=== PATIENT | male | born 1935 | race Asian ===

== ENCOUNTER 2017-07-09 16:48 | Inpatient (IN) | payer MEDICARE, OTHER ==
[~2017-07-09] VITALS: Ht 167.6 cm; Wt 59.8 kg
[2017-07-09] MEDS ORDERED: ASPIRIN 81 MG TAB PO ONE (18:30)
[2017-07-09 18:43] LABS: ABNORMAL IP MESSAGE 1; BASOPHILS % 0.1 % (0.0-2.0); EOSINOPHILS # 0.1 10^3/ul (0.0-0.5); EOSINOPHILS % 1.3 % (0.0-7.0); HEMATOCRIT 29.9 % (42.0-52.0); HEMOGLOBIN 9.6 g/dl (14.0-18.0); LYMPHOCYTES # 0.5 10^3/ul (0.8-2.9); LYMPHOCYTES % 7.2 % (15.0-51.0); MEAN CORPUSCULAR HEMOGLOBIN 29.1 pg (29.0-33.0); MEAN CORPUSCULAR HGB CONC 32.1 g/dl (32.0-37.0); MEAN CORPUSCULAR VOLUME 90.6 fl (82.0-101.0); MEAN PLATELET VOLUME 10.5 fl (7.4-10.4); MONOCYTE # 0.4 10^3/ul (0.3-0.9); MONOCYTES % 5.7 % (0.0-11.0); NEUTROPHILS % 85.2 % (39.0-77.0); PLATELET COUNT 243 10^3/UL (140-415); POSITIVE DIFF @See below; WHITE BLOOD COUNT 7.5 10^3/ul (4.8-10.8)
--- NOTE | 2017-07-09 18:54 | ERA ---
ER Documentation Chief Complaint Date/Time DATE: 07/09/17 TIME: 18:51 Chief Complaint cp x3 wks HPI 81-year-old man with a history of lung cancer treated with chemotherapy presents with chest pain or shortness of breath 3 weeks, moderate cough as well. Family members state he is also been feeling weak lately. He denies fevers he has had recent bilateral lower extremity swelling. He states the pain is sharp worse with cough, nonexertional nonradiating. Denies vomiting or diarrhea, no weight loss, no blood per rectum. ROS All systems reviewed and are negative except as per history of present illness. Medications Home Meds Reported Medications Ranolazine* (Ranexa*) 500 Mg Tab.sr.12h, 500 MG PO Q12 for ANGINA, TAB 07/09/17 Escitalopram Oxalate* (Escitalopram Oxalate*) 5 Mg/5 Ml Solution, 5 MG PO QPM, ML 07/09/17 Montelukast Sodium* (Montelukast Sodium*) 10 Mg Tablet, 10 MG PO QAM, #30 TAB 07/09/17 Clopidogrel Bisulfate* (Clopidogrel Bisulfate*) 75 Mg Tablet, 75 MG PO QAM, #30 TAB 07/09/17 Atorvastatin Calcium (Atorvastatin Calcium) 10 Mg Tablet, 10 MG PO QHS, #30 TAB 07/09/17 Carvedilol* (Carvedilol*) 3.125 Mg Tablet, 3.125 MG PO QAM, #60 TAB 07/09/17 Tamsulosin Hcl* (Tamsulosin Hcl*) 0.4 Mg Cap.er.24h, 0.4 MG PO HS, CAP 07/09/17 Midodrine* (Midodrine*) 5 Mg Tablet, 5 MG PO BID, TAB 07/09/17 Metformin* (Glucophage*) 500 Mg Tab, 500 MG PO PC BREAKFAST, #60 TAB 07/09/17 Ranitidine Hcl* (Ranitidine Hcl*) 150 Mg Tablet, 150 MG PO HS, #30 TAB 07/09/17 Digoxin* (Digitek*) 125 Mcg Tablet, 0.125 MG PO QAM, TAB 07/09/17 Ergocalciferol (Vitamin D2) (VITAMIN D2) 2,000 Unit Tablet, 2000 UNIT PO, TAB 07/09/17 Cliff-3 Fatty Acids/Fish Oil (Cliff 3 1,000 mg Softgel) 1 Each Capsule, 1 EACH PO, CAP 07/09/17 Allergies Allergies: Coded Allergies: No Known Allergy (Unverified , 07/09/17) PMhx/Soc Lung cancer, hypertension, diabetes mellitus, CAD History of Surgery: Yes (cabg 2004) Anesthesia Reaction: No Hx 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 Disorder: No Hx Respiratory Disorders: Yes (lung cancer 2006 on chemo til 2009) Hx Cardiac Disorders: Yes (CT,hld,chronic cp on ranexa,hypotension on midodrine ) Hx Psychiatric Problems: No Hx Miscellaneous Medical Probl: Yes (dm,bph) Hx Alcohol Use: No Hx Substance Use: No Hx Tobacco Use: No Smoking Status: Never smoker FmHx Family History: No diabetes Physical Exam Vitals Vital Signs Date Time Temp Pulse Resp B/P Pulse Ox O2 Delivery O2 Flow Rate FiO2 07/09/17 20:08 98.8 70 21 151/65 96 Room Air 07/09/17 17:08 98.1 76 20 138/64 99 Physical Exam GENERAL: Elderly, dehydrated man, no apparent distress, nontoxic, afebrile HEENT: Dry mucous membranes, pink conjunctiva, no cervical spine tenderness or step-off deformities, no goiter, no jaundice or icterus, extraocular movements intact without pain. No submandibular induration, and no pharyngeal erythema NEURO: Alert and oriented 3, cranial nerves II through XII intact bilaterally, pupils equal round reactive to light, no focal deficits or facial asymmetry, sensation intact distally Strength 5/5 in upper and lower extremities bilaterally CARDIAC: Regular rate and rhythm, no murmurs rubs or gallops LUNGS: Poor breath sounds bilaterally, crackles at the bases, worse on the right compared to the left ABDOMEN: Soft nontender, no guarding, no rigidity, no rebound, no psoas sign no obturator sign. Normoactive bowel sounds SKIN: Warm and dry to touch, no abrasions, contusions, or hematomas, no lacerations, no ecchymosis, no target lesions, and without ulcers EXTREMITIES: No clubbing cyanosis or edema, calves are bilaterally symmetrical, no Homans sign, no popliteal cord sign. Distal pulses equal and bilateral PSYCH: Normal affect without agitation or irritability Result Diagram: 07/09/17 1824 07/09/17 1824 Results 24 hrs Laboratory Tests Test 07/09/17 18:24 White Blood Count 7.510^3/ul Red Blood Count 3.3010^6/ul Hemoglobin 9.6g/dl Hematocrit 29.9% Mean Corpuscular Volume 90.6fl Mean Corpuscular Hemoglobin 29.1pg Mean Corpuscular Hemoglobin Concent 32.1g/dl Red Cell Distribution Width 17.0% Platelet Count 51538^3/UL Mean Platelet Volume 10.5fl Neutrophils % 85.2% Lymphocytes % 7.2% Monocytes % 5.7% Eosinophils % 1.3% Basophils % 0.1% Nucleated Red Blood Cells % 0.0/100WBC Neutrophils # (Manual) 610^3/ul Lymphocytes # 0.510^3/ul Monocytes # 0.410^3/ul Eosinophils # 0.110^3/ul Basophils # 0.010^3/ul Nucleated Red Blood Cells # 0.010^3/ul Sodium Level 138mmol/L Potassium Level 2.6mmol/L Chloride Level 93mmol/L Carbon Dioxide Level 37mmol/L Anion Gap 11 Blood Urea Nitrogen 20mg/dl Creatinine 0.60mg/dl Glucose Level 134mg/dl Calcium Level 8.5mg/dl Total Bilirubin 0.2mg/dl Direct Bilirubin 0.00mg/dl Indirect Bilirubin 0.2mg/dl Aspartate Amino Transf (AST/SGOT) 13IU/L Alanine Aminotransferase (ALT/SGPT) 23IU/L Alkaline Phosphatase 60IU/L Troponin I 0.020ng/ml B-Type Natriuretic Peptide 2510PG/ML Total Protein 6.2g/dl Albumin 3.1g/dl Globulin 3.10g/dl Albumin/Globulin Ratio 1.00 Lipase 310U/L Current Medications Medications (Trade) Dose Ordered Sig/Sari Route PRN Reason Start Time Stop Time Status Last Admin Dose Admin Aspirin (Aspirin) 324 mg ONCE ONCE PO 07/09/17 18:30 07/09/17 18:31 DC 07/09/17 18:44 Potassium Citrate 40 meq 40 meq ONCE STAT PO 07/09/17 19:11 07/09/17 19:12 Cancel Potassium Chloride 250 ml @ 62.5 mls/hr ONCE ONCE IVPB 07/09/17 19:30 07/09/17 23:29 07/09/17 20:05 Magnesium Sulfate (Magnesium Sulfate 2 Gm/50 ml) 50 ml @ 25 mls/hr ONCE ONCE IVPB 07/09/17 19:30 07/09/17 21:29 DC 07/09/17 19:40 Potassium Chloride (Klor-Con 20) 40 meq ONCE PO 07/09/17 19:30 07/09/17 22:00 DC 07/09/17 19:40 Procedures/MDM IV line was established patient was placed on surveillance monitor rhythm strip revealed a sinus rhythm at about 80 bpm. Patient was afebrile. EKG performed, read by me revealed a normal sinus rhythm at 78 bpm, normal axis , right bundle branch block with a QRS duration of 140 ms, QT prolongation at [address] elevations or depressions noted. One view chest x-ray performed, read by me as cardiomegaly and almost complete whiteout of the right lung consistent with large pleural versus malignant effusion. No pneumothorax, no end of the diaphragm. Patient received aspirin 324 mg p.o. for cardioprotective measures. CBC was unremarkable although there is mild anemia with hemoglobin of 9.6, electrolytes revealed dehydration with a BUN creatinine 20/0.6 and severe hypokalemia 2.6. Liver function tests normal, troponin negative. BNP elevated at 2500 consistent with large right pleural effusion. I administered oral and IV potassium supplementation as well as magnesium 1 g IV. Critical Care: Time: For minutes, this was time separate from other billable procedures. Treatments/Evaluations: Close monitoring and treatment of unstable vital signs, cardiorespiratory, and neurologic status, while maintaining tight balance of fluid, respiratory, and cardiac interventions. Patient admitted to telemetry setting for continued medical management and possible thoracentesis. Departure Diagnosis: Primary Impression: Chest pain Qualified Code: R07.9 - Chest pain, unspecified type Additional Impressions: Lung cancer Qualified Code: C34.31 - Malignant neoplasm of lower lobe of right lung Pleural effusion Acute hypokalemia Condition: Serious ZAID HERRERA MD Jul 09, 2017 18:52
--- NOTE | 2017-07-09 18:57 | RADRPT ---
PROCEDURE: Portable chest x-ray. CLINICAL INDICATION: 81 years of age, male. Abdominal pain. TECHNIQUE: Portable AP view of the chest. COMPARISON: None available. FINDINGS: Sternal wires and mediastinal clips from previous cardiac surgery. Atherosclerosis aorta. Enlarged cardiopericardial silhouette. There is a large right pleural effusion with pleural thickening extending over the lateral hemithora x and right lung apex with a small amount of residually aerated lung in the right mid lung zone. Th ere is near-complete opacification of the right hemithorax. There is mild patchy air space disease in the left mid and lower lung zones. Negative for left pleu ral effusion or pneumothorax. Mediastinum remain central. Bones are osteopenic. IMPRESSION: Near complete opacification of the right hemithorax due to a pleural effusion and pleural thickening . Recommend correlation with chest history. This appearance could be due to neoplasms with maligna nt pleural involvement or pleuropulmonary infections. Recommend further evaluation with chest CT or correlation with previous imaging. Patchy consolidation in the left mid and lower lung zones is concerning for aspiration or pneumonia. RPTAT: HCTS Physician Saira Date Time Electronically viewed and signed by Physician Saira on 07/09/2017 18:57 /
[2017-07-09 19:03] LABS: ALBUMIN 3.1 g/dl (3.3-4.9); BILIRUBIN,INDIRECT 0.2 mg/dl (0-1.1); BILIRUBIN,TOTAL 0.2 mg/dl (0.2-1.3); CALCIUM 8.5 mg/dl (8.4-10.2); CREATININE 0.6 mg/dl (0.61-1.24); TOTAL PROTEIN 6.2 g/dl (6.1-8.1)
[2017-07-09 19:10] LABS: POTASSIUM 2.6 mmol/L (3.5-5.1)
[2017-07-09] MEDS ORDERED: POTASSIUM CITRATE (SR) 5 MEQ TAB PO STA (19:11)
[2017-07-09 19:14] LABS: TROPONIN-I 0.02 ng/ml (0.00-0.12)
[2017-07-09] MEDS ORDERED: MAGNESIUM SULFATE 2 GM/50 ML 50 ML IVPB ONE (19:30)
[2017-07-09] MEDS ORDERED: POTASSIUM CHLORIDE 250 ML IVPB ONE (19:30)
[2017-07-09] MEDS ORDERED: POTASSIUM CHLORIDE (SR) 20 MEQ TAB PO SCH (19:30)
[2017-07-09] MEDS ORDERED: ATOR10TA65 PO (22:07)
[2017-07-09] MEDS ORDERED: TAMS0.4C2 PO (22:07)
[2017-07-09] MEDS ORDERED: RANI150T5 PO (22:07)
[2017-07-09] MEDS ORDERED: RANO500T2 PO (22:07)
[2017-07-09] MEDS ORDERED: MIDO5TAB19 PO (22:07)
[2017-07-09] MEDS ORDERED: CARV3.1260 PO (22:07)
[2017-07-09] MEDS ORDERED: CLOP75TA4 PO (22:07)
[2017-07-09] MEDS ORDERED: METF500T4 PO (22:07)
[2017-07-09] MEDS ORDERED: MONT10TA24 PO (22:07)
[2017-07-09] MEDS ORDERED: ESCI5SOL2 PO (22:07)
[2017-07-09] MEDS ORDERED: DIGO125T PO (22:07)
[2017-07-09] MEDS ORDERED: OMEG1CAP90 PO (22:07)
[2017-07-09] MEDS ORDERED: ERGO2000 PO (22:07)
[2017-07-09] MEDS ORDERED: DOCUSATE SODIUM 100 MG CAP PO PRN (23:30)
[2017-07-09] MEDS ORDERED: NACL 0.9% 3 ML SYG IV SCH (23:30)
[2017-07-09] MEDS ORDERED: MAGNESIUM HYDROXIDE 30ML CUP PO PRN (23:30)
[2017-07-09] MEDS ORDERED: ONDANSETRON 4 MG INJ IV PRN (23:30)
[2017-07-10] VITALS (14 sets, daily range): BP systolic 112–180; BP diastolic 60–89; PULSE 72–113; RESP 18–20; TEMP 99.6; Ht 167.6 cm; Wt 59.8 kg
[2017-07-10] MEDS: NS + KCL 20 MEQ 1,000 ML IV SCH ×2 (03:11→19:23)
[2017-07-10 07:35] LABS: ABNORMAL IP MESSAGE 1; BASOPHILS % 0.3 % (0.0-2.0); EOSINOPHILS % 0.5 % (0.0-7.0); HEMOGLOBIN 8.5 g/dl (14.0-18.0); LYMPHOCYTES # 0.5 10^3/ul (0.8-2.9); LYMPHOCYTES % 6.8 % (15.0-51.0); MEAN CORPUSCULAR HEMOGLOBIN 28.2 pg (29.0-33.0); MEAN CORPUSCULAR HGB CONC 31.5 g/dl (32.0-37.0); MEAN CORPUSCULAR VOLUME 89.7 fl (82.0-101.0); MEAN PLATELET VOLUME 10.5 fl (7.4-10.4); MONOCYTE # 0.5 10^3/ul (0.3-0.9); MONOCYTES % 6.8 % (0.0-11.0); NEUTROPHILS % 84.9 % (39.0-77.0); PLATELET COUNT 227 10^3/UL (140-415); POSITIVE DIFF @See below; RED BLOOD COUNT 3.01 10^6/ul (4.70-6.10); RED CELL DISTRIBUTION WIDTH 17.2 % (11.5-14.5); WHITE BLOOD COUNT 7.5 10^3/ul (4.8-10.8)
[2017-07-10 08:31] LABS: IRON 22 ug/dl (35-150)
[2017-07-10 08:41] LABS: TOTAL IRON BINDING CAPACITY 161 ug/dl (241-421)
[2017-07-10 08:43] LABS: ALBUMIN 2.6 g/dl (3.3-4.9); ALBUMIN/GLOBULIN RATIO 0.96; BILIRUBIN,INDIRECT 0.3 mg/dl (0-1.1); BILIRUBIN,TOTAL 0.3 mg/dl (0.2-1.3); CALCIUM 7.6 mg/dl (8.4-10.2); CREATININE 0.5 mg/dl (0.61-1.24); MAGNESIUM 1.8 mg/dl (1.7-2.5); TOTAL PROTEIN 5.3 g/dl (6.1-8.1)
[2017-07-10 08:53] LABS: POTASSIUM 2.8 mmol/L (3.5-5.1)
[2017-07-10] MEDS: FAMOTIDINE 20 MG TAB PO SCH ×2 (08:54→20:44)
[2017-07-10 09:02] LABS: THYROID STIMULATING HORMONE 0.577 MIU/L (0.465-4.680)
[2017-07-10] MEDS: ENOXAPARIN 40 MG/0.4 ML SYG SC SCH (09:05)
[2017-07-10] MEDS ORDERED: POTASSIUM CHLORIDE (SR) 10 MEQ TAB PO ONE (09:30)
[2017-07-10 09:37] LABS: FOLATE 8.9 ng/ml (2.8-20.0)
[2017-07-10] MEDS ORDERED: POTASSIUM CHLORIDE 30 MEQ in SOD CHLORIDE 0.9% 150 ML IVPB SCH (11:30)
[2017-07-10] MEDS ORDERED: BISACODYL 10 MG SUPP PR PRN (12:00)
[2017-07-10] MEDS ORDERED: PANTOPRAZOLE (EC) 40 MG TAB PO ONE (14:00)
[2017-07-10] MEDS: MONTELUKAST 10 MG TAB PO SCH (14:00)
[2017-07-10] MEDS ORDERED: Discontinue current oral sulfonylureas (glyburide, glipizide, and/or glimepiride) prior to XX ONE (14:00)
[2017-07-10] MEDS ORDERED: HYPOGLYCEMIA PROTOCOL when Glucose is <70 mg/dL or symptomatic <90 mg/dL. XX ONE (14:00)
[2017-07-10] MEDS: CLOPIDOGREL 75 MG TAB PO SCH (14:00)
[2017-07-10] MEDS: DIGOXIN 0.125 MG TAB PO SCH (14:00)
[2017-07-10] MEDS ORDERED: FISH OIL 1,000 MG CAP PO ONE (14:00)
--- NOTE | 2017-07-10 14:00 | HP ---
Date/Time of Note Date/Time of Note DATE: 07/10/17 TIME: 13:14 Assessment/Plan VTE Prophylaxis VTE Prophylaxis Intervention: LMWH Lines/Catheters IV Catheter Type (from Nrsg): Peripheral IV Assessment/Plan Assessment/Plan -Chest pain- no chest pain at present, shows PVCs -Admit to telemetry -Cardiology consult Dr. Santana Tran notified -Resume home meds --Pleural effusion -Pulmonary consult obtained - Hypokalemia severe- K replated. am BMP Malignant neoplasm of lower lobe of right lung -Pain control. We will get pain management if pain is not controlled -Anemia -GI consult Dr. Delgado notified -Diabetes mellitus -Glycemic control -1800 cash low-sodium low-cholesterol diet -We will do hemoglobin A1c am -Dietary consult -manager home consult -Benign prostate hypertrophy -Continue Flomax Lovenox for DVT prophylaxis Protonix for GI prophylaxis Further recommendations depend on patient's clinical course . plan of care discussed with Dr. Morrissey, staff HPI/ROS Admit Date/Time Admit Date/Time Jul 09, 2017 at 19:15 Hx of Present Illness HPI This is a 81-year-old man with a history of lung cancer 2007 on chemo til 2009 hypertension, diabetes mellitus, CAD, SP CABG 2004, [place], Hyperlipidemia, chronic chest pain, Hypotension on midodrine, Diabetes Mellitus, BPH is admitted with chest pain and shortness of breath 3 weeks, moderate cough as well, generalized weakness, He denied fevers he has had recent bilateral lower extremity swelling. He states the pain is sharp worse with cough, nonexertional nonradiating. Denies chest pain, shortness of breath, vomiting or diarrhea, no weight loss, no blood per rectum. Patient is resting in bed, seems comfortable. Dr Morrissey is the admitting and attending provider, ROS All systems reviewed and are negative except as per history of present illness. ROS ROS All systems reviewed and are negative except as per history of present illness. Allergies No Known Allergy (Unverified , 07/09/17) Respiratory: no complaints Cardiovascular: no complaints Gastrointestinal: no complaints Genitourinary: no complaints Musculoskeletal: no complaints Skin: no complaints Neurologic: no complaints PMH/Family/Social Past Medical History PMhx/Soc Lung cancer, hypertension, diabetes mellitus, CAD History of Surgery: Yes (cabg 2004) Anesthesia Reaction: No Hx 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 Disorder: No Hx Respiratory Disorders: Yes (lung cancer 2007 on chemo til 2009) Hx Cardiac Disorders: Yes ([place],hld,chronic cp on ranexa,hypotension on midodrine ) Hx Psychiatric Problems: No Hx Miscellaneous Medical Probl: Yes (dm,bph) Hx Alcohol Use: No Hx Substance Use: No Hx Tobacco Use: No Smoking Status: Never smoker FmHx Family History: No diabetes Social History Smoking Status: Never smoker Exam/Review of Systems Vital Signs Vitals Vital Signs Date Time Temp Pulse Resp B/P Pulse Ox O2 Delivery O2 Flow Rate FiO2 07/10/17 12:06 73 07/10/17 11:08 97.7 18 140/67 94 07/10/17 02:49 Room Air Intake and Output 07/09/17 07/09/17 07/10/17 15:00 23:00 07:00 Intake Total 50 ml 580 ml Output Total 400 ml Balance 50 ml 180 ml Exam Constitutional: alert, oriented, well developed Respiratory: diminished breath sounds Cardiovascular: other (sinus Bundle branch, PVCs), regular rate and rhythm Gastrointestinal: non-tender, soft Musculoskeletal: nl extremities to inspection Extremities: normal pulses 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: nl mental status, nl speech Labs Result Diagram: 07/10/1751 07/10/17 0651 Medications Medications Current Medications Potassium Chloride/Sodium Chloride (NS-KCl 20 Meq) 1,000 ml @ 70 mls/hr [id number] IV Last administered on 07/10/17t 03:11; Admin Dose 70 MLS/HR; Start at 00:00 Ondansetron HCl (Zofran Inj) 4 mg Q6H PRN IV NAUSEA AND/OR VOMITING; Start at 23:30 Acetaminophen (Tylenol Tab) 650 mg Q6H PRN PO PAIN LEVEL 1-3 OR FEVER; Start at 23:30 Acetaminophen/ Hydrocodone Bitart ([place] (5/325)) 1 tab Q6H PRN PO MODERATE PAIN LEVEL 4-6; Start 07/09/17 at 23:30 Morphine Sulfate (morphine) 2 mg Q4H PRN IV SEVERE PAIN LEVEL 7-10; Start 07/09 at 23:30 Docusate Sodium (Colace) 100 mg Q12H PRN PO CONSTIPATION; Start 07/09/17 at 23: 30 Magnesium Hydroxide (Milk Of Mag) 30 ml DAILY PRN PO CONSTIPATION; Start at 23:30 Bisacodyl (Dulcolax) 5 mg DAILY PRN PO CONSTIPATION; Start 07/09/17 at 23:30 Zolpidem Tartrate (Ambien) 5 mg QHS PRN PO SLEEP; Start 07/09/17 at 23:30 Famotidine (Pepcid) 20 mg Q12 PO Last administered on 07/10/17 08:54; Admin Dose 20 MG; Start 07/10/17 at 09:00 Enoxaparin Sodium 40 mg 40 mg DAILY SC Last administered on 07/10/17 09:05; Admin Dose 40 MG; Start 07/10/17 at 09:00 Potassium Chloride/Sodium Chloride (KCl/NS) 165 ml @ 55 mls/hr ONCE IVPB Last administered on 07/10/17 12:56; Admin Dose 55 MLS/HR; Start 07/10/17 at 11:30; Stop 07/10/17 at 14:29 Bisacodyl (Dulcolax Supp) 10 mg Q48H PRN ID CONSTIPATION Last administered on 13:06; Admin Dose 10 MG; Start 07/10/17 at 12:00 VA ALTMAN Jul 10, 2017 13:30 Famotidine (Pepcid) 20 mg Q12 PO Last administered on 07/10/17 08:54; Admin Dose 20 MG; Start 07/10/17 at 09:00 Enoxaparin Sodium 40 mg 40 mg DAILY SC Last administered on 07/10/17 09:05; Admin Dose 40 MG; Start 07/10/17 at 09:00 Potassium Chloride/Sodium Chloride (KCl/NS) 165 ml @ 55 mls/hr ONCE IVPB Last administered on 07/10/17 12:56; Admin Dose 55 MLS/HR; Start 07/10/17 at 11:30; Stop 07/10/17 at 14:29 Bisacodyl (Dulcolax Supp) 10 mg Q48H PRN ID CONSTIPATION Last administered on 13:06; Admin Dose 10 MG; Start 07/10/17 at 12:00 VA ALTMAN Jul 10, 2017 13:30
[2017-07-10] MEDS ORDERED: GLUCOSE GEL 15 GRAM TUBE PO PRN ×2 (15:00)
[2017-07-10] MEDS ORDERED: GLUCAGON 1 MG INJ IM PRN (15:00)
[2017-07-10] MEDS ORDERED: DEXTROSE 50% 50 ML SYRINGE IV PRN ×2 (15:00)
[2017-07-10] MEDS ORDERED: GLUCOSE GEL 15 GRAM TUBE BUCCAL PRN (15:00)
[2017-07-10 15:45] LABS: CALCIUM 7.6 mg/dl (8.4-10.2); CREATININE 0.47 mg/dl (0.61-1.24); POTASSIUM 3.4 mmol/L (3.5-5.1)
[2017-07-10] MEDS: INSULIN ASPART [NOVOLOG] 3 ML PEN SC SCH ×3 (17:25→20:46)
[2017-07-10] MEDS ORDERED: INSULIN ASPART [NOVOLOG] 3 ML PEN SC SCH (17:55)
[2017-07-10] MEDS: CHOLECALCIFEROL 2,000 UNIT CAP PO SCH (19:23)
[2017-07-10] MEDS: TAMSULOSIN (SR) 0.4 MG CAP PO SCH (20:44)
[2017-07-10] MEDS: MIDODRINE 5 MG TAB PO SCH (20:44)
[2017-07-10] MEDS: RANOLAZINE (SR) 500 MG TAB PO SCH (20:44)
[2017-07-10] MEDS: ATORVASTATIN 10 MG TAB PO SCH (20:44)
[2017-07-10] MEDS: RANITIDINE 150 MG TAB PO SCH (20:50)
[2017-07-11] VITALS (11 sets, daily range): BP systolic 138–154; BP diastolic 61–78; PULSE 73–94; RESP 18–19
--- NOTE | 2017-07-11 01:02 | RADRPT ---
PROCEDURE: US bilateral lower extremity venous Doppler CLINICAL INDICATION: Bilateral swelling TECHNIQUE: Multiple sonographic images of the bilateral lower extremity deep venous system was obt ained utilizing grayscale, color-flow, compressive sonography and Doppler imaging with augmentation. COMPARISON: There are no similar studies submitted for comparison. FINDINGS: There is normal compressibility and flow within the left common femoral, superficial femoral, poplit eal, and calf veins. There is normal compressibility and flow within the right common femoral, superficial femoral, popli teal, and calf veins. IMPRESSION: No evidence of DVT within the lower extremities. RPTAT: HIKT .Olegario De La Rosa MD, MD Date Time Electronically viewed and signed by .Olegario De La Rosa MD, MD on 07/11/2017 01:02 .T/
[2017-07-11] MEDS: ACCU-CHEK XX SCH (01:43)
[2017-07-11 01:53] LABS: CHOL/HDL RATIO 4.9 RATIO
[2017-07-11] MEDS ORDERED: ACCU-CHEK XX SCH (02:00)
[2017-07-11] MEDS: INSULIN ASPART [NOVOLOG] 3 ML PEN SC SCH ×6 (02:00→16:38)
[2017-07-11] MEDS: NS + KCL 20 MEQ 1,000 ML IV SCH (04:37)
[2017-07-11] MEDS: PANTOPRAZOLE (EC) 40 MG TAB PO SCH (05:24)
[2017-07-11 07:07] LABS: BASOPHILS % 0.4 % (0.0-2.0); EOSINOPHILS # 0.1 10^3/ul (0.0-0.5); EOSINOPHILS % 1.8 % (0.0-7.0); HEMOGLOBIN 9.2 g/dl (14.0-18.0); LYMPHOCYTES # 0.6 10^3/ul (0.8-2.9); LYMPHOCYTES % 11.8 % (15.0-51.0); MEAN CORPUSCULAR HEMOGLOBIN 28.5 pg (29.0-33.0); MEAN CORPUSCULAR HGB CONC 31.7 g/dl (32.0-37.0); MEAN CORPUSCULAR VOLUME 89.8 fl (82.0-101.0); MEAN PLATELET VOLUME 10.5 fl (7.4-10.4); MONOCYTE # 0.6 10^3/ul (0.3-0.9); MONOCYTES % 10.7 % (0.0-11.0); NEUTROPHILS % 74.4 % (39.0-77.0); PLATELET COUNT 227 10^3/UL (140-415); RED BLOOD COUNT 3.23 10^6/ul (4.70-6.10); RED CELL DISTRIBUTION WIDTH 16.9 % (11.5-14.5); WHITE BLOOD COUNT 5.4 10^3/ul (4.8-10.8)
[2017-07-11 07:25] LABS: ALBUMIN 2.4 g/dl (3.3-4.9); BILIRUBIN,INDIRECT 0.3 mg/dl (0-1.1); BILIRUBIN,TOTAL 0.3 mg/dl (0.2-1.3); TOTAL PROTEIN 5.3 g/dl (6.1-8.1)
[2017-07-11 07:54] LABS: THYROID STIMULATING HORMONE 2.14 MIU/L (0.465-4.680)
[2017-07-11] MEDS: CLOPIDOGREL 75 MG TAB PO SCH (08:16)
[2017-07-11] MEDS: LINAGLIPTIN 5 MG TABLET PO SCH (08:16)
[2017-07-11] MEDS: RANOLAZINE (SR) 500 MG TAB PO SCH ×2 (08:16→21:48)
[2017-07-11] MEDS: MONTELUKAST 10 MG TAB PO SCH (08:16)
--- NOTE | 2017-07-11 08:16 | PN ---
Date/Time of Note Date/Time of Note DATE: 07/11/17 TIME: 08:11 Assessment/Plan VTE Prophylaxis VTE Prophylaxis Intervention: SCD's Lines/Catheters IV Catheter Type (from Nrsg): Peripheral IV Assessment/Plan Assessment/Plan -Chest paiin -PVCs --Pleural effusion - Hypokalemia Malignant neoplasm of lower lobe of right lung DM -Hx of orthostasis -Elevated BNP -low likelihood of ACS, with atypical chest pain, no ekg changes, normal trops -continue cv meds -add acei due to hx of cabg -conservative therapy best for this patient for hsi CAD -elevated BNP probably due to lung disease -pulmonary o be involvd due to pleural effusion - possible chest ultrasound --continue midodrine Subjective 24 Hr Interval Summary Free Text/Dictation This is a 81-year-old man with a history of lung cancer 2006 on chemo til 2009 hypertension, diabetes mellitus, CAD, SP CABG 2004, [place], Hyperlipidemia, chronic chest pain, Hypotension on midodrine, Diabetes Mellitus, BPH is admitted with chest pain and shortness of breath 3 weeks, moderate cough as well, generalized weakness, He denied fevers he has had recent bilateral lower extremity swelling. He states the pain is sharp worse with cough, nonexertional nonradiating. Denies chest pain, shortness of breath, vomiting or diarrhea, no weight loss, no blood per rectum. His at bedside and his cehst pain has been vairly atypoical, no exertional symtpoms and presneted with an elevated BNP as well as a pleural effusion Exam/Review of Systems Vital Signs Vitals Vital Signs Date Time Temp Pulse Resp B/P Pulse Ox O2 Delivery O2 Flow Rate FiO2 07/11/17 07:34 98.4 79 19 154/61 98 07/10/17 20:00 Nasal Cannula 2.0 Intake and Output 07/10/17 07/10/17 07/11/17 15:00 23:00 07:00 Intake Total 1200 ml 1270 ml Output Total 650 ml 450 ml Balance 550 ml 820 ml Results Result Diagram: 07/11/17 0614 07/10/17 1421 Results 24 hrs Laboratory Tests Test 07/10/17 08:52 07/10/17 14:21 07/10/17 18:11 07/10/17 20:41 Bedside Glucose 102 141 183 Sodium Level 136 Potassium Level 3.4 L Chloride Level 96 L Carbon Dioxide Level 30 Anion Gap 13 Blood Urea Nitrogen 14 Creatinine 0.47 L Glucose Level 181 Calcium Level 7.6 L Test 07/11/17 00:54 07/11/17 01:42 07/11/17 06:14 B-Type Natriuretic Peptide 5060 H Triglycerides Level 85 Cholesterol Level 119 LDL Cholesterol, Calculated 78 HDL Cholesterol 24 L Cholesterol/HDL Ratio 4.9 Bedside Glucose 146 White Blood Count 5.4 # Red Blood Count 3.23 L Hemoglobin 9.2 L Hematocrit 29.0 L Mean Corpuscular Volume 89.8 Mean Corpuscular Hemoglobin 28.5 L Mean Corpuscular Hemoglobin Concent 31.7 L Red Cell Distribution Width 16.9 H Platelet Count 227 Mean Platelet Volume 10.5 H Neutrophils % 74.4 Lymphocytes % 11.8 L Monocytes % 10.7 Eosinophils % 1.8 Basophils % 0.4 Nucleated Red Blood Cells % 0.0 Neutrophils # (Manual) 4.0 Lymphocytes # 0.6 L Monocytes # 0.6 Eosinophils # 0.1 Basophils # 0.0 Nucleated Red Blood Cells # 0.0 Hemoglobin A1c 6.9 H Total Bilirubin 0.3 Direct Bilirubin 0.00 Indirect Bilirubin 0.3 Aspartate Amino Transf (AST/SGOT) 13 L Alanine Aminotransferase (ALT/SGPT) 21 Alkaline Phosphatase 54 Total Protein 5.3 L Albumin 2.4 L Thyroid Stimulating Hormone (TSH) Pending Free Thyroxine 1.56 Medications Medications Current Medications Potassium Chloride/Sodium Chloride (NS-KCl 20 Meq) 1,000 ml @ 70 mls/hr [id number] IV Last administered on 07/11/17t 04:37; Admin Dose 70 MLS/HR; Start at 00:00 Ondansetron HCl (Zofran Inj) 4 mg Q6H PRN IV NAUSEA AND/OR VOMITING; Start at 23:30 Acetaminophen (Tylenol Tab) 650 mg Q6H PRN PO PAIN LEVEL 1-3 OR FEVER; Start at 23:30 Acetaminophen/ Hydrocodone Bitart ([place] (5/325)) 1 tab Q6H PRN PO MODERATE PAIN LEVEL 4-6; Start 07/09/17 at 23:30 Morphine Sulfate (morphine) 2 mg Q4H PRN IV SEVERE PAIN LEVEL 7-10; Start 07/09 at 23:30 Docusate Sodium (Colace) 100 mg Q12H PRN PO CONSTIPATION; Start 07/09/17 at 23: 30 Magnesium Hydroxide (Milk Of Mag) 30 ml DAILY PRN PO CONSTIPATION; Start at 23:30 Bisacodyl (Dulcolax) 5 mg DAILY PRN PO CONSTIPATION; Start 07/09/17 at 23:30 Zolpidem Tartrate (Ambien) 5 mg QHS PRN PO SLEEP; Start 07/09/17 at 23:30 Famotidine (Pepcid) 20 mg Q12 PO Last administered on 07/10/17 20:44; Admin Dose 20 MG; Start 07/10/17 at 09:00 Enoxaparin Sodium (Lovenox) 40 mg DAILY SC Last administered on 07/10/17 09:05 ; Admin Dose 40 MG; Start 07/10/17 at 09:00 Bisacodyl (Dulcolax Supp) 10 mg Q48H PRN IN CONSTIPATION Last administered on 13:06; Admin Dose 10 MG; Start 07/10/17 at 12:00 Atorvastatin Calcium (Lipitor) 10 mg QHS PO Last administered on 07/10/17 20: 44; Admin Dose 10 MG; Start 07/10/17 at 21:00 Carvedilol (Coreg) 3.125 mg QAM PO Last administered on 07/10/17 14:00; Admin Dose 3.125 MG; Start 07/10/17 at 14:00 Clopidogrel Bisulfate (plaVIX) 75 mg QAM PO Last administered on 07/10/17 14: 00; Admin Dose 75 MG; Start 07/10/17 at 14:00 Digoxin (Digoxin) 0.125 mg QAM PO Last administered on 07/10/17 14:00; Admin Dose 0.125 MG; Start 07/10/17 at 14:00 Midodrine (Proamatine) 5 mg BID PO ; Start 07/10/17 at 21:00 Montelukast Sodium (Singulair) 10 mg QAM PO ; Start 07/10/17 at 14:00 Ranitidine HCl (Zantac) 150 mg HS PO Last administered on 07/10/17 20:50; Admin Dose 150 MG; Start 07/10/17 at 21:00 Ranolazine (Ranexa) 500 mg Q12 PO Last administered on 07/10/17 20:44; Admin Dose 500 MG; Start 07/10/17 at 21:00 Tamsulosin HCl (Flomax) 0.4 mg HS PO Last administered on 07/10/17 20:44; Admin Dose 0.4 MG; Start 07/10/17 at 21:00 Cholecalciferol (Vitamin D) 2,000 unit DAILY PO Last administered on 07/10/17 19:23; Admin Dose 2,000 UNIT; Start 07/10/17 at 14:00 Escitalopram Oxalate (Lexapro) 5 mg QPM PO ; Start 07/11/17 at 09:00 Pantoprazole (Protonix Tab) 40 mg DAILY@06 PO Last administered on 07/11/17 05 :24; Admin Dose 40 MG; Start 07/11/17 at 06:00 Diagnostic Test (Pha) (Accu-Chek) 1 ea 02 XX ; Start 07/11/17 at 02:00 Miscellaneous Information 1 ea NOTE XX ; Start 07/10/17 at 15:00 Glucose (Glutose) 15 gm Q15M PRN PO DECREASED GLUCOSE; Start 07/10/17 at 15:00 Glucose (Glutose) 22.5 gm Q15M PRN PO DECREASED GLUCOSE; Start 07/10/17 at 15: 00 Dextrose (D50w Syringe) 25 ml Q15M PRN IV DECREASED GLUCOSE; Start 07/10/17 at 15:00 Dextrose (D50w Syringe) 50 ml Q15M PRN IV DECREASED GLUCOSE; Start 07/10/17 at 15:00 Glucagon (Glucagen) 1 mg Q15M PRN IM DECREASED GLUCOSE; Start 07/10/17 at 15:00 Glucose (Glutose) 15 gm Q15M PRN BUCCAL DECREASED GLUCOSE; Start 07/10/17 at 15 :00 Linagliptin (Tradjenta) 5 mg DAILY PO ; Start 07/11/17 at 09:00 MELLISA SMALLS MD Jul 11, 2017 08:16
[2017-07-11] MEDS: MIDODRINE 5 MG TAB PO SCH ×2 (08:17→21:00)
[2017-07-11] MEDS: DIGOXIN 0.125 MG TAB PO SCH (08:17)
[2017-07-11] MEDS: CHOLECALCIFEROL 2,000 UNIT CAP PO SCH (08:17)
[2017-07-11] MEDS: FAMOTIDINE 20 MG TAB PO SCH ×2 (08:17→21:51)
[2017-07-11] MEDS: ENOXAPARIN 40 MG/0.4 ML SYG SC SCH (08:18)
[2017-07-11] MEDS: ESCITALOPRAM 10 MG TAB PO SCH ×2 (08:21→21:48)
--- NOTE | 2017-07-11 08:23 | RADRPT ---
Echocardiogram Report Patient Name: ÁNGEL ESCOBAR Gender: Male Date: 1935 Study Date: 10-Jul-2017 Weight Training Instructor: Iman Harvey [facility] Location: [address] Ref. Physician: RUIZ GRAJEDA Quality: Good Procedures: Transthoracic echocardiogram with complete 2D, M-Mode, and doppler examination. Indications: cancer lung. 2D/M Mode Doppler Measurement Value Normal Ranges Measurement Value Normal Ranges LVIDd 2D 4.0 3.5 - 5.6 cm AV Peak Tony 1.0 m/sec LVIDs 2D 2.6 2.1 - 4.1 cm AV Peak PG 4.1 mmHg LVPWd 2D 1.2 0.6 - 1.1 cm MV E Peak Tony 0.8 m/sec IVSd 2D 1.3 0.6 - 1.1 cm MV A Peak Tony 1.2 m/sec AoR Diam 2D 3.1 2.0 - 3.7 cm MV E/A 0.7 EDV 2D 68.9 cm3 MV Decel Time 170 msec ESV 2D 16.9 cm3 MV Decel [place] 5 LA Dimen 2D 3.0 2.3 - 4.0 cm MV E/A 0.7 TR Peak Tony 3.3 m/sec TR Peak PG 42.6 mmHg RVSP 51.0 mmHg Findings Left Ventricle: Normal left ventricular systolic function. Normal left ventricular cavity size. Mild concentric left ventricular hypertrophy. Ejection fraction is visually estimated at 50 %. Tissue Doppler/Mitral Doppler indices are consistent with impaired relaxation (Stage I diastolic dysfunction). Right Ventricle: Normal right ventricular size. Normal right ventricular systolic function. Left Atrium: The left atrium is normal in size. Right Atrium: The right atrium is normal in size. Mitral Valve: Normal appearance and function of the mitral valve with trace physiologic regurgitation. Aortic Valve: No significant aortic stenosis or insufficiency. Aortic cusps appear mildly calcified. Tricuspid Valve: Normal appearance of the tricuspid valve. Estimated peak PA systolic pressure 51 mmHg. There is mild tricuspid regurgitation. Pulmonic Valve: Normal pulmonic valve appearance. Pericardium: Normal pericardium with no significant pericardial effusion. Aorta: Normal aortic root. IVC: Normal size and normal respiratory collapse consistent with normal right atrial pressure. Conclusions 1.Normal left ventricular systolic function. Normal left ventricular cavity size. Mild concentric left ventricular hypertrophy. Ejection fraction is visually estimated at 50 %. Tissue Doppler/Mitral Doppler indices are consistent with impaired relaxation (Stage I diastolic dysfunction). 2.Normal right ventricular size. Normal right ventricular systolic function. 3.The left atrium is normal in size. 4.Normal appearance and function of the mitral valve with trace physiologic regurgitation. 5.No significant aortic stenosis or insufficiency. Aortic cusps appear mildly calcified. 6.Normal size and normal respiratory collapse consistent with normal right atrial pressure. Electronically Signed By: Deshawn Franklin 11-Jul-2017 08:23:07 -0700 Patient Name: ÁNGEL ESCOBAR Study Date: 10-Jul-2017 [id number]
[2017-07-11 08:44] LABS: CALCIUM 7.8 mg/dl (8.4-10.2); CREATININE 0.47 mg/dl (0.61-1.24); POTASSIUM 3.1 mmol/L (3.5-5.1)
[2017-07-11] MEDS ORDERED: metFORMIN 500 MG TAB PO SCH (08:55)
[2017-07-11] MEDS ORDERED: ESCITALOPRAM 10 MG TAB PO SCH (09:00)
--- NOTE | 2017-07-11 10:18 | CONS ---
Date/Time of Note Date/Time of Note DATE: 07/11/17 TIME: 10:11 Assessment/Plan Assessment/Plan Additional Assessment/Plan Chest x-ray was reviewed from of this month which is showing extensive opacification of the right lung with very few areas of irritation involving the right upper lobe. Findings are consistent with pleural thickening, as well as possibly right loculated pleural effusion. Assessment recommendations; 1. Patient admitted with shortness of breath likely on account of right lung malignancy with possibly trapped lung with likely superimposed pleural effusion which may be loculated. 2. Currently no suspicion of pneumonia. 3. Multiple other comorbidities including history of CABG, diabetes, hypertension. Obtain CT scan of chest without contrast. Once the CT imaging is done I will review it and make further recommendations. The patient may require arthrocentesis. Consultation Date/Type/Reason Admit Date/Time Jul 09, 2017 at 19:15 Date of Consultation: Jul 11, 2017 Type of Consultation: Pulmonary Reason for Consultation Pulmonary consultation requested for evaluation of shortness of breath. History of presenting illness; patient is a pleasant 81-year-old oriental gentleman who was admitted on the of this month with complaints of shortness of breath going on for the last few days prior to presentation. Upon evaluation a chest x-ray was done which is showing what appears to be right pleural effusion with possibly some element of trapped lung with pleural thickening. The patient does have a history of right lung cancer status post chemotherapy in 2006. Patient is feeling better since admission denies any chest pain, coughing, wheezing. Any hemoptysis. Next Past medical history; 1. Patient with history of right lung cancer status post treatment until 2009. 2. History of CABG. 3. History of hypertension as well as hypotension. 4. Diabetes. 5. BPH. Medications; reviewed. Allergies; none. Social history; denies any history of smoking. Family history; patient is . He does not have any children. 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 Review of systems; denies any headache, seizures. Denies any chest pain. Shortness of breath has improved. Denies any nausea or vomiting. Denies any abdominal pain. Has lost some weight. Please orthopnea complains of chronic lower extremity edema. Denies any coughing or hemoptysis. General exam; elderly male, awake and alert ,currently in no distress. Respiratory: no complaints Cardiovascular: no complaints Gastrointestinal: no complaints Genitourinary: no complaints Musculoskeletal: no complaints Skin: no complaints Neurologic: no complaints Social History Smoking Status: Never smoker Exam/Review of Systems Vital Signs Vitals Vital Signs Date Time Temp Pulse Resp B/P Pulse Ox O2 Delivery O2 Flow Rate FiO2 07/11/17 08:12 76 07/11/17 07:34 98.4 19 154/61 98 07/10/17 20:00 Nasal Cannula 2.0 Intake and Output 07/10/17 07/10/17 07/11/17 15:00 23:00 07:00 Intake Total 1200 ml 1270 ml Output Total 650 ml 450 ml Balance 550 ml 820 ml Exam HEENT exam; supple neck, no JVD. No lymphadenopathy. Midline trachea. No thyromegaly. Patient has few remaining teeth. Pupils are small bilaterally. No neck masses. Chest exam; diminished breath sounds right lung. Left lung is fairly clear to auscultation. There is a well-healed sternal scar. S1-S2 audible, no murmurs. Regular rhythm. Abdomen exam; soft, nontender. No organomegaly. Bowel sounds audible. Extremity exam; trace pedal edema bilaterally. No clubbing. Pulses 1+ bilaterally. TOOL/DIE MAKER exam; no focal deficit. Results Result Diagram: 07/11/17 0614 07/11/17 0618 Results 24 hrs Laboratory Tests Test 07/10/17 14:21 07/10/17 18:11 07/10/17 20:41 07/11/17 00:54 Sodium Level 136 Potassium Level 3.4 L Chloride Level 96 L Carbon Dioxide Level 30 Anion Gap 13 Blood Urea Nitrogen 14 Creatinine 0.47 L Glucose Level 181 Calcium Level 7.6 L Bedside Glucose 141 183 B-Type Natriuretic Peptide 5060 H Triglycerides Level 85 Cholesterol Level 119 LDL Cholesterol, Calculated 78 HDL Cholesterol 24 L Cholesterol/HDL Ratio 4.9 Test 07/11/17 01:42 07/11/17 06:14 07/11/17 06:18 07/11/17 08:14 Bedside Glucose 146 171 White Blood Count 5.4 # Red Blood Count 3.23 L Hemoglobin 9.2 L Hematocrit 29.0 L Mean Corpuscular Volume 89.8 Mean Corpuscular Hemoglobin 28.5 L Mean Corpuscular Hemoglobin Concent 31.7 L Red Cell Distribution Width 16.9 H Platelet Count 227 Mean Platelet Volume 10.5 H Neutrophils % 74.4 Lymphocytes % 11.8 L Monocytes % 10.7 Eosinophils % 1.8 Basophils % 0.4 Nucleated Red Blood Cells % 0.0 Neutrophils # (Manual) 4.0 Lymphocytes # 0.6 L Monocytes # 0.6 Eosinophils # 0.1 Basophils # 0.0 Nucleated Red Blood Cells # 0.0 Hemoglobin A1c 6.9 H Total Bilirubin 0.3 Direct Bilirubin 0.00 Indirect Bilirubin 0.3 Aspartate Amino Transf (AST/SGOT) 13 L Alanine Aminotransferase (ALT/SGPT) 21 Alkaline Phosphatase 54 Total Protein 5.3 L Albumin 2.4 L Thyroid Stimulating Hormone (TSH) 2.140 Free Thyroxine 1.56 Sodium Level 141 Potassium Level 3.1 L Chloride Level 100 Carbon Dioxide Level 30 Anion Gap 14 Blood Urea Nitrogen 10 Creatinine 0.47 L Glucose Level 113 # Calcium Level 7.8 L Medications Medications Current Medications Potassium Chloride/Sodium Chloride (NS-KCl 20 Meq) 1,000 ml @ 70 mls/hr [id number] IV Last administered on 07/11/17t 04:37; Admin Dose 70 MLS/HR; Start at 00:00 Ondansetron HCl (Zofran Inj) 4 mg Q6H PRN IV NAUSEA AND/OR VOMITING; Start at 23:30 Acetaminophen (Tylenol Tab) 650 mg Q6H PRN PO PAIN LEVEL 1-3 OR FEVER; Start at 23:30 Acetaminophen/ Hydrocodone Bitart ([place] (5/325)) 1 tab Q6H PRN PO MODERATE PAIN LEVEL 4-6; Start 07/09/17 at 23:30 Morphine Sulfate (morphine) 2 mg Q4H PRN IV SEVERE PAIN LEVEL 7-10; Start 07/09 at 23:30 Docusate Sodium (Colace) 100 mg Q12H PRN PO CONSTIPATION; Start 07/09/17 at 23: 30 Magnesium Hydroxide (Milk Of Mag) 30 ml DAILY PRN PO CONSTIPATION; Start at 23:30 Bisacodyl (Dulcolax) 5 mg DAILY PRN PO CONSTIPATION; Start 07/09/17 at 23:30 Zolpidem Tartrate (Ambien) 5 mg QHS PRN PO SLEEP; Start 07/09/17 at 23:30 Famotidine (Pepcid) 20 mg Q12 PO Last administered on 07/11/17 08:17; Admin Dose 20 MG; Start 07/10/17 at 09:00 Enoxaparin Sodium (Lovenox) 40 mg DAILY SC Last administered on 07/11/17 08:18 ; Admin Dose 40 MG; Start 07/10/17 at 09:00 Bisacodyl (Dulcolax Supp) 10 mg Q48H PRN [place] CONSTIPATION Last administered on 13:06; Admin Dose 10 MG; Start 07/10/17 at 12:00 Atorvastatin Calcium (Lipitor) 10 mg QHS PO Last administered on 07/10/17 20: 44; Admin Dose 10 MG; Start 07/10/17 at 21:00 Carvedilol (Coreg) 3.125 mg QAM PO Last administered on 07/11/17 08:16; Admin Dose 3.125 MG; Start 07/10/17 at 14:00 Clopidogrel Bisulfate (plaVIX) 75 mg QAM PO Last administered on 07/11/17 08: 16; Admin Dose 75 MG; Start 07/10/17 at 14:00 Digoxin (Digoxin) 0.125 mg QAM PO Last administered on 07/11/17 08:17; Admin Dose 0.125 MG; Start 07/10/17 at 14:00 Midodrine (Proamatine) 5 mg BID PO ; Start 07/10/17 at 21:00 Montelukast Sodium (Singulair) 10 mg QAM PO Last administered on 07/11/17 08: 16; Admin Dose 10 MG; Start 07/10/17 at 14:00 Ranitidine HCl (Zantac) 150 mg HS PO Last administered on 07/10/17 20:50; Admin Dose 150 MG; Start 07/10/17 at 21:00 Ranolazine (Ranexa) 500 mg Q12 PO Last administered on 07/11/17 08:16; Admin Dose 500 MG; Start 07/10/17 at 21:00 Tamsulosin HCl (Flomax) 0.4 mg HS PO Last administered on 07/10/17 20:44; Admin Dose 0.4 MG; Start 07/10/17 at 21:00 Cholecalciferol (Vitamin D) 2,000 unit DAILY PO Last administered on 07/11/17 08:17; Admin Dose 2,000 UNIT; Start 07/10/17 at 14:00 Escitalopram Oxalate (Lexapro) 5 mg QPM PO Last administered on 07/11/17 08:21 ; Admin Dose 5 MG; Start 07/11/17 at 09:00 Pantoprazole (Protonix Tab) 40 mg DAILY@06 PO Last administered on 07/11/17 05 :24; Admin Dose 40 MG; Start 07/11/17 at 06:00 Diagnostic Test (Pha) (Accu-Chek) 1 ea 02 XX ; Start 07/11/17 at 02:00 Miscellaneous Information 1 ea NOTE XX ; Start 07/10/17 at 15:00 Glucose (Glutose) 15 gm Q15M PRN PO DECREASED GLUCOSE; Start 07/10/17 at 15:00 Glucose (Glutose) 22.5 gm Q15M PRN PO DECREASED GLUCOSE; Start 07/10/17 at 15: 00 Dextrose (D50w Syringe) 25 ml Q15M PRN IV DECREASED GLUCOSE; Start 07/10/17 at 15:00 Dextrose (D50w Syringe) 50 ml Q15M PRN IV DECREASED GLUCOSE; Start 07/10/17 at 15:00 Glucagon (Glucagen) 1 mg Q15M PRN IM DECREASED GLUCOSE; Start 07/10/17 at 15:00 Glucose (Glutose) 15 gm Q15M PRN BUCCAL DECREASED GLUCOSE; Start 07/10/17 at 15 :00 Linagliptin (Tradjenta) 5 mg DAILY PO Last administered on 07/11/17 08:16; Admin Dose 5 MG; Start 07/11/17 at 09:00 MARCELLO CORDERO Jul 11, 2017 10:18
--- NOTE | 2017-07-11 14:41 | PN ---
Date/Time of Note Date/Time of Note DATE: 07/11/17 TIME: 14:31 Assessment/Plan VTE Prophylaxis VTE Prophylaxis Intervention: SCD's Lines/Catheters IV [facility] [place] Urinary Cath still in place: No Assessment/Plan Chief Complaint/Hosp Course Patient's continues in supplemental oxygen, denies any acute chest pain, patient has bilateral lower extremity edema, pending CT of the chest with contrast. Assessment/Plan -Acute on chronic pain, Dr. Kaur is following in cardiology consultation -Pleural effusion, Dr. Mayorga is following in pulmonology consultation, pending CT of the chest -Diastolic dysfunction congestive heart failure -Bilateral lower extremity edema, venous Dopplers negative for any deep venous thrombosis. -Coronary artery disease status post CABG in 2004 -History of lung cancer dx 2006, completed chemotherapy in 2009. -Diabetes mellitus -BPH Further recommendations based on clinical course. Plan of care discussed with Dr. Morrissey. Problems: Exam/Review of Systems Vital Signs Vitals Vital Signs Date Time Temp Pulse Resp B/P Pulse Ox O2 Delivery O2 Flow Rate FiO2 07/11/17 12:12 80 07/11/17 11:57 98.7 19 146/74 98 07/10/17 20:00 Nasal Cannula 2.0 Intake and Output 07/10/17 07/10/17 07/11/17 15:00 23:00 07:00 Intake Total 1200 ml 1270 ml Output Total 650 ml 450 ml Balance 550 ml 820 ml Exam Constitutional: alert, oriented Head: normocephalic Neck: supple Respiratory: diminished breath sounds Cardiovascular: nl pulses Gastrointestinal: non-tender, soft Musculoskeletal: nl extremities to inspection Extremities: edema, normal pulses 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: nl mental status Results Result Diagram: 07/11/17 0614 07/11/17 0618 Results 24 hrs Laboratory Tests Test 07/10/17 18:11 07/10/17 20:41 07/11/17 00:54 07/11/17 01:42 Bedside Glucose 141 183 146 B-Type Natriuretic Peptide 5060 H Triglycerides Level 85 Cholesterol Level 119 LDL Cholesterol, Calculated 78 HDL Cholesterol 24 L Cholesterol/HDL Ratio 4.9 Test 07/11/17 06:14 07/11/17 06:18 07/11/17 08:14 07/11/17 11:33 White Blood Count 5.4 # Red Blood Count 3.23 L Hemoglobin 9.2 L Hematocrit 29.0 L Mean Corpuscular Volume 89.8 Mean Corpuscular Hemoglobin 28.5 L Mean Corpuscular Hemoglobin Concent 31.7 L Red Cell Distribution Width 16.9 H Platelet Count 227 Mean Platelet Volume 10.5 H Neutrophils % 74.4 Lymphocytes % 11.8 L Monocytes % 10.7 Eosinophils % 1.8 Basophils % 0.4 Nucleated Red Blood Cells % 0.0 Neutrophils # (Manual) 4.0 Lymphocytes # 0.6 L Monocytes # 0.6 Eosinophils # 0.1 Basophils # 0.0 Nucleated Red Blood Cells # 0.0 Hemoglobin A1c 6.9 H Total Bilirubin 0.3 Direct Bilirubin 0.00 Indirect Bilirubin 0.3 Aspartate Amino Transf (AST/SGOT) 13 L Alanine Aminotransferase (ALT/SGPT) 21 Alkaline Phosphatase 54 Total Protein 5.3 L Albumin 2.4 L Thyroid Stimulating Hormone (TSH) 2.140 Free Thyroxine 1.56 Sodium Level 141 Potassium Level 3.1 L Chloride Level 100 Carbon Dioxide Level 30 Anion Gap 14 Blood Urea Nitrogen 10 Creatinine 0.47 L Glucose Level 113 # Calcium Level 7.8 L Bedside Glucose 171 120 Medications Medications Current Medications Ondansetron HCl (Zofran Inj) 4 mg Q6H PRN IV NAUSEA AND/OR VOMITING; Start at 23:30 Acetaminophen (Tylenol Tab) 650 mg Q6H PRN PO PAIN LEVEL 1-3 OR FEVER; Start at 23:30 Acetaminophen/ Hydrocodone Bitart ([place] (5/325)) 1 tab Q6H PRN PO MODERATE PAIN LEVEL 4-6; Start 07/09/17 at 23:30 Morphine Sulfate (morphine) 2 mg Q4H PRN IV SEVERE PAIN LEVEL 7-10; Start 07/09 at 23:30 Docusate Sodium (Colace) 100 mg Q12H PRN PO CONSTIPATION; Start 07/09/17 at 23: 30 Magnesium Hydroxide (Milk Of Mag) 30 ml DAILY PRN PO CONSTIPATION; Start at 23:30 Bisacodyl (Dulcolax) 5 mg DAILY PRN PO CONSTIPATION; Start 07/09/17 at 23:30 Zolpidem Tartrate (Ambien) 5 mg QHS PRN PO SLEEP; Start 07/09/17 at 23:30 Famotidine (Pepcid) 20 mg Q12 PO Last administered on 07/11/17 08:17; Admin Dose 20 MG; Start 07/10/17 at 09:00 Enoxaparin Sodium (Lovenox) 40 mg DAILY SC Last administered on 07/11/17 08:18 ; Admin Dose 40 MG; Start 07/10/17 at 09:00 Bisacodyl (Dulcolax Supp) 10 mg Q48H PRN [place] CONSTIPATION Last administered on 13:06; Admin Dose 10 MG; Start 07/10/17 at 12:00 Atorvastatin Calcium (Lipitor) 10 mg QHS PO Last administered on 07/10/17 20: 44; Admin Dose 10 MG; Start 07/10/17 at 21:00 Carvedilol (Coreg) 3.125 mg QAM PO Last administered on 07/11/17 08:16; Admin Dose 3.125 MG; Start 07/10/17 at 14:00 Clopidogrel Bisulfate (plaVIX) 75 mg QAM PO Last administered on 07/11/17 08: 16; Admin Dose 75 MG; Start 07/10/17 at 14:00 Digoxin (Digoxin) 0.125 mg QAM PO Last administered on 07/11/17 08:17; Admin Dose 0.125 MG; Start 07/10/17 at 14:00 Midodrine (Proamatine) 5 mg BID PO ; Start 07/10/17 at 21:00 Montelukast Sodium (Singulair) 10 mg QAM PO Last administered on 07/11/17 08: 16; Admin Dose 10 MG; Start 07/10/17 at 14:00 Ranitidine HCl (Zantac) 150 mg HS PO Last administered on 07/10/17 20:50; Admin Dose 150 MG; Start 07/10/17 at 21:00 Ranolazine (Ranexa) 500 mg Q12 PO Last administered on 07/11/17 08:16; Admin Dose 500 MG; Start 07/10/17 at 21:00 Tamsulosin HCl (Flomax) 0.4 mg HS PO Last administered on 07/10/17 20:44; Admin Dose 0.4 MG; Start 07/10/17 at 21:00 Cholecalciferol (Vitamin D) 2,000 unit DAILY PO Last administered on 07/11/17 08:17; Admin Dose 2,000 UNIT; Start 07/10/17 at 14:00 Escitalopram Oxalate (Lexapro) 5 mg QPM PO Last administered on 07/11/17 08:21 ; Admin Dose 5 MG; Start 07/11/17 at 09:00 Pantoprazole (Protonix Tab) 40 mg DAILY@06 PO Last administered on 07/11/17 05 :24; Admin Dose 40 MG; Start 07/11/17 at 06:00 Diagnostic Test (Pha) (Accu-Chek) 1 ea 02 XX ; Start 07/11/17 at 02:00 Miscellaneous Information 1 ea NOTE XX ; Start 07/10/17 at 15:00 Glucose (Glutose) 15 gm Q15M PRN PO DECREASED GLUCOSE; Start 07/10/17 at 15:00 Glucose (Glutose) 22.5 gm Q15M PRN PO DECREASED GLUCOSE; Start 07/10/17 at 15: 00 Dextrose (D50w Syringe) 25 ml Q15M PRN IV DECREASED GLUCOSE; Start 07/10/17 at 15:00 Dextrose (D50w Syringe) 50 ml Q15M PRN IV DECREASED GLUCOSE; Start 07/10/17 at 15:00 Glucagon (Glucagen) 1 mg Q15M PRN IM DECREASED GLUCOSE; Start 07/10/17 at 15:00 Glucose (Glutose) 15 gm Q15M PRN BUCCAL DECREASED GLUCOSE; Start 07/10/17 at 15 :00 Linagliptin (Tradjenta) 5 mg DAILY PO Last administered on 07/11/17 08:16; Admin Dose 5 MG; Start 07/11/17 at 09:00 MARC URIOSTEGUI Jul 11, 2017 14:41
[2017-07-11] MEDS ORDERED: POTASSIUM CHLORIDE 20 MEQ POWDER FOR ORAL SOLN PO ONE (15:00)
[2017-07-11] MEDS: ACETAMINOPHEN 325 MG TAB PO PRN (18:10)
[2017-07-11] MEDS: ATORVASTATIN 10 MG TAB PO SCH (21:48)
[2017-07-11] MEDS: RANITIDINE 150 MG TAB PO SCH (21:50)
[2017-07-11] MEDS: TAMSULOSIN (SR) 0.4 MG CAP PO SCH (21:50)
[2017-07-12] VITALS (9 sets, daily range): BP systolic 134–150; BP diastolic 67–85; PULSE 70–98; RESP 16–20
[2017-07-12] MEDS: ACCU-CHEK XX SCH (02:00)
[2017-07-12] MEDS: PANTOPRAZOLE (EC) 40 MG TAB PO SCH (06:00)
[2017-07-12 06:33] LABS: BASOPHILS % 0.6 % (0.0-2.0); EOSINOPHILS # 0.1 10^3/ul (0.0-0.5); EOSINOPHILS % 1.9 % (0.0-7.0); HEMATOCRIT 27.6 % (42.0-52.0); HEMOGLOBIN 8.6 g/dl (14.0-18.0); LYMPHOCYTES # 0.6 10^3/ul (0.8-2.9); LYMPHOCYTES % 11.2 % (15.0-51.0); MEAN CORPUSCULAR HEMOGLOBIN 27.9 pg (29.0-33.0); MEAN CORPUSCULAR HGB CONC 31.2 g/dl (32.0-37.0); MEAN CORPUSCULAR VOLUME 89.6 fl (82.0-101.0); MEAN PLATELET VOLUME 10.5 fl (7.4-10.4); MONOCYTE # 0.6 10^3/ul (0.3-0.9); MONOCYTES % 10.4 % (0.0-11.0); NEUTROPHILS % 74.8 % (39.0-77.0); PLATELET COUNT 234 10^3/UL (140-415); RED BLOOD COUNT 3.08 10^6/ul (4.70-6.10); RED CELL DISTRIBUTION WIDTH 16.8 % (11.5-14.5); WHITE BLOOD COUNT 5.4 10^3/ul (4.8-10.8)
[2017-07-12 06:57] LABS: CALCIUM 8.2 mg/dl (8.4-10.2); CREATININE 0.52 mg/dl (0.61-1.24)
[2017-07-12] MEDS: INSULIN ASPART [NOVOLOG] 3 ML PEN SC SCH ×4 (07:55→21:18)
[2017-07-12] MEDS: MIDODRINE 5 MG TAB PO SCH ×2 (09:00→21:00)
[2017-07-12] MEDS: LINAGLIPTIN 5 MG TABLET PO SCH (09:43)
[2017-07-12] MEDS: FAMOTIDINE 20 MG TAB PO SCH ×2 (09:43→21:07)
[2017-07-12] MEDS: CLOPIDOGREL 75 MG TAB PO SCH (09:43)
[2017-07-12] MEDS: MONTELUKAST 10 MG TAB PO SCH (09:43)
[2017-07-12] MEDS: RANOLAZINE (SR) 500 MG TAB PO SCH ×2 (09:43→21:07)
[2017-07-12] MEDS: CHOLECALCIFEROL 2,000 UNIT CAP PO SCH (09:43)
[2017-07-12] MEDS: ENOXAPARIN 40 MG/0.4 ML SYG SC SCH (09:45)
[2017-07-12] MEDS ORDERED: POTASSIUM CHLORIDE 20 MEQ POWDER FOR ORAL SOLN JT ONE (11:00)
--- NOTE | 2017-07-12 12:15 | RADRPT ---
PROCEDURE: CT Chest without contrast. CLINICAL INDICATION: Loculated right pleural effusion. Abnormal chest x-ray. TECHNIQUE: CT scan of the chest without contrast was performed on a multidetector high-resolution CT scanner. Coronal and sagittal reformatted images were obtained from the axial source images. The total exam CTDI equals 5.96 mGy and the total exam DLP equals 242.72 mGy-cm. One or more of the following dose reduction techniques were used: - Automated exposure control. - Adjustment of the mA and/or kV according to patient size. - Use of iterative reconstruction technique. COMPARISON: Chest x-ray 07/09/2017 FINDINGS: There is no normal aerated right lung. Postsurgical changes are seen in the right perihilar region. Large thick walled cavity is seen in the right upper chest region. Dense confluent consolidation and scarring is seen elsewhere throughout the visualized portions of the right lung / right chest ca vity. Moderate partially loculated right-sided pleural effusion is present. Associated pleural thi ckening is seen as well. The left lung is appropriately aerated. Small layering left basilar pleural effusion is identified. Focal inflammatory bronchiolitis is seen centrally within the left upper lung with multiple scatter ed aggregated micronodules. Mild inflammatory bronchiolitis is seen in the left lingula as well. N o infiltrate is seen in the left lower lung. There is no pneumothorax and the left side. The centr al tracheobronchial tree is clear. The mediastinum is unremarkable without evidence for mass or lymphadenopathy. Small shoddy nodes onl y are seen within the mediastinum, not enlarged by size criteria. There is mediastinal deviation to the right side secondary to parenchymal volume loss involving the right chest. The vascular structu res of the mediastinum are remarkable for mild aneurysmal dilatation of the ascending aorta and prox imal arch of the aorta. Aortic vascular calcifications and coronary artery calcifications are prese nt. Scattered surgical clips are seen around the mediastinum, presumably from prior CABG surgery. The heart size is normal without evidence for pericardial thickening or effusion. The axillary regions, subpectoral regions, and supraclavicular regions are all unremarkable. The estrella rrounding chest wall is unremarkable. Imaging obtained through the upper abdomen reveals a cyst in the posterior lateral left lobe liver, a large cyst in the lateral periphery of the left kidney, and a rim calcified partially collapsed cyst in the lateral peripheral cortex of the right kidney. The surrounding osseous structures are remarkable for degenerative spondylosis of the spine. No osteol ytic or osteoblastic lesion is detected. IMPRESSION: 1. Presumed postsurgical changes of the right lung and right chest cavity. 2. Large thick-walled air cavity within the right upper lung/chest cavity. 3. Dense consolidation and scarring seen elsewhere throughout the right chest. 4. Moderate partially loculated right-sided pleural effusion. 5. Small layering left pleural effusion. 6. Multifocal mild inflammatory bronchiolitis within the left upper lung. 7. Small shoddy reactive nodes within the mediastinum. 8. Significant mediastinal deviation to the right side. 9. Vascular calcifications consistent with atherosclerosis. 10. Scattered benign chronic senescent changes. RPTAT: HMJB .Usama Willingham MD, MD Date Time Electronically viewed and signed by .Usama Willingham MD, on 07/12/2017 12:15 .B/
--- NOTE | 2017-07-12 13:40 | PN ---
Date/Time of Note Date/Time of Note DATE: 07/12/17 TIME: 13:28 Assessment/Plan VTE Prophylaxis VTE Prophylaxis Intervention: other Lines/Catheters IV [facility]ter Type (from [facility]): [facility] Urinary Cath still in place: No Assessment/Plan Assessment/Plan - Hypokalemia- replet K.. am BMP -Acute chest pain, Dr. Kaur is following in cardiology consultation -Pleural effusion, Dr. Mccullough is following in pulmonology consultation, - CT of the chest- bilateral pleural effusion- right sided more than left one. - Anemia- GI consult- Dr Delgado to see patient. -Diastolic dysfunction congestive heart failure -Bilateral lower extremity edema, venous Doppler negative for any deep venous thrombosis. -Coronary artery disease status post CABG in 2004 -History of lung cancer dx 2006, completed chemotherapy in 2009. -Diabetes mellitus -BPH Further recommendations based on clinical course. Plan of care discussed with Dr. Morrissey. Subjective 24 Hr Interval Summary Constitutional: requiring O2 Respiratory: shortness of breath Cardiovascular: no complaints Gastrointestinal: no complaints Genitourinary: no complaints Musculoskeletal: no complaints Exam/Review of Systems Vital Signs Vitals Vital Signs Date Time Temp Pulse Resp B/P Pulse Ox O2 Delivery O2 Flow Rate FiO2 07/12/17 12:09 86 07/12/17 10:59 98.6 19 134/85 98 07/12/17 08:15 Nasal Cannula 2.0 Intake and Output 07/11/17 07/11/17 07/12/17 15:00 23:00 07:00 Intake Total 850 ml 450 ml Output Total 900 ml Balance 850 ml -450 ml Exam Constitutional: alert, oriented, well developed Psych: nl mood/affect Respiratory: diminished breath sounds Cardiovascular: nl pulses, regular rate and rhythm Gastrointestinal: non-tender, soft Musculoskeletal: nl extremities to inspection Extremities: normal pulses 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: nl mental status, nl speech Results Result Diagram: 07/12/17 0516 07/12/17 0516 Results 24 hrs Laboratory Tests Test 07/11/17 16:36 07/12/17 05:16 07/12/17 11:34 Bedside Glucose 120 142 White Blood Count 5.4 Red Blood Count 3.08 L Hemoglobin 8.6 L Hematocrit 27.6 L Mean Corpuscular Volume 89.6 Mean Corpuscular Hemoglobin 27.9 L Mean Corpuscular Hemoglobin Concent 31.2 L Red Cell Distribution Width 16.8 H Platelet Count 234 Mean Platelet Volume 10.5 H Neutrophils % 74.8 Lymphocytes % 11.2 L Monocytes % 10.4 Eosinophils % 1.9 Basophils % 0.6 Nucleated Red Blood Cells % 0.0 Neutrophils # (Manual) 4.0 Lymphocytes # 0.6 L Monocytes # 0.6 Eosinophils # 0.1 Basophils # 0.0 Nucleated Red Blood Cells # 0.0 Sodium Level 137 Potassium Level 3.0 L Chloride Level 96 L Carbon Dioxide Level 33 H Anion Gap 11 Blood Urea Nitrogen 12 Creatinine 0.52 L Glucose Level 96 Calcium Level 8.2 L Medications Medications Current Medications Ondansetron HCl (Zofran Inj) 4 mg Q6H PRN IV NAUSEA AND/OR VOMITING; Start at 23:30 Acetaminophen (Tylenol Tab) 650 mg Q6H PRN PO PAIN LEVEL 1-3 OR FEVER Last administered on 07/11/17 18:10; Admin Dose 650 MG; Start 07/09/17 at 23:30 Acetaminophen/ Hydrocodone Bitart ([place] (5/325)) 1 tab Q6H PRN PO MODERATE PAIN LEVEL 4-6; Start 07/09/17 at 23:30 Morphine Sulfate (morphine) 2 mg Q4H PRN IV SEVERE PAIN LEVEL 7-10; Start 07/09 at 23:30 Docusate Sodium (Colace) 100 mg Q12H PRN PO CONSTIPATION; Start 07/09/17 at 23: 30 Magnesium Hydroxide (Milk Of Mag) 30 ml DAILY PRN PO CONSTIPATION; Start at 23:30 Bisacodyl (Dulcolax) 5 mg DAILY PRN PO CONSTIPATION; Start 07/09/17 at 23:30 Zolpidem Tartrate (Ambien) 5 mg QHS PRN PO SLEEP; Start 07/09/17 at 23:30 Famotidine (Pepcid) 20 mg Q12 PO Last administered on 07/12/17 09:43; Admin Dose 20 MG; Start 07/10/17 at 09:00 Enoxaparin Sodium (Lovenox) 40 mg DAILY SC Last administered on 07/12/17 09:45 ; Admin Dose 40 MG; Start 07/10/17 at 09:00 Bisacodyl (Dulcolax Supp) 10 mg Q48H PRN [place] CONSTIPATION Last administered on 13:06; Admin Dose 10 MG; Start 07/10/17 at 12:00 Atorvastatin Calcium (Lipitor) 10 mg QHS PO Last administered on 07/11/17 21: 48; Admin Dose 10 MG; Start 07/10/17 at 21:00 Carvedilol (Coreg) 3.125 mg QAM PO Last administered on 07/12/17 09:44; Admin Dose 3.125 MG; Start 07/10/17 at 14:00 Clopidogrel Bisulfate (plaVIX) 75 mg QAM PO Last administered on 07/12/17 09: 43; Admin Dose 75 MG; Start 07/10/17 at 14:00 Midodrine (Proamatine) 5 mg BID PO ; Start 07/10/17 at 21:00 Montelukast Sodium (Singulair) 10 mg QAM PO Last administered on 07/12/17 09: 43; Admin Dose 10 MG; Start 07/10/17 at 14:00 Ranitidine HCl (Zantac) 150 mg HS PO Last administered on 07/11/17 21:50; Admin Dose 150 MG; Start 07/10/17 at 21:00 Ranolazine (Ranexa) 500 mg Q12 PO Last administered on 07/12/17 09:43; Admin Dose 500 MG; Start 07/10/17 at 21:00 Tamsulosin HCl (Flomax) 0.4 mg HS PO Last administered on 07/11/17 21:50; Admin Dose 0.4 MG; Start 07/10/17 at 21:00 Cholecalciferol (Vitamin D) 2,000 unit DAILY PO Last administered on 07/12/17 09:43; Admin Dose 2,000 UNIT; Start 07/10/17 at 14:00 Escitalopram Oxalate (Lexapro) 5 mg QPM PO Last administered on 07/11/17 21:48 ; Admin Dose 5 MG; Start 07/11/17 at 09:00 Pantoprazole (Protonix Tab) 40 mg DAILY@06 PO Last administered on 07/12/17 06 :00; Admin Dose 40 MG; Start 07/11/17 at 06:00 Diagnostic Test (Pha) (Accu-Chek) 1 ea 02 XX ; Start 07/11/17 at 02:00 Miscellaneous Information 1 ea NOTE XX ; Start 07/10/17 at 15:00 Glucose (Glutose) 15 gm Q15M PRN PO DECREASED GLUCOSE; Start 07/10/17 at 15:00 Glucose (Glutose) 22.5 gm Q15M PRN PO DECREASED GLUCOSE; Start 07/10/17 at 15: 00 Dextrose (D50w Syringe) 25 ml Q15M PRN IV DECREASED GLUCOSE; Start 07/10/17 at 15:00 Dextrose (D50w Syringe) 50 ml Q15M PRN IV DECREASED GLUCOSE; Start 07/10/17 at 15:00 Glucagon (Glucagen) 1 mg Q15M PRN IM DECREASED GLUCOSE; Start 07/10/17 at 15:00 Glucose (Glutose) 15 gm Q15M PRN BUCCAL DECREASED GLUCOSE; Start 07/10/17 at 15 :00 Linagliptin (Tradjenta) 5 mg DAILY PO Last administered on 07/12/17t 09:43; Admin Dose 5 MG; Start 07/11/17 at 09:00 Digoxin (Digoxin) 0.125 mg DAILY@13 PO ; Start 07/12/17 at 13:00 [facility] AL[facility]AN Jul 12, 2017 13:39
[2017-07-12] MEDS: DIGOXIN 0.125 MG TAB PO SCH (14:07)
[2017-07-12] MEDS: BISACODYL (EC) 5 MG TAB PO PRN (14:07)
--- NOTE | 2017-07-12 15:22 | CONS ---
Date/Time of Note Date/Time of Note DATE: 07/12/17 TIME: 15:19 Assessment/Plan Assessment/Plan Additional Assessment/Plan 1. Anemia most probably related to anemia of chronic disease based on the history there is no evidence of active GI bleeding at this point 2. Cancer of the lung for which she had a treatment in 2009 3. Diabetes mellitus 4. Pleural effusion rule out malignancy 5. BPH 6. Status post coronary artery bypass graft 7. Hypotension for which patient is on midodrine Plan Workup for the anemia Thoracocentesis as per the senior solutions engineer Consultation Date/Type/Reason Admit Date/Time Jul 09, 2017 at 19:15 Reason for Consultation Anemia Hx of Present Illness 81-year-old gentleman with a history of lung cancer for which she had a surgery and treatment in 2009 comes to the hospital complaining of chest pain and shortness of breath which has been persistent for last 2-3 weeks. Patient is also known to have diabetes mellitus hypertension, status post coronary artery bypass graft and BPH. He denies of abdominal pain no nausea no vomiting no GI bleeding only complaint right now is chest pain on the left side. Patient is being evaluated by the senior solutions engineer. CT chest shows pleural effusion and the scarring of the right side of the chest with the pulling of the mediastinum towards the right side. Constitutional: requiring O2 Respiratory: shortness of breath Cardiovascular: no complaints Gastrointestinal: no complaints Genitourinary: no complaints Musculoskeletal: no complaints Skin: no complaints Neurologic: no complaints Psychological: nl mood/affect Social History Smoking Status: Never smoker Exam/Review of Systems Vital Signs Vitals Vital Signs Date Time Temp Pulse Resp B/P Pulse Ox O2 Delivery O2 Flow Rate FiO2 07/12/17 12:09 86 07/12/17 10:59 98.6 19 134/85 98 07/12/17 08:15 Nasal Cannula 2.0 Intake and Output 07/11/17 07/11/17 07/12/17 15:00 23:00 07:00 Intake Total 850 ml 450 ml Output Total 900 ml Balance 850 ml -450 ml Exam Constitutional: alert, oriented, well developed Psych: nl mood/affect, no complaints Head: atraumatic, normocephalic Eyes: EOMI, PERRL, nl conjunctiva, nl lids, nl sclera ENMT: nl external ears & nose, nl lips & teeth, nl nasal mucosa & septum Neck: non-tender, supple Respiratory: clear to auscultation, normal air movement Cardiovascular: nl pulses, regular rate and rhythm Gastrointestinal: nl liver, spleen, non-tender, soft Musculoskeletal: nl extremities to inspection, nl gait and stance Extremities: normal pulses 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: NET REPAIRER II-XII intact, nl mental status, nl speech, nl strength Skin: nl turgor, No rash or lesions Lymph: nl lymph nodes Results Result Diagram: 07/12/17 0516 07/12/17 0516 Results 24 hrs Laboratory Tests Test 07/11/17 16:36 07/11/17 22:26 07/12/17 05:16 07/12/17 07:58 Bedside Glucose 120 141 119 White Blood Count 5.4 Red Blood Count 3.08 L Hemoglobin 8.6 L Hematocrit 27.6 L Mean Corpuscular Volume 89.6 Mean Corpuscular Hemoglobin 27.9 L Mean Corpuscular Hemoglobin Concent 31.2 L Red Cell Distribution Width 16.8 H Platelet Count 234 Mean Platelet Volume 10.5 H Neutrophils % 74.8 Lymphocytes % 11.2 L Monocytes % 10.4 Eosinophils % 1.9 Basophils % 0.6 Nucleated Red Blood Cells % 0.0 Neutrophils # (Manual) 4.0 Lymphocytes # 0.6 L Monocytes # 0.6 Eosinophils # 0.1 Basophils # 0.0 Nucleated Red Blood Cells # 0.0 Sodium Level 137 Potassium Level 3.0 L Chloride Level 96 L Carbon Dioxide Level 33 H Anion Gap 11 Blood Urea Nitrogen 12 Creatinine 0.52 L Glucose Level 96 Calcium Level 8.2 L Test 07/12/17 11:34 Bedside Glucose 142 Medications Medications Current Medications Ondansetron HCl (Zofran Inj) 4 mg Q6H PRN IV NAUSEA AND/OR VOMITING; Start at 23:30 Acetaminophen (Tylenol Tab) 650 mg Q6H PRN PO PAIN LEVEL 1-3 OR FEVER Last administered on 07/11/17t 18:10; Admin Dose 650 MG; Start 07/09/17 at 23:30 Acetaminophen/ Hydrocodone Bitart ([place] (5/325)) 1 tab Q6H PRN PO MODERATE PAIN LEVEL 4-6; Start 07/09/17 at 23:30 Morphine Sulfate (morphine) 2 mg Q4H PRN IV SEVERE PAIN LEVEL 7-10; Start 07/09 at 23:30 Docusate Sodium (Colace) 100 mg Q12H PRN PO CONSTIPATION; Start 07/09/17 at 23: 30 Magnesium Hydroxide (Milk Of Mag) 30 ml DAILY PRN PO CONSTIPATION; Start at 23:30 Bisacodyl (Dulcolax) 5 mg DAILY PRN PO CONSTIPATION Last administered on 14:07; Admin Dose 5 MG; Start 07/09/17 at 23:30 Zolpidem Tartrate (Ambien) 5 mg QHS PRN PO SLEEP; Start 07/09/17 at 23:30 Famotidine (Pepcid) 20 mg Q12 PO Last administered on 07/12/17 09:43; Admin Dose 20 MG; Start 07/10/17 at 09:00 Enoxaparin Sodium (Lovenox) 40 mg DAILY SC Last administered on 07/12/17 09:45 ; Admin Dose 40 MG; Start 07/10/17 at 09:00 Bisacodyl (Dulcolax Supp) 10 mg Q48H PRN [place] CONSTIPATION Last administered on 13:06; Admin Dose 10 MG; Start 07/10/17 at 12:00 Atorvastatin Calcium (Lipitor) 10 mg QHS PO Last administered on 07/11/17 21: 48; Admin Dose 10 MG; Start 07/10/17 at 21:00 Carvedilol (Coreg) 3.125 mg QAM PO Last administered on 07/12/17 09:44; Admin Dose 3.125 MG; Start 07/10/17 at 14:00 Clopidogrel Bisulfate (plaVIX) 75 mg QAM PO Last administered on 07/12/17 09: 43; Admin Dose 75 MG; Start 07/10/17 at 14:00 Midodrine (Proamatine) 5 mg BID PO ; Start 07/10/17 at 21:00 Montelukast Sodium (Singulair) 10 mg QAM PO Last administered on 07/12/17 09: 43; Admin Dose 10 MG; Start 07/10/17 at 14:00 Ranitidine HCl (Zantac) 150 mg HS PO Last administered on 07/11/17 21:50; Admin Dose 150 MG; Start 07/10/17 at 21:00 Ranolazine (Ranexa) 500 mg Q12 PO Last administered on 07/12/17 09:43; Admin Dose 500 MG; Start 07/10/17 at 21:00 Tamsulosin HCl (Flomax) 0.4 mg HS PO Last administered on 07/11/17 21:50; Admin Dose 0.4 MG; Start 07/10/17 at 21:00 Cholecalciferol (Vitamin D) 2,000 unit DAILY PO Last administered on 07/12/17 09:43; Admin Dose 2,000 UNIT; Start 07/10/17 at 14:00 Escitalopram Oxalate (Lexapro) 5 mg QPM PO Last administered on 07/11/17 21:48 ; Admin Dose 5 MG; Start 07/11/17 at 09:00 Pantoprazole (Protonix Tab) 40 mg DAILY@06 PO Last administered on 07/12/17 06 :00; Admin Dose 40 MG; Start 07/11/17 at 06:00 Diagnostic Test (Pha) (Accu-Chek) 1 ea 02 XX ; Start 07/11/17 at 02:00 Miscellaneous Information 1 ea NOTE XX ; Start 07/10/17 at 15:00 Glucose (Glutose) 15 gm Q15M PRN PO DECREASED GLUCOSE; Start 07/10/17 at 15:00 Glucose (Glutose) 22.5 gm Q15M PRN PO DECREASED GLUCOSE; Start 07/10/17 at 15: 00 Dextrose (D50w Syringe) 25 ml Q15M PRN IV DECREASED GLUCOSE; Start 07/10/17 at 15:00 Dextrose (D50w Syringe) 50 ml Q15M PRN IV DECREASED GLUCOSE; Start 07/10/17 at 15:00 Glucagon (Glucagen) 1 mg Q15M PRN IM DECREASED GLUCOSE; Start 07/10/17 at 15:00 Glucose (Glutose) 15 gm Q15M PRN BUCCAL DECREASED GLUCOSE; Start 07/10/17 at 15 :00 Linagliptin (Tradjenta) 5 mg DAILY PO Last administered on 07/12/17 09:43; Admin Dose 5 MG; Start 07/11/17 at 09:00 Digoxin (Digoxin) 0.125 mg DAILY@13 PO Last administered on 07/12/17 14:07; Admin Dose 0.125 MG; Start 07/12/17 at 13:00 ALEX SALINAS MD Jul 12, 2017 15:22
--- NOTE | 2017-07-12 17:31 | CONS ---
Date/Time of Note Date/Time of Note DATE: 07/12/17 TIME: 17:23 Consult Date/Type/Reason Admit Date/Time Jul 09, 2017 at 19:15 Initial Consult Date 07/11/17 Type of Consultation: Pulmonary Subjective Doing well, ambulating with walker Objective Vital Signs Date Time Temp Pulse Resp B/P Pulse Ox O2 Delivery O2 Flow Rate FiO2 07/12/17 16:06 74 07/12/17 15:53 98.2 16 137/68 97 07/12/17 08:15 Nasal Cannula 2.0 Intake and Output 07/11/17 07/11/17 07/12/17 15:00 23:00 07:00 Intake Total 850 ml 450 ml Output Total 900 ml Balance 850 ml -450 ml Exam HEENT: Neck supple; no JVD; no LAD CVS: RRR, S1 and S2 CHEST: Absent rR breath sounds ABD: Soft, NT, + BS EXT: No c/c/e Results/Medications Result Diagram: 07/12/17 0516 07/12/17 0516 Results 24 hrs Laboratory Tests Test 07/11/17 22:26 07/12/17 05:16 07/12/17 07:58 07/12/17 11:34 Bedside Glucose 141 119 142 White Blood Count 5.4 Red Blood Count 3.08 L Hemoglobin 8.6 L Hematocrit 27.6 L Mean Corpuscular Volume 89.6 Mean Corpuscular Hemoglobin 27.9 L Mean Corpuscular Hemoglobin Concent 31.2 L Red Cell Distribution Width 16.8 H Platelet Count 234 Mean Platelet Volume 10.5 H Neutrophils % 74.8 Lymphocytes % 11.2 L Monocytes % 10.4 Eosinophils % 1.9 Basophils % 0.6 Nucleated Red Blood Cells % 0.0 Neutrophils # (Manual) 4.0 Lymphocytes # 0.6 L Monocytes # 0.6 Eosinophils # 0.1 Basophils # 0.0 Nucleated Red Blood Cells # 0.0 Sodium Level 137 Potassium Level 3.0 L Chloride Level 96 L Carbon Dioxide Level 33 H Anion Gap 11 Blood Urea Nitrogen 12 Creatinine 0.52 L Glucose Level 96 Calcium Level 8.2 L Medications Current Medications Ondansetron HCl (Zofran Inj) 4 mg Q6H PRN IV NAUSEA AND/OR VOMITING; Start at 23:30 Acetaminophen (Tylenol Tab) 650 mg Q6H PRN PO PAIN LEVEL 1-3 OR FEVER Last administered on 07/11/17 18:10; Admin Dose 650 MG; Start 07/09/17 at 23:30 Acetaminophen/ Hydrocodone Bitart ([place] (5/325)) 1 tab Q6H PRN PO MODERATE PAIN LEVEL 4-6; Start 07/09/17 at 23:30 Morphine Sulfate (morphine) 2 mg Q4H PRN IV SEVERE PAIN LEVEL 7-10; Start 07/09 at 23:30 Docusate Sodium (Colace) 100 mg Q12H PRN PO CONSTIPATION; Start 07/09/17 at 23: 30 Magnesium Hydroxide (Milk Of Mag) 30 ml DAILY PRN PO CONSTIPATION; Start at 23:30 Bisacodyl (Dulcolax) 5 mg DAILY PRN PO CONSTIPATION Last administered on 14:07; Admin Dose 5 MG; Start 07/09/17 at 23:30 Zolpidem Tartrate (Ambien) 5 mg QHS PRN PO SLEEP; Start 07/09/17 at 23:30 Famotidine (Pepcid) 20 mg Q12 PO Last administered on 07/12/17 09:43; Admin Dose 20 MG; Start 07/10/17 at 09:00 Enoxaparin Sodium (Lovenox) 40 mg DAILY SC Last administered on 07/12/17 09:45 ; Admin Dose 40 MG; Start 07/10/17 at 09:00 Bisacodyl (Dulcolax Supp) 10 mg Q48H PRN [place] CONSTIPATION Last administered on 13:06; Admin Dose 10 MG; Start 07/10/17 at 12:00 Atorvastatin Calcium (Lipitor) 10 mg QHS PO Last administered on 07/11/17 21: 48; Admin Dose 10 MG; Start 07/10/17 at 21:00 Carvedilol (Coreg) 3.125 mg QAM PO Last administered on 07/12/17 09:44; Admin Dose 3.125 MG; Start 07/10/17 at 14:00 Clopidogrel Bisulfate (plaVIX) 75 mg QAM PO Last administered on 07/12/17 09: 43; Admin Dose 75 MG; Start 07/10/17 at 14:00 Midodrine (Proamatine) 5 mg BID PO ; Start 07/10/17 at 21:00 Montelukast Sodium (Singulair) 10 mg QAM PO Last administered on 07/12/17 09: 43; Admin Dose 10 MG; Start 07/10/17 at 14:00 Ranitidine HCl (Zantac) 150 mg HS PO Last administered on 07/11/17 21:50; Admin Dose 150 MG; Start 07/10/17 at 21:00 Ranolazine (Ranexa) 500 mg Q12 PO Last administered on 07/12/17 09:43; Admin Dose 500 MG; Start 07/10/17 at 21:00 Tamsulosin HCl (Flomax) 0.4 mg HS PO Last administered on 07/11/17 21:50; Admin Dose 0.4 MG; Start 07/10/17 at 21:00 Cholecalciferol (Vitamin D) 2,000 unit DAILY PO Last administered on 07/12/17 09:43; Admin Dose 2,000 UNIT; Start 07/10/17 at 14:00 Escitalopram Oxalate (Lexapro) 5 mg QPM PO Last administered on 07/11/17 21:48 ; Admin Dose 5 MG; Start 07/11/17 at 09:00 Pantoprazole (Protonix Tab) 40 mg DAILY@06 PO Last administered on 07/12/17 06 :00; Admin Dose 40 MG; Start 07/11/17 at 06:00 Diagnostic Test (Pha) (Accu-Chek) 1 ea 02 XX ; Start 07/11/17 at 02:00 Miscellaneous Information 1 ea NOTE XX ; Start 07/10/17 at 15:00 Glucose (Glutose) 15 gm Q15M PRN PO DECREASED GLUCOSE; Start 07/10/17 at 15:00 Glucose (Glutose) 22.5 gm Q15M PRN PO DECREASED GLUCOSE; Start 07/10/17 at 15: 00 Dextrose (D50w Syringe) 25 ml Q15M PRN IV DECREASED GLUCOSE; Start 07/10/17 at 15:00 Dextrose (D50w Syringe) 50 ml Q15M PRN IV DECREASED GLUCOSE; Start 07/10/17 at 15:00 Glucagon (Glucagen) 1 mg Q15M PRN IM DECREASED GLUCOSE; Start 07/10/17 at 15:00 Glucose (Glutose) 15 gm Q15M PRN BUCCAL DECREASED GLUCOSE; Start 07/10/17 at 15 :00 Linagliptin (Tradjenta) 5 mg DAILY PO Last administered on 07/12/17 09:43; Admin Dose 5 MG; Start 07/11/17 at 09:00 Digoxin (Digoxin) 0.125 mg DAILY@13 PO Last administered on 07/12/17 14:07; Admin Dose 0.125 MG; Start 07/12/17 at 13:00 Assessment/Plan Additional Assessment/Plan IMP: 1. 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 Denies having lung surgery or prior TB 2. h/o NSCLC s/p chemo and XRT RECS: 1. NEED RECORDS and [facility] from [facility]. 2. Much of the right lung changes appear chronic, however, cannnot exclude co- existing malignancy. KELVIN CARDENAS MD Jul 12, 2017 17:31
[2017-07-12] MEDS: morphine 2 MG INJ IV PRN (21:06)
[2017-07-12] MEDS: RANITIDINE 150 MG TAB PO SCH (21:07)
[2017-07-12] MEDS: ESCITALOPRAM 10 MG TAB PO SCH (21:07)
[2017-07-12] MEDS: ATORVASTATIN 10 MG TAB PO SCH (21:07)
[2017-07-12] MEDS: TAMSULOSIN (SR) 0.4 MG CAP PO SCH (21:07)
[2017-07-12] MEDS: ZOLPIDEM 5 MG TAB PO PRN (23:24)
[2017-07-13] VITALS (13 sets, daily range): BP systolic 128–177; BP diastolic 58–85; PULSE 69–84; RESP 18–20
[2017-07-13] MEDS: ACCU-CHEK XX SCH (02:20)
[2017-07-13] MEDS: PANTOPRAZOLE (EC) 40 MG TAB PO SCH (05:24)
[2017-07-13 07:02] LABS: BASOPHILS % 0.4 % (0.0-2.0); EOSINOPHILS # 0.1 10^3/ul (0.0-0.5); HEMATOCRIT 30.2 % (42.0-52.0); HEMOGLOBIN 9.6 g/dl (14.0-18.0); LYMPHOCYTES # 0.7 10^3/ul (0.8-2.9); LYMPHOCYTES % 9.8 % (15.0-51.0); MEAN CORPUSCULAR HEMOGLOBIN 28.9 pg (29.0-33.0); MEAN CORPUSCULAR HGB CONC 31.8 g/dl (32.0-37.0); MEAN PLATELET VOLUME 10.4 fl (7.4-10.4); MONOCYTE # 0.6 10^3/ul (0.3-0.9); MONOCYTES % 8.8 % (0.0-11.0); PLATELET COUNT 273 10^3/UL (140-415); RED BLOOD COUNT 3.32 10^6/ul (4.70-6.10); RED CELL DISTRIBUTION WIDTH 16.7 % (11.5-14.5); WHITE BLOOD COUNT 7.1 10^3/ul (4.8-10.8)
[2017-07-13] MEDS: INSULIN ASPART [NOVOLOG] 3 ML PEN SC SCH ×4 (07:41→21:00)
[2017-07-13 07:51] LABS: CALCIUM 8.4 mg/dl (8.4-10.2); CREATININE 0.58 mg/dl (0.61-1.24); POTASSIUM 3.4 mmol/L (3.5-5.1)
[2017-07-13] MEDS: LINAGLIPTIN 5 MG TABLET PO SCH (08:24)
[2017-07-13] MEDS: RANOLAZINE (SR) 500 MG TAB PO SCH ×2 (08:24→21:01)
[2017-07-13] MEDS: FAMOTIDINE 20 MG TAB PO SCH ×2 (08:25→21:01)
[2017-07-13] MEDS: CHOLECALCIFEROL 2,000 UNIT CAP PO SCH (08:25)
[2017-07-13] MEDS: CLOPIDOGREL 75 MG TAB PO SCH (08:25)
[2017-07-13] MEDS: MONTELUKAST 10 MG TAB PO SCH (08:25)
[2017-07-13] MEDS: MIDODRINE 5 MG TAB PO SCH ×2 (08:25→21:00)
[2017-07-13] MEDS: ENOXAPARIN 40 MG/0.4 ML SYG SC SCH (08:26)
[2017-07-13 09:14] LABS: FOLATE 17.3 ng/ml (2.8-20.0)
--- NOTE | 2017-07-13 11:50 | CONS ---
Date/Time of Note Date/Time of Note DATE: 07/13/17 TIME: 11:50 Assessment/Plan Assessment/Plan Additional Assessment/Plan 1. Hypokalemia 2. Pleural effusion 3. 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 Denies having lung surgery or prior TB 4. h/o NSCLC s/p chemo and XRT plan : agreesive K replacement KCl 40mEQ IV x 1 ordered Keep magnesium normal Keep pt even, no IV Fluids BP stable will follow up Consultation Date/Type/Reason Admit Date/Time Jul 09, 2017 at 19:15 Date of Consultation: Jul 13, 2017 Type of Consultation: NEPHROLOGY Reason for Consultation Hypokalemia, Prerenal azotemia Referring Provider: RUIZ MORRISSEY MD Hx of Present Illness 81-year-old man with a history of lung cancer 2006 on chemo til 2009 hypertension, diabetes mellitus, CAD, SP CABG 2004, [place], Hyperlipidemia, chronic chest pain, Hypotension on midodrine, Diabetes Mellitus, BPH is admitted with chest pain and shortness of breath 3 weeks, moderate cough as well, generalized weakness, He denied fevers he has had recent bilateral lower extremity swelling. He states the pain is sharp worse with cough, nonexertional nonradiating. Denies chest pain, shortness of breath, vomiting or diarrhea, no weight loss, no blood per rectum. Patient is resting in bed, seems comfortable. Dr Morrissey is the admitting and attending provider, pt is found to have pleural effusino with hypokalemia, Renal has been consutled for fluid management, Hypokalemi and prerenal azotemia Constitutional: no complaints, requiring O2 Eyes: no complaints ENT: no complaints Respiratory: cough, pleuritic pain, shortness of breath Cardiovascular: no complaints Gastrointestinal: no complaints Genitourinary: no complaints Musculoskeletal: no complaints Skin: no complaints Neurologic: no complaints Psychological: nl mood/affect, no complaints Past Medical History Medical History: coronary artery disease, diabetes, hypertension, other (BPH) Past Surgical History Past Surgical Hx: other (heart surgery ) Family History Significant Family History: no pertinent family hx Social History Alcohol Use: none Smoking Status: Never smoker Drug Use: none Exam/Review of Systems Vital Signs Vitals Vital Signs Date Time Temp Pulse Resp B/P Pulse Ox O2 Delivery O2 Flow Rate FiO2 07/13/17 11:19 98.3 75 19 141/60 98 07/13/17 08:00 Nasal Cannula 2.0 Intake and Output 07/12/17 07/12/17 07/13/17 15:00 23:00 07:00 Intake Total 500 ml 200 ml Balance 500 ml 200 ml Exam Constitutional: alert, oriented, well developed Respiratory: diminished breath sounds Cardiovascular: other (sinus Bundle branch, PVCs), regular rate and rhythm Gastrointestinal: non-tender, soft Musculoskeletal: nl extremities to inspection Extremities: normal pulses 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: nl mental status, nl speech Results Result Diagram: 07/13/17 0544 07/13/17 0544 Results 24 hrs Laboratory Tests Test 07/12/17 17:34 07/12/17 21:05 07/13/17 02:00 07/13/17 05:44 Bedside Glucose 146 188 125 White Blood Count 7.1 # Red Blood Count 3.32 L Hemoglobin 9.6 L Hematocrit 30.2 L Mean Corpuscular Volume 91.0 Mean Corpuscular Hemoglobin 28.9 L Mean Corpuscular Hemoglobin Concent 31.8 L Red Cell Distribution Width 16.7 H Platelet Count 273 Mean Platelet Volume 10.4 Neutrophils % 79.0 H Lymphocytes % 9.8 L Monocytes % 8.8 Eosinophils % 1.0 Basophils % 0.4 Nucleated Red Blood Cells % 0.0 Neutrophils # (Manual) 5.6 Lymphocytes # 0.7 L Monocytes # 0.6 Eosinophils # 0.1 Basophils # 0.0 Nucleated Red Blood Cells # 0.0 Absolute Reticulocyte Count 0.067 Percent Reticulocyte Count 2.0 H Sodium Level 144 Potassium Level 3.4 L Chloride Level 98 Carbon Dioxide Level 32 H Anion Gap 17 H Blood Urea Nitrogen 10 Creatinine 0.58 L Glucose Level 92 Calcium Level 8.4 Ferritin 220.0 Vitamin B12 Level 940 H Folate 17.3 Test 07/13/17 07:40 07/13/17 11:46 Bedside Glucose 115 141 Medications Medications Current Medications Ondansetron HCl (Zofran Inj) 4 mg Q6H PRN IV NAUSEA AND/OR VOMITING; Start at 23:30 Acetaminophen (Tylenol Tab) 650 mg Q6H PRN PO PAIN LEVEL 1-3 OR FEVER Last administered on 07/11/17t 18:10; Admin Dose 650 MG; Start 07/09/17 at 23:30 Acetaminophen/ Hydrocodone Bitart ([place] (5/325)) 1 tab Q6H PRN PO MODERATE PAIN LEVEL 4-6; Start 07/09/17 at 23:30 Morphine Sulfate (morphine) 2 mg Q4H PRN IV SEVERE PAIN LEVEL 7-10 Last administered on 07/12/17 21:06; Admin Dose 2 MG; Start 07/09/17 at 23:30 Docusate Sodium (Colace) 100 mg Q12H PRN PO CONSTIPATION; Start 07/09/17 at 23: 30 Magnesium Hydroxide (Milk Of Mag) 30 ml DAILY PRN PO CONSTIPATION; Start at 23:30 Bisacodyl (Dulcolax) 5 mg DAILY PRN PO CONSTIPATION Last administered on 14:07; Admin Dose 5 MG; Start 07/09/17 at 23:30 Zolpidem Tartrate (Ambien) 5 mg QHS PRN PO SLEEP Last administered on 23:24; Admin Dose 5 MG; Start 07/09/17 at 23:30 Famotidine (Pepcid) 20 mg Q12 PO Last administered on 07/13/17 08:25; Admin Dose 20 MG; Start 07/10/17 at 09:00 Enoxaparin Sodium (Lovenox) 40 mg DAILY SC Last administered on 07/13/17 08:26 ; Admin Dose 40 MG; Start 07/10/17 at 09:00 Bisacodyl (Dulcolax Supp) 10 mg Q48H PRN [place] CONSTIPATION Last administered on 13:06; Admin Dose 10 MG; Start 07/10/17 at 12:00 Atorvastatin Calcium (Lipitor) 10 mg QHS PO Last administered on 07/12/17 21: 07; Admin Dose 10 MG; Start 07/10/17 at 21:00 Carvedilol (Coreg) 3.125 mg QAM PO Last administered on 07/13/17 08:25; Admin Dose 3.125 MG; Start 07/10/17 at 14:00 Clopidogrel Bisulfate (plaVIX) 75 mg QAM PO Last administered on 07/13/17 08: 25; Admin Dose 75 MG; Start 07/10/17 at 14:00 Midodrine (Proamatine) 5 mg BID PO Last administered on 07/13/17 08:25; Admin Dose 5 MG; Start 07/10/17 at 21:00 Montelukast Sodium (Singulair) 10 mg QAM PO Last administered on 07/13/17 08: 25; Admin Dose 10 MG; Start 07/10/17 at 14:00 Ranitidine HCl (Zantac) 150 mg HS PO Last administered on 07/12/17 21:07; Admin Dose 150 MG; Start 07/10/17 at 21:00 Ranolazine (Ranexa) 500 mg Q12 PO Last administered on 07/13/17 08:24; Admin Dose 500 MG; Start 07/10/17 at 21:00 Tamsulosin HCl (Flomax) 0.4 mg HS PO Last administered on 07/12/17 21:07; Admin Dose 0.4 MG; Start 07/10/17 at 21:00 Cholecalciferol (Vitamin D) 2,000 unit DAILY PO Last administered on 07/13/17 08:25; Admin Dose 2,000 UNIT; Start 07/10/17 at 14:00 Escitalopram Oxalate (Lexapro) 5 mg QPM PO Last administered on 07/12/17 21:07 ; Admin Dose 5 MG; Start 07/11/17 at 09:00 Pantoprazole (Protonix Tab) 40 mg DAILY@06 PO Last administered on 07/13/17 05 :24; Admin Dose 40 MG; Start 07/11/17 at 06:00 Diagnostic Test (Pha) (Accu-Chek) 1 ea 02 XX Last administered on 07/13/17 02: 20; Admin Dose 1 EA; Start 07/11/17 at 02:00 Miscellaneous Information 1 ea NOTE XX ; Start 07/10/17 at 15:00 Glucose (Glutose) 15 gm Q15M PRN PO DECREASED GLUCOSE; Start 07/10/17 at 15:00 Glucose (Glutose) 22.5 gm Q15M PRN PO DECREASED GLUCOSE; Start 07/10/17 at 15: 00 Dextrose (D50w Syringe) 25 ml Q15M PRN IV DECREASED GLUCOSE; Start 07/10/17 at 15:00 Dextrose (D50w Syringe) 50 ml Q15M PRN IV DECREASED GLUCOSE; Start 07/10/17 at 15:00 Glucagon (Glucagen) 1 mg Q15M PRN IM DECREASED GLUCOSE; Start 07/10/17 at 15:00 Glucose (Glutose) 15 gm Q15M PRN BUCCAL DECREASED GLUCOSE; Start 07/10/17 at 15 :00 Linagliptin (Tradjenta) 5 mg DAILY PO Last administered on 07/13/17 08:24; Admin Dose 5 MG; Start 07/11/17 at 09:00 Digoxin (Digoxin) 0.125 mg DAILY@13 PO Last administered on 07/12/17 14:07; Admin Dose 0.125 MG; Start 07/12/17 at 13:00 YARI MILLER MD Jul 13, 2017 11:50
[2017-07-13] MEDS: DIGOXIN 0.125 MG TAB PO SCH (13:00)
[2017-07-13] MEDS ORDERED: POTASSIUM CHLORIDE 250 ML IVPB ONE (14:00)
--- NOTE | 2017-07-13 14:15 | CONS ---
Date/Time of Note Date/Time of Note DATE: 07/13/17 TIME: 14:14 Assessment/Plan Assessment/Plan Chief Complaint/Hosp Course 81-year-old gentleman with a history of lung cancer for which she had a surgery and treatment in 2009 comes to the hospital complaining of chest pain and shortness of breath which has been persistent for last 2-3 weeks. Patient is also known to have diabetes mellitus hypertension, status post coronary artery bypass graft and BPH. He denies of abdominal pain no nausea no vomiting no GI bleeding only complaint right now is chest pain on the left side. Patient is being evaluated by the special education director. CT chest shows pleural effusion and the scarring of the right side of the chest with the pulling of the mediastinum towards the right side. Problems: Additional Assessment/Plan Assessment/Plan Additional Assessment/Plan 1. Anemia most probably related to anemia of chronic disease based on the history there is no evidence of active GI bleeding at this point, B12 folic acid ferritin and reticulocyte count all within normal, awaiting for stool for occult blood 2. Cancer of the lung for which she had a treatment in 2009 3. Diabetes mellitus 4. Pleural effusion rule out malignancy 5. BPH 6. Status post coronary artery bypass graft 7. Hypotension for which patient is on midodrine Plan Workup for the anemia, so far workup has been negative most probably is related to anemia of chronic disease Thoracocentesis as per the special education director Consultation Date/Type/Reason Admit Date/Time Jul 09, 2017 at 19:15 Initial Consult Date 07/11/17 Type of Consultation: Pulmonary 24 HR Interval Summary Constitutional: improved, no complaints Exam/Review of Systems Vital Signs Vitals Vital Signs Date Time Temp Pulse Resp B/P Pulse Ox O2 Delivery O2 Flow Rate FiO2 07/13/17 12:01 76 07/13/17 11:19 98.3 19 141/60 98 07/13/17 08:00 Nasal Cannula 2.0 Intake and Output 07/12/17 07/12/17 07/13/17 15:00 23:00 07:00 Intake Total 500 ml 200 ml Balance 500 ml 200 ml Exam Constitutional: alert, oriented, well developed Psych: nl mood/affect, no complaints Head: atraumatic, normocephalic Eyes: EOMI, PERRL, nl conjunctiva, nl lids, nl sclera ENMT: nl external ears & nose, nl lips & teeth, nl nasal mucosa & septum Neck: non-tender, supple Respiratory: clear to auscultation, normal air movement Cardiovascular: nl pulses, regular rate and rhythm Gastrointestinal: nl liver, spleen, non-tender, soft Musculoskeletal: nl extremities to inspection, nl gait and stance Extremities: normal pulses 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: [employer] II-XII intact, nl mental status, nl speech, nl strength Skin: nl turgor, No rash or lesions Lymph: nl lymph nodes Results Result Diagram: 07/13/1744 07/13/17 0544 Results 24 hrs Laboratory Tests Test 07/12/17 17:34 07/12/17 21:05 07/13/17 02:00 07/13/17 05:44 Bedside Glucose 146 188 125 White Blood Count 7.1 # Red Blood Count 3.32 L Hemoglobin 9.6 L Hematocrit 30.2 L Mean Corpuscular Volume 91.0 Mean Corpuscular Hemoglobin 28.9 L Mean Corpuscular Hemoglobin Concent 31.8 L Red Cell Distribution Width 16.7 H Platelet Count 273 Mean Platelet Volume 10.4 Neutrophils % 79.0 H Lymphocytes % 9.8 L Monocytes % 8.8 Eosinophils % 1.0 Basophils % 0.4 Nucleated Red Blood Cells % 0.0 Neutrophils # (Manual) 5.6 Lymphocytes # 0.7 L Monocytes # 0.6 Eosinophils # 0.1 Basophils # 0.0 Nucleated Red Blood Cells # 0.0 Absolute Reticulocyte Count 0.067 Percent Reticulocyte Count 2.0 H Sodium Level 144 Potassium Level 3.4 L Chloride Level 98 Carbon Dioxide Level 32 H Anion Gap 17 H Blood Urea Nitrogen 10 Creatinine 0.58 L Glucose Level 92 Calcium Level 8.4 Ferritin 220.0 Vitamin B12 Level 940 H Folate 17.3 Test 07/13/17 07:40 07/13/17 11:46 Bedside Glucose 115 141 Medications Medications Current Medications Ondansetron HCl (Zofran Inj) 4 mg Q6H PRN IV NAUSEA AND/OR VOMITING; Start at 23:30 Acetaminophen (Tylenol Tab) 650 mg Q6H PRN PO PAIN LEVEL 1-3 OR FEVER Last administered on 07/11/17t 18:10; Admin Dose 650 MG; Start 07/09/17 at 23:30 Acetaminophen/ Hydrocodone Bitart ([place] (5/325)) 1 tab Q6H PRN PO MODERATE PAIN LEVEL 4-6; Start 07/09/17 at 23:30 Morphine Sulfate (morphine) 2 mg Q4H PRN IV SEVERE PAIN LEVEL 7-10 Last administered on 07/12/17 21:06; Admin Dose 2 MG; Start 07/09/17 at 23:30 Docusate Sodium (Colace) 100 mg Q12H PRN PO CONSTIPATION; Start 07/09/17 at 23: 30 Magnesium Hydroxide (Milk Of Mag) 30 ml DAILY PRN PO CONSTIPATION; Start at 23:30 Bisacodyl (Dulcolax) 5 mg DAILY PRN PO CONSTIPATION Last administered on 14:07; Admin Dose 5 MG; Start 07/09/17 at 23:30 Zolpidem Tartrate (Ambien) 5 mg QHS PRN PO SLEEP Last administered on 23:24; Admin Dose 5 MG; Start 07/09/17 at 23:30 Famotidine (Pepcid) 20 mg Q12 PO Last administered on 07/13/17 08:25; Admin Dose 20 MG; Start 07/10/17 at 09:00 Enoxaparin Sodium (Lovenox) 40 mg DAILY SC Last administered on 07/13/17 08:26 ; Admin Dose 40 MG; Start 07/10/17 at 09:00 Bisacodyl (Dulcolax Supp) 10 mg Q48H PRN [place] CONSTIPATION Last administered on 13:06; Admin Dose 10 MG; Start 07/10/17 at 12:00 Atorvastatin Calcium (Lipitor) 10 mg QHS PO Last administered on 07/12/17 21: 07; Admin Dose 10 MG; Start 07/10/17 at 21:00 Carvedilol (Coreg) 3.125 mg QAM PO Last administered on 07/13/17 08:25; Admin Dose 3.125 MG; Start 07/10/17 at 14:00 Clopidogrel Bisulfate (plaVIX) 75 mg QAM PO Last administered on 07/13/17 08: 25; Admin Dose 75 MG; Start 07/10/17 at 14:00 Midodrine (Proamatine) 5 mg BID PO Last administered on 07/13/17 08:25; Admin Dose 5 MG; Start 07/10/17 at 21:00 Montelukast Sodium (Singulair) 10 mg QAM PO Last administered on 07/13/17 08: 25; Admin Dose 10 MG; Start 07/10/17 at 14:00 Ranitidine HCl (Zantac) 150 mg HS PO Last administered on 07/12/17 21:07; Admin Dose 150 MG; Start 07/10/17 at 21:00 Ranolazine (Ranexa) 500 mg Q12 PO Last administered on 07/13/17 08:24; Admin Dose 500 MG; Start 07/10/17 at 21:00 Tamsulosin HCl (Flomax) 0.4 mg HS PO Last administered on 07/12/17 21:07; Admin Dose 0.4 MG; Start 07/10/17 at 21:00 Cholecalciferol (Vitamin D) 2,000 unit DAILY PO Last administered on 07/13/17 08:25; Admin Dose 2,000 UNIT; Start 07/10/17 at 14:00 Escitalopram Oxalate (Lexapro) 5 mg QPM PO Last administered on 07/12/17 21:07 ; Admin Dose 5 MG; Start 07/11/17 at 09:00 Pantoprazole (Protonix Tab) 40 mg DAILY@06 PO Last administered on 07/13/17 05 :24; Admin Dose 40 MG; Start 07/11/17 at 06:00 Diagnostic Test (Pha) (Accu-Chek) 1 ea 02 XX Last administered on 07/13/17 02: 20; Admin Dose 1 EA; Start 07/11/17 at 02:00 Miscellaneous Information 1 ea NOTE XX ; Start 07/10/17 at 15:00 Glucose (Glutose) 15 gm Q15M PRN PO DECREASED GLUCOSE; Start 07/10/17 at 15:00 Glucose (Glutose) 22.5 gm Q15M PRN PO DECREASED GLUCOSE; Start 07/10/17 at 15: 00 Dextrose (D50w Syringe) 25 ml Q15M PRN IV DECREASED GLUCOSE; Start 07/10/17 at 15:00 Dextrose (D50w Syringe) 50 ml Q15M PRN IV DECREASED GLUCOSE; Start 07/10/17 at 15:00 Glucagon (Glucagen) 1 mg Q15M PRN IM DECREASED GLUCOSE; Start 07/10/17 at 15:00 Glucose (Glutose) 15 gm Q15M PRN BUCCAL DECREASED GLUCOSE; Start 07/10/17 at 15 :00 Linagliptin (Tradjenta) 5 mg DAILY PO Last administered on 07/13/17 08:24; Admin Dose 5 MG; Start 07/11/17 at 09:00 Digoxin 0.125 mg 0.125 mg DAILY@13 PO Last administered on 07/13/17 13:00; Admin Dose 0.125 MG; Start 07/12/17 at 13:00 Potassium Chloride (KCl 40 MEQ/250 ML NS) 250 ml @ 62.5 mls/hr ONCE ONCE IVPB Last administered on 07/13/17 14:06; Admin Dose 62.5 MLS/HR; Start 07/13/17 at 14:00; Stop 07/13/17 at 17:59 ALEX SALINAS MD Jul 13, 2017 14:15
--- NOTE | 2017-07-13 19:18 | CONS ---
Date/Time of Note Date/Time of Note DATE: 07/13/17 TIME: 19:17 Consult Date/Type/Reason Admit Date/Time Jul 09, 2017 at 19:15 Initial Consult Date 07/11/17 Type of Consultation: Pulmonary Subjective No events overnight. Objective Vital Signs Date Time Temp Pulse Resp B/P Pulse Ox O2 Delivery O2 Flow Rate FiO2 07/13/17 16:06 82 07/13/17 15:47 98.6 20 140/85 100 07/13/17 08:00 Nasal Cannula 2.0 Intake and Output 07/12/17 07/12/17 07/13/17 15:00 23:00 07:00 Intake Total 500 ml 200 ml Balance 500 ml 200 ml Exam HEENT: Neck supple; no JVD; no LAD CVS: RRR, S1 and S2 CHEST: Absent R breath sounds ABD: Soft, NT, + BS EXT: No c/c/e Results/Medications Result Diagram: 07/13/17 0544 07/13/17 0544 Results 24 hrs Laboratory Tests Test 07/12/17 21:05 07/13/17 02:00 07/13/17 05:44 07/13/17 07:40 Bedside Glucose 188 125 115 White Blood Count 7.1 # Red Blood Count 3.32 L Hemoglobin 9.6 L Hematocrit 30.2 L Mean Corpuscular Volume 91.0 Mean Corpuscular Hemoglobin 28.9 L Mean Corpuscular Hemoglobin Concent 31.8 L Red Cell Distribution Width 16.7 H Platelet Count 273 Mean Platelet Volume 10.4 Neutrophils % 79.0 H Lymphocytes % 9.8 L Monocytes % 8.8 Eosinophils % 1.0 Basophils % 0.4 Nucleated Red Blood Cells % 0.0 Neutrophils # (Manual) 5.6 Lymphocytes # 0.7 L Monocytes # 0.6 Eosinophils # 0.1 Basophils # 0.0 Nucleated Red Blood Cells # 0.0 Absolute Reticulocyte Count 0.067 Percent Reticulocyte Count 2.0 H Sodium Level 144 Potassium Level 3.4 L Chloride Level 98 Carbon Dioxide Level 32 H Anion Gap 17 H Blood Urea Nitrogen 10 Creatinine 0.58 L Glucose Level 92 Calcium Level 8.4 Ferritin 220.0 Vitamin B12 Level 940 H Folate 17.3 Test 07/13/17 11:46 07/13/17 17:11 Bedside Glucose 141 177 Medications Current Medications Ondansetron HCl (Zofran Inj) 4 mg Q6H PRN IV NAUSEA AND/OR VOMITING; Start at 23:30 Acetaminophen (Tylenol Tab) 650 mg Q6H PRN PO PAIN LEVEL 1-3 OR FEVER Last administered on 07/11/17 18:10; Admin Dose 650 MG; Start 07/09/17 at 23:30 Acetaminophen/ Hydrocodone Bitart ([place] (5/325)) 1 tab Q6H PRN PO MODERATE PAIN LEVEL 4-6; Start 07/09/17 at 23:30 Morphine Sulfate (morphine) 2 mg Q4H PRN IV SEVERE PAIN LEVEL 7-10 Last administered on 07/12/17 21:06; Admin Dose 2 MG; Start 07/09/17 at 23:30 Docusate Sodium (Colace) 100 mg Q12H PRN PO CONSTIPATION; Start 07/09/17 at 23: 30 Magnesium Hydroxide (Milk Of Mag) 30 ml DAILY PRN PO CONSTIPATION; Start at 23:30 Bisacodyl (Dulcolax) 5 mg DAILY PRN PO CONSTIPATION Last administered on 14:07; Admin Dose 5 MG; Start 07/09/17 at 23:30 Zolpidem Tartrate (Ambien) 5 mg QHS PRN PO SLEEP Last administered on 23:24; Admin Dose 5 MG; Start 07/09/17 at 23:30 Famotidine (Pepcid) 20 mg Q12 PO Last administered on 07/13/17 08:25; Admin Dose 20 MG; Start 07/10/17 at 09:00 Enoxaparin Sodium (Lovenox) 40 mg DAILY SC Last administered on 07/13/17 08:26 ; Admin Dose 40 MG; Start 07/10/17 at 09:00 Bisacodyl (Dulcolax Supp) 10 mg Q48H PRN [place] CONSTIPATION Last administered on 13:06; Admin Dose 10 MG; Start 07/10/17 at 12:00 Atorvastatin Calcium (Lipitor) 10 mg QHS PO Last administered on 07/12/17 21: 07; Admin Dose 10 MG; Start 07/10/17 at 21:00 Carvedilol (Coreg) 3.125 mg QAM PO Last administered on 07/13/17 08:25; Admin Dose 3.125 MG; Start 07/10/17 at 14:00 Clopidogrel Bisulfate (plaVIX) 75 mg QAM PO Last administered on 07/13/17 08: 25; Admin Dose 75 MG; Start 07/10/17 at 14:00 Midodrine (Proamatine) 5 mg BID PO Last administered on 07/13/17 08:25; Admin Dose 5 MG; Start 07/10/17 at 21:00 Montelukast Sodium (Singulair) 10 mg QAM PO Last administered on 07/13/17 08: 25; Admin Dose 10 MG; Start 07/10/17 at 14:00 Ranitidine HCl (Zantac) 150 mg HS PO Last administered on 07/12/17 21:07; Admin Dose 150 MG; Start 07/10/17 at 21:00 Ranolazine (Ranexa) 500 mg Q12 PO Last administered on 07/13/17 08:24; Admin Dose 500 MG; Start 07/10/17 at 21:00 Tamsulosin HCl (Flomax) 0.4 mg HS PO Last administered on 07/12/17 21:07; Admin Dose 0.4 MG; Start 07/10/17 at 21:00 Cholecalciferol (Vitamin D) 2,000 unit DAILY PO Last administered on 07/13/17 08:25; Admin Dose 2,000 UNIT; Start 07/10/17 at 14:00 Escitalopram Oxalate (Lexapro) 5 mg QPM PO Last administered on 07/12/17 21:07 ; Admin Dose 5 MG; Start 07/11/17 at 09:00 Pantoprazole (Protonix Tab) 40 mg DAILY@06 PO Last administered on 07/13/17 05 :24; Admin Dose 40 MG; Start 07/11/17 at 06:00 Diagnostic Test (Pha) (Accu-Chek) 1 ea 02 XX Last administered on 07/13/17 02: 20; Admin Dose 1 EA; Start 07/11/17 at 02:00 Miscellaneous Information 1 ea NOTE XX ; Start 07/10/17 at 15:00 Glucose (Glutose) 15 gm Q15M PRN PO DECREASED GLUCOSE; Start 07/10/17 at 15:00 Glucose (Glutose) 22.5 gm Q15M PRN PO DECREASED GLUCOSE; Start 07/10/17 at 15: 00 Dextrose (D50w Syringe) 25 ml Q15M PRN IV DECREASED GLUCOSE; Start 07/10/17 at 15:00 Dextrose (D50w Syringe) 50 ml Q15M PRN IV DECREASED GLUCOSE; Start 07/10/17 at 15:00 Glucagon (Glucagen) 1 mg Q15M PRN IM DECREASED GLUCOSE; Start 07/10/17 at 15:00 Glucose (Glutose) 15 gm Q15M PRN BUCCAL DECREASED GLUCOSE; Start 07/10/17 at 15 :00 Linagliptin (Tradjenta) 5 mg DAILY PO Last administered on 07/13/17 08:24; Admin Dose 5 MG; Start 07/11/17 at 09:00 Digoxin (Digoxin) 0.125 mg DAILY@13 PO Last administered on 07/13/17 13:00; Admin Dose 0.125 MG; Start 07/12/17 at 13:00 Assessment/Plan Additional Assessment/Plan IMP: 1. 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 Denies having lung surgery or prior TB 2. h/o NSCLC s/p chemo and XRT RECS: 1. NEED RECORDS and OLD IMAGING from [facility]--> family informed 2. Much of the right lung changes appear chronic, however, cannnot exclude co- existing malignancy. 3. Am labs KELVIN CARDENAS MD Jul 13, 2017 19:18
--- NOTE | 2017-07-13 20:05 | PN ---
Date/Time of Note Date/Time of Note DATE: 07/13/17 TIME: 20:03 Assessment/Plan VTE Prophylaxis VTE Prophylaxis Intervention: SCD's Lines/Catheters IV Catheter Type (from [facility]): [facility] Urinary Cath still in place: No Assessment/Plan Assessment/Plan - Hypokalemia- replet K.. am BMP -Acute chest pain, Dr. Kaur is following in cardiology consultation -Pleural effusion, Dr. Mccullough is following in pulmonology consultation, - CT of the chest- bilateral pleural effusion- right sided more than left one. - Anemia- GI consult- Dr Delgado to see patient. -Diastolic dysfunction congestive heart failure -Bilateral lower extremity edema, venous Doppler negative for any deep venous thrombosis. -Coronary artery disease status post CABG in 2004 -History of lung cancer dx 2006, completed chemotherapy in 2009. -Diabetes mellitus - Glycemic control -BPH Further recommendations based on clinical course. Plan of care discussed with Dr. Morrissey. Subjective 24 Hr Interval Summary Free Text/Dictation 3218-late entry alert, afebrile, feels better, having dinner, family at bed side. dw staff. Respiratory: shortness of breath Cardiovascular: no complaints Gastrointestinal: no complaints Genitourinary: no complaints Musculoskeletal: no complaints Exam/Review of Systems Vital Signs Vitals Vital Signs Date Time Temp Pulse Resp B/P Pulse Ox O2 Delivery O2 Flow Rate FiO2 07/13/17 16:06 82 07/13/17 15:47 98.6 20 140/85 100 07/13/17 08:00 Nasal Cannula 2.0 Intake and Output 07/12/17 07/12/17 07/13/17 15:00 23:00 07:00 Intake Total 500 ml 200 ml Balance 500 ml 200 ml Exam Constitutional: alert, oriented Respiratory: clear to auscultation, diminished breath sounds Cardiovascular: nl pulses, regular rate and rhythm Gastrointestinal: non-tender, soft Musculoskeletal: nl extremities to inspection 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: nl mental status, nl speech Results Result Diagram: 07/13/17 0544 07/13/17 0544 Results 24 hrs Laboratory Tests Test 07/12/17 21:05 07/13/17 02:00 07/13/17 05:44 07/13/17 07:40 Bedside Glucose 188 125 115 White Blood Count 7.1 # Red Blood Count 3.32 L Hemoglobin 9.6 L Hematocrit 30.2 L Mean Corpuscular Volume 91.0 Mean Corpuscular Hemoglobin 28.9 L Mean Corpuscular Hemoglobin Concent 31.8 L Red Cell Distribution Width 16.7 H Platelet Count 273 Mean Platelet Volume 10.4 Neutrophils % 79.0 H Lymphocytes % 9.8 L Monocytes % 8.8 Eosinophils % 1.0 Basophils % 0.4 Nucleated Red Blood Cells % 0.0 Neutrophils # (Manual) 5.6 Lymphocytes # 0.7 L Monocytes # 0.6 Eosinophils # 0.1 Basophils # 0.0 Nucleated Red Blood Cells # 0.0 Absolute Reticulocyte Count 0.067 Percent Reticulocyte Count 2.0 H Sodium Level 144 Potassium Level 3.4 L Chloride Level 98 Carbon Dioxide Level 32 H Anion Gap 17 H Blood Urea Nitrogen 10 Creatinine 0.58 L Glucose Level 92 Calcium Level 8.4 Ferritin 220.0 Vitamin B12 Level 940 H Folate 17.3 Test 07/13/17 11:46 07/13/17 17:11 Bedside Glucose 141 177 Medications Medications Current Medications Ondansetron HCl (Zofran Inj) 4 mg Q6H PRN IV NAUSEA AND/OR VOMITING; Start at 23:30 Acetaminophen (Tylenol Tab) 650 mg Q6H PRN PO PAIN LEVEL 1-3 OR FEVER Last administered on 07/11/17 18:10; Admin Dose 650 MG; Start 07/09/17 at 23:30 Acetaminophen/ Hydrocodone Bitart ([place] (5/325)) 1 tab Q6H PRN PO MODERATE PAIN LEVEL 4-6; Start 07/09/17 at 23:30 Morphine Sulfate (morphine) 2 mg Q4H PRN IV SEVERE PAIN LEVEL 7-10 Last administered on 07/12/17 21:06; Admin Dose 2 MG; Start 07/09/17 at 23:30 Docusate Sodium (Colace) 100 mg Q12H PRN PO CONSTIPATION; Start 07/09/17 at 23: 30 Magnesium Hydroxide (Milk Of Mag) 30 ml DAILY PRN PO CONSTIPATION; Start at 23:30 Bisacodyl (Dulcolax) 5 mg DAILY PRN PO CONSTIPATION Last administered on 14:07; Admin Dose 5 MG; Start 07/09/17 at 23:30 Zolpidem Tartrate (Ambien) 5 mg QHS PRN PO SLEEP Last administered on 23:24; Admin Dose 5 MG; Start 07/09/17 at 23:30 Famotidine (Pepcid) 20 mg Q12 PO Last administered on 07/13/17 08:25; Admin Dose 20 MG; Start 07/10/17 at 09:00 Enoxaparin Sodium (Lovenox) 40 mg DAILY SC Last administered on 07/13/17 08:26 ; Admin Dose 40 MG; Start 07/10/17 at 09:00 Bisacodyl (Dulcolax Supp) 10 mg Q48H PRN [place] CONSTIPATION Last administered on 13:06; Admin Dose 10 MG; Start 07/10/17 at 12:00 Atorvastatin Calcium (Lipitor) 10 mg QHS PO Last administered on 07/12/17 21: 07; Admin Dose 10 MG; Start 07/10/17 at 21:00 Carvedilol (Coreg) 3.125 mg QAM PO Last administered on 07/13/17 08:25; Admin Dose 3.125 MG; Start 07/10/17 at 14:00 Clopidogrel Bisulfate (plaVIX) 75 mg QAM PO Last administered on 07/13/17 08: 25; Admin Dose 75 MG; Start 07/10/17 at 14:00 Midodrine (Proamatine) 5 mg BID PO Last administered on 07/13/17 08:25; Admin Dose 5 MG; Start 07/10/17 at 21:00 Montelukast Sodium (Singulair) 10 mg QAM PO Last administered on 07/13/17 08: 25; Admin Dose 10 MG; Start 07/10/17 at 14:00 Ranitidine HCl (Zantac) 150 mg HS PO Last administered on 07/12/17 21:07; Admin Dose 150 MG; Start 07/10/17 at 21:00 Ranolazine (Ranexa) 500 mg Q12 PO Last administered on 07/13/17 08:24; Admin Dose 500 MG; Start 07/10/17 at 21:00 Tamsulosin HCl (Flomax) 0.4 mg HS PO Last administered on 07/12/17 21:07; Admin Dose 0.4 MG; Start 07/10/17 at 21:00 Cholecalciferol (Vitamin D) 2,000 unit DAILY PO Last administered on 07/13/17 08:25; Admin Dose 2,000 UNIT; Start 07/10/17 at 14:00 Escitalopram Oxalate (Lexapro) 5 mg QPM PO Last administered on 07/12/17 21:07 ; Admin Dose 5 MG; Start 07/11/17 at 09:00 Pantoprazole (Protonix Tab) 40 mg DAILY@06 PO Last administered on 07/13/17 05 :24; Admin Dose 40 MG; Start 07/11/17 at 06:00 Diagnostic Test (Pha) (Accu-Chek) 1 ea 02 XX Last administered on 07/13/17 02: 20; Admin Dose 1 EA; Start 07/11/17 at 02:00 Miscellaneous Information 1 ea NOTE XX ; Start 07/10/17 at 15:00 Glucose (Glutose) 15 gm Q15M PRN PO DECREASED GLUCOSE; Start 07/10/17 at 15:00 Glucose (Glutose) 22.5 gm Q15M PRN PO DECREASED GLUCOSE; Start 07/10/17 at 15: 00 Dextrose (D50w Syringe) 25 ml Q15M PRN IV DECREASED GLUCOSE; Start 07/10/17 at 15:00 Dextrose (D50w Syringe) 50 ml Q15M PRN IV DECREASED GLUCOSE; Start 07/10/17 at 15:00 Glucagon (Glucagen) 1 mg Q15M PRN IM DECREASED GLUCOSE; Start 07/10/17 at 15:00 Glucose (Glutose) 15 gm Q15M PRN BUCCAL DECREASED GLUCOSE; Start 07/10/17 at 15 :00 Linagliptin (Tradjenta) 5 mg DAILY PO Last administered on 07/13/17 08:24; Admin Dose 5 MG; Start 07/11/17 at 09:00 Digoxin (Digoxin) 0.125 mg DAILY@13 PO Last administered on 07/13/17 13:00; Admin Dose 0.125 MG; Start 07/12/17 at 13:00 [facility] Jul 13, 2017 20:05
[2017-07-13] MEDS: ATORVASTATIN 10 MG TAB PO SCH (21:00)
[2017-07-13] MEDS: RANITIDINE 150 MG TAB PO SCH (21:01)
[2017-07-13] MEDS: ESCITALOPRAM 10 MG TAB PO SCH (21:01)
[2017-07-13] MEDS: TAMSULOSIN (SR) 0.4 MG CAP PO SCH (21:01)
[2017-07-13] MEDS: ZOLPIDEM 5 MG TAB PO PRN (21:17)
[2017-07-14] VITALS (12 sets, daily range): BP systolic 129–166; BP diastolic 57–80; PULSE 60–77; RESP 19–20
[2017-07-14] MEDS: ACCU-CHEK XX SCH (02:00)
[2017-07-14] MEDS: PANTOPRAZOLE (EC) 40 MG TAB PO SCH (05:35)
[2017-07-14 07:05] LABS: BASOPHILS % 0.5 % (0.0-2.0); EOSINOPHILS # 0.1 10^3/ul (0.0-0.5); EOSINOPHILS % 1.1 % (0.0-7.0); HEMATOCRIT 27.3 % (42.0-52.0); HEMOGLOBIN 8.7 g/dl (14.0-18.0); LYMPHOCYTES # 0.8 10^3/ul (0.8-2.9); LYMPHOCYTES % 13.9 % (15.0-51.0); MEAN CORPUSCULAR HGB CONC 31.9 g/dl (32.0-37.0); MEAN PLATELET VOLUME 10.3 fl (7.4-10.4); MONOCYTE # 0.5 10^3/ul (0.3-0.9); MONOCYTES % 9.4 % (0.0-11.0); NEUTROPHILS % 73.7 % (39.0-77.0); PLATELET COUNT 242 10^3/UL (140-415); RED CELL DISTRIBUTION WIDTH 16.6 % (11.5-14.5); WHITE BLOOD COUNT 5.6 10^3/ul (4.8-10.8)
[2017-07-14 07:30] LABS: CALCIUM 8.1 mg/dl (8.4-10.2); CREATININE 0.54 mg/dl (0.61-1.24); POTASSIUM 3.1 mmol/L (3.5-5.1)
[2017-07-14] MEDS: INSULIN ASPART [NOVOLOG] 3 ML PEN SC SCH ×4 (07:55→21:00)
[2017-07-14] MEDS: LINAGLIPTIN 5 MG TABLET PO SCH ×2 (08:19→08:23)
[2017-07-14] MEDS: CLOPIDOGREL 75 MG TAB PO SCH (08:22)
[2017-07-14] MEDS: MIDODRINE 5 MG TAB PO SCH ×2 (08:22→21:00)
[2017-07-14] MEDS: FAMOTIDINE 20 MG TAB PO SCH ×2 (08:22→21:25)
[2017-07-14] MEDS: RANOLAZINE (SR) 500 MG TAB PO SCH ×2 (08:23→21:24)
[2017-07-14] MEDS: MONTELUKAST 10 MG TAB PO SCH (08:23)
[2017-07-14] MEDS: CHOLECALCIFEROL 2,000 UNIT CAP PO SCH (08:24)
[2017-07-14] MEDS: ENOXAPARIN 40 MG/0.4 ML SYG SC SCH (08:30)
--- NOTE | 2017-07-14 10:56 | CONS ---
Date/Time of Note Date/Time of Note DATE: 07/14/17 TIME: 10:54 Consult Date/Type/Reason Admit Date/Time Jul 09, 2017 at 19:15 Initial Consult Date 07/13/17 Type of Consultation: Pulm Ordering Provider: RUIZ GRAJEDA MD Subjective Comfortable. Objective Vital Signs Date Time Temp Pulse Resp B/P Pulse Ox O2 Delivery O2 Flow Rate FiO2 07/14/17 10:14 98.9 71 19 161/71 94 Room Air 07/13/17 20:00 2.0 Intake and Output 07/13/17 07/13/17 07/14/17 14:59 22:59 06:59 Intake Total 180 ml Balance 180 ml Exam HEENT: Neck supple; no JVD; no LAD CVS: RRR, S1 and S2 CHEST: Absent R breath sounds ABD: Soft, NT, + BS EXT: No c/c/e Results/Medications Result Diagram: 07/14/17 0550 07/14/17 0550 Results 24 hrs Laboratory Tests Test 07/13/17 11:46 07/13/17 17:11 07/13/17 20:58 07/14/17 05:50 Bedside Glucose 141 177 174 White Blood Count 5.6 # Red Blood Count 3.00 L Hemoglobin 8.7 L Hematocrit 27.3 L Mean Corpuscular Volume 91.0 Mean Corpuscular Hemoglobin 29.0 Mean Corpuscular Hemoglobin Concent 31.9 L Red Cell Distribution Width 16.6 H Platelet Count 242 Mean Platelet Volume 10.3 Neutrophils % 73.7 Lymphocytes % 13.9 L Monocytes % 9.4 Eosinophils % 1.1 Basophils % 0.5 Nucleated Red Blood Cells % 0.0 Neutrophils # (Manual) 4.1 Lymphocytes # 0.8 Monocytes # 0.5 Eosinophils # 0.1 Basophils # 0.0 Nucleated Red Blood Cells # 0.0 Sodium Level 136 Potassium Level 3.1 L Chloride Level 97 Carbon Dioxide Level 33 H Anion Gap 9 # Blood Urea Nitrogen 10 Creatinine 0.54 L Glucose Level 101 Calcium Level 8.1 L Test 07/14/17 08:15 Bedside Glucose 109 Medications Current Medications Ondansetron HCl (Zofran Inj) 4 mg Q6H PRN IV NAUSEA AND/OR VOMITING; Start at 23:30 Acetaminophen (Tylenol Tab) 650 mg Q6H PRN PO PAIN LEVEL 1-3 OR FEVER Last administered on 07/11/17 18:10; Admin Dose 650 MG; Start 07/09/17 at 23:30 Acetaminophen/ Hydrocodone Bitart ([place] (5/325)) 1 tab Q6H PRN PO MODERATE PAIN LEVEL 4-6; Start 07/09/17 at 23:30 Morphine Sulfate (morphine) 2 mg Q4H PRN IV SEVERE PAIN LEVEL 7-10 Last administered on 07/12/17 21:06; Admin Dose 2 MG; Start 07/09/17 at 23:30 Docusate Sodium (Colace) 100 mg Q12H PRN PO CONSTIPATION; Start 07/09/17 at 23: 30 Magnesium Hydroxide (Milk Of Mag) 30 ml DAILY PRN PO CONSTIPATION; Start at 23:30 Bisacodyl (Dulcolax) 5 mg DAILY PRN PO CONSTIPATION Last administered on 14:07; Admin Dose 5 MG; Start 07/09/17 at 23:30 Zolpidem Tartrate (Ambien) 5 mg QHS PRN PO SLEEP Last administered on 21:17; Admin Dose 5 MG; Start 07/09/17 at 23:30 Famotidine (Pepcid) 20 mg Q12 PO Last administered on 07/14/17 08:22; Admin Dose 20 MG; Start 07/10/17 at 09:00 Enoxaparin Sodium (Lovenox) 40 mg DAILY SC Last administered on 07/14/17 08:30 ; Admin Dose 40 MG; Start 07/10/17 at 09:00 Bisacodyl (Dulcolax Supp) 10 mg Q48H PRN [place] CONSTIPATION Last administered on 13:06; Admin Dose 10 MG; Start 07/10/17 at 12:00 Atorvastatin Calcium (Lipitor) 10 mg QHS PO Last administered on 07/13/17 21: 00; Admin Dose 10 MG; Start 07/10/17 at 21:00 Carvedilol (Coreg) 3.125 mg QAM PO Last administered on 07/14/17 08:22; Admin Dose 3.125 MG; Start 07/10/17 at 14:00 Clopidogrel Bisulfate (plaVIX) 75 mg QAM PO Last administered on 07/14/17 08: 22; Admin Dose 75 MG; Start 07/10/17 at 14:00 Midodrine (Proamatine) 5 mg BID PO Last administered on 07/13/17 08:25; Admin Dose 5 MG; Start 07/10/17 at 21:00 Montelukast Sodium (Singulair) 10 mg QAM PO Last administered on 07/14/17 08: 23; Admin Dose 10 MG; Start 07/10/17 at 14:00 Ranitidine HCl (Zantac) 150 mg HS PO Last administered on 07/13/17 21:01; Admin Dose 150 MG; Start 07/10/17 at 21:00 Ranolazine (Ranexa) 500 mg Q12 PO Last administered on 07/14/17 08:23; Admin Dose 500 MG; Start 07/10/17 at 21:00 Tamsulosin HCl (Flomax) 0.4 mg HS PO Last administered on 07/13/17 21:01; Admin Dose 0.4 MG; Start 07/10/17 at 21:00 Cholecalciferol (Vitamin D) 2,000 unit DAILY PO Last administered on 07/14/17 08:24; Admin Dose 2,000 UNIT; Start 07/10/17 at 14:00 Escitalopram Oxalate (Lexapro) 5 mg QPM PO Last administered on 07/13/17 21:01 ; Admin Dose 5 MG; Start 07/11/17 at 09:00 Pantoprazole (Protonix Tab) 40 mg DAILY@06 PO Last administered on 07/14/17 05 :35; Admin Dose 40 MG; Start 07/11/17 at 06:00 Diagnostic Test (Pha) (Accu-Chek) 1 ea 02 XX Last administered on 07/14/17 02: 00; Admin Dose 1 EA; Start 07/11/17 at 02:00 Miscellaneous Information 1 ea NOTE XX ; Start 07/10/17 at 15:00 Glucose (Glutose) 15 gm Q15M PRN PO DECREASED GLUCOSE; Start 07/10/17 at 15:00 Glucose (Glutose) 22.5 gm Q15M PRN PO DECREASED GLUCOSE; Start 07/10/17 at 15: 00 Dextrose (D50w Syringe) 25 ml Q15M PRN IV DECREASED GLUCOSE; Start 07/10/17 at 15:00 Dextrose (D50w Syringe) 50 ml Q15M PRN IV DECREASED GLUCOSE; Start 07/10/17 at 15:00 Glucagon (Glucagen) 1 mg Q15M PRN IM DECREASED GLUCOSE; Start 07/10/17 at 15:00 Glucose (Glutose) 15 gm Q15M PRN BUCCAL DECREASED GLUCOSE; Start 07/10/17 at 15 :00 Linagliptin (Tradjenta) 5 mg DAILY PO Last administered on 07/14/17 08:23; Admin Dose 5 MG; Start 07/11/17 at 09:00 Digoxin (Digoxin) 0.125 mg DAILY@13 PO Last administered on 07/13/17 13:00; Admin Dose 0.125 MG; Start 07/12/17 at 13:00 Assessment/Plan Chief Complaint/Hosp Course IMP: 1. 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 Denies having lung surgery or prior TB 2. h/o NSCLC s/p chemo and XRT RECS: 1. NEED RECORDS and OLD IMAGING from [facility]--> family informed 2. Much of the right lung changes appear chronic, however, cannnot exclude co- existing malignancy. 3. Am labs Problems: LORA ROYAL MD, [facility] Jul 14, 2017 10:56
[2017-07-14] MEDS: DIGOXIN 0.125 MG TAB PO SCH (12:10)
--- NOTE | 2017-07-14 14:59 | CONS ---
Date/Time of Note Date/Time of Note DATE: 07/14/17 TIME: 14:57 Assessment/Plan Assessment/Plan Additional Assessment/Plan History of lung cancer with current pleural effusion CAD with history of CABG Preserved ejection fraction -Patient currently denies any chest pain. Continue antiplatelet therapy, statin therapy and beta-elsa if no complication. Consultation Date/Type/Reason Admit Date/Time Jul 09, 2017 at 19:15 Initial Consult Date 07/13/17 Type of Consultation: cv Referring Provider: RUIZ GRAJEDA MD 24 HR Interval Summary Free Text/Dictation Feeling better, no chest pain currently Exam/Review of Systems Vital Signs Vitals Vital Signs Date Time Temp Pulse Resp B/P Pulse Ox O2 Delivery O2 Flow Rate FiO2 07/14/17 12:01 66 07/14/17 11:01 98.5 19 145/69 100 07/14/17 10:14 Room Air 07/13/17 20:00 2.0 Intake and Output 07/13/17 07/13/17 07/14/17 15:00 23:00 07:00 Intake Total 180 ml Balance 180 ml Exam No apparent distress, following commands Constitutional: alert Head: normocephalic Respiratory: other (Coarse breath sounds, decreased right base) Cardiovascular: other (S1-S2 heard), regular rate and rhythm Gastrointestinal: bowel sounds, non-tender, soft Extremities: edema (Trace) Results Result Diagram: 07/14/17 0550 07/14/17 0550 Results 24 hrs Laboratory Tests Test 07/13/17 17:11 07/13/17 20:58 07/14/17 05:50 07/14/17 08:15 Bedside Glucose 177 174 109 White Blood Count 5.6 # Red Blood Count 3.00 L Hemoglobin 8.7 L Hematocrit 27.3 L Mean Corpuscular Volume 91.0 Mean Corpuscular Hemoglobin 29.0 Mean Corpuscular Hemoglobin Concent 31.9 L Red Cell Distribution Width 16.6 H Platelet Count 242 Mean Platelet Volume 10.3 Neutrophils % 73.7 Lymphocytes % 13.9 L Monocytes % 9.4 Eosinophils % 1.1 Basophils % 0.5 Nucleated Red Blood Cells % 0.0 Neutrophils # (Manual) 4.1 Lymphocytes # 0.8 Monocytes # 0.5 Eosinophils # 0.1 Basophils # 0.0 Nucleated Red Blood Cells # 0.0 Sodium Level 136 Potassium Level 3.1 L Chloride Level 97 Carbon Dioxide Level 33 H Anion Gap 9 # Blood Urea Nitrogen 10 Creatinine 0.54 L Glucose Level 101 Calcium Level 8.1 L Test 07/14/17 12:07 Bedside Glucose 134 Medications Medications Current Medications Ondansetron HCl (Zofran Inj) 4 mg Q6H PRN IV NAUSEA AND/OR VOMITING; Start at 23:30 Acetaminophen (Tylenol Tab) 650 mg Q6H PRN PO PAIN LEVEL 1-3 OR FEVER Last administered on 07/11/17 18:10; Admin Dose 650 MG; Start 07/09/17 at 23:30 Acetaminophen/ Hydrocodone Bitart ([place] (5/325)) 1 tab Q6H PRN PO MODERATE PAIN LEVEL 4-6; Start 07/09/17 at 23:30 Morphine Sulfate (morphine) 2 mg Q4H PRN IV SEVERE PAIN LEVEL 7-10 Last administered on 07/12/17 21:06; Admin Dose 2 MG; Start 07/09/17 at 23:30 Docusate Sodium (Colace) 100 mg Q12H PRN PO CONSTIPATION; Start 07/09/17 at 23: 30 Magnesium Hydroxide (Milk Of Mag) 30 ml DAILY PRN PO CONSTIPATION; Start at 23:30 Bisacodyl (Dulcolax) 5 mg DAILY PRN PO CONSTIPATION Last administered on 14:07; Admin Dose 5 MG; Start 07/09/17 at 23:30 Zolpidem Tartrate (Ambien) 5 mg QHS PRN PO SLEEP Last administered on 21:17; Admin Dose 5 MG; Start 07/09/17 at 23:30 Famotidine (Pepcid) 20 mg Q12 PO Last administered on 07/14/17 08:22; Admin Dose 20 MG; Start 07/10/17 at 09:00 Enoxaparin Sodium (Lovenox) 40 mg DAILY SC Last administered on 07/14/17 08:30 ; Admin Dose 40 MG; Start 07/10/17 at 09:00 Bisacodyl (Dulcolax Supp) 10 mg Q48H PRN [place] CONSTIPATION Last administered on 13:06; Admin Dose 10 MG; Start 07/10/17 at 12:00 Atorvastatin Calcium (Lipitor) 10 mg QHS PO Last administered on 07/13/17 21: 00; Admin Dose 10 MG; Start 07/10/17 at 21:00 Carvedilol (Coreg) 3.125 mg QAM PO Last administered on 07/14/17 08:22; Admin Dose 3.125 MG; Start 07/10/17 at 14:00 Clopidogrel Bisulfate (plaVIX) 75 mg QAM PO Last administered on 07/14/17 08: 22; Admin Dose 75 MG; Start 07/10/17 at 14:00 Midodrine (Proamatine) 5 mg BID PO Last administered on 07/13/17 08:25; Admin Dose 5 MG; Start 07/10/17 at 21:00 Montelukast Sodium (Singulair) 10 mg QAM PO Last administered on 07/14/17 08: 23; Admin Dose 10 MG; Start 07/10/17 at 14:00 Ranitidine HCl (Zantac) 150 mg HS PO Last administered on 07/13/17 21:01; Admin Dose 150 MG; Start 07/10/17 at 21:00 Ranolazine (Ranexa) 500 mg Q12 PO Last administered on 07/14/17 08:23; Admin Dose 500 MG; Start 07/10/17 at 21:00 Tamsulosin HCl (Flomax) 0.4 mg HS PO Last administered on 07/13/17 21:01; Admin Dose 0.4 MG; Start 07/10/17 at 21:00 Cholecalciferol (Vitamin D) 2,000 unit DAILY PO Last administered on 07/14/17 08:24; Admin Dose 2,000 UNIT; Start 07/10/17 at 14:00 Escitalopram Oxalate (Lexapro) 5 mg QPM PO Last administered on 07/13/17 21:01 ; Admin Dose 5 MG; Start 07/11/17 at 09:00 Pantoprazole (Protonix Tab) 40 mg DAILY@06 PO Last administered on 07/14/17 05 :35; Admin Dose 40 MG; Start 07/11/17 at 06:00 Diagnostic Test (Pha) (Accu-Chek) 1 ea 02 XX Last administered on 07/14/17 02: 00; Admin Dose 1 EA; Start 07/11/17 at 02:00 Miscellaneous Information 1 ea NOTE XX ; Start 07/10/17 at 15:00 Glucose (Glutose) 15 gm Q15M PRN PO DECREASED GLUCOSE; Start 07/10/17 at 15:00 Glucose (Glutose) 22.5 gm Q15M PRN PO DECREASED GLUCOSE; Start 07/10/17 at 15: 00 Dextrose (D50w Syringe) 25 ml Q15M PRN IV DECREASED GLUCOSE; Start 07/10/17 at 15:00 Dextrose (D50w Syringe) 50 ml Q15M PRN IV DECREASED GLUCOSE; Start 07/10/17 at 15:00 Glucagon (Glucagen) 1 mg Q15M PRN IM DECREASED GLUCOSE; Start 07/10/17 at 15:00 Glucose (Glutose) 15 gm Q15M PRN BUCCAL DECREASED GLUCOSE; Start 07/10/17 at 15 :00 Linagliptin (Tradjenta) 5 mg DAILY PO Last administered on 07/14/17 08:23; Admin Dose 5 MG; Start 07/11/17 at 09:00 Digoxin (Digoxin) 0.125 mg DAILY@13 PO Last administered on 07/14/17 12:10; Admin Dose 0.125 MG; Start 07/12/17 at 13:00 Amado Rodriguez DO Jul 14, 2017 14:59
--- NOTE | 2017-07-14 16:00 | CONS ---
Date/Time of Note Date/Time of Note DATE: 07/14/17 TIME: 15:59 Assessment/Plan Assessment/Plan Chief Complaint/Hosp Course 81-year-old gentleman with a history of lung cancer for which she had a surgery and treatment in 2009 comes to the hospital complaining of chest pain and shortness of breath which has been persistent for last 2-3 weeks. Patient is also known to have diabetes mellitus hypertension, status post coronary artery bypass graft and BPH. He denies of abdominal pain no nausea no vomiting no GI bleeding only complaint right now is chest pain on the left side. Patient is being evaluated by the drupal developer. CT chest shows pleural effusion and the scarring of the right side of the chest with the pulling of the mediastinum towards the right side. Problems: Additional Assessment/Plan Additional Assessment/Plan 1. Anemia most probably related to anemia of chronic disease based on the history there is no evidence of active GI bleeding at this point, B12 folic acid ferritin and reticulocyte count all within normal, awaiting for stool for occult blood 2. Cancer of the lung for which she had a treatment in 2009 3. Diabetes mellitus 4. Pleural effusion rule out malignancy, effusion is loculated and appears to be chronic 5. BPH 6. Status post coronary artery bypass graft 7. Hypotension for which patient is on midodrine Plan Workup for the anemia, so far workup has been negative most probably is related to anemia of chronic disease Consultation Date/Type/Reason Admit Date/Time Jul 09, 2017 at 19:15 Initial Consult Date 07/11/17 Type of Consultation: cv Referring Provider: RUIZ GRAJEDA MD 24 HR Interval Summary Constitutional: no complaints Exam/Review of Systems Vital Signs Vitals Vital Signs Date Time Temp Pulse Resp B/P Pulse Ox O2 Delivery O2 Flow Rate FiO2 07/14/17 15:25 98.6 69 19 154/80 100 07/14/17 10:14 Room Air 07/13/17 20:00 2.0 Intake and Output 07/13/17 07/13/17 07/14/17 15:00 23:00 07:00 Intake Total 180 ml Balance 180 ml Exam Constitutional: alert, oriented, well developed Psych: nl mood/affect, no complaints Head: atraumatic, normocephalic Eyes: EOMI, PERRL, nl conjunctiva, nl lids, nl sclera ENMT: nl external ears & nose, nl lips & teeth, nl nasal mucosa & septum Neck: non-tender, supple Respiratory: clear to auscultation, normal air movement Cardiovascular: nl pulses, regular rate and rhythm Gastrointestinal: nl liver, spleen, non-tender, soft Musculoskeletal: nl extremities to inspection, nl gait and stance Extremities: normal pulses 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: [employer] II-XII intact, nl mental status, nl speech, nl strength Skin: nl turgor, No rash or lesions Lymph: nl lymph nodes Results Result Diagram: 07/14/17 0550 07/14/17 0550 Results 24 hrs Laboratory Tests Test 07/13/17 17:11 07/13/17 20:58 07/14/17 05:50 07/14/17 08:15 Bedside Glucose 177 174 109 White Blood Count 5.6 # Red Blood Count 3.00 L Hemoglobin 8.7 L Hematocrit 27.3 L Mean Corpuscular Volume 91.0 Mean Corpuscular Hemoglobin 29.0 Mean Corpuscular Hemoglobin Concent 31.9 L Red Cell Distribution Width 16.6 H Platelet Count 242 Mean Platelet Volume 10.3 Neutrophils % 73.7 Lymphocytes % 13.9 L Monocytes % 9.4 Eosinophils % 1.1 Basophils % 0.5 Nucleated Red Blood Cells % 0.0 Neutrophils # (Manual) 4.1 Lymphocytes # 0.8 Monocytes # 0.5 Eosinophils # 0.1 Basophils # 0.0 Nucleated Red Blood Cells # 0.0 Sodium Level 136 Potassium Level 3.1 L Chloride Level 97 Carbon Dioxide Level 33 H Anion Gap 9 # Blood Urea Nitrogen 10 Creatinine 0.54 L Glucose Level 101 Calcium Level 8.1 L Test 07/14/17 12:07 Bedside Glucose 134 Medications Medications Current Medications Ondansetron HCl (Zofran Inj) 4 mg Q6H PRN IV NAUSEA AND/OR VOMITING; Start at 23:30 Acetaminophen (Tylenol Tab) 650 mg Q6H PRN PO PAIN LEVEL 1-3 OR FEVER Last administered on 07/11/17t 18:10; Admin Dose 650 MG; Start 07/09/17 at 23:30 Acetaminophen/ Hydrocodone Bitart ([place] (5/325)) 1 tab Q6H PRN PO MODERATE PAIN LEVEL 4-6; Start 07/09/17 at 23:30 Morphine Sulfate (morphine) 2 mg Q4H PRN IV SEVERE PAIN LEVEL 7-10 Last administered on 07/12/17 21:06; Admin Dose 2 MG; Start 07/09/17 at 23:30 Docusate Sodium (Colace) 100 mg Q12H PRN PO CONSTIPATION; Start 07/09/17 at 23: 30 Magnesium Hydroxide (Milk Of Mag) 30 ml DAILY PRN PO CONSTIPATION; Start at 23:30 Bisacodyl (Dulcolax) 5 mg DAILY PRN PO CONSTIPATION Last administered on 14:07; Admin Dose 5 MG; Start 07/09/17 at 23:30 Zolpidem Tartrate (Ambien) 5 mg QHS PRN PO SLEEP Last administered on 21:17; Admin Dose 5 MG; Start 07/09/17 at 23:30 Famotidine (Pepcid) 20 mg Q12 PO Last administered on 07/14/17 08:22; Admin Dose 20 MG; Start 07/10/17 at 09:00 Enoxaparin Sodium (Lovenox) 40 mg DAILY SC Last administered on 07/14/17 08:30 ; Admin Dose 40 MG; Start 07/10/17 at 09:00 Bisacodyl (Dulcolax Supp) 10 mg Q48H PRN [place] CONSTIPATION Last administered on 13:06; Admin Dose 10 MG; Start 07/10/17 at 12:00 Atorvastatin Calcium (Lipitor) 10 mg QHS PO Last administered on 07/13/17 21: 00; Admin Dose 10 MG; Start 07/10/17 at 21:00 Carvedilol (Coreg) 3.125 mg QAM PO Last administered on 07/14/17 08:22; Admin Dose 3.125 MG; Start 07/10/17 at 14:00 Clopidogrel Bisulfate (plaVIX) 75 mg QAM PO Last administered on 07/14/17 08: 22; Admin Dose 75 MG; Start 07/10/17 at 14:00 Midodrine (Proamatine) 5 mg BID PO Last administered on 07/13/17 08:25; Admin Dose 5 MG; Start 07/10/17 at 21:00 Montelukast Sodium (Singulair) 10 mg QAM PO Last administered on 07/14/17 08: 23; Admin Dose 10 MG; Start 07/10/17 at 14:00 Ranitidine HCl (Zantac) 150 mg HS PO Last administered on 07/13/17 21:01; Admin Dose 150 MG; Start 07/10/17 at 21:00 Ranolazine (Ranexa) 500 mg Q12 PO Last administered on 07/14/17 08:23; Admin Dose 500 MG; Start 07/10/17 at 21:00 Tamsulosin HCl (Flomax) 0.4 mg HS PO Last administered on 07/13/17 21:01; Admin Dose 0.4 MG; Start 07/10/17 at 21:00 Cholecalciferol (Vitamin D) 2,000 unit DAILY PO Last administered on 07/14/17 08:24; Admin Dose 2,000 UNIT; Start 07/10/17 at 14:00 Escitalopram Oxalate (Lexapro) 5 mg QPM PO Last administered on 07/13/17 21:01 ; Admin Dose 5 MG; Start 07/11/17 at 09:00 Pantoprazole (Protonix Tab) 40 mg DAILY@06 PO Last administered on 07/14/17 05 :35; Admin Dose 40 MG; Start 07/11/17 at 06:00 Diagnostic Test (Pha) (Accu-Chek) 1 ea 02 XX Last administered on 07/14/17 02: 00; Admin Dose 1 EA; Start 07/11/17 at 02:00 Miscellaneous Information 1 ea NOTE XX ; Start 07/10/17 at 15:00 Glucose (Glutose) 15 gm Q15M PRN PO DECREASED GLUCOSE; Start 07/10/17 at 15:00 Glucose (Glutose) 22.5 gm Q15M PRN PO DECREASED GLUCOSE; Start 07/10/17 at 15: 00 Dextrose (D50w Syringe) 25 ml Q15M PRN IV DECREASED GLUCOSE; Start 07/10/17 at 15:00 Dextrose (D50w Syringe) 50 ml Q15M PRN IV DECREASED GLUCOSE; Start 07/10/17 at 15:00 Glucagon (Glucagen) 1 mg Q15M PRN IM DECREASED GLUCOSE; Start 07/10/17 at 15:00 Glucose (Glutose) 15 gm Q15M PRN BUCCAL DECREASED GLUCOSE; Start 07/10/17 at 15 :00 Linagliptin (Tradjenta) 5 mg DAILY PO Last administered on 07/14/17 08:23; Admin Dose 5 MG; Start 07/11/17 at 09:00 Digoxin (Digoxin) 0.125 mg DAILY@13 PO Last administered on 07/14/17 12:10; Admin Dose 0.125 MG; Start 07/12/17 at 13:00 ALEX SALINAS MD Jul 14, 2017 16:00
[2017-07-14] MEDS ORDERED: POTASSIUM CHLORIDE (SR) 20 MEQ TAB PO ONE (16:30)
--- NOTE | 2017-07-14 17:09 | PN ---
Date/Time of Note Date/Time of Note DATE: 07/14/17 TIME: 16:59 Assessment/Plan VTE Prophylaxis VTE Prophylaxis Intervention: SCD's Lines/Catheters IV [facility]from [facility] [place] [facility] Urinary Cath still in place: No Assessment/Plan Chief Complaint/Hosp Course Patient is continued on supplemental oxygen with shortness of breath on exertion , complains of bilateral lower extremity edema, slightly improved. Hypokalemia , potassium replaced. 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 Dr Nagy is following in pulmonology consultation. -Coronary artery disease status post CABG in 2004. Continue Plavix. Dr. Pena is following in cardiology consultation. -Preserved ejection fraction 50% -Diastolic dysfunction congestive heart failure -Bilateral lower extremity edema, venous Dopplers negative for any deep venous thrombosis. -History of lung cancer dx 2006, completed chemotherapy in 2009. -Diabetes mellitus, continue Tradjenta and NovoLog per mild algorithm sliding scale. -BPH, renew Flomax. Further recommendations based on clinical course. Plan of care discussed with Dr. Morrissey. Problems: Exam/Review of Systems Vital Signs Vitals Vital Signs Date Time Temp Pulse Resp B/P Pulse Ox O2 Delivery O2 Flow Rate FiO2 07/14/17 15:25 98.6 69 19 154/80 100 07/14/17 10:14 Room Air 07/13/17 20:00 2.0 Intake and Output 07/13/17 07/13/17 07/14/17 15:00 23:00 07:00 Intake Total 180 ml Balance 180 ml Exam Constitutional: alert, oriented Head: normocephalic Neck: supple Respiratory: diminished breath sounds Cardiovascular: nl pulses Gastrointestinal: non-tender, soft Musculoskeletal: nl extremities to inspection Extremities: edema, normal pulses 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: nl mental status Results Result Diagram: 07/14/17 0550 07/14/17 0550 Results 24 hrs Laboratory Tests Test 07/13/17 17:11 07/13/17 20:58 07/14/17 05:50 07/14/17 08:15 Bedside Glucose 177 174 109 White Blood Count 5.6 # Red Blood Count 3.00 L Hemoglobin 8.7 L Hematocrit 27.3 L Mean Corpuscular Volume 91.0 Mean Corpuscular Hemoglobin 29.0 Mean Corpuscular Hemoglobin Concent 31.9 L Red Cell Distribution Width 16.6 H Platelet Count 242 Mean Platelet Volume 10.3 Neutrophils % 73.7 Lymphocytes % 13.9 L Monocytes % 9.4 Eosinophils % 1.1 Basophils % 0.5 Nucleated Red Blood Cells % 0.0 Neutrophils # (Manual) 4.1 Lymphocytes # 0.8 Monocytes # 0.5 Eosinophils # 0.1 Basophils # 0.0 Nucleated Red Blood Cells # 0.0 Sodium Level 136 Potassium Level 3.1 L Chloride Level 97 Carbon Dioxide Level 33 H Anion Gap 9 # Blood Urea Nitrogen 10 Creatinine 0.54 L Glucose Level 101 Calcium Level 8.1 L Test 07/14/17 12:07 Bedside Glucose 134 Medications Medications Current Medications Ondansetron HCl (Zofran Inj) 4 mg Q6H PRN IV NAUSEA AND/OR VOMITING; Start at 23:30 Acetaminophen (Tylenol Tab) 650 mg Q6H PRN PO PAIN LEVEL 1-3 OR FEVER Last administered on 07/11/17 18:10; Admin Dose 650 MG; Start 07/09/17 at 23:30 Acetaminophen/ Hydrocodone Bitart ([place] (5/325)) 1 tab Q6H PRN PO MODERATE PAIN LEVEL 4-6; Start 07/09/17 at 23:30 Morphine Sulfate (morphine) 2 mg Q4H PRN IV SEVERE PAIN LEVEL 7-10 Last administered on 07/12/17 21:06; Admin Dose 2 MG; Start 07/09/17 at 23:30 Docusate Sodium (Colace) 100 mg Q12H PRN PO CONSTIPATION; Start 07/09/17 at 23: 30 Magnesium Hydroxide (Milk Of Mag) 30 ml DAILY PRN PO CONSTIPATION; Start at 23:30 Bisacodyl (Dulcolax) 5 mg DAILY PRN PO CONSTIPATION Last administered on 14:07; Admin Dose 5 MG; Start 07/09/17 at 23:30 Zolpidem Tartrate (Ambien) 5 mg QHS PRN PO SLEEP Last administered on 21:17; Admin Dose 5 MG; Start 07/09/17 at 23:30 Famotidine (Pepcid) 20 mg Q12 PO Last administered on 07/14/17 08:22; Admin Dose 20 MG; Start 07/10/17 at 09:00 Enoxaparin Sodium (Lovenox) 40 mg DAILY SC Last administered on 07/14/17 08:30 ; Admin Dose 40 MG; Start 07/10/17 at 09:00 Bisacodyl (Dulcolax Supp) 10 mg Q48H PRN [place] CONSTIPATION Last administered on 13:06; Admin Dose 10 MG; Start 07/10/17 at 12:00 Atorvastatin Calcium (Lipitor) 10 mg QHS PO Last administered on 07/13/17 21: 00; Admin Dose 10 MG; Start 07/10/17 at 21:00 Carvedilol (Coreg) 3.125 mg QAM PO Last administered on 07/14/17 08:22; Admin Dose 3.125 MG; Start 07/10/17 at 14:00 Clopidogrel Bisulfate (plaVIX) 75 mg QAM PO Last administered on 07/14/17 08: 22; Admin Dose 75 MG; Start 07/10/17 at 14:00 Midodrine (Proamatine) 5 mg BID PO Last administered on 07/13/17 08:25; Admin Dose 5 MG; Start 07/10/17 at 21:00 Montelukast Sodium (Singulair) 10 mg QAM PO Last administered on 07/14/17 08: 23; Admin Dose 10 MG; Start 07/10/17 at 14:00 Ranitidine HCl (Zantac) 150 mg HS PO Last administered on 07/13/17 21:01; Admin Dose 150 MG; Start 07/10/17 at 21:00 Ranolazine (Ranexa) 500 mg Q12 PO Last administered on 07/14/17 08:23; Admin Dose 500 MG; Start 07/10/17 at 21:00 Tamsulosin HCl (Flomax) 0.4 mg HS PO Last administered on 07/13/17 21:01; Admin Dose 0.4 MG; Start 07/10/17 at 21:00 Cholecalciferol (Vitamin D) 2,000 unit DAILY PO Last administered on 07/14/17 08:24; Admin Dose 2,000 UNIT; Start 07/10/17 at 14:00 Escitalopram Oxalate (Lexapro) 5 mg QPM PO Last administered on 07/13/17 21:01 ; Admin Dose 5 MG; Start 07/11/17 at 09:00 Pantoprazole (Protonix Tab) 40 mg DAILY@06 PO Last administered on 07/14/17 05 :35; Admin Dose 40 MG; Start 07/11/17 at 06:00 Diagnostic Test (Pha) (Accu-Chek) 1 ea 02 XX Last administered on 07/14/17 02: 00; Admin Dose 1 EA; Start 07/11/17 at 02:00 Miscellaneous Information 1 ea NOTE XX ; Start 07/10/17 at 15:00 Glucose (Glutose) 15 gm Q15M PRN PO DECREASED GLUCOSE; Start 07/10/17 at 15:00 Glucose (Glutose) 22.5 gm Q15M PRN PO DECREASED GLUCOSE; Start 07/10/17 at 15: 00 Dextrose (D50w Syringe) 25 ml Q15M PRN IV DECREASED GLUCOSE; Start 07/10/17 at 15:00 Dextrose (D50w Syringe) 50 ml Q15M PRN IV DECREASED GLUCOSE; Start 07/10/17 at 15:00 Glucagon (Glucagen) 1 mg Q15M PRN IM DECREASED GLUCOSE; Start 07/10/17 at 15:00 Glucose (Glutose) 15 gm Q15M PRN BUCCAL DECREASED GLUCOSE; Start 07/10/17 at 15 :00 Linagliptin (Tradjenta) 5 mg DAILY PO Last administered on 07/14/17 08:23; Admin Dose 5 MG; Start 07/11/17 at 09:00 Digoxin (Digoxin) 0.125 mg DAILY@13 PO Last administered on 07/14/17 12:10; Admin Dose 0.125 MG; Start 07/12/17 at 13:00 MARC URIOSTEGUI Jul 14, 2017 17:09
[2017-07-14] MEDS: BISACODYL (EC) 5 MG TAB PO PRN (17:46)
--- NOTE | 2017-07-14 18:09 | CONS ---
Date/Time of Note Date/Time of Note DATE: 07/14/17 TIME: 18:08 Assessment/Plan Assessment/Plan Chief Complaint/Hosp Course 81-year-old man with a history of lung cancer 2006 on chemo til 2009 hypertension, diabetes mellitus, CAD, [place] CABG 2004, [place], Hyperlipidemia, chronic chest pain, Hypotension on midodrine, Diabetes Mellitus, BPH is admitted with chest pain and shortness of breath 3 weeks, moderate cough as well, generalized weakness, He denied fevers he has had recent bilateral lower extremity swelling. He states the pain is sharp worse with cough, nonexertional nonradiating. Denies chest pain, shortness of breath, vomiting or diarrhea, no weight loss, no blood per rectum. Patient is resting in bed, seems comfortable. Dr Morrissey is the admitting and attending provider, pt is found to have pleural effusino with hypokalemia, Renal has been consutled for fluid management, Hypokalemi and prerenal azotemia Problems: Additional Assessment/Plan 1. Hypokalemia 2. Pleural effusion 3. 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 Denies having lung surgery or prior TB 4. h/o NSCLC s/p chemo and XRT plan : KCl 20mEQ IV x 1 ordered Keep magnesium normal Keep pt even, no IV Fluids BP stable will follow up Consultation Date/Type/Reason Admit Date/Time Jul 09, 2017 at 19:15 Initial Consult Date 07/13/17 Type of Consultation: NEPHROLOGY Referring Provider: RUIZ MORRISSEY MD Exam/Review of Systems Vital Signs Vitals Vital Signs Date Time Temp Pulse Resp B/P Pulse Ox O2 Delivery O2 Flow Rate FiO2 07/14/17 16:01 65 07/14/17 15:25 98.6 19 154/80 100 07/14/17 10:14 Room Air 07/13/17 20:00 2.0 Intake and Output 07/13/17 07/13/17 07/14/17 14:59 22:59 06:59 Intake Total 180 ml Balance 180 ml Results Result Diagram: 07/14/17 0550 07/14/17 0550 Results 24 hrs Laboratory Tests Test 07/13/17 20:58 07/14/17 05:50 07/14/17 08:15 07/14/17 12:07 Bedside Glucose 174 109 134 White Blood Count 5.6 # Red Blood Count 3.00 L Hemoglobin 8.7 L Hematocrit 27.3 L Mean Corpuscular Volume 91.0 Mean Corpuscular Hemoglobin 29.0 Mean Corpuscular Hemoglobin Concent 31.9 L Red Cell Distribution Width 16.6 H Platelet Count 242 Mean Platelet Volume 10.3 Neutrophils % 73.7 Lymphocytes % 13.9 L Monocytes % 9.4 Eosinophils % 1.1 Basophils % 0.5 Nucleated Red Blood Cells % 0.0 Neutrophils # (Manual) 4.1 Lymphocytes # 0.8 Monocytes # 0.5 Eosinophils # 0.1 Basophils # 0.0 Nucleated Red Blood Cells # 0.0 Sodium Level 136 Potassium Level 3.1 L Chloride Level 97 Carbon Dioxide Level 33 H Anion Gap 9 # Blood Urea Nitrogen 10 Creatinine 0.54 L Glucose Level 101 Calcium Level 8.1 L Test 07/14/17 17:48 Bedside Glucose 115 Medications Medications Current Medications Ondansetron HCl (Zofran Inj) 4 mg Q6H PRN IV NAUSEA AND/OR VOMITING; Start at 23:30 Acetaminophen (Tylenol Tab) 650 mg Q6H PRN PO PAIN LEVEL 1-3 OR FEVER Last administered on 07/11/17 18:10; Admin Dose 650 MG; Start 07/09/17 at 23:30 Acetaminophen/ Hydrocodone Bitart ([place] (5/325)) 1 tab Q6H PRN PO MODERATE PAIN LEVEL 4-6; Start 07/09/17 at 23:30 Morphine Sulfate (morphine) 2 mg Q4H PRN IV SEVERE PAIN LEVEL 7-10 Last administered on 07/12/17 21:06; Admin Dose 2 MG; Start 07/09/17 at 23:30 Docusate Sodium (Colace) 100 mg Q12H PRN PO CONSTIPATION; Start 07/09/17 at 23: 30 Magnesium Hydroxide (Milk Of Mag) 30 ml DAILY PRN PO CONSTIPATION; Start at 23:30 Bisacodyl (Dulcolax) 5 mg DAILY PRN PO CONSTIPATION Last administered on 17:46; Admin Dose 5 MG; Start 07/09/17 at 23:30 Zolpidem Tartrate (Ambien) 5 mg QHS PRN PO SLEEP Last administered on 21:17; Admin Dose 5 MG; Start 07/09/17 at 23:30 Famotidine (Pepcid) 20 mg Q12 PO Last administered on 07/14/17 08:22; Admin Dose 20 MG; Start 07/10/17 at 09:00 Enoxaparin Sodium (Lovenox) 40 mg DAILY SC Last administered on 07/14/17 08:30 ; Admin Dose 40 MG; Start 07/10/17 at 09:00 Bisacodyl (Dulcolax Supp) 10 mg Q48H PRN [place] CONSTIPATION Last administered on 13:06; Admin Dose 10 MG; Start 07/10/17 at 12:00 Atorvastatin Calcium (Lipitor) 10 mg QHS PO Last administered on 07/13/17 21: 00; Admin Dose 10 MG; Start 07/10/17 at 21:00 Carvedilol (Coreg) 3.125 mg QAM PO Last administered on 07/14/17 08:22; Admin Dose 3.125 MG; Start 07/10/17 at 14:00 Clopidogrel Bisulfate (plaVIX) 75 mg QAM PO Last administered on 07/14/17 08: 22; Admin Dose 75 MG; Start 07/10/17 at 14:00 Midodrine (Proamatine) 5 mg BID PO Last administered on 07/13/17 08:25; Admin Dose 5 MG; Start 07/10/17 at 21:00 Montelukast Sodium (Singulair) 10 mg QAM PO Last administered on 07/14/17 08: 23; Admin Dose 10 MG; Start 07/10/17 at 14:00 Ranitidine HCl (Zantac) 150 mg HS PO Last administered on 07/13/17 21:01; Admin Dose 150 MG; Start 07/10/17 at 21:00 Ranolazine (Ranexa) 500 mg Q12 PO Last administered on 07/14/17 08:23; Admin Dose 500 MG; Start 07/10/17 at 21:00 Tamsulosin HCl (Flomax) 0.4 mg HS PO Last administered on 07/13/17 21:01; Admin Dose 0.4 MG; Start 07/10/17 at 21:00 Cholecalciferol (Vitamin D) 2,000 unit DAILY PO Last administered on 07/14/17 08:24; Admin Dose 2,000 UNIT; Start 07/10/17 at 14:00 Escitalopram Oxalate (Lexapro) 5 mg QPM PO Last administered on 07/13/17 21:01 ; Admin Dose 5 MG; Start 07/11/17 at 09:00 Pantoprazole (Protonix Tab) 40 mg DAILY@06 PO Last administered on 07/14/17 05 :35; Admin Dose 40 MG; Start 07/11/17 at 06:00 Diagnostic Test (Pha) (Accu-Chek) 1 ea 02 XX Last administered on 07/14/17 02: 00; Admin Dose 1 EA; Start 07/11/17 at 02:00 Miscellaneous Information 1 ea NOTE XX ; Start 07/10/17 at 15:00 Glucose (Glutose) 15 gm Q15M PRN PO DECREASED GLUCOSE; Start 07/10/17 at 15:00 Glucose (Glutose) 22.5 gm Q15M PRN PO DECREASED GLUCOSE; Start 07/10/17 at 15: 00 Dextrose (D50w Syringe) 25 ml Q15M PRN IV DECREASED GLUCOSE; Start 07/10/17 at 15:00 Dextrose (D50w Syringe) 50 ml Q15M PRN IV DECREASED GLUCOSE; Start 07/10/17 at 15:00 Glucagon (Glucagen) 1 mg Q15M PRN IM DECREASED GLUCOSE; Start 07/10/17 at 15:00 Glucose (Glutose) 15 gm Q15M PRN BUCCAL DECREASED GLUCOSE; Start 07/10/17 at 15 :00 Linagliptin (Tradjenta) 5 mg DAILY PO Last administered on 07/14/17 08:23; Admin Dose 5 MG; Start 07/11/17 at 09:00 Digoxin (Digoxin) 0.125 mg DAILY@13 PO Last administered on 07/14/17 12:10; Admin Dose 0.125 MG; Start 07/12/17 at 13:00 YARI MILLER MD Jul 14, 2017 18:09
[2017-07-14] MEDS ORDERED: POTASSIUM CHLORIDE 20 MEQ in SOD CHLORIDE 0.9% 100 ML IVPB ONE (18:30)
[2017-07-14] MEDS: RANITIDINE 150 MG TAB PO SCH (21:24)
[2017-07-14] MEDS: ESCITALOPRAM 10 MG TAB PO SCH (21:24)
[2017-07-14] MEDS: TAMSULOSIN (SR) 0.4 MG CAP PO SCH (21:24)
[2017-07-14] MEDS: ATORVASTATIN 10 MG TAB PO SCH (21:25)
[2017-07-14] MEDS: ZOLPIDEM 5 MG TAB PO PRN (21:26)
[2017-07-15] MEDS: ACCU-CHEK XX SCH (02:00)
[2017-07-15 03:30] VITALS: BP 155/72; RESP 18
[2017-07-15] MEDS: PANTOPRAZOLE (EC) 40 MG TAB PO SCH (05:37)
[2017-07-15 06:14] LABS: BASOPHILS % 0.5 % (0.0-2.0); EOSINOPHILS % 0.6 % (0.0-7.0); HEMATOCRIT 29.9 % (42.0-52.0); HEMOGLOBIN 9.7 g/dl (14.0-18.0); LYMPHOCYTES # 0.7 10^3/ul (0.8-2.9); LYMPHOCYTES % 11.5 % (15.0-51.0); MEAN CORPUSCULAR HGB CONC 32.4 g/dl (32.0-37.0); MEAN CORPUSCULAR VOLUME 89.5 fl (82.0-101.0); MEAN PLATELET VOLUME 10.3 fl (7.4-10.4); MONOCYTE # 0.6 10^3/ul (0.3-0.9); MONOCYTES % 9.4 % (0.0-11.0); NEUTROPHILS % 76.9 % (39.0-77.0); PLATELET COUNT 265 10^3/UL (140-415); RED BLOOD COUNT 3.34 10^6/ul (4.70-6.10); RED CELL DISTRIBUTION WIDTH 16.6 % (11.5-14.5); WHITE BLOOD COUNT 6.3 10^3/ul (4.8-10.8)
[2017-07-15] MEDS: morphine 2 MG INJ IV PRN ×2 (06:49→20:24)
[2017-07-15 06:59] LABS: CALCIUM 8.3 mg/dl (8.4-10.2); CREATININE 0.55 mg/dl (0.61-1.24); POTASSIUM 3.2 mmol/L (3.5-5.1)
[2017-07-15 07:19] VITALS: BP 109/59; RESP 18
[2017-07-15 07:33] VITALS: BP 153/73; RESP 18
[2017-07-15] MEDS: MIDODRINE 5 MG TAB PO SCH ×2 (07:52→20:23)
[2017-07-15] MEDS: INSULIN ASPART [NOVOLOG] 3 ML PEN SC SCH ×4 (08:15→20:29)
[2017-07-15] MEDS: FAMOTIDINE 20 MG TAB PO SCH ×2 (08:40→20:23)
[2017-07-15] MEDS: LINAGLIPTIN 5 MG TABLET PO SCH (08:40)
[2017-07-15] MEDS: CLOPIDOGREL 75 MG TAB PO SCH (08:40)
[2017-07-15] MEDS: MONTELUKAST 10 MG TAB PO SCH (08:40)
[2017-07-15] MEDS: CHOLECALCIFEROL 2,000 UNIT CAP PO SCH (08:40)
[2017-07-15] MEDS: RANOLAZINE (SR) 500 MG TAB PO SCH ×2 (08:40→20:21)
[2017-07-15] MEDS: ENOXAPARIN 40 MG/0.4 ML SYG SC SCH (08:49)
--- NOTE | 2017-07-15 10:06 | CONS ---
Date/Time of Note Date/Time of Note DATE: 07/15/17 TIME: 10:02 Consult Date/Type/Reason Admit Date/Time Jul 09, 2017 at 19:15 Initial Consult Date 07/13/17 Type of Consultation: Pulm Ordering Provider: RUIZ GRAJEDA MD Subjective Stable this morning, no shortness of breath. Objective Vital Signs Date Time Temp Pulse Resp B/P Pulse Ox O2 Delivery O2 Flow Rate FiO2 07/15/17 07:33 99.1 75 18 153/73 100 07/14/17 20:00 Nasal Cannula 2.0 Intake and Output 07/14/17 07/14/17 07/15/17 15:00 23:00 07:00 Intake Total 500 ml 200 ml Balance 500 ml 200 ml Exam HEENT: Neck supple; no JVD; no LAD CVS: RRR, S1 and S2 CHEST: Absent R breath sounds ABD: Soft, NT, + BS EXT: No c/c/e Results/Medications Result Diagram: 07/15/17 0534 07/15/17 0534 Results 24 hrs Laboratory Tests Test 07/14/17 12:07 07/14/17 17:48 07/14/17 21:33 07/15/17 05:34 Bedside Glucose 134 115 132 White Blood Count 6.3 Red Blood Count 3.34 L Hemoglobin 9.7 L Hematocrit 29.9 L Mean Corpuscular Volume 89.5 Mean Corpuscular Hemoglobin 29.0 Mean Corpuscular Hemoglobin Concent 32.4 Red Cell Distribution Width 16.6 H Platelet Count 265 Mean Platelet Volume 10.3 Neutrophils % 76.9 Lymphocytes % 11.5 L Monocytes % 9.4 Eosinophils % 0.6 Basophils % 0.5 Nucleated Red Blood Cells % 0.0 Neutrophils # (Manual) 4.8 Lymphocytes # 0.7 L Monocytes # 0.6 Eosinophils # 0.0 Basophils # 0.0 Nucleated Red Blood Cells # 0.0 Sodium Level 142 Potassium Level 3.2 L Chloride Level 98 Carbon Dioxide Level 33 H Anion Gap 14 Blood Urea Nitrogen 7 Creatinine 0.55 L Glucose Level 102 Calcium Level 8.3 L Test 07/15/17 08:04 Bedside Glucose 111 Medications Current Medications Ondansetron HCl (Zofran Inj) 4 mg Q6H PRN IV NAUSEA AND/OR VOMITING; Start at 23:30 Acetaminophen (Tylenol Tab) 650 mg Q6H PRN PO PAIN LEVEL 1-3 OR FEVER Last administered on 07/11/17 18:10; Admin Dose 650 MG; Start 07/09/17 at 23:30 Acetaminophen/ Hydrocodone Bitart ([place] (5/325)) 1 tab Q6H PRN PO MODERATE PAIN LEVEL 4-6; Start 07/09/17 at 23:30 Morphine Sulfate (morphine) 2 mg Q4H PRN IV SEVERE PAIN LEVEL 7-10 Last administered on 07/15/17 06:49; Admin Dose 2 MG; Start 07/09/17 at 23:30 Docusate Sodium (Colace) 100 mg Q12H PRN PO CONSTIPATION; Start 07/09/17 at 23: 30 Magnesium Hydroxide (Milk Of Mag) 30 ml DAILY PRN PO CONSTIPATION Last administered on 07/14/17 21:26; Admin Dose 30 ML; Start 07/09/17 at 23:30 Bisacodyl (Dulcolax) 5 mg DAILY PRN PO CONSTIPATION Last administered on 17:46; Admin Dose 5 MG; Start 07/09/17 at 23:30 Zolpidem Tartrate (Ambien) 5 mg QHS PRN PO SLEEP Last administered on 21:26; Admin Dose 5 MG; Start 07/09/17 at 23:30 Famotidine (Pepcid) 20 mg Q12 PO Last administered on 07/15/17 08:40; Admin Dose 20 MG; Start 07/10/17 at 09:00 Enoxaparin Sodium (Lovenox) 40 mg DAILY SC Last administered on 07/15/17 08:49 ; Admin Dose 40 MG; Start 07/10/17 at 09:00 Bisacodyl (Dulcolax Supp) 10 mg Q48H PRN [place] CONSTIPATION Last administered on 13:06; Admin Dose 10 MG; Start 07/10/17 at 12:00 Atorvastatin Calcium (Lipitor) 10 mg QHS PO Last administered on 07/14/17 21: 25; Admin Dose 10 MG; Start 07/10/17 at 21:00 Clopidogrel Bisulfate (plaVIX) 75 mg QAM PO Last administered on 07/15/17 08: 40; Admin Dose 75 MG; Start 07/10/17 at 14:00 Midodrine (Proamatine) 5 mg BID PO Last administered on 07/13/17 08:25; Admin Dose 5 MG; Start 07/10/17 at 21:00 Montelukast Sodium (Singulair) 10 mg QAM PO Last administered on 07/15/17 08: 40; Admin Dose 10 MG; Start 07/10/17 at 14:00 Ranitidine HCl (Zantac) 150 mg HS PO Last administered on 07/14/17 21:24; Admin Dose 150 MG; Start 07/10/17 at 21:00 Ranolazine (Ranexa) 500 mg Q12 PO Last administered on 07/15/17 08:40; Admin Dose 500 MG; Start 07/10/17 at 21:00 Tamsulosin HCl (Flomax) 0.4 mg HS PO Last administered on 07/14/17 21:24; Admin Dose 0.4 MG; Start 07/10/17 at 21:00 Cholecalciferol (Vitamin D) 2,000 unit DAILY PO Last administered on 07/15/17 08:40; Admin Dose 2,000 UNIT; Start 07/10/17 at 14:00 Escitalopram Oxalate (Lexapro) 5 mg QPM PO Last administered on 07/14/17 21:24 ; Admin Dose 5 MG; Start 07/11/17 at 09:00 Pantoprazole (Protonix Tab) 40 mg DAILY@06 PO Last administered on 07/15/17 05 :37; Admin Dose 40 MG; Start 07/11/17 at 06:00 Diagnostic Test (Pha) (Accu-Chek) 1 ea 02 XX Last administered on 07/14/17 02: 00; Admin Dose 1 EA; Start 07/11/17 at 02:00 Miscellaneous Information 1 ea NOTE XX ; Start 07/10/17 at 15:00 Glucose (Glutose) 15 gm Q15M PRN PO DECREASED GLUCOSE; Start 07/10/17 at 15:00 Glucose (Glutose) 22.5 gm Q15M PRN PO DECREASED GLUCOSE; Start 07/10/17 at 15: 00 Dextrose (D50w Syringe) 25 ml Q15M PRN IV DECREASED GLUCOSE; Start 07/10/17 at 15:00 Dextrose (D50w Syringe) 50 ml Q15M PRN IV DECREASED GLUCOSE; Start 07/10/17 at 15:00 Glucagon (Glucagen) 1 mg Q15M PRN IM DECREASED GLUCOSE; Start 07/10/17 at 15:00 Glucose (Glutose) 15 gm Q15M PRN BUCCAL DECREASED GLUCOSE; Start 07/10/17 at 15 :00 Linagliptin (Tradjenta) 5 mg DAILY PO Last administered on 07/15/17 08:40; Admin Dose 5 MG; Start 07/11/17 at 09:00 Digoxin (Digoxin) 0.125 mg DAILY@13 PO Last administered on 07/14/17 12:10; Admin Dose 0.125 MG; Start 07/12/17 at 13:00 Carvedilol (Coreg) 3.125 mg BID PO Last administered on 07/15/17 08:41; Admin Dose 3.125 MG; Start 07/14/17 at 21:00 Assessment/Plan Chief Complaint/Hosp Course IMP: 1. 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 Denies having lung surgery or prior TB 2. h/o NSCLC s/p chemo and XRT 3. Stable diastolic dysfunction 4. Hypokalemia. RECS: 1. NEED RECORDS and OLD IMAGING from [facility]--> family informed 2. Much of the right lung changes appear chronic, however, cannnot exclude co- existing malignancy. Would recommend outpatient follow up. No need for thoracentesis or decortication at present. 3. Replace K+ 4. Consider dc planning. Problems: LORA ROYAL MD, [facility] Jul 15, 2017 10:06
[2017-07-15] MEDS: DIGOXIN 0.125 MG TAB PO SCH (11:57)
[2017-07-15] MEDS ORDERED: POTASSIUM CHLORIDE 20 MEQ POWDER FOR ORAL SOLN PO ONE (12:00)
[2017-07-15 14:03] VITALS: BP 131/62; RESP 16
--- NOTE | 2017-07-15 15:12 | PN ---
Date/Time of Note Date/Time of Note DATE: 07/15/17 TIME: 15:07 Assessment/Plan VTE Prophylaxis VTE Prophylaxis Intervention: SCD's Lines/Catheters IV [facility] [place] Urinary Cath still in place: No Assessment/Plan Chief Complaint/Hosp Course Patient's continues to complaints of cough, however stated it decreased slightly over the last couple of days. Patient still complains of bilateral lower extremity edema. Patient's condition and plan of care discussed in details with patient and patient daughter and at the bedside. Records from [facility] where patient received chemotherapy requested. Assessment/Plan -Hypokalemia, potassium replaced, continue to monitor electrolytes. 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 Dr Nagy is following in pulmonology consultation. -Coronary artery disease status post CABG in 2004. Continue Plavix. Dr. 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 -Preserved ejection fraction 50% -Diastolic dysfunction congestive heart failure -Bilateral lower extremity edema, venous Dopplers negative for any deep venous thrombosis. -History of lung cancer dx 2006, completed chemotherapy in 2009. -Diabetes mellitus, continue Tradjenta and NovoLog per mild algorithm sliding scale. -BPH, renew Flomax. Further recommendations based on clinical course. Plan of care discussed with Dr. Morrissey. Problems: Exam/Review of Systems Vital Signs Vitals Vital Signs Date Time Temp Pulse Resp B/P Pulse Ox O2 Delivery O2 Flow Rate FiO2 07/15/17 14:45 Nasal Cannula 2.0 07/15/17 14:03 97.5 77 16 131/62 98 Intake and Output 07/14/17 07/14/17 07/15/17 15:00 23:00 07:00 Intake Total 500 ml 200 ml Balance 500 ml 200 ml Exam Constitutional: alert, oriented Head: normocephalic Neck: supple Respiratory: diminished breath sounds Cardiovascular: nl pulses Gastrointestinal: non-tender, soft Musculoskeletal: nl extremities to inspection Extremities: edema, normal pulses 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: nl mental status Results Result Diagram: 07/15/17 0534 07/15/17 0534 Results 24 hrs Laboratory Tests Test 07/14/17 17:48 07/14/17 21:33 07/15/17 05:34 07/15/17 08:04 Bedside Glucose 115 132 111 White Blood Count 6.3 Red Blood Count 3.34 L Hemoglobin 9.7 L Hematocrit 29.9 L Mean Corpuscular Volume 89.5 Mean Corpuscular Hemoglobin 29.0 Mean Corpuscular Hemoglobin Concent 32.4 Red Cell Distribution Width 16.6 H Platelet Count 265 Mean Platelet Volume 10.3 Neutrophils % 76.9 Lymphocytes % 11.5 L Monocytes % 9.4 Eosinophils % 0.6 Basophils % 0.5 Nucleated Red Blood Cells % 0.0 Neutrophils # (Manual) 4.8 Lymphocytes # 0.7 L Monocytes # 0.6 Eosinophils # 0.0 Basophils # 0.0 Nucleated Red Blood Cells # 0.0 Sodium Level 142 Potassium Level 3.2 L Chloride Level 98 Carbon Dioxide Level 33 H Anion Gap 14 Blood Urea Nitrogen 7 Creatinine 0.55 L Glucose Level 102 Calcium Level 8.3 L Test 07/15/17 11:50 Bedside Glucose 193 Medications Medications Current Medications Ondansetron HCl (Zofran Inj) 4 mg Q6H PRN IV NAUSEA AND/OR VOMITING; Start at 23:30 Acetaminophen (Tylenol Tab) 650 mg Q6H PRN PO PAIN LEVEL 1-3 OR FEVER Last administered on 07/11/17 18:10; Admin Dose 650 MG; Start 07/09/17 at 23:30 Acetaminophen/ Hydrocodone Bitart ([place] (5/325)) 1 tab Q6H PRN PO MODERATE PAIN LEVEL 4-6; Start 07/09/17 at 23:30 Morphine Sulfate (morphine) 2 mg Q4H PRN IV SEVERE PAIN LEVEL 7-10 Last administered on 07/15/17 06:49; Admin Dose 2 MG; Start 07/09/17 at 23:30 Docusate Sodium (Colace) 100 mg Q12H PRN PO CONSTIPATION; Start 07/09/17 at 23: 30 Magnesium Hydroxide (Milk Of Mag) 30 ml DAILY PRN PO CONSTIPATION Last administered on 07/14/17 21:26; Admin Dose 30 ML; Start 07/09/17 at 23:30 Bisacodyl (Dulcolax) 5 mg DAILY PRN PO CONSTIPATION Last administered on 17:46; Admin Dose 5 MG; Start 07/09/17 at 23:30 Zolpidem Tartrate (Ambien) 5 mg QHS PRN PO SLEEP Last administered on 21:26; Admin Dose 5 MG; Start 07/09/17 at 23:30 Famotidine (Pepcid) 20 mg Q12 PO Last administered on 07/15/17 08:40; Admin Dose 20 MG; Start 07/10/17 at 09:00 Enoxaparin Sodium (Lovenox) 40 mg DAILY SC Last administered on 07/15/17 08:49 ; Admin Dose 40 MG; Start 07/10/17 at 09:00 Bisacodyl (Dulcolax Supp) 10 mg Q48H PRN [place] CONSTIPATION Last administered on 13:06; Admin Dose 10 MG; Start 07/10/17 at 12:00 Atorvastatin Calcium (Lipitor) 10 mg QHS PO Last administered on 07/14/17 21: 25; Admin Dose 10 MG; Start 07/10/17 at 21:00 Clopidogrel Bisulfate (plaVIX) 75 mg QAM PO Last administered on 07/15/17 08: 40; Admin Dose 75 MG; Start 07/10/17 at 14:00 Midodrine (Proamatine) 5 mg BID PO Last administered on 07/13/17 08:25; Admin Dose 5 MG; Start 07/10/17 at 21:00 Montelukast Sodium (Singulair) 10 mg QAM PO Last administered on 07/15/17 08: 40; Admin Dose 10 MG; Start 07/10/17 at 14:00 Ranitidine HCl (Zantac) 150 mg HS PO Last administered on 07/14/17 21:24; Admin Dose 150 MG; Start 07/10/17 at 21:00 Ranolazine (Ranexa) 500 mg Q12 PO Last administered on 07/15/17 08:40; Admin Dose 500 MG; Start 07/10/17 at 21:00 Tamsulosin HCl (Flomax) 0.4 mg HS PO Last administered on 07/14/17 21:24; Admin Dose 0.4 MG; Start 07/10/17 at 21:00 Cholecalciferol (Vitamin D) 2,000 unit DAILY PO Last administered on 07/15/17 08:40; Admin Dose 2,000 UNIT; Start 07/10/17 at 14:00 Escitalopram Oxalate (Lexapro) 5 mg QPM PO Last administered on 07/14/17 21:24 ; Admin Dose 5 MG; Start 07/11/17 at 09:00 Pantoprazole (Protonix Tab) 40 mg DAILY@06 PO Last administered on 07/15/17 05 :37; Admin Dose 40 MG; Start 07/11/17 at 06:00 Diagnostic Test (Pha) (Accu-Chek) 1 ea 02 XX Last administered on 07/14/17 02: 00; Admin Dose 1 EA; Start 07/11/17 at 02:00 Miscellaneous Information 1 ea NOTE XX ; Start 07/10/17 at 15:00 Glucose (Glutose) 15 gm Q15M PRN PO DECREASED GLUCOSE; Start 07/10/17 at 15:00 Glucose (Glutose) 22.5 gm Q15M PRN PO DECREASED GLUCOSE; Start 07/10/17 at 15: 00 Dextrose (D50w Syringe) 25 ml Q15M PRN IV DECREASED GLUCOSE; Start 07/10/17 at 15:00 Dextrose (D50w Syringe) 50 ml Q15M PRN IV DECREASED GLUCOSE; Start 07/10/17 at 15:00 Glucagon (Glucagen) 1 mg Q15M PRN IM DECREASED GLUCOSE; Start 07/10/17 at 15:00 Glucose (Glutose) 15 gm Q15M PRN BUCCAL DECREASED GLUCOSE; Start 07/10/17 at 15 :00 Linagliptin (Tradjenta) 5 mg DAILY PO Last administered on 07/15/17 08:40; Admin Dose 5 MG; Start 07/11/17 at 09:00 Digoxin (Digoxin) 0.125 mg DAILY@13 PO Last administered on 07/15/17 11:57; Admin Dose 0.125 MG; Start 07/12/17 at 13:00 Carvedilol (Coreg) 3.125 mg BID PO Last administered on 07/15/17 08:41; Admin Dose 3.125 MG; Start 07/14/17 at 21:00 MARC URIOSTEGUI Jul 15, 2017 15:12
--- NOTE | 2017-07-15 16:46 | CONS ---
Date/Time of Note Date/Time of Note DATE: 07/15/17 TIME: 16:46 Assessment/Plan Assessment/Plan Chief Complaint/Hosp Course 81-year-old man with a history of lung cancer 2006 on chemo til 2009 hypertension, diabetes mellitus, CAD, [place] CABG 2004, [place], Hyperlipidemia, chronic chest pain, Hypotension on midodrine, Diabetes Mellitus, BPH is admitted with chest pain and shortness of breath 3 weeks, moderate cough as well, generalized weakness, He denied fevers he has had recent bilateral lower extremity swelling. He states the pain is sharp worse with cough, nonexertional nonradiating. Denies chest pain, shortness of breath, vomiting or diarrhea, no weight loss, no blood per rectum. Patient is resting in bed, seems comfortable. Dr Morrissey is the admitting and attending provider, pt is found to have pleural effusino with hypokalemia, Renal has been consutled for fluid management, Hypokalemi and prerenal azotemia Problems: Additional Assessment/Plan 1. Hypokalemia 2. Pleural effusion 3. 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 Denies having lung surgery or prior TB 4. h/o NSCLC s/p chemo and XRT plan : KCl 30mEQ IV x 1 ordered for today, will start KCL 20mEQ PO BID Keep magnesium normal Keep pt even, no IV Fluids BP stable will follow up Consultation Date/Type/Reason Admit Date/Time Jul 09, 2017 at 19:15 Initial Consult Date 07/13/17 Type of Consultation: NEPHROLOG Y Referring Provider: RUIZ MORRISSEY MD 24 HR Interval Summary Free Text/Dictation K still low, Cr normal Exam/Review of Systems Vital Signs Vitals Vital Signs Date Time Temp Pulse Resp B/P Pulse Ox O2 Delivery O2 Flow Rate FiO2 07/15/17 15:40 2.0 07/15/17 14:45 Nasal Cannula 07/15/17 14:03 97.5 77 16 131/62 98 Intake and Output 07/14/17 07/14/17 07/15/17 14:59 22:59 06:59 Intake Total 500 ml 200 ml Balance 500 ml 200 ml Results Result Diagram: 07/15/17 0534 07/15/17 0534 Results 24 hrs Laboratory Tests Test 07/14/17 17:48 07/14/17 21:33 07/15/17 05:34 07/15/17 08:04 Bedside Glucose 115 132 111 White Blood Count 6.3 Red Blood Count 3.34 L Hemoglobin 9.7 L Hematocrit 29.9 L Mean Corpuscular Volume 89.5 Mean Corpuscular Hemoglobin 29.0 Mean Corpuscular Hemoglobin Concent 32.4 Red Cell Distribution Width 16.6 H Platelet Count 265 Mean Platelet Volume 10.3 Neutrophils % 76.9 Lymphocytes % 11.5 L Monocytes % 9.4 Eosinophils % 0.6 Basophils % 0.5 Nucleated Red Blood Cells % 0.0 Neutrophils # (Manual) 4.8 Lymphocytes # 0.7 L Monocytes # 0.6 Eosinophils # 0.0 Basophils # 0.0 Nucleated Red Blood Cells # 0.0 Sodium Level 142 Potassium Level 3.2 L Chloride Level 98 Carbon Dioxide Level 33 H Anion Gap 14 Blood Urea Nitrogen 7 Creatinine 0.55 L Glucose Level 102 Calcium Level 8.3 L Test 07/15/17 11:50 Bedside Glucose 193 Medications Medications Current Medications Ondansetron HCl (Zofran Inj) 4 mg Q6H PRN IV NAUSEA AND/OR VOMITING; Start at 23:30 Acetaminophen (Tylenol Tab) 650 mg Q6H PRN PO PAIN LEVEL 1-3 OR FEVER Last administered on 07/11/17 18:10; Admin Dose 650 MG; Start 07/09/17 at 23:30 Acetaminophen/ Hydrocodone Bitart ([place] (5/325)) 1 tab Q6H PRN PO MODERATE PAIN LEVEL 4-6; Start 07/09/17 at 23:30 Morphine Sulfate (morphine) 2 mg Q4H PRN IV SEVERE PAIN LEVEL 7-10 Last administered on 07/15/17 06:49; Admin Dose 2 MG; Start 07/09/17 at 23:30 Docusate Sodium (Colace) 100 mg Q12H PRN PO CONSTIPATION; Start 07/09/17 at 23: 30 Magnesium Hydroxide (Milk Of Mag) 30 ml DAILY PRN PO CONSTIPATION Last administered on 07/14/17 21:26; Admin Dose 30 ML; Start 07/09/17 at 23:30 Bisacodyl (Dulcolax) 5 mg DAILY PRN PO CONSTIPATION Last administered on 17:46; Admin Dose 5 MG; Start 07/09/17 at 23:30 Zolpidem Tartrate (Ambien) 5 mg QHS PRN PO SLEEP Last administered on 21:26; Admin Dose 5 MG; Start 07/09/17 at 23:30 Famotidine (Pepcid) 20 mg Q12 PO Last administered on 07/15/17 08:40; Admin Dose 20 MG; Start 07/10/17 at 09:00 Enoxaparin Sodium (Lovenox) 40 mg DAILY SC Last administered on 07/15/17 08:49 ; Admin Dose 40 MG; Start 07/10/17 at 09:00 Bisacodyl (Dulcolax Supp) 10 mg Q48H PRN [place] CONSTIPATION Last administered on 13:06; Admin Dose 10 MG; Start 07/10/17 at 12:00 Atorvastatin Calcium (Lipitor) 10 mg QHS PO Last administered on 07/14/17 21: 25; Admin Dose 10 MG; Start 07/10/17 at 21:00 Clopidogrel Bisulfate (plaVIX) 75 mg QAM PO Last administered on 07/15/17 08: 40; Admin Dose 75 MG; Start 07/10/17 at 14:00 Midodrine (Proamatine) 5 mg BID PO Last administered on 07/13/17 08:25; Admin Dose 5 MG; Start 07/10/17 at 21:00 Montelukast Sodium (Singulair) 10 mg QAM PO Last administered on 07/15/17 08: 40; Admin Dose 10 MG; Start 07/10/17 at 14:00 Ranitidine HCl (Zantac) 150 mg HS PO Last administered on 07/14/17 21:24; Admin Dose 150 MG; Start 07/10/17 at 21:00 Ranolazine (Ranexa) 500 mg Q12 PO Last administered on 07/15/17 08:40; Admin Dose 500 MG; Start 07/10/17 at 21:00 Tamsulosin HCl (Flomax) 0.4 mg HS PO Last administered on 07/14/17 21:24; Admin Dose 0.4 MG; Start 07/10/17 at 21:00 Cholecalciferol (Vitamin D) 2,000 unit DAILY PO Last administered on 07/15/17 08:40; Admin Dose 2,000 UNIT; Start 07/10/17 at 14:00 Escitalopram Oxalate (Lexapro) 5 mg QPM PO Last administered on 07/14/17 21:24 ; Admin Dose 5 MG; Start 07/11/17 at 09:00 Pantoprazole (Protonix Tab) 40 mg DAILY@06 PO Last administered on 07/15/17 05 :37; Admin Dose 40 MG; Start 07/11/17 at 06:00 Diagnostic Test (Pha) (Accu-Chek) 1 ea 02 XX Last administered on 07/14/17 02: 00; Admin Dose 1 EA; Start 07/11/17 at 02:00 Miscellaneous Information 1 ea NOTE XX ; Start 07/10/17 at 15:00 Glucose (Glutose) 15 gm Q15M PRN PO DECREASED GLUCOSE; Start 07/10/17 at 15:00 Glucose (Glutose) 22.5 gm Q15M PRN PO DECREASED GLUCOSE; Start 07/10/17 at 15: 00 Dextrose (D50w Syringe) 25 ml Q15M PRN IV DECREASED GLUCOSE; Start 07/10/17 at 15:00 Dextrose (D50w Syringe) 50 ml Q15M PRN IV DECREASED GLUCOSE; Start 07/10/17 at 15:00 Glucagon (Glucagen) 1 mg Q15M PRN IM DECREASED GLUCOSE; Start 07/10/17 at 15:00 Glucose (Glutose) 15 gm Q15M PRN BUCCAL DECREASED GLUCOSE; Start 07/10/17 at 15 :00 Linagliptin (Tradjenta) 5 mg DAILY PO Last administered on 07/15/17 08:40; Admin Dose 5 MG; Start 07/11/17 at 09:00 Digoxin (Digoxin) 0.125 mg DAILY@13 PO Last administered on 07/15/17 11:57; Admin Dose 0.125 MG; Start 07/12/17 at 13:00 Carvedilol (Coreg) 3.125 mg BID PO Last administered on 07/15/17 08:41; Admin Dose 3.125 MG; Start 07/14/17 at 21:00 YARI MILLER MD Jul 15, 2017 16:46
--- NOTE | 2017-07-15 17:46 | CONS ---
Date/Time of Note Date/Time of Note DATE: 07/15/17 TIME: 17:40 Assessment/Plan Assessment/Plan Additional Assessment/Plan History of lung cancer with current pleural effusion CAD with history of CABG Preserved ejection fraction Lower extremity edema -will give gentle diuretic tx with holding parameters for hypotension. Maintain K.4.0 and Mg>2.0 Consultation Date/Type/Reason Admit Date/Time Jul 09, 2017 at 19:15 Initial Consult Date 07/13/17 Type of Consultation: cv Referring Provider: RUIZ GRAJEDA MD 24 HR Interval Summary Free Text/Dictation pt denies current sob, cp, palpitations. c/o LE edema Exam/Review of Systems Vital Signs Vitals Vital Signs Date Time Temp Pulse Resp B/P Pulse Ox O2 Delivery O2 Flow Rate FiO2 07/15/17 15:40 2.0 07/15/17 14:45 Nasal Cannula 07/15/17 14:03 97.5 77 16 131/62 98 Intake and Output 07/14/17 07/14/17 07/15/17 14:59 22:59 06:59 Intake Total 500 ml 200 ml Balance 500 ml 200 ml Exam sitting in chair, family at bedside Constitutional: alert, frail, oriented Head: normocephalic Respiratory: other (course bs B/L, no wheeze) Cardiovascular: other (s1s2), regular rate and rhythm Gastrointestinal: bowel sounds, non-tender, soft Extremities: edema Results Result Diagram: 07/15/17 0534 07/15/17 0534 Results 24 hrs Laboratory Tests Test 07/14/17 17:48 07/14/17 21:33 07/15/17 05:34 07/15/17 08:04 Bedside Glucose 115 132 111 White Blood Count 6.3 Red Blood Count 3.34 L Hemoglobin 9.7 L Hematocrit 29.9 L Mean Corpuscular Volume 89.5 Mean Corpuscular Hemoglobin 29.0 Mean Corpuscular Hemoglobin Concent 32.4 Red Cell Distribution Width 16.6 H Platelet Count 265 Mean Platelet Volume 10.3 Neutrophils % 76.9 Lymphocytes % 11.5 L Monocytes % 9.4 Eosinophils % 0.6 Basophils % 0.5 Nucleated Red Blood Cells % 0.0 Neutrophils # (Manual) 4.8 Lymphocytes # 0.7 L Monocytes # 0.6 Eosinophils # 0.0 Basophils # 0.0 Nucleated Red Blood Cells # 0.0 Sodium Level 142 Potassium Level 3.2 L Chloride Level 98 Carbon Dioxide Level 33 H Anion Gap 14 Blood Urea Nitrogen 7 Creatinine 0.55 L Glucose Level 102 Calcium Level 8.3 L Test 07/15/17 11:50 07/15/17 17:17 Bedside Glucose 193 164 Medications Medications Current Medications Ondansetron HCl (Zofran Inj) 4 mg Q6H PRN IV NAUSEA AND/OR VOMITING; Start at 23:30 Acetaminophen (Tylenol Tab) 650 mg Q6H PRN PO PAIN LEVEL 1-3 OR FEVER Last administered on 07/11/17 18:10; Admin Dose 650 MG; Start 07/09/17 at 23:30 Acetaminophen/ Hydrocodone Bitart ([place] (5/325)) 1 tab Q6H PRN PO MODERATE PAIN LEVEL 4-6; Start 07/09/17 at 23:30 Morphine Sulfate (morphine) 2 mg Q4H PRN IV SEVERE PAIN LEVEL 7-10 Last administered on 07/15/17 06:49; Admin Dose 2 MG; Start 07/09/17 at 23:30 Docusate Sodium (Colace) 100 mg Q12H PRN PO CONSTIPATION; Start 07/09/17 at 23: 30 Magnesium Hydroxide (Milk Of Mag) 30 ml DAILY PRN PO CONSTIPATION Last administered on 07/14/17 21:26; Admin Dose 30 ML; Start 07/09/17 at 23:30 Bisacodyl (Dulcolax) 5 mg DAILY PRN PO CONSTIPATION Last administered on 17:46; Admin Dose 5 MG; Start 07/09/17 at 23:30 Zolpidem Tartrate (Ambien) 5 mg QHS PRN PO SLEEP Last administered on 21:26; Admin Dose 5 MG; Start 07/09/17 at 23:30 Famotidine (Pepcid) 20 mg Q12 PO Last administered on 07/15/17 08:40; Admin Dose 20 MG; Start 07/10/17 at 09:00 Enoxaparin Sodium (Lovenox) 40 mg DAILY SC Last administered on 07/15/17 08:49 ; Admin Dose 40 MG; Start 07/10/17 at 09:00 Bisacodyl (Dulcolax Supp) 10 mg Q48H PRN [place] CONSTIPATION Last administered on 13:06; Admin Dose 10 MG; Start 07/10/17 at 12:00 Atorvastatin Calcium (Lipitor) 10 mg QHS PO Last administered on 07/14/17 21: 25; Admin Dose 10 MG; Start 07/10/17 at 21:00 Clopidogrel Bisulfate (plaVIX) 75 mg QAM PO Last administered on 07/15/17 08: 40; Admin Dose 75 MG; Start 07/10/17 at 14:00 Midodrine (Proamatine) 5 mg BID PO Last administered on 07/13/17 08:25; Admin Dose 5 MG; Start 07/10/17 at 21:00 Montelukast Sodium (Singulair) 10 mg QAM PO Last administered on 07/15/17 08: 40; Admin Dose 10 MG; Start 07/10/17 at 14:00 Ranitidine HCl (Zantac) 150 mg HS PO Last administered on 07/14/17 21:24; Admin Dose 150 MG; Start 07/10/17 at 21:00 Ranolazine (Ranexa) 500 mg Q12 PO Last administered on 07/15/17 08:40; Admin Dose 500 MG; Start 07/10/17 at 21:00 Tamsulosin HCl (Flomax) 0.4 mg HS PO Last administered on 07/14/17 21:24; Admin Dose 0.4 MG; Start 07/10/17 at 21:00 Cholecalciferol (Vitamin D) 2,000 unit DAILY PO Last administered on 07/15/17 08:40; Admin Dose 2,000 UNIT; Start 07/10/17 at 14:00 Escitalopram Oxalate (Lexapro) 5 mg QPM PO Last administered on 07/14/17 21:24 ; Admin Dose 5 MG; Start 07/11/17 at 09:00 Pantoprazole (Protonix Tab) 40 mg DAILY@06 PO Last administered on 07/15/17 05 :37; Admin Dose 40 MG; Start 07/11/17 at 06:00 Diagnostic Test (Pha) (Accu-Chek) 1 ea 02 XX Last administered on 07/14/17 02: 00; Admin Dose 1 EA; Start 07/11/17 at 02:00 Miscellaneous Information 1 ea NOTE XX ; Start 07/10/17 at 15:00 Glucose (Glutose) 15 gm Q15M PRN PO DECREASED GLUCOSE; Start 07/10/17 at 15:00 Glucose (Glutose) 22.5 gm Q15M PRN PO DECREASED GLUCOSE; Start 07/10/17 at 15: 00 Dextrose (D50w Syringe) 25 ml Q15M PRN IV DECREASED GLUCOSE; Start 07/10/17 at 15:00 Dextrose (D50w Syringe) 50 ml Q15M PRN IV DECREASED GLUCOSE; Start 07/10/17 at 15:00 Glucagon (Glucagen) 1 mg Q15M PRN IM DECREASED GLUCOSE; Start 07/10/17 at 15:00 Glucose (Glutose) 15 gm Q15M PRN BUCCAL DECREASED GLUCOSE; Start 07/10/17 at 15 :00 Linagliptin (Tradjenta) 5 mg DAILY PO Last administered on 07/15/17 08:40; Admin Dose 5 MG; Start 07/11/17 at 09:00 Digoxin (Digoxin) 0.125 mg DAILY@13 PO Last administered on 07/15/17 11:57; Admin Dose 0.125 MG; Start 07/12/17 at 13:00 Carvedilol (Coreg) 3.125 mg BID PO Last administered on 07/15/17 08:41; Admin Dose 3.125 MG; Start 07/14/17 at 21:00 Potassium Chloride (Klor-Con 20) 20 meq BID PO ; Start 07/15/17 at 21:00 Amado Rodriguez DO Jul 15, 2017 17:46
[2017-07-15] MEDS ORDERED: FUROSEMIDE 20 MG INJ IV ONE (18:00)
[2017-07-15] MEDS ORDERED: MAGNESIUM SULFATE 2 GM/50 ML 50 ML IVPB ONE (20:00)
[2017-07-15 20:08] VITALS: BP 131/72; RESP 18
[2017-07-15] MEDS: POTASSIUM CHLORIDE (SR) 20 MEQ TAB PO SCH (20:21)
[2017-07-15] MEDS: ESCITALOPRAM 10 MG TAB PO SCH (20:22)
[2017-07-15] MEDS: RANITIDINE 150 MG TAB PO SCH (20:22)
[2017-07-15] MEDS: ATORVASTATIN 10 MG TAB PO SCH (20:23)
[2017-07-15] MEDS: TAMSULOSIN (SR) 0.4 MG CAP PO SCH (20:23)
[2017-07-15] MEDS: ZOLPIDEM 5 MG TAB PO PRN (20:24)
[2017-07-16] MEDS: ACCU-CHEK XX SCH (02:00)
[2017-07-16 02:56] VITALS: BP 141/72; RESP 20
[2017-07-16 06:54] LABS: BASOPHILS % 0.5 % (0.0-2.0); EOSINOPHILS % 0.6 % (0.0-7.0); HEMATOCRIT 28.4 % (42.0-52.0); LYMPHOCYTES # 0.7 10^3/ul (0.8-2.9); LYMPHOCYTES % 10.2 % (15.0-51.0); MEAN CORPUSCULAR HEMOGLOBIN 28.8 pg (29.0-33.0); MEAN CORPUSCULAR HGB CONC 31.7 g/dl (32.0-37.0); MEAN CORPUSCULAR VOLUME 90.7 fl (82.0-101.0); MEAN PLATELET VOLUME 10.2 fl (7.4-10.4); MONOCYTE # 0.6 10^3/ul (0.3-0.9); MONOCYTES % 9.6 % (0.0-11.0); NEUTROPHILS % 77.7 % (39.0-77.0); PLATELET COUNT 238 10^3/UL (140-415); RED BLOOD COUNT 3.13 10^6/ul (4.70-6.10); RED CELL DISTRIBUTION WIDTH 16.8 % (11.5-14.5); WHITE BLOOD COUNT 6.4 10^3/ul (4.8-10.8)
[2017-07-16] MEDS: PANTOPRAZOLE (EC) 40 MG TAB PO SCH (07:00)
[2017-07-16 07:24] LABS: CALCIUM 8.1 mg/dl (8.4-10.2); CREATININE 0.63 mg/dl (0.61-1.24); POTASSIUM 3.6 mmol/L (3.5-5.1)
[2017-07-16 07:25] VITALS: BP 158/69; RESP 18
[2017-07-16] MEDS: INSULIN ASPART [NOVOLOG] 3 ML PEN SC SCH ×4 (08:06→20:42)
[2017-07-16] MEDS: CHOLECALCIFEROL 2,000 UNIT CAP PO SCH (08:07)
[2017-07-16] MEDS: POTASSIUM CHLORIDE (SR) 20 MEQ TAB PO SCH ×2 (08:07→20:36)
[2017-07-16] MEDS: CLOPIDOGREL 75 MG TAB PO SCH (08:07)
[2017-07-16] MEDS: LINAGLIPTIN 5 MG TABLET PO SCH (08:07)
[2017-07-16] MEDS: FAMOTIDINE 20 MG TAB PO SCH ×2 (08:07→20:36)
[2017-07-16] MEDS: RANOLAZINE (SR) 500 MG TAB PO SCH ×2 (08:08→20:36)
[2017-07-16] MEDS: MONTELUKAST 10 MG TAB PO SCH (08:08)
[2017-07-16] MEDS: FUROSEMIDE 20 MG TAB PO SCH (08:09)
[2017-07-16] MEDS: MIDODRINE 5 MG TAB PO SCH ×2 (08:09→20:37)
[2017-07-16] MEDS: ENOXAPARIN 40 MG/0.4 ML SYG SC SCH (08:17)
--- NOTE | 2017-07-16 12:00 | CONS ---
Date/Time of Note Date/Time of Note DATE: 07/16/17 TIME: 11:59 Assessment/Plan Assessment/Plan Additional Assessment/Plan History of lung cancer with current pleural effusion Acute decompensated diastolic congestive heart failure CAD with history of CABG Preserved ejection fraction -Lower extremity edema has improved, would continue maintenance diuretics as renal function and blood pressure permits. Maintain potassium above 4.0 and magnesium of 2.0. Consultation Date/Type/Reason Admit Date/Time Jul 09, 2017 at 19:15 Initial Consult Date 07/13/17 Type of Consultation: cv Referring Provider: RUIZ GRAJEDA MD 24 HR Interval Summary Free Text/Dictation Shortness of breath is better as well as lower extremity edema. Denies chest pain currently Exam/Review of Systems Vital Signs Vitals Vital Signs Date Time Temp Pulse Resp B/P Pulse Ox O2 Delivery O2 Flow Rate FiO2 07/16/17 07:25 98.7 73 18 158/69 100 07/16/17 04:14 2.0 07/15/17 20:00 Nasal Cannula Intake and Output 07/15/17 07/15/17 07/16/17 15:00 23:00 07:00 Intake Total 1330 ml Balance 1330 ml Exam Constitutional: alert, oriented Neck: supple Respiratory: other (Coarse breath sounds bilaterally, no wheezing) Cardiovascular: other (S1-S2 heard), regular rate and rhythm Gastrointestinal: bowel sounds, non-tender, soft Extremities: pitting pedal edema Results Result Diagram: 07/16/17 0615 07/16/17 0615 Results 24 hrs Laboratory Tests Test 07/15/17 17:17 07/15/17 20:20 07/16/17 06:15 07/16/17 08:05 Bedside Glucose 164 184 139 White Blood Count 6.4 Red Blood Count 3.13 L Hemoglobin 9.0 L Hematocrit 28.4 L Mean Corpuscular Volume 90.7 Mean Corpuscular Hemoglobin 28.8 L Mean Corpuscular Hemoglobin Concent 31.7 L Red Cell Distribution Width 16.8 H Platelet Count 238 Mean Platelet Volume 10.2 Neutrophils % 77.7 H Lymphocytes % 10.2 L Monocytes % 9.6 Eosinophils % 0.6 Basophils % 0.5 Nucleated Red Blood Cells % 0.0 Neutrophils # (Manual) 5.0 Lymphocytes # 0.7 L Monocytes # 0.6 Eosinophils # 0.0 Basophils # 0.0 Nucleated Red Blood Cells # 0.0 Sodium Level 139 Potassium Level 3.6 Chloride Level 96 L Carbon Dioxide Level 36 H Anion Gap 11 Blood Urea Nitrogen 13 Creatinine 0.63 Glucose Level 114 Calcium Level 8.1 L Magnesium Level 2.0 Medications Medications Current Medications Ondansetron HCl (Zofran Inj) 4 mg Q6H PRN IV NAUSEA AND/OR VOMITING; Start at 23:30 Acetaminophen (Tylenol Tab) 650 mg Q6H PRN PO PAIN LEVEL 1-3 OR FEVER Last administered on 07/11/17 18:10; Admin Dose 650 MG; Start 07/09/17 at 23:30 Acetaminophen/ Hydrocodone Bitart ([place] (5/325)) 1 tab Q6H PRN PO MODERATE PAIN LEVEL 4-6; Start 07/09/17 at 23:30 Morphine Sulfate (morphine) 2 mg Q4H PRN IV SEVERE PAIN LEVEL 7-10 Last administered on 07/15/17 20:24; Admin Dose 2 MG; Start 07/09/17 at 23:30 Docusate Sodium (Colace) 100 mg Q12H PRN PO CONSTIPATION; Start 07/09/17 at 23: 30 Magnesium Hydroxide (Milk Of Mag) 30 ml DAILY PRN PO CONSTIPATION Last administered on 07/14/17 21:26; Admin Dose 30 ML; Start 07/09/17 at 23:30 Bisacodyl (Dulcolax) 5 mg DAILY PRN PO CONSTIPATION Last administered on 17:46; Admin Dose 5 MG; Start 07/09/17 at 23:30 Zolpidem Tartrate (Ambien) 5 mg QHS PRN PO SLEEP Last administered on 20:24; Admin Dose 5 MG; Start 07/09/17 at 23:30 Famotidine (Pepcid) 20 mg Q12 PO Last administered on 07/16/17 08:07; Admin Dose 20 MG; Start 07/10/17 at 09:00 Enoxaparin Sodium (Lovenox) 40 mg DAILY SC Last administered on 07/16/17 08:17 ; Admin Dose 40 MG; Start 07/10/17 at 09:00 Bisacodyl (Dulcolax Supp) 10 mg Q48H PRN [place] CONSTIPATION Last administered on 13:06; Admin Dose 10 MG; Start 07/10/17 at 12:00 Atorvastatin Calcium (Lipitor) 10 mg QHS PO Last administered on 07/15/17 20: 23; Admin Dose 10 MG; Start 07/10/17 at 21:00 Clopidogrel Bisulfate (plaVIX) 75 mg QAM PO Last administered on 07/16/17 08: 07; Admin Dose 75 MG; Start 07/10/17 at 14:00 Midodrine (Proamatine) 5 mg BID PO Last administered on 07/15/17 20:23; Admin Dose 5 MG; Start 07/10/17 at 21:00 Montelukast Sodium (Singulair) 10 mg QAM PO Last administered on 07/16/17 08: 08; Admin Dose 10 MG; Start 07/10/17 at 14:00 Ranitidine HCl (Zantac) 150 mg HS PO Last administered on 07/15/17 20:22; Admin Dose 150 MG; Start 07/10/17 at 21:00 Ranolazine (Ranexa) 500 mg Q12 PO Last administered on 07/16/17 08:08; Admin Dose 500 MG; Start 07/10/17 at 21:00 Tamsulosin HCl (Flomax) 0.4 mg HS PO Last administered on 07/15/17 20:23; Admin Dose 0.4 MG; Start 07/10/17 at 21:00 Cholecalciferol (Vitamin D) 2,000 unit DAILY PO Last administered on 07/16/17 08:07; Admin Dose 2,000 UNIT; Start 07/10/17 at 14:00 Escitalopram Oxalate (Lexapro) 5 mg QPM PO Last administered on 07/15/17 20:22 ; Admin Dose 5 MG; Start 07/11/17 at 09:00 Pantoprazole (Protonix Tab) 40 mg DAILY@06 PO Last administered on 07/16/17 07 :00; Admin Dose 40 MG; Start 07/11/17 at 06:00 Diagnostic Test (Pha) (Accu-Chek) 1 ea 02 XX Last administered on 07/14/17 02: 00; Admin Dose 1 EA; Start 07/11/17 at 02:00 Miscellaneous Information 1 ea NOTE XX ; Start 8/24/17 at 15:00 Glucose (Glutose) 15 gm Q15M PRN PO DECREASED GLUCOSE; Start 07/10/17 at 15:00 Glucose (Glutose) 22.5 gm Q15M PRN PO DECREASED GLUCOSE; Start 07/10/17 at 15: 00 Dextrose (D50w Syringe) 25 ml Q15M PRN IV DECREASED GLUCOSE; Start 07/10/17 at 15:00 Dextrose (D50w Syringe) 50 ml Q15M PRN IV DECREASED GLUCOSE; Start 07/10/17 at 15:00 Glucagon (Glucagen) 1 mg Q15M PRN IM DECREASED GLUCOSE; Start 07/10/17 at 15:00 Glucose (Glutose) 15 gm Q15M PRN BUCCAL DECREASED GLUCOSE; Start 07/10/17 at 15 :00 Linagliptin (Tradjenta) 5 mg DAILY PO Last administered on 07/16/17 08:07; Admin Dose 5 MG; Start 07/11/17 at 09:00 Digoxin (Digoxin) 0.125 mg DAILY@13 PO Last administered on 07/15/17 11:57; Admin Dose 0.125 MG; Start 07/12/17 at 13:00 Carvedilol (Coreg) 3.125 mg BID PO Last administered on 07/16/17 08:08; Admin Dose 3.125 MG; Start 07/14/17 at 21:00 Potassium Chloride (Klor-Con 20) 20 meq BID PO Last administered on 07/16/17 08:07; Admin Dose 20 MEQ; Start 07/15/17 at 21:00 Furosemide (Lasix) 20 mg DAILY PO Last administered on 07/16/17 08:09; Admin Dose 20 MG; Start 07/16/17 at 09:00 Amado Rodriguez DO Jul 16, 2017 12:00
[2017-07-16] MEDS: DIGOXIN 0.125 MG TAB PO SCH (12:49)
--- NOTE | 2017-07-16 13:03 | CONS ---
Date/Time of Note Date/Time of Note DATE: 07/16/17 TIME: 13:02 Consult Date/Type/Reason Admit Date/Time Jul 09, 2017 at 19:15 Initial Consult Date 07/13/17 Type of Consultation: Pulm Ordering Provider: RUIZ GRAJEDA MD Subjective Comfortable, no chest pain or shortness of breath. Objective Vital Signs Date Time Temp Pulse Resp B/P Pulse Ox O2 Delivery O2 Flow Rate FiO2 07/16/17 08:35 Nasal Cannula 2.0 07/16/17 07:25 98.7 73 18 158/69 100 Intake and Output 07/15/17 07/15/17 07/16/17 15:00 23:00 07:00 Intake Total 1330 ml Balance 1330 ml Exam HEENT: Neck supple; no JVD; no LAD CVS: RRR, S1 and S2 CHEST: Absent R breath sounds ABD: Soft, NT, + BS EXT: No c/c/e Results/Medications Result Diagram: 07/16/17 0615 07/16/17 0615 Results 24 hrs Laboratory Tests Test 07/15/17 17:17 07/15/17 20:20 07/16/17 06:15 07/16/17 08:05 Bedside Glucose 164 184 139 White Blood Count 6.4 Red Blood Count 3.13 L Hemoglobin 9.0 L Hematocrit 28.4 L Mean Corpuscular Volume 90.7 Mean Corpuscular Hemoglobin 28.8 L Mean Corpuscular Hemoglobin Concent 31.7 L Red Cell Distribution Width 16.8 H Platelet Count 238 Mean Platelet Volume 10.2 Neutrophils % 77.7 H Lymphocytes % 10.2 L Monocytes % 9.6 Eosinophils % 0.6 Basophils % 0.5 Nucleated Red Blood Cells % 0.0 Neutrophils # (Manual) 5.0 Lymphocytes # 0.7 L Monocytes # 0.6 Eosinophils # 0.0 Basophils # 0.0 Nucleated Red Blood Cells # 0.0 Sodium Level 139 Potassium Level 3.6 Chloride Level 96 L Carbon Dioxide Level 36 H Anion Gap 11 Blood Urea Nitrogen 13 Creatinine 0.63 Glucose Level 114 Calcium Level 8.1 L Magnesium Level 2.0 Test 07/16/17 12:05 Bedside Glucose 181 Medications Current Medications Ondansetron HCl (Zofran Inj) 4 mg Q6H PRN IV NAUSEA AND/OR VOMITING; Start at 23:30 Acetaminophen (Tylenol Tab) 650 mg Q6H PRN PO PAIN LEVEL 1-3 OR FEVER Last administered on 07/11/17 18:10; Admin Dose 650 MG; Start 07/09/17 at 23:30 Acetaminophen/ Hydrocodone Bitart ([place] (5/325)) 1 tab Q6H PRN PO MODERATE PAIN LEVEL 4-6; Start 07/09/17 at 23:30 Morphine Sulfate (morphine) 2 mg Q4H PRN IV SEVERE PAIN LEVEL 7-10 Last administered on 07/15/17 20:24; Admin Dose 2 MG; Start 07/09/17 at 23:30 Docusate Sodium (Colace) 100 mg Q12H PRN PO CONSTIPATION; Start 07/09/17 at 23: 30 Magnesium Hydroxide (Milk Of Mag) 30 ml DAILY PRN PO CONSTIPATION Last administered on 07/14/17 21:26; Admin Dose 30 ML; Start 07/09/17 at 23:30 Bisacodyl (Dulcolax) 5 mg DAILY PRN PO CONSTIPATION Last administered on 17:46; Admin Dose 5 MG; Start 07/09/17 at 23:30 Zolpidem Tartrate (Ambien) 5 mg QHS PRN PO SLEEP Last administered on 20:24; Admin Dose 5 MG; Start 07/09/17 at 23:30 Famotidine (Pepcid) 20 mg Q12 PO Last administered on 07/16/17 08:07; Admin Dose 20 MG; Start 07/10/17 at 09:00 Enoxaparin Sodium (Lovenox) 40 mg DAILY SC Last administered on 07/16/17 08:17 ; Admin Dose 40 MG; Start 07/10/17 at 09:00 Bisacodyl (Dulcolax Supp) 10 mg Q48H PRN [place] CONSTIPATION Last administered on 13:06; Admin Dose 10 MG; Start 07/10/17 at 12:00 Atorvastatin Calcium (Lipitor) 10 mg QHS PO Last administered on 07/15/17 20: 23; Admin Dose 10 MG; Start 07/10/17 at 21:00 Clopidogrel Bisulfate (plaVIX) 75 mg QAM PO Last administered on 07/16/17 08: 07; Admin Dose 75 MG; Start 07/10/17 at 14:00 Midodrine (Proamatine) 5 mg BID PO Last administered on 07/15/17 20:23; Admin Dose 5 MG; Start 07/10/17 at 21:00 Montelukast Sodium (Singulair) 10 mg QAM PO Last administered on 07/16/17 08: 08; Admin Dose 10 MG; Start 07/10/17 at 14:00 Ranitidine HCl (Zantac) 150 mg HS PO Last administered on 07/15/17 20:22; Admin Dose 150 MG; Start 07/10/17 at 21:00 Ranolazine (Ranexa) 500 mg Q12 PO Last administered on 07/16/17 08:08; Admin Dose 500 MG; Start 07/10/17 at 21:00 Tamsulosin HCl (Flomax) 0.4 mg HS PO Last administered on 07/15/17 20:23; Admin Dose 0.4 MG; Start 07/10/17 at 21:00 Cholecalciferol (Vitamin D) 2,000 unit DAILY PO Last administered on 07/16/17 08:07; Admin Dose 2,000 UNIT; Start 07/10/17 at 14:00 Escitalopram Oxalate (Lexapro) 5 mg QPM PO Last administered on 07/15/17 20:22 ; Admin Dose 5 MG; Start 07/11/17 at 09:00 Pantoprazole (Protonix Tab) 40 mg DAILY@06 PO Last administered on 07/16/17 07 :00; Admin Dose 40 MG; Start 07/11/17 at 06:00 Diagnostic Test (Pha) (Accu-Chek) 1 ea 02 XX Last administered on 07/14/17 02: 00; Admin Dose 1 EA; Start 07/11/17 at 02:00 Miscellaneous Information 1 ea NOTE XX ; Start 07/10/17 at 15:00 Glucose (Glutose) 15 gm Q15M PRN PO DECREASED GLUCOSE; Start 07/10/17 at 15:00 Glucose (Glutose) 22.5 gm Q15M PRN PO DECREASED GLUCOSE; Start 07/10/17 at 15: 00 Dextrose (D50w Syringe) 25 ml Q15M PRN IV DECREASED GLUCOSE; Start 07/10/17 at 15:00 Dextrose (D50w Syringe) 50 ml Q15M PRN IV DECREASED GLUCOSE; Start 07/10/17 at 15:00 Glucagon (Glucagen) 1 mg Q15M PRN IM DECREASED GLUCOSE; Start 07/10/17 at 15:00 Glucose (Glutose) 15 gm Q15M PRN BUCCAL DECREASED GLUCOSE; Start 07/10/17 at 15 :00 Linagliptin (Tradjenta) 5 mg DAILY PO Last administered on 07/16/17 08:07; Admin Dose 5 MG; Start 07/11/17 at 09:00 Digoxin (Digoxin) 0.125 mg DAILY@13 PO Last administered on 07/16/17 12:49; Admin Dose 0.125 MG; Start 07/12/17 at 13:00 Carvedilol (Coreg) 3.125 mg BID PO Last administered on 07/16/17 08:08; Admin Dose 3.125 MG; Start 07/14/17 at 21:00 Potassium Chloride (Klor-Con 20) 20 meq BID PO Last administered on 07/16/17 08:07; Admin Dose 20 MEQ; Start 07/15/17 at 21:00 Furosemide (Lasix) 20 mg DAILY PO Last administered on 07/16/17 08:09; Admin Dose 20 MG; Start 07/16/17 at 09:00 Assessment/Plan Chief Complaint/Hosp Course IMP: 1. 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 Denies having lung surgery or prior TB 2. h/o NSCLC s/p chemo and XRT 3. Stable diastolic dysfunction 4. Hypokalemia, resolved. RECS: 1. NEED RECORDS and OLD IMAGING from [facility]--> family informed 2. Much of the right lung changes appear chronic, however, cannnot exclude co- existing malignancy. Would recommend outpatient follow up. No need for thoracentesis or decortication at present. dc ok from pulm standpoint. Problems: LORA ROYAL MD, [facility] Jul 16, 2017 13:03
--- NOTE | 2017-07-16 14:05 | PN ---
Date/Time of Note Date/Time of Note DATE: 07/16/17 TIME: 14:02 Assessment/Plan VTE Prophylaxis VTE Prophylaxis Intervention: SCD's Lines/Catheters IV C[facility]ter Type [facility]from [facility] Urinary Cath still in place: No Assessment/Plan Chief Complaint/Hosp Course Patient with slightly decreased bilateral lower extremities edema, changes on supplemental oxygen with occasional shortness of breath on exertion. Records from [facility] is on the chart, reviewed, patient had a history of pneumothorax with chest tube insertion in 2010. 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 Dr Nagy is following in pulmonology consultation. -Coronary artery disease status post CABG in 2004. Continue Plavix. Dr. 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 Continue Lasix, monitor electrolytes. -Diastolic dysfunction congestive heart failure -Bilateral lower extremity edema, venous Dopplers negative for any deep venous thrombosis. -History of lung cancer dx 2006, completed chemotherapy in 2009. -Diabetes mellitus, continue Tradjenta and NovoLog per mild algorithm sliding scale. -BPH, continue Flomax. Further recommendations based on clinical course. Plan of care discussed with Dr. Morrissey. Problems: Exam/Review of Systems Vital Signs Vitals Vital Signs Date Time Temp Pulse Resp B/P Pulse Ox O2 Delivery O2 Flow Rate FiO2 07/16/17 08:35 Nasal Cannula 2.0 07/16/17 07:25 98.7 73 18 158/69 100 Intake and Output 07/15/17 07/15/17 07/16/17 15:00 23:00 07:00 Intake Total 1330 ml Balance 1330 ml Exam Constitutional: alert, oriented Head: normocephalic Neck: supple Respiratory: diminished breath sounds Cardiovascular: nl pulses Gastrointestinal: non-tender, soft Musculoskeletal: nl extremities to inspection Extremities: edema, normal pulses 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: nl mental status Results Result Diagram: 07/16/17 0615 07/16/17 0615 Results 24 hrs Laboratory Tests Test 07/15/17 17:17 07/15/17 20:20 07/16/17 06:15 07/16/17 08:05 Bedside Glucose 164 184 139 White Blood Count 6.4 Red Blood Count 3.13 L Hemoglobin 9.0 L Hematocrit 28.4 L Mean Corpuscular Volume 90.7 Mean Corpuscular Hemoglobin 28.8 L Mean Corpuscular Hemoglobin Concent 31.7 L Red Cell Distribution Width 16.8 H Platelet Count 238 Mean Platelet Volume 10.2 Neutrophils % 77.7 H Lymphocytes % 10.2 L Monocytes % 9.6 Eosinophils % 0.6 Basophils % 0.5 Nucleated Red Blood Cells % 0.0 Neutrophils # (Manual) 5.0 Lymphocytes # 0.7 L Monocytes # 0.6 Eosinophils # 0.0 Basophils # 0.0 Nucleated Red Blood Cells # 0.0 Sodium Level 139 Potassium Level 3.6 Chloride Level 96 L Carbon Dioxide Level 36 H Anion Gap 11 Blood Urea Nitrogen 13 Creatinine 0.63 Glucose Level 114 Calcium Level 8.1 L Magnesium Level 2.0 Test 07/16/17 12:05 Bedside Glucose 181 Medications Medications Current Medications Ondansetron HCl (Zofran Inj) 4 mg Q6H PRN IV NAUSEA AND/OR VOMITING; Start at 23:30 Acetaminophen (Tylenol Tab) 650 mg Q6H PRN PO PAIN LEVEL 1-3 OR FEVER Last administered on 07/11/17 18:10; Admin Dose 650 MG; Start 07/09/17 at 23:30 Acetaminophen/ Hydrocodone Bitart ([place] (5/325)) 1 tab Q6H PRN PO MODERATE PAIN LEVEL 4-6; Start 07/09/17 at 23:30 Morphine Sulfate (morphine) 2 mg Q4H PRN IV SEVERE PAIN LEVEL 7-10 Last administered on 07/15/17 20:24; Admin Dose 2 MG; Start 07/09/17 at 23:30 Docusate Sodium (Colace) 100 mg Q12H PRN PO CONSTIPATION; Start 07/09/17 at 23: 30 Magnesium Hydroxide (Milk Of Mag) 30 ml DAILY PRN PO CONSTIPATION Last administered on 07/14/17 21:26; Admin Dose 30 ML; Start 07/09/17 at 23:30 Bisacodyl (Dulcolax) 5 mg DAILY PRN PO CONSTIPATION Last administered on 17:46; Admin Dose 5 MG; Start 07/09/17 at 23:30 Zolpidem Tartrate (Ambien) 5 mg QHS PRN PO SLEEP Last administered on 20:24; Admin Dose 5 MG; Start 07/09/17 at 23:30 Famotidine (Pepcid) 20 mg Q12 PO Last administered on 07/16/17 08:07; Admin Dose 20 MG; Start 07/10/17 at 09:00 Enoxaparin Sodium (Lovenox) 40 mg DAILY SC Last administered on 07/16/17 08:17 ; Admin Dose 40 MG; Start 07/10/17 at 09:00 Bisacodyl (Dulcolax Supp) 10 mg Q48H PRN [place] CONSTIPATION Last administered on 13:06; Admin Dose 10 MG; Start 07/10/17 at 12:00 Atorvastatin Calcium (Lipitor) 10 mg QHS PO Last administered on 07/15/17 20: 23; Admin Dose 10 MG; Start 07/10/17 at 21:00 Clopidogrel Bisulfate (plaVIX) 75 mg QAM PO Last administered on 07/16/17 08: 07; Admin Dose 75 MG; Start 07/10/17 at 14:00 Midodrine (Proamatine) 5 mg BID PO Last administered on 07/15/17 20:23; Admin Dose 5 MG; Start 07/10/17 at 21:00 Montelukast Sodium (Singulair) 10 mg QAM PO Last administered on 07/16/17 08: 08; Admin Dose 10 MG; Start 07/10/17 at 14:00 Ranitidine HCl (Zantac) 150 mg HS PO Last administered on 07/15/17 20:22; Admin Dose 150 MG; Start 07/10/17 at 21:00 Ranolazine (Ranexa) 500 mg Q12 PO Last administered on 07/16/17 08:08; Admin Dose 500 MG; Start 07/10/17 at 21:00 Tamsulosin HCl (Flomax) 0.4 mg HS PO Last administered on 07/15/17 20:23; Admin Dose 0.4 MG; Start 07/10/17 at 21:00 Cholecalciferol (Vitamin D) 2,000 unit DAILY PO Last administered on 07/16/17 08:07; Admin Dose 2,000 UNIT; Start 07/10/17 at 14:00 Escitalopram Oxalate (Lexapro) 5 mg QPM PO Last administered on 07/15/17 20:22 ; Admin Dose 5 MG; Start 07/11/17 at 09:00 Pantoprazole (Protonix Tab) 40 mg DAILY@06 PO Last administered on 07/16/17 07 :00; Admin Dose 40 MG; Start 07/11/17 at 06:00 Diagnostic Test (Pha) (Accu-Chek) 1 ea 02 XX Last administered on 07/14/17 02: 00; Admin Dose 1 EA; Start 07/11/17 at 02:00 Miscellaneous Information 1 ea NOTE XX ; Start 07/10/17 at 15:00 Glucose (Glutose) 15 gm Q15M PRN PO DECREASED GLUCOSE; Start 07/10/17 at 15:00 Glucose (Glutose) 22.5 gm Q15M PRN PO DECREASED GLUCOSE; Start 07/10/17 at 15: 00 Dextrose (D50w Syringe) 25 ml Q15M PRN IV DECREASED GLUCOSE; Start 07/10/17 at 15:00 Dextrose (D50w Syringe) 50 ml Q15M PRN IV DECREASED GLUCOSE; Start 07/10/17 at 15:00 Glucagon (Glucagen) 1 mg Q15M PRN IM DECREASED GLUCOSE; Start 07/10/17 at 15:00 Glucose (Glutose) 15 gm Q15M PRN BUCCAL DECREASED GLUCOSE; Start 07/10/17 at 15 :00 Linagliptin (Tradjenta) 5 mg DAILY PO Last administered on 07/16/17 08:07; Admin Dose 5 MG; Start 07/11/17 at 09:00 Digoxin (Digoxin) 0.125 mg DAILY@13 PO Last administered on 07/16/17 12:49; Admin Dose 0.125 MG; Start 07/12/17 at 13:00 Carvedilol (Coreg) 3.125 mg BID PO Last administered on 07/16/17 08:08; Admin Dose 3.125 MG; Start 07/14/17 at 21:00 Potassium Chloride (Klor-Con 20) 20 meq BID PO Last administered on 07/16/17 08:07; Admin Dose 20 MEQ; Start 07/15/17 at 21:00 Furosemide (Lasix) 20 mg DAILY PO Last administered on 07/16/17 08:09; Admin Dose 20 MG; Start 07/16/17 at 09:00 MARC URIOSTEGUI Jul 16, 2017 14:05
[2017-07-16 14:54] VITALS: BP 131/76; RESP 18
[2017-07-16] MEDS: ACETAMINOPHEN 325 MG TAB PO PRN (15:55)
--- NOTE | 2017-07-16 16:56 | CONS ---
Date/Time of Note Date/Time of Note DATE: 07/16/17 TIME: 16:55 Assessment/Plan Assessment/Plan Additional Assessment/Plan 1. Hypokalemia 2. Pleural effusion 3. 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 Denies having lung surgery or prior TB 4. h/o NSCLC s/p chemo and XRT plan : continue KCL 20mEQ PO BID , today electrolytes and Cr stable Keep magnesium normal Keep pt even, no IV Fluids BP stable will follow up Consultation Date/Type/Reason Admit Date/Time Jul 09, 2017 at 19:15 Initial Consult Date 07/13/17 Type of Consultation: Pulm Referring Provider: RUIZ GRAJEDA MD Exam/Review of Systems Vital Signs Vitals Vital Signs Date Time Temp Pulse Resp B/P Pulse Ox O2 Delivery O2 Flow Rate FiO2 07/16/17 14:54 98.5 76 18 131/76 100 07/16/17 08:35 Nasal Cannula 2.0 Intake and Output 07/15/17 07/15/17 07/16/17 15:00 23:00 07:00 Intake Total 1330 ml Balance 1330 ml Exam Exam Constitutional: alert, oriented Neck: supple Respiratory: other (Coarse breath sounds bilaterally, no wheezing) Cardiovascular: other (S1-S2 heard), regular rate and rhythm Gastrointestinal: bowel sounds, non-tender, soft Extremities: pitting pedal edema Results Result Diagram: 07/16/17 0615 07/16/17 0615 Results 24 hrs Laboratory Tests Test 07/15/17 17:17 07/15/17 20:20 07/16/17 06:15 07/16/17 08:05 Bedside Glucose 164 184 139 White Blood Count 6.4 Red Blood Count 3.13 L Hemoglobin 9.0 L Hematocrit 28.4 L Mean Corpuscular Volume 90.7 Mean Corpuscular Hemoglobin 28.8 L Mean Corpuscular Hemoglobin Concent 31.7 L Red Cell Distribution Width 16.8 H Platelet Count 238 Mean Platelet Volume 10.2 Neutrophils % 77.7 H Lymphocytes % 10.2 L Monocytes % 9.6 Eosinophils % 0.6 Basophils % 0.5 Nucleated Red Blood Cells % 0.0 Neutrophils # (Manual) 5.0 Lymphocytes # 0.7 L Monocytes # 0.6 Eosinophils # 0.0 Basophils # 0.0 Nucleated Red Blood Cells # 0.0 Sodium Level 139 Potassium Level 3.6 Chloride Level 96 L Carbon Dioxide Level 36 H Anion Gap 11 Blood Urea Nitrogen 13 Creatinine 0.63 Glucose Level 114 Calcium Level 8.1 L Magnesium Level 2.0 Test 07/16/17 12:05 Bedside Glucose 181 Medications Medications Current Medications Ondansetron HCl (Zofran Inj) 4 mg Q6H PRN IV NAUSEA AND/OR VOMITING; Start at 23:30 Acetaminophen (Tylenol Tab) 650 mg Q6H PRN PO PAIN LEVEL 1-3 OR FEVER Last administered on 07/16/17 15:55; Admin Dose 650 MG; Start 07/09/17 at 23:30 Acetaminophen/ Hydrocodone Bitart ([place] (5/325)) 1 tab Q6H PRN PO MODERATE PAIN LEVEL 4-6; Start 07/09/17 at 23:30 Morphine Sulfate (morphine) 2 mg Q4H PRN IV SEVERE PAIN LEVEL 7-10 Last administered on 07/15/17 20:24; Admin Dose 2 MG; Start 07/09/17 at 23:30 Docusate Sodium (Colace) 100 mg Q12H PRN PO CONSTIPATION; Start 07/09/17 at 23: 30 Magnesium Hydroxide (Milk Of Mag) 30 ml DAILY PRN PO CONSTIPATION Last administered on 07/14/17 21:26; Admin Dose 30 ML; Start 07/09/17 at 23:30 Bisacodyl (Dulcolax) 5 mg DAILY PRN PO CONSTIPATION Last administered on 17:46; Admin Dose 5 MG; Start 07/09/17 at 23:30 Zolpidem Tartrate (Ambien) 5 mg QHS PRN PO SLEEP Last administered on 20:24; Admin Dose 5 MG; Start 07/09/17 at 23:30 Famotidine (Pepcid) 20 mg Q12 PO Last administered on 07/16/17 08:07; Admin Dose 20 MG; Start 07/10/17 at 09:00 Enoxaparin Sodium (Lovenox) 40 mg DAILY SC Last administered on 07/16/17 08:17 ; Admin Dose 40 MG; Start 07/10/17 at 09:00 Bisacodyl (Dulcolax Supp) 10 mg Q48H PRN [place] CONSTIPATION Last administered on 13:06; Admin Dose 10 MG; Start 07/10/17 at 12:00 Atorvastatin Calcium (Lipitor) 10 mg QHS PO Last administered on 07/15/17 20: 23; Admin Dose 10 MG; Start 07/10/17 at 21:00 Clopidogrel Bisulfate (plaVIX) 75 mg QAM PO Last administered on 07/16/17 08: 07; Admin Dose 75 MG; Start 07/10/17 at 14:00 Midodrine (Proamatine) 5 mg BID PO Last administered on 07/15/17 20:23; Admin Dose 5 MG; Start 07/10/17 at 21:00 Montelukast Sodium (Singulair) 10 mg QAM PO Last administered on 07/16/17 08: 08; Admin Dose 10 MG; Start 07/10/17 at 14:00 Ranitidine HCl (Zantac) 150 mg HS PO Last administered on 07/15/17 20:22; Admin Dose 150 MG; Start 07/10/17 at 21:00 Ranolazine (Ranexa) 500 mg Q12 PO Last administered on 07/16/17 08:08; Admin Dose 500 MG; Start 07/10/17 at 21:00 Tamsulosin HCl (Flomax) 0.4 mg HS PO Last administered on 07/15/17 20:23; Admin Dose 0.4 MG; Start 07/10/17 at 21:00 Cholecalciferol (Vitamin D) 2,000 unit DAILY PO Last administered on 07/16/17 08:07; Admin Dose 2,000 UNIT; Start 07/10/17 at 14:00 Escitalopram Oxalate (Lexapro) 5 mg QPM PO Last administered on 07/15/17 20:22 ; Admin Dose 5 MG; Start 07/11/17 at 09:00 Pantoprazole (Protonix Tab) 40 mg DAILY@06 PO Last administered on 07/16/17 07 :00; Admin Dose 40 MG; Start 07/11/17 at 06:00 Diagnostic Test (Pha) (Accu-Chek) 1 ea 02 XX Last administered on 07/14/17 02: 00; Admin Dose 1 EA; Start 07/11/17 at 02:00 Miscellaneous Information 1 ea NOTE XX ; Start 07/10/17 at 15:00 Glucose (Glutose) 15 gm Q15M PRN PO DECREASED GLUCOSE; Start 07/10/17 at 15:00 Glucose (Glutose) 22.5 gm Q15M PRN PO DECREASED GLUCOSE; Start 07/10/17 at 15: 00 Dextrose (D50w Syringe) 25 ml Q15M PRN IV DECREASED GLUCOSE; Start 07/10/17 at 15:00 Dextrose (D50w Syringe) 50 ml Q15M PRN IV DECREASED GLUCOSE; Start 07/10/17 at 15:00 Glucagon (Glucagen) 1 mg Q15M PRN IM DECREASED GLUCOSE; Start 07/10/17 at 15:00 Glucose (Glutose) 15 gm Q15M PRN BUCCAL DECREASED GLUCOSE; Start 07/10/17 at 15 :00 Linagliptin (Tradjenta) 5 mg DAILY PO Last administered on 07/16/17 08:07; Admin Dose 5 MG; Start 07/11/17 at 09:00 Digoxin (Digoxin) 0.125 mg DAILY@13 PO Last administered on 07/16/17 12:49; Admin Dose 0.125 MG; Start 07/12/17 at 13:00 Carvedilol (Coreg) 3.125 mg BID PO Last administered on 07/16/17 08:08; Admin Dose 3.125 MG; Start 07/14/17 at 21:00 Potassium Chloride (Klor-Con 20) 20 meq BID PO Last administered on 07/16/17 08:07; Admin Dose 20 MEQ; Start 07/15/17 at 21:00 Furosemide (Lasix) 20 mg DAILY PO Last administered on 07/16/17 08:09; Admin Dose 20 MG; Start 07/16/17 at 09:00 YARI MILLER MD Jul 16, 2017 16:56
[2017-07-16 19:38] VITALS: BP 154/68; RESP 20
[2017-07-16] MEDS: ATORVASTATIN 10 MG TAB PO SCH (20:36)
[2017-07-16] MEDS: ZOLPIDEM 5 MG TAB PO PRN (20:36)
[2017-07-16] MEDS: TAMSULOSIN (SR) 0.4 MG CAP PO SCH (20:36)
[2017-07-16] MEDS: ESCITALOPRAM 10 MG TAB PO SCH (20:36)
[2017-07-16] MEDS: morphine 2 MG INJ IV PRN (20:36)
[2017-07-16] MEDS: RANITIDINE 150 MG TAB PO SCH (20:37)
[2017-07-17] MEDS: ACCU-CHEK XX SCH (01:51)
[2017-07-17 02:15] VITALS: BP 151/72; RESP 18
[2017-07-17] MEDS: PANTOPRAZOLE (EC) 40 MG TAB PO SCH (06:01)
[2017-07-17 06:27] LABS: BASOPHILS % 0.3 % (0.0-2.0); EOSINOPHILS # 0.1 10^3/ul (0.0-0.5); EOSINOPHILS % 0.9 % (0.0-7.0); HEMOGLOBIN 8.7 g/dl (14.0-18.0); LYMPHOCYTES # 0.7 10^3/ul (0.8-2.9); LYMPHOCYTES % 11.5 % (15.0-51.0); MEAN CORPUSCULAR HEMOGLOBIN 28.2 pg (29.0-33.0); MEAN CORPUSCULAR HGB CONC 31.1 g/dl (32.0-37.0); MEAN CORPUSCULAR VOLUME 90.6 fl (82.0-101.0); MONOCYTE # 0.5 10^3/ul (0.3-0.9); MONOCYTES % 9.1 % (0.0-11.0); NEUTROPHILS % 77.2 % (39.0-77.0); PLATELET COUNT 223 10^3/UL (140-415); RED BLOOD COUNT 3.09 10^6/ul (4.70-6.10); RED CELL DISTRIBUTION WIDTH 16.5 % (11.5-14.5); WHITE BLOOD COUNT 5.8 10^3/ul (4.8-10.8)
[2017-07-17 07:09] LABS: CALCIUM 8.4 mg/dl (8.4-10.2); CREATININE 0.57 mg/dl (0.61-1.24); POTASSIUM 3.6 mmol/L (3.5-5.1)
[2017-07-17 07:35] VITALS: BP 145/67; RESP 18
[2017-07-17] MEDS: INSULIN ASPART [NOVOLOG] 3 ML PEN SC SCH ×4 (08:15→21:00)
[2017-07-17] MEDS: RANOLAZINE (SR) 500 MG TAB PO SCH ×2 (08:57→20:58)
[2017-07-17] MEDS: MIDODRINE 5 MG TAB PO SCH ×2 (08:58→20:58)
[2017-07-17] MEDS: LINAGLIPTIN 5 MG TABLET PO SCH (08:59)
[2017-07-17] MEDS: FAMOTIDINE 20 MG TAB PO SCH ×2 (08:59→20:59)
[2017-07-17] MEDS: CHOLECALCIFEROL 2,000 UNIT CAP PO SCH (08:59)
[2017-07-17] MEDS: MONTELUKAST 10 MG TAB PO SCH (08:59)
[2017-07-17] MEDS: POTASSIUM CHLORIDE (SR) 20 MEQ TAB PO SCH ×2 (08:59→20:57)
[2017-07-17] MEDS: CLOPIDOGREL 75 MG TAB PO SCH (08:59)
[2017-07-17 09:00] VITALS: PULSE 62
[2017-07-17] MEDS: FUROSEMIDE 20 MG TAB PO SCH (09:00)
[2017-07-17] MEDS: ENOXAPARIN 40 MG/0.4 ML SYG SC SCH (09:06)
--- NOTE | 2017-07-17 09:52 | CONS ---
Date/Time of Note Date/Time of Note DATE: 07/17/17 TIME: 09:52 Assessment/Plan Assessment/Plan Additional Assessment/Plan 1. Hypokalemia 2. Pleural effusion 3. 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 Denies having lung surgery or prior TB 4. h/o NSCLC s/p chemo and XRT plan : continue KCL 20mEQ PO BID , today electrolytes and Cr stable Keep magnesium normal Keep pt even, no IV Fluids BP stable will follow up Consultation Date/Type/Reason Admit Date/Time Jul 09, 2017 at 19:15 Initial Consult Date 07/13/17 Type of Consultation: NEPHROLGOY Referring Provider: RUIZ GRAJEDA MD 24 HR Interval Summary Free Text/Dictation K stable, Crn ormal, no acute events overnight Exam/Review of Systems Vital Signs Vitals Vital Signs Date Time Temp Pulse Resp B/P Pulse Ox O2 Delivery O2 Flow Rate FiO2 07/17/17 09:00 62 07/17/17 07:35 98.0 18 145/67 99 07/17/17 06:19 2.0 07/16/17 08:35 Nasal Cannula Intake and Output 07/16/17 07/16/17 07/17/17 15:00 23:00 07:00 Intake Total 400 ml 820 ml Output Total 600 ml Balance -200 ml 820 ml Exam Constitutional: alert, oriented Neck: supple Respiratory: other (Coarse breath sounds bilaterally, no wheezing) Cardiovascular: other (S1-S2 heard), regular rate and rhythm Gastrointestinal: bowel sounds, non-tender, soft Extremities: pitting pedal edema Results Result Diagram: 07/17/17 0550 07/17/17 0550 Results 24 hrs Laboratory Tests Test 07/16/17 12:05 07/16/17 17:12 07/16/17 20:42 07/17/17 05:50 Bedside Glucose 181 225 H 108 White Blood Count 5.8 Red Blood Count 3.09 L Hemoglobin 8.7 L Hematocrit 28.0 L Mean Corpuscular Volume 90.6 Mean Corpuscular Hemoglobin 28.2 L Mean Corpuscular Hemoglobin Concent 31.1 L Red Cell Distribution Width 16.5 H Platelet Count 223 Mean Platelet Volume 10.0 Neutrophils % 77.2 H Lymphocytes % 11.5 L Monocytes % 9.1 Eosinophils % 0.9 Basophils % 0.3 Nucleated Red Blood Cells % 0.0 Neutrophils # (Manual) 4.5 Lymphocytes # 0.7 L Monocytes # 0.5 Eosinophils # 0.1 Basophils # 0.0 Nucleated Red Blood Cells # 0.0 Sodium Level 137 Potassium Level 3.6 Chloride Level 96 L Carbon Dioxide Level 33 H Anion Gap 12 Blood Urea Nitrogen 11 Creatinine 0.57 L Glucose Level 108 Calcium Level 8.4 Test 07/17/17 07:59 Bedside Glucose 124 Medications Medications Current Medications Ondansetron HCl (Zofran Inj) 4 mg Q6H PRN IV NAUSEA AND/OR VOMITING; Start at 23:30 Acetaminophen (Tylenol Tab) 650 mg Q6H PRN PO PAIN LEVEL 1-3 OR FEVER Last administered on 07/16/17 15:55; Admin Dose 650 MG; Start 07/09/17 at 23:30 Acetaminophen/ Hydrocodone Bitart ([place] (5/325)) 1 tab Q6H PRN PO MODERATE PAIN LEVEL 4-6; Start 07/09/17 at 23:30 Morphine Sulfate (morphine) 2 mg Q4H PRN IV SEVERE PAIN LEVEL 7-10 Last administered on 07/16/17 20:36; Admin Dose 2 MG; Start 07/09/17 at 23:30 Docusate Sodium (Colace) 100 mg Q12H PRN PO CONSTIPATION; Start 07/09/17 at 23: 30 Magnesium Hydroxide (Milk Of Mag) 30 ml DAILY PRN PO CONSTIPATION Last administered on 07/14/17 21:26; Admin Dose 30 ML; Start 07/09/17 at 23:30 Bisacodyl (Dulcolax) 5 mg DAILY PRN PO CONSTIPATION Last administered on 17:46; Admin Dose 5 MG; Start 07/09/17 at 23:30 Zolpidem Tartrate (Ambien) 5 mg QHS PRN PO SLEEP Last administered on 20:36; Admin Dose 5 MG; Start 07/09/17 at 23:30 Famotidine (Pepcid) 20 mg Q12 PO Last administered on 07/17/17 08:59; Admin Dose 20 MG; Start 07/10/17 at 09:00 Enoxaparin Sodium (Lovenox) 40 mg DAILY SC Last administered on 07/17/17 09:06 ; Admin Dose 40 MG; Start 07/10/17 at 09:00 Bisacodyl (Dulcolax Supp) 10 mg Q48H PRN [place] CONSTIPATION Last administered on 13:06; Admin Dose 10 MG; Start 07/10/17 at 12:00 Atorvastatin Calcium (Lipitor) 10 mg QHS PO Last administered on 07/16/17 20: 36; Admin Dose 10 MG; Start 07/10/17 at 21:00 Clopidogrel Bisulfate (plaVIX) 75 mg QAM PO Last administered on 07/17/17 08: 59; Admin Dose 75 MG; Start 07/10/17 at 14:00 Midodrine (Proamatine) 5 mg BID PO Last administered on 07/17/17 08:58; Admin Dose 5 MG; Start 07/10/17 at 21:00 Montelukast Sodium (Singulair) 10 mg QAM PO Last administered on 07/17/17 08: 59; Admin Dose 10 MG; Start 07/10/17 at 14:00 Ranitidine HCl (Zantac) 150 mg HS PO Last administered on 07/16/17 20:37; Admin Dose 150 MG; Start 07/10/17 at 21:00 Ranolazine (Ranexa) 500 mg Q12 PO Last administered on 07/17/17 08:57; Admin Dose 500 MG; Start 07/10/17 at 21:00 Tamsulosin HCl (Flomax) 0.4 mg HS PO Last administered on 07/16/17 20:36; Admin Dose 0.4 MG; Start 07/10/17 at 21:00 Cholecalciferol (Vitamin D) 2,000 unit DAILY PO Last administered on 07/17/17 08:59; Admin Dose 2,000 UNIT; Start 07/10/17 at 14:00 Escitalopram Oxalate (Lexapro) 5 mg QPM PO Last administered on 07/16/17 20:36 ; Admin Dose 5 MG; Start 07/11/17 at 09:00 Pantoprazole (Protonix Tab) 40 mg DAILY@06 PO Last administered on 07/17/17 06 :01; Admin Dose 40 MG; Start 07/11/17 at 06:00 Diagnostic Test (Pha) (Accu-Chek) 1 ea 02 XX Last administered on 07/14/17 02: 00; Admin Dose 1 EA; Start 07/11/17 at 02:00 Miscellaneous Information 1 ea NOTE XX ; Start 07/10/17 at 15:00 Glucose (Glutose) 15 gm Q15M PRN PO DECREASED GLUCOSE; Start 07/10/17 at 15:00 Glucose (Glutose) 22.5 gm Q15M PRN PO DECREASED GLUCOSE; Start 07/10/17 at 15: 00 Dextrose (D50w Syringe) 25 ml Q15M PRN IV DECREASED GLUCOSE; Start 07/10/17 at 15:00 Dextrose (D50w Syringe) 50 ml Q15M PRN IV DECREASED GLUCOSE; Start 07/10/17 at 15:00 Glucagon (Glucagen) 1 mg Q15M PRN IM DECREASED GLUCOSE; Start 07/10/17 at 15:00 Glucose (Glutose) 15 gm Q15M PRN BUCCAL DECREASED GLUCOSE; Start 07/10/17 at 15 :00 Linagliptin (Tradjenta) 5 mg DAILY PO Last administered on 07/17/17 08:59; Admin Dose 5 MG; Start 07/11/17 at 09:00 Digoxin (Digoxin) 0.125 mg DAILY@13 PO Last administered on 07/16/17 12:49; Admin Dose 0.125 MG; Start 07/12/17 at 13:00 Carvedilol (Coreg) 3.125 mg BID PO Last administered on 07/17/17 09:00; Admin Dose 3.125 MG; Start 07/14/17 at 21:00 Potassium Chloride (Klor-Con 20) 20 meq BID PO Last administered on 07/17/17 08:59; Admin Dose 20 MEQ; Start 07/15/17 at 21:00 Furosemide (Lasix) 20 mg DAILY PO Last administered on 07/17/17 09:00; Admin Dose 20 MG; Start 07/16/17 at 09:00 YARI MILLER MD Jul 17, 2017 09:52
[2017-07-17 11:56] VITALS: PULSE 76
[2017-07-17] MEDS: DIGOXIN 0.125 MG TAB PO SCH (11:57)
--- NOTE | 2017-07-17 12:55 | CONS ---
Date/Time of Note Date/Time of Note DATE: 07/17/17 TIME: 12:54 Assessment/Plan Assessment/Plan Chief Complaint/Hosp Course 81-year-old gentleman with a history of lung cancer for which she had a surgery and treatment in 2009 comes to the hospital complaining of chest pain and shortness of breath which has been persistent for last 2-3 weeks. Patient is also known to have diabetes mellitus hypertension, status post coronary artery bypass graft and BPH. He denies of abdominal pain no nausea no vomiting no GI bleeding only complaint right now is chest pain on the left side. Patient is being evaluated by the strategy planning consultant. CT chest shows pleural effusion and the scarring of the right side of the chest with the pulling of the mediastinum towards the right side. Problems: Additional Assessment/Plan Problems: Additional Assessment/Plan Additional Assessment/Plan 1. Anemia most probably related to anemia of chronic disease based on the history there is no evidence of active GI bleeding at this point, B12 folic acid ferritin and reticulocyte count all within normal, awaiting for stool for occult blood 2. Cancer of the lung for which he had a treatment in 2009 3. Diabetes mellitus 4. Pleural effusion rule out malignancy, effusion is loculated and appears to be chronic 5. BPH 6. Status post coronary artery bypass graft 7. Hypotension for which patient is on midodrine Plan Workup for the anemia, so far workup has been negative most probably is related to anemia of chronic disease Stool for occult blood has never been sent Consultation Date/Type/Reason Admit Date/Time Jul 09, 2017 at 19:15 Initial Consult Date 07/11/17 Type of Consultation: NEPHROLGOY Referring Provider: RUIZ GRAJEDA MD 24 HR Interval Summary Free Text/Dictation No abdominal pain no nausea no vomiting no GI bleeding. Exam/Review of Systems Vital Signs Vitals Vital Signs Date Time Temp Pulse Resp B/P Pulse Ox O2 Delivery O2 Flow Rate FiO2 07/17/17 11:56 76 97 Room Air 07/17/17 08:30 2.0 07/17/17 07:35 98.0 18 145/67 Intake and Output 07/16/17 07/16/17 07/17/17 15:00 23:00 07:00 Intake Total 400 ml 820 ml Output Total 600 ml Balance -200 ml 820 ml Exam Constitutional: alert, oriented, well developed Psych: nl mood/affect, no complaints Head: atraumatic, normocephalic Eyes: EOMI, PERRL, nl conjunctiva, nl lids, nl sclera ENMT: nl external ears & nose, nl lips & teeth, nl nasal mucosa & septum Neck: non-tender, supple Respiratory: clear to auscultation, normal air movement Cardiovascular: nl pulses, regular rate and rhythm Gastrointestinal: nl liver, spleen, non-tender, soft Musculoskeletal: nl extremities to inspection, nl gait and stance Extremities: normal pulses 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: RACE ENG[employer]DER II-XII intact, nl mental status, nl speech, nl strength Skin: nl turgor, No rash or lesions Lymph: nl lymph nodes Results Result Diagram: 07/17/17 0550 07/17/17 0550 Results 24 hrs Laboratory Tests Test 07/16/17 17:12 07/16/17 20:42 07/17/17 05:50 07/17/17 07:59 Bedside Glucose 225 H 108 124 White Blood Count 5.8 Red Blood Count 3.09 L Hemoglobin 8.7 L Hematocrit 28.0 L Mean Corpuscular Volume 90.6 Mean Corpuscular Hemoglobin 28.2 L Mean Corpuscular Hemoglobin Concent 31.1 L Red Cell Distribution Width 16.5 H Platelet Count 223 Mean Platelet Volume 10.0 Neutrophils % 77.2 H Lymphocytes % 11.5 L Monocytes % 9.1 Eosinophils % 0.9 Basophils % 0.3 Nucleated Red Blood Cells % 0.0 Neutrophils # (Manual) 4.5 Lymphocytes # 0.7 L Monocytes # 0.5 Eosinophils # 0.1 Basophils # 0.0 Nucleated Red Blood Cells # 0.0 Sodium Level 137 Potassium Level 3.6 Chloride Level 96 L Carbon Dioxide Level 33 H Anion Gap 12 Blood Urea Nitrogen 11 Creatinine 0.57 L Glucose Level 108 Calcium Level 8.4 Test 07/17/17 11:55 Bedside Glucose 138 Medications Medications Current Medications Ondansetron HCl (Zofran Inj) 4 mg Q6H PRN IV NAUSEA AND/OR VOMITING; Start at 23:30 Acetaminophen (Tylenol Tab) 650 mg Q6H PRN PO PAIN LEVEL 1-3 OR FEVER Last administered on 07/16/17t 15:55; Admin Dose 650 MG; Start 07/09/17 at 23:30 Acetaminophen/ Hydrocodone Bitart ([place] (5/325)) 1 tab Q6H PRN PO MODERATE PAIN LEVEL 4-6; Start 07/09/17 at 23:30 Morphine Sulfate (morphine) 2 mg Q4H PRN IV SEVERE PAIN LEVEL 7-10 Last administered on 07/16/17 20:36; Admin Dose 2 MG; Start 07/09/17 at 23:30 Docusate Sodium (Colace) 100 mg Q12H PRN PO CONSTIPATION; Start 07/09/17 at 23: 30 Magnesium Hydroxide (Milk Of Mag) 30 ml DAILY PRN PO CONSTIPATION Last administered on 07/14/17 21:26; Admin Dose 30 ML; Start 07/09/17 at 23:30 Bisacodyl (Dulcolax) 5 mg DAILY PRN PO CONSTIPATION Last administered on 17:46; Admin Dose 5 MG; Start 07/09/17 at 23:30 Zolpidem Tartrate (Ambien) 5 mg QHS PRN PO SLEEP Last administered on 20:36; Admin Dose 5 MG; Start 07/09/17 at 23:30 Famotidine (Pepcid) 20 mg Q12 PO Last administered on 07/17/17 08:59; Admin Dose 20 MG; Start 07/10/17 at 09:00 Enoxaparin Sodium (Lovenox) 40 mg DAILY SC Last administered on 07/17/17 09:06 ; Admin Dose 40 MG; Start 07/10/17 at 09:00 Bisacodyl (Dulcolax Supp) 10 mg Q48H PRN [place] CONSTIPATION Last administered on 13:06; Admin Dose 10 MG; Start 07/10/17 at 12:00 Atorvastatin Calcium (Lipitor) 10 mg QHS PO Last administered on 07/16/17 20: 36; Admin Dose 10 MG; Start 07/10/17 at 21:00 Clopidogrel Bisulfate (plaVIX) 75 mg QAM PO Last administered on 07/17/17 08: 59; Admin Dose 75 MG; Start 07/10/17 at 14:00 Midodrine (Proamatine) 5 mg BID PO Last administered on 07/17/17 08:58; Admin Dose 5 MG; Start 07/10/17 at 21:00 Montelukast Sodium (Singulair) 10 mg QAM PO Last administered on 07/17/17 08: 59; Admin Dose 10 MG; Start 07/10/17 at 14:00 Ranitidine HCl (Zantac) 150 mg HS PO Last administered on 07/16/17 20:37; Admin Dose 150 MG; Start 07/10/17 at 21:00 Ranolazine (Ranexa) 500 mg Q12 PO Last administered on 07/17/17 08:57; Admin Dose 500 MG; Start 07/10/17 at 21:00 Tamsulosin HCl (Flomax) 0.4 mg HS PO Last administered on 07/16/17 20:36; Admin Dose 0.4 MG; Start 07/10/17 at 21:00 Cholecalciferol (Vitamin D) 2,000 unit DAILY PO Last administered on 07/17/17 08:59; Admin Dose 2,000 UNIT; Start 07/10/17 at 14:00 Escitalopram Oxalate (Lexapro) 5 mg QPM PO Last administered on 07/16/17 20:36 ; Admin Dose 5 MG; Start 07/11/17 at 09:00 Pantoprazole (Protonix Tab) 40 mg DAILY@06 PO Last administered on 07/17/17 06 :01; Admin Dose 40 MG; Start 07/11/17 at 06:00 Diagnostic Test (Pha) (Accu-Chek) 1 ea 02 XX Last administered on 07/14/17 02: 00; Admin Dose 1 EA; Start 07/11/17 at 02:00 Miscellaneous Information 1 ea NOTE XX ; Start 07/10/17 at 15:00 Glucose (Glutose) 15 gm Q15M PRN PO DECREASED GLUCOSE; Start 07/10/17 at 15:00 Glucose (Glutose) 22.5 gm Q15M PRN PO DECREASED GLUCOSE; Start 07/10/17 at 15: 00 Dextrose (D50w Syringe) 25 ml Q15M PRN IV DECREASED GLUCOSE; Start 07/10/17 at 15:00 Dextrose (D50w Syringe) 50 ml Q15M PRN IV DECREASED GLUCOSE; Start 07/10/17 at 15:00 Glucagon (Glucagen) 1 mg Q15M PRN IM DECREASED GLUCOSE; Start 07/10/17 at 15:00 Glucose (Glutose) 15 gm Q15M PRN BUCCAL DECREASED GLUCOSE; Start 07/10/17 at 15 :00 Linagliptin (Tradjenta) 5 mg DAILY PO Last administered on 07/17/17 08:59; Admin Dose 5 MG; Start 07/11/17 at 09:00 Digoxin (Digoxin) 0.125 mg DAILY@13 PO Last administered on 07/17/17 11:57; Admin Dose 0.125 MG; Start 07/12/17 at 13:00 Carvedilol (Coreg) 3.125 mg BID PO Last administered on 07/17/17 09:00; Admin Dose 3.125 MG; Start 07/14/17 at 21:00 Potassium Chloride (Klor-Con 20) 20 meq BID PO Last administered on 07/17/17 08:59; Admin Dose 20 MEQ; Start 07/15/17 at 21:00 Furosemide (Lasix) 20 mg DAILY PO Last administered on 07/17/17 09:00; Admin Dose 20 MG; Start 07/16/17 at 09:00 ALEX SALINAS MD Jul 17, 2017 12:55
--- NOTE | 2017-07-17 13:14 | CONS ---
Date/Time of Note Date/Time of Note DATE: 07/17/17 TIME: 13:12 Assessment/Plan Assessment/Plan Additional Assessment/Plan History of lung cancer with current pleural effusion Acute decompensated diastolic congestive heart failure CAD with history of CABG Preserved ejection fraction -Lower extremity edema has improved, would continue maintenance diuretics as renal function and blood pressure permits. Maintain potassium above 4.0 and magnesium of 2.0. Consultation Date/Type/Reason Admit Date/Time Jul 09, 2017 at 19:15 Initial Consult Date 07/13/17 Type of Consultation: cv Referring Provider: RUIZ GRAJEDA MD 24 HR Interval Summary Free Text/Dictation Shortness of breath is improved but still with cough. Denies chest pain Exam/Review of Systems Vital Signs Vitals Vital Signs Date Time Temp Pulse Resp B/P Pulse Ox O2 Delivery O2 Flow Rate FiO2 07/17/17 11:56 76 97 Room Air 07/17/17 08:30 2.0 07/17/17 07:35 98.0 18 145/67 Intake and Output 07/16/17 07/16/17 07/17/17 15:00 23:00 07:00 Intake Total 400 ml 820 ml Output Total 600 ml Balance -200 ml 820 ml Exam Sitting in chair Constitutional: alert, frail, oriented Head: normocephalic Respiratory: other (Coarse breath sounds bilaterally, no wheezing) Cardiovascular: other (S1-S2 heard), regular rate and rhythm Gastrointestinal: bowel sounds, non-tender, soft Extremities: edema Results Result Diagram: 07/17/17 0550 07/17/17 0550 Results 24 hrs Laboratory Tests Test 07/16/17 17:12 07/16/17 20:42 07/17/17 05:50 07/17/17 07:59 Bedside Glucose 225 H 108 124 White Blood Count 5.8 Red Blood Count 3.09 L Hemoglobin 8.7 L Hematocrit 28.0 L Mean Corpuscular Volume 90.6 Mean Corpuscular Hemoglobin 28.2 L Mean Corpuscular Hemoglobin Concent 31.1 L Red Cell Distribution Width 16.5 H Platelet Count 223 Mean Platelet Volume 10.0 Neutrophils % 77.2 H Lymphocytes % 11.5 L Monocytes % 9.1 Eosinophils % 0.9 Basophils % 0.3 Nucleated Red Blood Cells % 0.0 Neutrophils # (Manual) 4.5 Lymphocytes # 0.7 L Monocytes # 0.5 Eosinophils # 0.1 Basophils # 0.0 Nucleated Red Blood Cells # 0.0 Sodium Level 137 Potassium Level 3.6 Chloride Level 96 L Carbon Dioxide Level 33 H Anion Gap 12 Blood Urea Nitrogen 11 Creatinine 0.57 L Glucose Level 108 Calcium Level 8.4 Test 07/17/17 11:55 Bedside Glucose 138 Medications Medications Current Medications Ondansetron HCl (Zofran Inj) 4 mg Q6H PRN IV NAUSEA AND/OR VOMITING; Start at 23:30 Acetaminophen (Tylenol Tab) 650 mg Q6H PRN PO PAIN LEVEL 1-3 OR FEVER Last administered on 07/16/17 15:55; Admin Dose 650 MG; Start 07/09/17 at 23:30 Acetaminophen/ Hydrocodone Bitart ([place] (5/325)) 1 tab Q6H PRN PO MODERATE PAIN LEVEL 4-6; Start 07/09/17 at 23:30 Morphine Sulfate (morphine) 2 mg Q4H PRN IV SEVERE PAIN LEVEL 7-10 Last administered on 07/16/17 20:36; Admin Dose 2 MG; Start 07/09/17 at 23:30 Docusate Sodium (Colace) 100 mg Q12H PRN PO CONSTIPATION; Start 07/09/17 at 23: 30 Magnesium Hydroxide (Milk Of Mag) 30 ml DAILY PRN PO CONSTIPATION Last administered on 07/14/17 21:26; Admin Dose 30 ML; Start 07/09/17 at 23:30 Bisacodyl (Dulcolax) 5 mg DAILY PRN PO CONSTIPATION Last administered on 17:46; Admin Dose 5 MG; Start 07/09/17 at 23:30 Zolpidem Tartrate (Ambien) 5 mg QHS PRN PO SLEEP Last administered on 20:36; Admin Dose 5 MG; Start 07/09/17 at 23:30 Famotidine (Pepcid) 20 mg Q12 PO Last administered on 07/17/17 08:59; Admin Dose 20 MG; Start 07/10/17 at 09:00 Enoxaparin Sodium (Lovenox) 40 mg DAILY SC Last administered on 07/17/17 09:06 ; Admin Dose 40 MG; Start 07/10/17 at 09:00 Bisacodyl (Dulcolax Supp) 10 mg Q48H PRN [place] CONSTIPATION Last administered on 13:06; Admin Dose 10 MG; Start 07/10/17 at 12:00 Atorvastatin Calcium (Lipitor) 10 mg QHS PO Last administered on 07/16/17 20: 36; Admin Dose 10 MG; Start 07/10/17 at 21:00 Clopidogrel Bisulfate (plaVIX) 75 mg QAM PO Last administered on 07/17/17 08: 59; Admin Dose 75 MG; Start 07/10/17 at 14:00 Midodrine (Proamatine) 5 mg BID PO Last administered on 07/17/17 08:58; Admin Dose 5 MG; Start 07/10/17 at 21:00 Montelukast Sodium (Singulair) 10 mg QAM PO Last administered on 07/17/17 08: 59; Admin Dose 10 MG; Start 07/10/17 at 14:00 Ranitidine HCl (Zantac) 150 mg HS PO Last administered on 07/16/17 20:37; Admin Dose 150 MG; Start 07/10/17 at 21:00 Ranolazine (Ranexa) 500 mg Q12 PO Last administered on 07/17/17 08:57; Admin Dose 500 MG; Start 07/10/17 at 21:00 Tamsulosin HCl (Flomax) 0.4 mg HS PO Last administered on 07/16/17 20:36; Admin Dose 0.4 MG; Start 07/10/17 at 21:00 Cholecalciferol (Vitamin D) 2,000 unit DAILY PO Last administered on 07/17/17 08:59; Admin Dose 2,000 UNIT; Start 07/10/17 at 14:00 Escitalopram Oxalate (Lexapro) 5 mg QPM PO Last administered on 07/16/17 20:36 ; Admin Dose 5 MG; Start 07/11/17 at 09:00 Pantoprazole (Protonix Tab) 40 mg DAILY@06 PO Last administered on 07/17/17 06 :01; Admin Dose 40 MG; Start 07/11/17 at 06:00 Diagnostic Test (Pha) (Accu-Chek) 1 ea 02 XX Last administered on 07/14/17 02: 00; Admin Dose 1 EA; Start 07/11/17 at 02:00 Miscellaneous Information 1 ea NOTE XX ; Start 07/10/17 at 15:00 Glucose (Glutose) 15 gm Q15M PRN PO DECREASED GLUCOSE; Start 07/10/17 at 15:00 Glucose (Glutose) 22.5 gm Q15M PRN PO DECREASED GLUCOSE; Start 07/10/17 at 15: 00 Dextrose (D50w Syringe) 25 ml Q15M PRN IV DECREASED GLUCOSE; Start 07/10/17 at 15:00 Dextrose (D50w Syringe) 50 ml Q15M PRN IV DECREASED GLUCOSE; Start 07/10/17 at 15:00 Glucagon (Glucagen) 1 mg Q15M PRN IM DECREASED GLUCOSE; Start 07/10/17 at 15:00 Glucose (Glutose) 15 gm Q15M PRN BUCCAL DECREASED GLUCOSE; Start 07/10/17 at 15 :00 Linagliptin (Tradjenta) 5 mg DAILY PO Last administered on 07/17/17 08:59; Admin Dose 5 MG; Start 07/11/17 at 09:00 Digoxin (Digoxin) 0.125 mg DAILY@13 PO Last administered on 07/17/17 11:57; Admin Dose 0.125 MG; Start 07/12/17 at 13:00 Carvedilol (Coreg) 3.125 mg BID PO Last administered on 07/17/17 09:00; Admin Dose 3.125 MG; Start 07/14/17 at 21:00 Potassium Chloride (Klor-Con 20) 20 meq BID PO Last administered on 07/17/17 08:59; Admin Dose 20 MEQ; Start 07/15/17 at 21:00 Furosemide (Lasix) 20 mg DAILY PO Last administered on 07/17/17 09:00; Admin Dose 20 MG; Start 07/16/17 at 09:00 Amado Rodriguez DO Jul 17, 2017 13:14
--- NOTE | 2017-07-17 14:20 | PN ---
DATE: 07/17/2017 REASON FOR FOLLOWUP: Pneumonia. SUBJECTIVE DATA: The patient is stable this morning. No new events. OBJECTIVE DATA: VITAL SIGNS: Temperature 98. Pulse is 76. Blood pressure 145/67. O2 sat 96 percent on 2 L nasal cannula. NECK: Supple. No JVD. No lymphadenopathy. CARDIAC: S1, S2. No added sounds or murmurs. CHEST: Diminished air entry bilaterally. ABDOMEN: Soft, nontender. No guarding or rebound. ASSESSMENT: 1. 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 2. Stable diastolic dysfunction. 3. Incomplete data. 4. Recent hypokalemia. PLAN: 1. Continue supplemental O2 as needed. 2. Encourage out of bed. 3. Discharge planning okay from pulmonary standpoint. 4. Follow up with me in the office. 5. DVT and GI prophylaxis. Dictated By: Yefri Nagy MD /[email or web address] /Document#: [id number]
[2017-07-17] MEDS: HYDROCODONE/APAP (5/325) TAB PO PRN (14:27)
--- NOTE | 2017-07-17 14:35 | PN ---
Date/Time of Note Date/Time of Note DATE: 07/17/17 TIME: 14:30 Assessment/Plan VTE Prophylaxis VTE Prophylaxis Intervention: other Lines/Catheters IV 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 Dr Nagy is following in pulmonology consultation. -Coronary artery disease status post CABG in 2004. Continue Plavix. Dr. 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 Continue Lasix, monitor electrolytes. -Diastolic dysfunction congestive heart failure -Bilateral lower extremity edema, venous Dopplers negative for any deep venous thrombosis. -History of lung cancer dx 2006, completed chemotherapy in 2009. -Diabetes mellitus, continue Tradjenta and NovoLog per mild algorithm sliding scale. -BPH, continue Flomax. Discharge planning - transfer to senior apartment with home health services. dw bilingual patient support caseworker. Further recommendations based on clinical course. Plan of care discussed with Dr. Morrissey. Subjective 24 Hr Interval Summary Constitutional: requiring O2 Respiratory: shortness of breath Cardiovascular: no complaints Gastrointestinal: no complaints Genitourinary: no complaints Musculoskeletal: no complaints Skin: no complaints Exam/Review of Systems Vital Signs Vitals Vital Signs Date Time Temp Pulse Resp B/P Pulse Ox O2 Delivery O2 Flow Rate FiO2 07/17/17 13:28 2.0 07/17/17 11:56 76 97 Room Air 07/17/17 07:35 98.0 18 145/67 Intake and Output 07/16/17 07/16/17 07/17/17 15:00 23:00 07:00 Intake Total 400 ml 820 ml Output Total 600 ml Balance -200 ml 820 ml Exam Constitutional: alert, oriented, well developed Respiratory: clear to auscultation, normal air movement Cardiovascular: nl pulses, regular rate and rhythm Gastrointestinal: non-tender, soft Musculoskeletal: nl extremities to inspection Extremities: normal pulses 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: nl mental status, nl speech Skin: nl turgor Results Result Diagram: 07/17/17 0550 07/17/17 0550 Results 24 hrs Laboratory Tests Test 07/16/17 17:12 07/16/17 20:42 07/17/17 05:50 07/17/17 07:59 Bedside Glucose 225 H 108 124 White Blood Count 5.8 Red Blood Count 3.09 L Hemoglobin 8.7 L Hematocrit 28.0 L Mean Corpuscular Volume 90.6 Mean Corpuscular Hemoglobin 28.2 L Mean Corpuscular Hemoglobin Concent 31.1 L Red Cell Distribution Width 16.5 H Platelet Count 223 Mean Platelet Volume 10.0 Neutrophils % 77.2 H Lymphocytes % 11.5 L Monocytes % 9.1 Eosinophils % 0.9 Basophils % 0.3 Nucleated Red Blood Cells % 0.0 Neutrophils # (Manual) 4.5 Lymphocytes # 0.7 L Monocytes # 0.5 Eosinophils # 0.1 Basophils # 0.0 Nucleated Red Blood Cells # 0.0 Sodium Level 137 Potassium Level 3.6 Chloride Level 96 L Carbon Dioxide Level 33 H Anion Gap 12 Blood Urea Nitrogen 11 Creatinine 0.57 L Glucose Level 108 Calcium Level 8.4 Test 07/17/17 11:55 Bedside Glucose 138 Medications Medications Current Medications Ondansetron HCl (Zofran Inj) 4 mg Q6H PRN IV NAUSEA AND/OR VOMITING; Start at 23:30 Acetaminophen (Tylenol Tab) 650 mg Q6H PRN PO PAIN LEVEL 1-3 OR FEVER Last administered on 07/16/17 15:55; Admin Dose 650 MG; Start 07/09/17 at 23:30 Acetaminophen/ Hydrocodone Bitart ([place] (5/325)) 1 tab Q6H PRN PO MODERATE PAIN LEVEL 4-6 Last administered on 07/17/17 14:27; Admin Dose 1 TAB; Start at 23:30 Morphine Sulfate (morphine) 2 mg Q4H PRN IV SEVERE PAIN LEVEL 7-10 Last administered on 07/16/17 20:36; Admin Dose 2 MG; Start 07/09/17 at 23:30 Docusate Sodium (Colace) 100 mg Q12H PRN PO CONSTIPATION; Start 07/09/17 at 23: 30 Magnesium Hydroxide (Milk Of Mag) 30 ml DAILY PRN PO CONSTIPATION Last administered on 07/14/17 21:26; Admin Dose 30 ML; Start 07/09/17 at 23:30 Bisacodyl (Dulcolax) 5 mg DAILY PRN PO CONSTIPATION Last administered on 17:46; Admin Dose 5 MG; Start 07/09/17 at 23:30 Zolpidem Tartrate (Ambien) 5 mg QHS PRN PO SLEEP Last administered on 20:36; Admin Dose 5 MG; Start 07/09/17 at 23:30 Famotidine (Pepcid) 20 mg Q12 PO Last administered on 07/17/17 08:59; Admin Dose 20 MG; Start 07/10/17 at 09:00 Enoxaparin Sodium (Lovenox) 40 mg DAILY SC Last administered on 07/17/17 09:06 ; Admin Dose 40 MG; Start 07/10/17 at 09:00 Bisacodyl (Dulcolax Supp) 10 mg Q48H PRN [place] CONSTIPATION Last administered on 13:06; Admin Dose 10 MG; Start 07/10/17 at 12:00 Atorvastatin Calcium (Lipitor) 10 mg QHS PO Last administered on 07/16/17 20: 36; Admin Dose 10 MG; Start 07/10/17 at 21:00 Clopidogrel Bisulfate (plaVIX) 75 mg QAM PO Last administered on 07/17/17 08: 59; Admin Dose 75 MG; Start 07/10/17 at 14:00 Midodrine (Proamatine) 5 mg BID PO Last administered on 07/17/17 08:58; Admin Dose 5 MG; Start 07/10/17 at 21:00 Montelukast Sodium (Singulair) 10 mg QAM PO Last administered on 07/17/17 08: 59; Admin Dose 10 MG; Start 07/10/17 at 14:00 Ranitidine HCl (Zantac) 150 mg HS PO Last administered on 07/16/17 20:37; Admin Dose 150 MG; Start 07/10/17 at 21:00 Ranolazine (Ranexa) 500 mg Q12 PO Last administered on 07/17/17 08:57; Admin Dose 500 MG; Start 07/10/17 at 21:00 Tamsulosin HCl (Flomax) 0.4 mg HS PO Last administered on 07/16/17 20:36; Admin Dose 0.4 MG; Start 07/10/17 at 21:00 Cholecalciferol (Vitamin D) 2,000 unit DAILY PO Last administered on 07/17/17 08:59; Admin Dose 2,000 UNIT; Start 07/10/17 at 14:00 Escitalopram Oxalate (Lexapro) 5 mg QPM PO Last administered on 07/16/17 20:36 ; Admin Dose 5 MG; Start 07/11/17 at 09:00 Pantoprazole (Protonix Tab) 40 mg DAILY@06 PO Last administered on 07/17/17 06 :01; Admin Dose 40 MG; Start 07/11/17 at 06:00 Diagnostic Test (Pha) (Accu-Chek) 1 ea 02 XX Last administered on 07/14/17 02: 00; Admin Dose 1 EA; Start 07/11/17 at 02:00 Miscellaneous Information 1 ea NOTE XX ; Start 07/10/17 at 15:00 Glucose (Glutose) 15 gm Q15M PRN PO DECREASED GLUCOSE; Start 07/10/17 at 15:00 Glucose (Glutose) 22.5 gm Q15M PRN PO DECREASED GLUCOSE; Start 07/10/17 at 15: 00 Dextrose (D50w Syringe) 25 ml Q15M PRN IV DECREASED GLUCOSE; Start 07/10/17 at 15:00 Dextrose (D50w Syringe) 50 ml Q15M PRN IV DECREASED GLUCOSE; Start 07/10/17 at 15:00 Glucagon (Glucagen) 1 mg Q15M PRN IM DECREASED GLUCOSE; Start 07/10/17 at 15:00 Glucose (Glutose) 15 gm Q15M PRN BUCCAL DECREASED GLUCOSE; Start 07/10/17 at 15 :00 Linagliptin (Tradjenta) 5 mg DAILY PO Last administered on 07/17/17 08:59; Admin Dose 5 MG; Start 07/11/17 at 09:00 Digoxin (Digoxin) 0.125 mg DAILY@13 PO Last administered on 07/17/17 11:57; Admin Dose 0.125 MG; Start 07/12/17 at 13:00 Carvedilol (Coreg) 3.125 mg BID PO Last administered on 07/17/17 09:00; Admin Dose 3.125 MG; Start 07/14/17 at 21:00 Potassium Chloride (Klor-Con 20) 20 meq BID PO Last administered on 07/17/17 08:59; Admin Dose 20 MEQ; Start 07/15/17 at 21:00 Furosemide (Lasix) 20 mg DAILY PO Last administered on 8/31/17at 09:00; Admin Dose 20 MG; Start 07/16/17 at 09:00 [facility] Jul 17, 2017 14:35
[2017-07-17 15:06] VITALS: BP 154/74; RESP 18
[2017-07-17 19:28] VITALS: BP 129/59; RESP 18
[2017-07-17] MEDS: ATORVASTATIN 10 MG TAB PO SCH (20:57)
[2017-07-17] MEDS: ESCITALOPRAM 10 MG TAB PO SCH (20:57)
[2017-07-17] MEDS: TAMSULOSIN (SR) 0.4 MG CAP PO SCH (20:57)
[2017-07-17] MEDS: morphine 2 MG INJ IV PRN (20:58)
[2017-07-17] MEDS: RANITIDINE 150 MG TAB PO SCH (20:58)
[2017-07-17] MEDS: ZOLPIDEM 5 MG TAB PO PRN (20:59)
[2017-07-18 02:00] VITALS: BP 137/67; RESP 18
[2017-07-18] MEDS: ACCU-CHEK XX SCH (02:05)
[2017-07-18] MEDS: PANTOPRAZOLE (EC) 40 MG TAB PO SCH (05:51)
[2017-07-18 06:20] LABS: BASOPHILS % 0.5 % (0.0-2.0); EOSINOPHILS # 0.1 10^3/ul (0.0-0.5); EOSINOPHILS % 0.8 % (0.0-7.0); HEMATOCRIT 29.7 % (42.0-52.0); HEMOGLOBIN 9.3 g/dl (14.0-18.0); LYMPHOCYTES # 0.9 10^3/ul (0.8-2.9); LYMPHOCYTES % 10.7 % (15.0-51.0); MEAN CORPUSCULAR HEMOGLOBIN 28.4 pg (29.0-33.0); MEAN CORPUSCULAR HGB CONC 31.3 g/dl (32.0-37.0); MEAN CORPUSCULAR VOLUME 90.8 fl (82.0-101.0); MEAN PLATELET VOLUME 10.4 fl (7.4-10.4); MONOCYTE # 0.7 10^3/ul (0.3-0.9); MONOCYTES % 7.8 % (0.0-11.0); NEUTROPHILS % 79.2 % (39.0-77.0); PLATELET COUNT 255 10^3/UL (140-415); RED BLOOD COUNT 3.27 10^6/ul (4.70-6.10); RED CELL DISTRIBUTION WIDTH 16.7 % (11.5-14.5); WHITE BLOOD COUNT 8.3 10^3/ul (4.8-10.8)
[2017-07-18 07:09] LABS: CALCIUM 8.5 mg/dl (8.4-10.2); CREATININE 0.61 mg/dl (0.61-1.24); POTASSIUM 3.7 mmol/L (3.5-5.1)
[2017-07-18 07:43] VITALS: BP 152/73; RESP 18
[2017-07-18] MEDS: INSULIN ASPART [NOVOLOG] 3 ML PEN SC SCH ×4 (08:15→20:38)
[2017-07-18] MEDS: LINAGLIPTIN 5 MG TABLET PO SCH (08:46)
[2017-07-18] MEDS: FAMOTIDINE 20 MG TAB PO SCH ×2 (08:46→20:33)
[2017-07-18] MEDS: POTASSIUM CHLORIDE (SR) 20 MEQ TAB PO SCH ×2 (08:46→20:33)
[2017-07-18] MEDS: CHOLECALCIFEROL 2,000 UNIT CAP PO SCH (08:46)
[2017-07-18] MEDS: RANOLAZINE (SR) 500 MG TAB PO SCH ×2 (08:46→20:32)
[2017-07-18] MEDS: MONTELUKAST 10 MG TAB PO SCH (08:47)
[2017-07-18] MEDS: CLOPIDOGREL 75 MG TAB PO SCH (08:47)
[2017-07-18] MEDS: FUROSEMIDE 20 MG TAB PO SCH (08:48)
[2017-07-18] MEDS: MIDODRINE 5 MG TAB PO SCH ×2 (08:49→20:35)
[2017-07-18] MEDS: ENOXAPARIN 40 MG/0.4 ML SYG SC SCH (08:53)
--- NOTE | 2017-07-18 12:21 | PN ---
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 Dr Nagy is following in pulmonology consultation. -Coronary artery disease status post CABG in 2004. Continue Plavix. Dr. 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 Continue Lasix, monitor electrolytes. -Diastolic dysfunction congestive heart failure -Bilateral lower extremity edema, venous Dopplers negative for any deep venous thrombosis. -History of lung cancer dx 2006, completed chemotherapy in 2009. -Diabetes mellitus, continue Tradjenta and NovoLog per mild algorithm sliding scale. -BPH, continue Flomax. Discharge planning - transfer to senior apartment with home health services. dw case reviewer. Further recommendations based on clinical course. Plan of care discussed with Dr. Morrissey. Subjective 24 Hr Interval Summary Free Text/Dictation Discharge planning - transfer to senior apartment with home health services per case reviewer. daughter at bed side- all Qs answered. dw staff Respiratory: no complaints Cardiovascular: no complaints Gastrointestinal: no complaints Genitourinary: no complaints Musculoskeletal: no complaints Exam/Review of Systems Vital Signs Vitals Vital Signs Date Time Temp Pulse Resp B/P Pulse Ox O2 Delivery O2 Flow Rate FiO2 07/18/17 07:43 98.5 82 18 152/73 98 07/18/17 02:21 1.0 07/17/17 22:00 Nasal Cannula Intake and Output 07/17/17 07/17/17 07/18/17 15:00 23:00 07:00 Intake Total 400 ml 720 ml 300 ml Output Total 1100 ml Balance -700 ml 720 ml 300 ml Exam Constitutional: alert, oriented, well developed Neck: supple Respiratory: diminished breath sounds Cardiovascular: nl pulses, regular rate and rhythm Gastrointestinal: non-tender, soft Musculoskeletal: nl extremities to inspection Extremities: normal pulses 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: nl mental status, nl speech Results Result Diagram: 07/18/17 0529 07/18/17 0529 Results 24 hrs Laboratory Tests Test 07/17/17 17:54 07/17/17 20:31 07/18/17 02:03 07/18/17 05:29 Bedside Glucose 134 193 119 White Blood Count 8.3 # Red Blood Count 3.27 L Hemoglobin 9.3 L Hematocrit 29.7 L Mean Corpuscular Volume 90.8 Mean Corpuscular Hemoglobin 28.4 L Mean Corpuscular Hemoglobin Concent 31.3 L Red Cell Distribution Width 16.7 H Platelet Count 255 Mean Platelet Volume 10.4 Neutrophils % 79.2 H Lymphocytes % 10.7 L Monocytes % 7.8 Eosinophils % 0.8 Basophils % 0.5 Nucleated Red Blood Cells % 0.0 Neutrophils # (Manual) 6.6 Lymphocytes # 0.9 Monocytes # 0.7 Eosinophils # 0.1 Basophils # 0.0 Nucleated Red Blood Cells # 0.0 Sodium Level 137 Potassium Level 3.7 Chloride Level 100 Carbon Dioxide Level 32 H Anion Gap 9 Blood Urea Nitrogen 11 Creatinine 0.61 Glucose Level 116 Calcium Level 8.5 Test 07/18/17 08:19 07/18/17 12:00 Bedside Glucose 133 185 Medications Medications Current Medications Ondansetron HCl (Zofran Inj) 4 mg Q6H PRN IV NAUSEA AND/OR VOMITING; Start at 23:30 Acetaminophen (Tylenol Tab) 650 mg Q6H PRN PO PAIN LEVEL 1-3 OR FEVER Last administered on 07/16/17 15:55; Admin Dose 650 MG; Start 07/09/17 at 23:30 Acetaminophen/ Hydrocodone Bitart ([place] (5/325)) 1 tab Q6H PRN PO MODERATE PAIN LEVEL 4-6 Last administered on 07/17/17 14:27; Admin Dose 1 TAB; Start at 23:30 Morphine Sulfate (morphine) 2 mg Q4H PRN IV SEVERE PAIN LEVEL 7-10 Last administered on 07/17/17 20:58; Admin Dose 2 MG; Start 07/09/17 at 23:30 Docusate Sodium (Colace) 100 mg Q12H PRN PO CONSTIPATION; Start 07/09/17 at 23: 30 Magnesium Hydroxide (Milk Of Mag) 30 ml DAILY PRN PO CONSTIPATION Last administered on 07/14/17 21:26; Admin Dose 30 ML; Start 07/09/17 at 23:30 Bisacodyl (Dulcolax) 5 mg DAILY PRN PO CONSTIPATION Last administered on 17:46; Admin Dose 5 MG; Start 07/09/17 at 23:30 Zolpidem Tartrate (Ambien) 5 mg QHS PRN PO SLEEP Last administered on 20:59; Admin Dose 5 MG; Start 07/09/17 at 23:30 Famotidine (Pepcid) 20 mg Q12 PO Last administered on 07/18/17 08:46; Admin Dose 20 MG; Start 07/10/17 at 09:00 Enoxaparin Sodium (Lovenox) 40 mg DAILY SC Last administered on 07/18/17 08:53 ; Admin Dose 40 MG; Start 07/10/17 at 09:00 Bisacodyl (Dulcolax Supp) 10 mg Q48H PRN [place] CONSTIPATION Last administered on 13:06; Admin Dose 10 MG; Start 07/10/17 at 12:00 Atorvastatin Calcium (Lipitor) 10 mg QHS PO Last administered on 07/17/17 20: 57; Admin Dose 10 MG; Start 07/10/17 at 21:00 Clopidogrel Bisulfate (plaVIX) 75 mg QAM PO Last administered on 07/18/17 08:47 ; Admin Dose 75 MG; Start 07/10/17 at 14:00 Midodrine (Proamatine) 5 mg BID PO Last administered on 07/17/17 08:58; Admin Dose 5 MG; Start 07/10/17 at 21:00 Montelukast Sodium (Singulair) 10 mg QAM PO Last administered on 07/18/17 08:47 ; Admin Dose 10 MG; Start 07/10/17 at 14:00 Ranitidine HCl (Zantac) 150 mg HS PO Last administered on 07/17/17 20:58; Admin Dose 150 MG; Start 07/10/17 at 21:00 Ranolazine (Ranexa) 500 mg Q12 PO Last administered on 07/18/17 08:46; Admin Dose 500 MG; Start 07/10/17 at 21:00 Tamsulosin HCl (Flomax) 0.4 mg HS PO Last administered on 07/17/17 20:57; Admin Dose 0.4 MG; Start 07/10/17 at 21:00 Cholecalciferol (Vitamin D) 2,000 unit DAILY PO Last administered on 07/18/17 08:46; Admin Dose 2,000 UNIT; Start 07/10/17 at 14:00 Escitalopram Oxalate (Lexapro) 5 mg QPM PO Last administered on 07/17/17 20:57 ; Admin Dose 5 MG; Start 07/11/17 at 09:00 Pantoprazole (Protonix Tab) 40 mg DAILY@06 PO Last administered on 07/18/17 05: 51; Admin Dose 40 MG; Start 07/11/17 at 06:00 Diagnostic Test (Pha) (Accu-Chek) 1 ea 02 XX Last administered on 07/18/17 02: 05; Admin Dose 1 EA; Start 07/11/17 at 02:00 Miscellaneous Information 1 ea NOTE XX ; Start 07/10/17 at 15:00 Glucose (Glutose) 15 gm Q15M PRN PO DECREASED GLUCOSE; Start 07/10/17 at 15:00 Glucose (Glutose) 22.5 gm Q15M PRN PO DECREASED GLUCOSE; Start 07/10/17 at 15: 00 Dextrose (D50w Syringe) 25 ml Q15M PRN IV DECREASED GLUCOSE; Start 07/10/17 at 15:00 Dextrose (D50w Syringe) 50 ml Q15M PRN IV DECREASED GLUCOSE; Start 07/10/17 at 15:00 Glucagon (Glucagen) 1 mg Q15M PRN IM DECREASED GLUCOSE; Start 07/10/17 at 15:00 Glucose (Glutose) 15 gm Q15M PRN BUCCAL DECREASED GLUCOSE; Start 07/10/17 at 15 :00 Linagliptin (Tradjenta) 5 mg DAILY PO Last administered on 07/18/17 08:46; Admin Dose 5 MG; Start 07/11/17 at 09:00 Digoxin (Digoxin) 0.125 mg DAILY@13 PO Last administered on 07/17/17 11:57; Admin Dose 0.125 MG; Start 07/12/17 at 13:00 Carvedilol (Coreg) 3.125 mg BID PO Last administered on 07/18/17 08:47; Admin Dose 3.125 MG; Start 07/14/17 at 21:00 Potassium Chloride (Klor-Con 20) 20 meq BID PO Last administered on 07/18/17 08 :46; Admin Dose 20 MEQ; Start 07/15/17 at 21:00 Furosemide (Lasix) 20 mg DAILY PO Last administered on 07/18/17t 08:48; Admin Dose 20 MG; Start 07/16/17 at 09:00 [facility] Jul 18, 2017 12:21
--- NOTE | 2017-07-18 12:58 | CONS ---
Date/Time of Note Date/Time of Note DATE: 07/18/17 TIME: 12:56 Assessment/Plan Assessment/Plan Additional Assessment/Plan History of lung cancer with current pleural effusion Acute decompensated diastolic congestive heart failure, improved CAD with history of CABG Preserved ejection fraction -Lower extremity edema has improved, would continue maintenance diuretics as renal function and blood pressure permits. Maintain potassium above 4.0 and magnesium of 2.0. Patient has been getting midodrine, which change holding parameters to hold if systolic less than 90. Consultation Date/Type/Reason Admit Date/Time Jul 09, 2017 at 19:15 Initial Consult Date 07/13/17 Type of Consultation: cv Referring Provider: RUIZ GRAJEDA MD 24 HR Interval Summary Free Text/Dictation Patient seen and examined, denies shortness of breath, lower extremity edema is improved Exam/Review of Systems Vital Signs Vitals Vital Signs Date Time Temp Pulse Resp B/P Pulse Ox O2 Delivery O2 Flow Rate FiO2 07/18/17 07:43 98.5 82 18 152/73 98 07/18/17 02:21 1.0 07/17/17 22:00 Nasal Cannula Intake and Output 07/17/17 07/17/17 07/18/17 15:00 23:00 07:00 Intake Total 400 ml 720 ml 300 ml Output Total 1100 ml Balance -700 ml 720 ml 300 ml Exam Sitting in chair, no apparent distress Constitutional: alert, frail, oriented Head: normocephalic Respiratory: other (Coarse breath sounds bilaterally, no wheezing) Cardiovascular: other (S1-S2 heard), regular rate and rhythm Gastrointestinal: bowel sounds, non-tender, soft Extremities: edema Results Result Diagram: 07/18/17 0529 07/18/17 0529 Results 24 hrs Laboratory Tests Test 07/17/17 17:54 07/17/17 20:31 07/18/17 02:03 07/18/17 05:29 Bedside Glucose 134 193 119 White Blood Count 8.3 # Red Blood Count 3.27 L Hemoglobin 9.3 L Hematocrit 29.7 L Mean Corpuscular Volume 90.8 Mean Corpuscular Hemoglobin 28.4 L Mean Corpuscular Hemoglobin Concent 31.3 L Red Cell Distribution Width 16.7 H Platelet Count 255 Mean Platelet Volume 10.4 Neutrophils % 79.2 H Lymphocytes % 10.7 L Monocytes % 7.8 Eosinophils % 0.8 Basophils % 0.5 Nucleated Red Blood Cells % 0.0 Neutrophils # (Manual) 6.6 Lymphocytes # 0.9 Monocytes # 0.7 Eosinophils # 0.1 Basophils # 0.0 Nucleated Red Blood Cells # 0.0 Sodium Level 137 Potassium Level 3.7 Chloride Level 100 Carbon Dioxide Level 32 H Anion Gap 9 Blood Urea Nitrogen 11 Creatinine 0.61 Glucose Level 116 Calcium Level 8.5 Test 07/18/17 08:19 07/18/17 12:00 Bedside Glucose 133 185 Medications Medications Current Medications Ondansetron HCl (Zofran Inj) 4 mg Q6H PRN IV NAUSEA AND/OR VOMITING; Start at 23:30 Acetaminophen (Tylenol Tab) 650 mg Q6H PRN PO PAIN LEVEL 1-3 OR FEVER Last administered on 07/16/17 15:55; Admin Dose 650 MG; Start 07/09/17 at 23:30 Acetaminophen/ Hydrocodone Bitart ([place] (5/325)) 1 tab Q6H PRN PO MODERATE PAIN LEVEL 4-6 Last administered on 07/17/17 14:27; Admin Dose 1 TAB; Start at 23:30 Morphine Sulfate (morphine) 2 mg Q4H PRN IV SEVERE PAIN LEVEL 7-10 Last administered on 07/17/17 20:58; Admin Dose 2 MG; Start 07/09/17 at 23:30 Docusate Sodium (Colace) 100 mg Q12H PRN PO CONSTIPATION; Start 07/09/17 at 23: 30 Magnesium Hydroxide (Milk Of Mag) 30 ml DAILY PRN PO CONSTIPATION Last administered on 07/14/17 21:26; Admin Dose 30 ML; Start 07/09/17 at 23:30 Bisacodyl (Dulcolax) 5 mg DAILY PRN PO CONSTIPATION Last administered on 17:46; Admin Dose 5 MG; Start 07/09/17 at 23:30 Zolpidem Tartrate (Ambien) 5 mg QHS PRN PO SLEEP Last administered on 20:59; Admin Dose 5 MG; Start 07/09/17 at 23:30 Famotidine (Pepcid) 20 mg Q12 PO Last administered on 07/18/17 08:46; Admin Dose 20 MG; Start 07/10/17 at 09:00 Enoxaparin Sodium (Lovenox) 40 mg DAILY SC Last administered on 07/18/17 08:53 ; Admin Dose 40 MG; Start 07/10/17 at 09:00 Bisacodyl (Dulcolax Supp) 10 mg Q48H PRN [place] CONSTIPATION Last administered on 13:06; Admin Dose 10 MG; Start 07/10/17 at 12:00 Atorvastatin Calcium (Lipitor) 10 mg QHS PO Last administered on 07/17/17 20: 57; Admin Dose 10 MG; Start 07/10/17 at 21:00 Clopidogrel Bisulfate (plaVIX) 75 mg QAM PO Last administered on 07/18/17 08:47 ; Admin Dose 75 MG; Start 07/10/17 at 14:00 Midodrine (Proamatine) 5 mg BID PO Last administered on 07/17/17 08:58; Admin Dose 5 MG; Start 07/10/17 at 21:00 Montelukast Sodium (Singulair) 10 mg QAM PO Last administered on 07/18/17 08:47 ; Admin Dose 10 MG; Start 07/10/17 at 14:00 Ranitidine HCl (Zantac) 150 mg HS PO Last administered on 07/17/17 20:58; Admin Dose 150 MG; Start 07/10/17 at 21:00 Ranolazine (Ranexa) 500 mg Q12 PO Last administered on 07/18/17 08:46; Admin Dose 500 MG; Start 07/10/17 at 21:00 Tamsulosin HCl (Flomax) 0.4 mg HS PO Last administered on 07/17/17 20:57; Admin Dose 0.4 MG; Start 07/10/17 at 21:00 Cholecalciferol (Vitamin D) 2,000 unit DAILY PO Last administered on 07/18/17 08:46; Admin Dose 2,000 UNIT; Start 07/10/17 at 14:00 Escitalopram Oxalate (Lexapro) 5 mg QPM PO Last administered on 07/17/17 20:57 ; Admin Dose 5 MG; Start 07/11/17 at 09:00 Pantoprazole (Protonix Tab) 40 mg DAILY@06 PO Last administered on 07/18/17 05: 51; Admin Dose 40 MG; Start 07/11/17 at 06:00 Diagnostic Test (Pha) (Accu-Chek) 1 ea 02 XX Last administered on 07/18/17 02: 05; Admin Dose 1 EA; Start 07/11/17 at 02:00 Miscellaneous Information 1 ea NOTE XX ; Start 07/10/17 at 15:00 Glucose (Glutose) 15 gm Q15M PRN PO DECREASED GLUCOSE; Start 07/10/17 at 15:00 Glucose (Glutose) 22.5 gm Q15M PRN PO DECREASED GLUCOSE; Start 07/10/17 at 15: 00 Dextrose (D50w Syringe) 25 ml Q15M PRN IV DECREASED GLUCOSE; Start 07/10/17 at 15:00 Dextrose (D50w Syringe) 50 ml Q15M PRN IV DECREASED GLUCOSE; Start 07/10/17 at 15:00 Glucagon (Glucagen) 1 mg Q15M PRN IM DECREASED GLUCOSE; Start 07/10/17 at 15:00 Glucose (Glutose) 15 gm Q15M PRN BUCCAL DECREASED GLUCOSE; Start 07/10/17 at 15 :00 Linagliptin (Tradjenta) 5 mg DAILY PO Last administered on 07/18/17 08:46; Admin Dose 5 MG; Start 07/11/17 at 09:00 Digoxin (Digoxin) 0.125 mg DAILY@13 PO Last administered on 07/17/17 11:57; Admin Dose 0.125 MG; Start 07/12/17 at 13:00 Carvedilol (Coreg) 3.125 mg BID PO Last administered on 07/18/17 08:47; Admin Dose 3.125 MG; Start 07/14/17 at 21:00 Potassium Chloride (Klor-Con 20) 20 meq BID PO Last administered on 07/18/17 08 :46; Admin Dose 20 MEQ; Start 07/15/17 at 21:00 Furosemide (Lasix) 20 mg DAILY PO Last administered on 07/18/17 08:48; Admin Dose 20 MG; Start 07/16/17 at 09:00 Amado Rodriguez DO Jul 18, 2017 12:57
[2017-07-18 14:49] VITALS: BP 111/59; RESP 18
--- NOTE | 2017-07-18 14:50 | CONS ---
Date/Time of Note Date/Time of Note DATE: 07/18/17 TIME: 14:49 Consult Date/Type/Reason Admit Date/Time Jul 09, 2017 at 19:15 Initial Consult Date 07/13/17 Type of Consultation: Pulm Ordering Provider: RUIZ GRAJEDA MD Subjective Comfortable. No chest pain or shortness of breath Objective Vital Signs Date Time Temp Pulse Resp B/P Pulse Ox O2 Delivery O2 Flow Rate FiO2 07/18/17 14:49 97.9 82 18 111/59 98 07/18/17 13:00 Nasal Cannula 2.0 Intake and Output 07/17/17 07/17/17 07/18/17 15:00 23:00 07:00 Intake Total 400 ml 720 ml 300 ml Output Total 1100 ml Balance -700 ml 720 ml 300 ml Exam OBJECTIVE DATA: VITAL SIGNS: NECK: Supple. No JVD. No lymphadenopathy. CARDIAC: S1, S2. No added sounds or murmurs. CHEST: Diminished air entry bilaterally. ABDOMEN: Soft, nontender. No guarding or rebound. Results/Medications Result Diagram: 07/18/17 0529 07/18/17 0529 Results 24 hrs Laboratory Tests Test 07/17/17 17:54 07/17/17 20:31 07/18/17 02:03 07/18/17 05:29 Bedside Glucose 134 193 119 White Blood Count 8.3 # Red Blood Count 3.27 L Hemoglobin 9.3 L Hematocrit 29.7 L Mean Corpuscular Volume 90.8 Mean Corpuscular Hemoglobin 28.4 L Mean Corpuscular Hemoglobin Concent 31.3 L Red Cell Distribution Width 16.7 H Platelet Count 255 Mean Platelet Volume 10.4 Neutrophils % 79.2 H Lymphocytes % 10.7 L Monocytes % 7.8 Eosinophils % 0.8 Basophils % 0.5 Nucleated Red Blood Cells % 0.0 Neutrophils # (Manual) 6.6 Lymphocytes # 0.9 Monocytes # 0.7 Eosinophils # 0.1 Basophils # 0.0 Nucleated Red Blood Cells # 0.0 Sodium Level 137 Potassium Level 3.7 Chloride Level 100 Carbon Dioxide Level 32 H Anion Gap 9 Blood Urea Nitrogen 11 Creatinine 0.61 Glucose Level 116 Calcium Level 8.5 Test 07/18/17 08:19 07/18/17 12:00 Bedside Glucose 133 185 Medications Current Medications Ondansetron HCl (Zofran Inj) 4 mg Q6H PRN IV NAUSEA AND/OR VOMITING; Start at 23:30 Acetaminophen (Tylenol Tab) 650 mg Q6H PRN PO PAIN LEVEL 1-3 OR FEVER Last administered on 07/16/17 15:55; Admin Dose 650 MG; Start 07/09/17 at 23:30 Acetaminophen/ Hydrocodone Bitart ([place] (5/325)) 1 tab Q6H PRN PO MODERATE PAIN LEVEL 4-6 Last administered on 07/17/17 14:27; Admin Dose 1 TAB; Start at 23:30 Morphine Sulfate (morphine) 2 mg Q4H PRN IV SEVERE PAIN LEVEL 7-10 Last administered on 07/17/17 20:58; Admin Dose 2 MG; Start 07/09/17 at 23:30 Docusate Sodium (Colace) 100 mg Q12H PRN PO CONSTIPATION; Start 07/09/17 at 23: 30 Magnesium Hydroxide (Milk Of Mag) 30 ml DAILY PRN PO CONSTIPATION Last administered on 07/14/17 21:26; Admin Dose 30 ML; Start 07/09/17 at 23:30 Bisacodyl (Dulcolax) 5 mg DAILY PRN PO CONSTIPATION Last administered on 17:46; Admin Dose 5 MG; Start 07/09/17 at 23:30 Zolpidem Tartrate (Ambien) 5 mg QHS PRN PO SLEEP Last administered on 20:59; Admin Dose 5 MG; Start 07/09/17 at 23:30 Famotidine (Pepcid) 20 mg Q12 PO Last administered on 07/18/17 08:46; Admin Dose 20 MG; Start 07/10/17 at 09:00 Enoxaparin Sodium (Lovenox) 40 mg DAILY SC Last administered on 07/18/17 08:53 ; Admin Dose 40 MG; Start 07/10/17 at 09:00 Bisacodyl (Dulcolax Supp) 10 mg Q48H PRN [place] CONSTIPATION Last administered on 13:06; Admin Dose 10 MG; Start 07/10/17 at 12:00 Atorvastatin Calcium (Lipitor) 10 mg QHS PO Last administered on 07/17/17 20: 57; Admin Dose 10 MG; Start 07/10/17 at 21:00 Clopidogrel Bisulfate (plaVIX) 75 mg QAM PO Last administered on 07/18/17 08:47 ; Admin Dose 75 MG; Start 07/10/17 at 14:00 Midodrine (Proamatine) 5 mg BID PO Last administered on 07/17/17 08:58; Admin Dose 5 MG; Start 07/10/17 at 21:00 Montelukast Sodium (Singulair) 10 mg QAM PO Last administered on 07/18/17 08:47 ; Admin Dose 10 MG; Start 07/10/17 at 14:00 Ranitidine HCl (Zantac) 150 mg HS PO Last administered on 07/17/17 20:58; Admin Dose 150 MG; Start 07/10/17 at 21:00 Ranolazine (Ranexa) 500 mg Q12 PO Last administered on 07/18/17 08:46; Admin Dose 500 MG; Start 07/10/17 at 21:00 Tamsulosin HCl (Flomax) 0.4 mg HS PO Last administered on 07/17/17 20:57; Admin Dose 0.4 MG; Start 07/10/17 at 21:00 Cholecalciferol (Vitamin D) 2,000 unit DAILY PO Last administered on 07/18/17 08:46; Admin Dose 2,000 UNIT; Start 07/10/17 at 14:00 Escitalopram Oxalate (Lexapro) 5 mg QPM PO Last administered on 07/17/17 20:57 ; Admin Dose 5 MG; Start 07/11/17 at 09:00 Pantoprazole (Protonix Tab) 40 mg DAILY@06 PO Last administered on 07/18/17 05: 51; Admin Dose 40 MG; Start 07/11/17 at 06:00 Diagnostic Test (Pha) (Accu-Chek) 1 ea 02 XX Last administered on 07/18/17 02: 05; Admin Dose 1 EA; Start 07/11/17 at 02:00 Miscellaneous Information 1 ea NOTE XX ; Start 07/10/17 at 15:00 Glucose (Glutose) 15 gm Q15M PRN PO DECREASED GLUCOSE; Start 07/10/17 at 15:00 Glucose (Glutose) 22.5 gm Q15M PRN PO DECREASED GLUCOSE; Start 8/24/17 at 15: 00 Dextrose (D50w Syringe) 25 ml Q15M PRN IV DECREASED GLUCOSE; Start 07/10/17 at 15:00 Dextrose (D50w Syringe) 50 ml Q15M PRN IV DECREASED GLUCOSE; Start 07/10/17 at 15:00 Glucagon (Glucagen) 1 mg Q15M PRN IM DECREASED GLUCOSE; Start 07/10/17 at 15:00 Glucose (Glutose) 15 gm Q15M PRN BUCCAL DECREASED GLUCOSE; Start 07/10/17 at 15 :00 Linagliptin (Tradjenta) 5 mg DAILY PO Last administered on 07/18/17 08:46; Admin Dose 5 MG; Start 07/11/17 at 09:00 Digoxin (Digoxin) 0.125 mg DAILY@13 PO Last administered on 07/17/17 11:57; Admin Dose 0.125 MG; Start 07/12/17 at 13:00 Carvedilol (Coreg) 3.125 mg BID PO Last administered on 07/18/17 08:47; Admin Dose 3.125 MG; Start 07/14/17 at 21:00 Potassium Chloride (Klor-Con 20) 20 meq BID PO Last administered on 07/18/17 08 :46; Admin Dose 20 MEQ; Start 07/15/17 at 21:00 Furosemide (Lasix) 20 mg DAILY PO Last administered on 07/18/17 08:48; Admin Dose 20 MG; Start 07/16/17 at 09:00 Assessment/Plan Chief Complaint/Hosp Course ASSESSMENT: 1. 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 2. Stable diastolic dysfunction. 3. Incomplete data. 4. Recent hypokalemia. PLAN: 1. Continue supplemental O2 as needed. 2. Encourage out of bed. 3. Discharge planning okay from pulmonary standpoint. 4. Follow up with me in the office. 5. DVT and GI prophylaxis. dc planning Problems: LORA ROYAL MD, [facility] Jul 18, 2017 14:50
[2017-07-18] MEDS: morphine 2 MG INJ IV PRN ×2 (14:52→20:30)
[2017-07-18] MEDS: DIGOXIN 0.125 MG TAB PO SCH (14:54)
--- NOTE | 2017-07-18 16:13 | CONS ---
Date/Time of Note Date/Time of Note DATE: 07/18/17 TIME: 16:12 Assessment/Plan Assessment/Plan Additional Assessment/Plan 1. Hypokalemia 2. Pleural effusion 3. 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 Denies having lung surgery or prior TB 4. h/o NSCLC s/p chemo and XRT plan : continue KCL 20mEQ PO BID , today electrolytes and Cr stable Keep magnesium normal Keep pt even, no IV Fluids BP stable will follow up Consultation Date/Type/Reason Admit Date/Time Jul 09, 2017 at 19:15 Initial Consult Date 07/13/17 Type of Consultation: NEPHROLGOY Referring Provider: RUIZ GRAJEDA MD 24 HR Interval Summary Free Text/Dictation no acute events, Electrolytes and Cr stable Exam/Review of Systems Vital Signs Vitals Vital Signs Date Time Temp Pulse Resp B/P Pulse Ox O2 Delivery O2 Flow Rate FiO2 07/18/17 14:49 97.9 82 18 111/59 98 07/18/17 13:00 Nasal Cannula 2.0 Intake and Output 07/17/17 07/17/17 07/18/17 15:00 23:00 07:00 Intake Total 400 ml 720 ml 300 ml Output Total 1100 ml Balance -700 ml 720 ml 300 ml Exam Constitutional: alert, oriented Neck: supple Respiratory: other (Coarse breath sounds bilaterally, no wheezing) Cardiovascular: other (S1-S2 heard), regular rate and rhythm Gastrointestinal: bowel sounds, non-tender, soft Extremities: pitting pedal edema Results Result Diagram: 07/18/17 0529 07/18/17 0529 Results 24 hrs Laboratory Tests Test 07/17/17 17:54 07/17/17 20:31 07/18/17 02:03 07/18/17 05:29 Bedside Glucose 134 193 119 White Blood Count 8.3 # Red Blood Count 3.27 L Hemoglobin 9.3 L Hematocrit 29.7 L Mean Corpuscular Volume 90.8 Mean Corpuscular Hemoglobin 28.4 L Mean Corpuscular Hemoglobin Concent 31.3 L Red Cell Distribution Width 16.7 H Platelet Count 255 Mean Platelet Volume 10.4 Neutrophils % 79.2 H Lymphocytes % 10.7 L Monocytes % 7.8 Eosinophils % 0.8 Basophils % 0.5 Nucleated Red Blood Cells % 0.0 Neutrophils # (Manual) 6.6 Lymphocytes # 0.9 Monocytes # 0.7 Eosinophils # 0.1 Basophils # 0.0 Nucleated Red Blood Cells # 0.0 Sodium Level 137 Potassium Level 3.7 Chloride Level 100 Carbon Dioxide Level 32 H Anion Gap 9 Blood Urea Nitrogen 11 Creatinine 0.61 Glucose Level 116 Calcium Level 8.5 Test 07/18/17 08:19 07/18/17 12:00 Bedside Glucose 133 185 Medications Medications Current Medications Ondansetron HCl (Zofran Inj) 4 mg Q6H PRN IV NAUSEA AND/OR VOMITING; Start at 23:30 Acetaminophen (Tylenol Tab) 650 mg Q6H PRN PO PAIN LEVEL 1-3 OR FEVER Last administered on 07/16/17 15:55; Admin Dose 650 MG; Start 07/09/17 at 23:30 Acetaminophen/ Hydrocodone Bitart ([place] (5/325)) 1 tab Q6H PRN PO MODERATE PAIN LEVEL 4-6 Last administered on 07/17/17 14:27; Admin Dose 1 TAB; Start at 23:30 Morphine Sulfate (morphine) 2 mg Q4H PRN IV SEVERE PAIN LEVEL 7-10 Last administered on 07/18/17 14:52; Admin Dose 2 MG; Start 07/09/17 at 23:30 Docusate Sodium (Colace) 100 mg Q12H PRN PO CONSTIPATION; Start 07/09/17 at 23: 30 Magnesium Hydroxide (Milk Of Mag) 30 ml DAILY PRN PO CONSTIPATION Last administered on 07/14/17 21:26; Admin Dose 30 ML; Start 07/09/17 at 23:30 Bisacodyl (Dulcolax) 5 mg DAILY PRN PO CONSTIPATION Last administered on 17:46; Admin Dose 5 MG; Start 07/09/17 at 23:30 Zolpidem Tartrate (Ambien) 5 mg QHS PRN PO SLEEP Last administered on 20:59; Admin Dose 5 MG; Start 07/09/17 at 23:30 Famotidine (Pepcid) 20 mg Q12 PO Last administered on 07/18/17 08:46; Admin Dose 20 MG; Start 07/10/17 at 09:00 Enoxaparin Sodium (Lovenox) 40 mg DAILY SC Last administered on 07/18/17 08:53 ; Admin Dose 40 MG; Start 07/10/17 at 09:00 Bisacodyl (Dulcolax Supp) 10 mg Q48H PRN [place] CONSTIPATION Last administered on 13:06; Admin Dose 10 MG; Start 07/10/17 at 12:00 Atorvastatin Calcium (Lipitor) 10 mg QHS PO Last administered on 07/17/17 20: 57; Admin Dose 10 MG; Start 07/10/17 at 21:00 Clopidogrel Bisulfate (plaVIX) 75 mg QAM PO Last administered on 07/18/17 08:47 ; Admin Dose 75 MG; Start 07/10/17 at 14:00 Midodrine (Proamatine) 5 mg BID PO Last administered on 07/17/17 08:58; Admin Dose 5 MG; Start 07/10/17 at 21:00 Montelukast Sodium (Singulair) 10 mg QAM PO Last administered on 07/18/17 08:47 ; Admin Dose 10 MG; Start 07/10/17 at 14:00 Ranitidine HCl (Zantac) 150 mg HS PO Last administered on 07/17/17 20:58; Admin Dose 150 MG; Start 07/10/17 at 21:00 Ranolazine (Ranexa) 500 mg Q12 PO Last administered on 07/18/17 08:46; Admin Dose 500 MG; Start 07/10/17 at 21:00 Tamsulosin HCl (Flomax) 0.4 mg HS PO Last administered on 07/17/17 20:57; Admin Dose 0.4 MG; Start 07/10/17 at 21:00 Cholecalciferol (Vitamin D) 2,000 unit DAILY PO Last administered on 07/18/17 08:46; Admin Dose 2,000 UNIT; Start 07/10/17 at 14:00 Escitalopram Oxalate (Lexapro) 5 mg QPM PO Last administered on 07/17/17 20:57 ; Admin Dose 5 MG; Start 07/11/17 at 09:00 Pantoprazole (Protonix Tab) 40 mg DAILY@06 PO Last administered on 07/18/17 05: 51; Admin Dose 40 MG; Start 07/11/17 at 06:00 Diagnostic Test (Pha) (Accu-Chek) 1 ea 02 XX Last administered on 07/18/17 02: 05; Admin Dose 1 EA; Start 07/11/17 at 02:00 Miscellaneous Information 1 ea NOTE XX ; Start 07/10/17 at 15:00 Glucose (Glutose) 15 gm Q15M PRN PO DECREASED GLUCOSE; Start 07/10/17 at 15:00 Glucose (Glutose) 22.5 gm Q15M PRN PO DECREASED GLUCOSE; Start 07/10/17 at 15: 00 Dextrose (D50w Syringe) 25 ml Q15M PRN IV DECREASED GLUCOSE; Start 07/10/17 at 15:00 Dextrose (D50w Syringe) 50 ml Q15M PRN IV DECREASED GLUCOSE; Start 07/10/17 at 15:00 Glucagon (Glucagen) 1 mg Q15M PRN IM DECREASED GLUCOSE; Start 07/10/17 at 15:00 Glucose (Glutose) 15 gm Q15M PRN BUCCAL DECREASED GLUCOSE; Start 07/10/17 at 15 :00 Linagliptin (Tradjenta) 5 mg DAILY PO Last administered on 07/18/17 08:46; Admin Dose 5 MG; Start 07/11/17 at 09:00 Digoxin (Digoxin) 0.125 mg DAILY@13 PO Last administered on 07/18/17 14:54; Admin Dose 0.125 MG; Start 07/12/17 at 13:00 Carvedilol (Coreg) 3.125 mg BID PO Last administered on 07/18/17 08:47; Admin Dose 3.125 MG; Start 07/14/17 at 21:00 Potassium Chloride (Klor-Con 20) 20 meq BID PO Last administered on 07/18/17 08 :46; Admin Dose 20 MEQ; Start 07/15/17 at 21:00 Furosemide (Lasix) 20 mg DAILY PO Last administered on 07/18/17 08:48; Admin Dose 20 MG; Start 07/16/17 at 09:00 YARI MILLER MD Jul 18, 2017 16:13
[2017-07-18] MEDS: BISACODYL (EC) 5 MG TAB PO PRN (16:34)
[2017-07-18 20:17] VITALS: BP 151/67; RESP 18
[2017-07-18] MEDS: ATORVASTATIN 10 MG TAB PO SCH (20:32)
[2017-07-18] MEDS: RANITIDINE 150 MG TAB PO SCH (20:32)
[2017-07-18] MEDS: TAMSULOSIN (SR) 0.4 MG CAP PO SCH (20:33)
[2017-07-18] MEDS: ESCITALOPRAM 10 MG TAB PO SCH (20:35)
[2017-07-18] MEDS: ZOLPIDEM 5 MG TAB PO PRN (20:35)
[2017-07-19] MEDS: ACCU-CHEK XX SCH (02:00)
[2017-07-19 02:55] VITALS: BP 139/68; RESP 20
[2017-07-19 06:02] LABS: BASOPHILS % 0.3 % (0.0-2.0); EOSINOPHILS # 0.1 10^3/ul (0.0-0.5); EOSINOPHILS % 1.1 % (0.0-7.0); HEMATOCRIT 28.1 % (42.0-52.0); HEMOGLOBIN 8.8 g/dl (14.0-18.0); LYMPHOCYTES # 0.6 10^3/ul (0.8-2.9); LYMPHOCYTES % 9.7 % (15.0-51.0); MEAN CORPUSCULAR HEMOGLOBIN 28.3 pg (29.0-33.0); MEAN CORPUSCULAR HGB CONC 31.3 g/dl (32.0-37.0); MEAN CORPUSCULAR VOLUME 90.4 fl (82.0-101.0); MEAN PLATELET VOLUME 10.7 fl (7.4-10.4); MONOCYTE # 0.5 10^3/ul (0.3-0.9); MONOCYTES % 8.6 % (0.0-11.0); NEUTROPHILS % 79.5 % (39.0-77.0); PLATELET COUNT 234 10^3/UL (140-415); RED BLOOD COUNT 3.11 10^6/ul (4.70-6.10); RED CELL DISTRIBUTION WIDTH 16.6 % (11.5-14.5); WHITE BLOOD COUNT 6.3 10^3/ul (4.8-10.8)
[2017-07-19] MEDS: PANTOPRAZOLE (EC) 40 MG TAB PO SCH (06:02)
[2017-07-19 06:23] LABS: CALCIUM 8.3 mg/dl (8.4-10.2); CREATININE 0.59 mg/dl (0.61-1.24); POTASSIUM 3.3 mmol/L (3.5-5.1)
[2017-07-19 07:35] VITALS: BP 109/68; RESP 18
[2017-07-19] MEDS: INSULIN ASPART [NOVOLOG] 3 ML PEN SC SCH ×4 (08:15→20:32)
[2017-07-19] MEDS: POTASSIUM CHLORIDE (SR) 20 MEQ TAB PO SCH ×2 (08:55→20:27)
[2017-07-19] MEDS: FAMOTIDINE 20 MG TAB PO SCH ×2 (08:55→20:27)
[2017-07-19] MEDS: CLOPIDOGREL 75 MG TAB PO SCH (08:55)
[2017-07-19] MEDS: LINAGLIPTIN 5 MG TABLET PO SCH (08:55)
[2017-07-19] MEDS: MONTELUKAST 10 MG TAB PO SCH (08:56)
[2017-07-19] MEDS: RANOLAZINE (SR) 500 MG TAB PO SCH ×2 (08:56→20:27)
[2017-07-19] MEDS: FUROSEMIDE 20 MG TAB PO SCH (08:56)
[2017-07-19] MEDS: CHOLECALCIFEROL 2,000 UNIT CAP PO SCH (08:57)
[2017-07-19] MEDS: MIDODRINE 5 MG TAB PO SCH ×2 (08:58→20:28)
[2017-07-19] MEDS: ENOXAPARIN 40 MG/0.4 ML SYG SC SCH (09:00)
--- NOTE | 2017-07-19 09:59 | PN ---
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 Dr Nagy is following in pulmonology consultation. -Coronary artery disease status post CABG in 2004. Continue Plavix. Dr. 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 Continue Lasix, monitor electrolytes. -Diastolic dysfunction congestive heart failure -Bilateral lower extremity edema, venous Dopplers negative for any deep venous thrombosis. -History of lung cancer dx 2006, completed chemotherapy in 2009. -Diabetes mellitus, continue Tradjenta and NovoLog per mild algorithm sliding scale. -BPH, continue Flomax. Problems: Subjective 24 Hr Interval Summary Free Text/Dictation Patient has no complaints Exam/Review of Systems Vital Signs Vitals Vital Signs Date Time Temp Pulse Resp B/P Pulse Ox O2 Delivery O2 Flow Rate FiO2 07/19/17 07:35 98.8 84 18 109/68 97 07/18/17 22:25 Nasal Cannula 2.0 Intake and Output 07/18/17 07/18/17 07/19/17 14:59 22:59 06:59 Intake Total 600 ml Balance 600 ml Exam Constitutional: well developed Head: atraumatic, normocephalic Neck: supple Respiratory: diminished breath sounds Cardiovascular: regular rate and rhythm Gastrointestinal: non-tender, soft Extremities: normal pulses Results Result Diagram: 07/19/17 0511 07/19/17 0511 Results 24 hrs Laboratory Tests Test 07/18/17 12:00 07/18/17 17:09 07/18/17 20:37 07/19/17 05:11 Bedside Glucose 185 147 151 White Blood Count 6.3 # Red Blood Count 3.11 L Hemoglobin 8.8 L Hematocrit 28.1 L Mean Corpuscular Volume 90.4 Mean Corpuscular Hemoglobin 28.3 L Mean Corpuscular Hemoglobin Concent 31.3 L Red Cell Distribution Width 16.6 H Platelet Count 234 Mean Platelet Volume 10.7 H Neutrophils % 79.5 H Lymphocytes % 9.7 L Monocytes % 8.6 Eosinophils % 1.1 Basophils % 0.3 Nucleated Red Blood Cells % 0.0 Neutrophils # (Manual) 5.0 Lymphocytes # 0.6 L Monocytes # 0.5 Eosinophils # 0.1 Basophils # 0.0 Nucleated Red Blood Cells # 0.0 Sodium Level 137 Potassium Level 3.3 L Chloride Level 101 Carbon Dioxide Level 33 H Anion Gap 6 L Blood Urea Nitrogen 10 Creatinine 0.59 L Glucose Level 98 Calcium Level 8.3 L Test 07/19/17 08:01 Bedside Glucose 123 Medications Medications Current Medications Ondansetron HCl (Zofran Inj) 4 mg Q6H PRN IV NAUSEA AND/OR VOMITING; Start at 23:30 Acetaminophen (Tylenol Tab) 650 mg Q6H PRN PO PAIN LEVEL 1-3 OR FEVER Last administered on 07/16/17 15:55; Admin Dose 650 MG; Start 07/09/17 at 23:30 Acetaminophen/ Hydrocodone Bitart ([place] (5/325)) 1 tab Q6H PRN PO MODERATE PAIN LEVEL 4-6 Last administered on 07/17/17 14:27; Admin Dose 1 TAB; Start at 23:30 Morphine Sulfate (morphine) 2 mg Q4H PRN IV SEVERE PAIN LEVEL 7-10 Last administered on 07/18/17 20:30; Admin Dose 2 MG; Start 07/09/17 at 23:30 Docusate Sodium (Colace) 100 mg Q12H PRN PO CONSTIPATION Last administered on 16:34; Admin Dose 100 MG; Start 07/09/17 at 23:30 Magnesium Hydroxide (Milk Of Mag) 30 ml DAILY PRN PO CONSTIPATION Last administered on 07/14/17 21:26; Admin Dose 30 ML; Start 07/09/17 at 23:30 Bisacodyl (Dulcolax) 5 mg DAILY PRN PO CONSTIPATION Last administered on 16:34; Admin Dose 5 MG; Start 07/09/17 at 23:30 Zolpidem Tartrate (Ambien) 5 mg QHS PRN PO SLEEP Last administered on 07/18/17 20:35; Admin Dose 5 MG; Start 07/09/17 at 23:30 Famotidine (Pepcid) 20 mg Q12 PO Last administered on 07/19/17 08:55; Admin Dose 20 MG; Start 07/10/17 at 09:00 Enoxaparin Sodium (Lovenox) 40 mg DAILY SC Last administered on 07/19/17 09:00 ; Admin Dose 40 MG; Start 07/10/17 at 09:00 Bisacodyl (Dulcolax Supp) 10 mg Q48H PRN [place] CONSTIPATION Last administered on 13:06; Admin Dose 10 MG; Start 07/10/17 at 12:00 Atorvastatin Calcium (Lipitor) 10 mg QHS PO Last administered on 07/18/17 20:32 ; Admin Dose 10 MG; Start 07/10/17 at 21:00 Clopidogrel Bisulfate (plaVIX) 75 mg QAM PO Last administered on 07/19/17 08:55 ; Admin Dose 75 MG; Start 07/10/17 at 14:00 Midodrine (Proamatine) 5 mg BID PO Last administered on 07/17/17 08:58; Admin Dose 5 MG; Start 07/10/17 at 21:00 Montelukast Sodium (Singulair) 10 mg QAM PO Last administered on 07/19/17 08:56 ; Admin Dose 10 MG; Start 07/10/17 at 14:00 Ranitidine HCl (Zantac) 150 mg HS PO Last administered on 07/18/17 20:32; Admin Dose 150 MG; Start 07/10/17 at 21:00 Ranolazine (Ranexa) 500 mg Q12 PO Last administered on 07/19/17 08:56; Admin Dose 500 MG; Start 07/10/17 at 21:00 Tamsulosin HCl (Flomax) 0.4 mg HS PO Last administered on 07/18/17 20:33; Admin Dose 0.4 MG; Start 07/10/17 at 21:00 Cholecalciferol (Vitamin D) 2,000 unit DAILY PO Last administered on 07/19/17 08:57; Admin Dose 2,000 UNIT; Start 07/10/17 at 14:00 Escitalopram Oxalate (Lexapro) 5 mg QPM PO Last administered on 07/18/17 20:35 ; Admin Dose 5 MG; Start 07/11/17 at 09:00 Pantoprazole (Protonix Tab) 40 mg DAILY@06 PO Last administered on 07/19/17 06: 02; Admin Dose 40 MG; Start 07/11/17 at 06:00 Diagnostic Test (Pha) (Accu-Chek) 1 ea 02 XX Last administered on 07/18/17 02: 05; Admin Dose 1 EA; Start 07/11/17 at 02:00 Miscellaneous Information 1 ea NOTE XX ; Start 07/10/17 at 15:00 Glucose (Glutose) 15 gm Q15M PRN PO DECREASED GLUCOSE; Start 07/10/17 at 15:00 Glucose (Glutose) 22.5 gm Q15M PRN PO DECREASED GLUCOSE; Start 07/10/17 at 15: 00 Dextrose (D50w Syringe) 25 ml Q15M PRN IV DECREASED GLUCOSE; Start 07/10/17 at 15:00 Dextrose (D50w Syringe) 50 ml Q15M PRN IV DECREASED GLUCOSE; Start 07/10/17 at 15:00 Glucagon (Glucagen) 1 mg Q15M PRN IM DECREASED GLUCOSE; Start 07/10/17 at 15:00 Glucose (Glutose) 15 gm Q15M PRN BUCCAL DECREASED GLUCOSE; Start 07/10/17 at 15 :00 Linagliptin (Tradjenta) 5 mg DAILY PO Last administered on 07/19/17 08:55; Admin Dose 5 MG; Start 07/11/17 at 09:00 Digoxin (Digoxin) 0.125 mg DAILY@13 PO Last administered on 07/18/17 14:54; Admin Dose 0.125 MG; Start 07/12/17 at 13:00 Carvedilol (Coreg) 3.125 mg BID PO Last administered on 07/19/17 08:56; Admin Dose 3.125 MG; Start 07/14/17 at 21:00 Potassium Chloride (Klor-Con 20) 20 meq BID PO Last administered on 07/19/17 08 :55; Admin Dose 20 MEQ; Start 07/15/17 at 21:00 Furosemide (Lasix) 20 mg DAILY PO Last administered on 07/19/17 08:56; Admin Dose 20 MG; Start 07/16/17 at 09:00 TATIANA GUILLEN Jul 19, 2017 09:59
[2017-07-19] MEDS ORDERED: POTASSIUM CHLORIDE (SR) 20 MEQ TAB PO STA (10:01)
--- NOTE | 2017-07-19 11:21 | CONS ---
Date/Time of Note Date/Time of Note DATE: 07/19/17 TIME: 11:20 Consult Date/Type/Reason Admit Date/Time Jul 09, 2017 at 19:15 Initial Consult Date 07/13/17 Type of Consultation: Pulmonary Ordering Provider: RUIZ GRAJEDA MD Subjective patient's condition remains largely unchanged. He still has mild dyspnea. Objective Vital Signs Date Time Temp Pulse Resp B/P Pulse Ox O2 Delivery O2 Flow Rate FiO2 07/19/17 07:35 98.8 84 18 109/68 97 07/18/17 22:25 Nasal Cannula 2.0 Intake and Output 07/18/17 07/18/17 07/19/17 15:00 23:00 07:00 Intake Total 600 ml Balance 600 ml Exam GENERAL: Thin elderly gentleman VITAL SIGNS: per chart NECK: Supple. No JVD or lymphadenopathy. CARDIAC EXAM: S1, S2. No added sounds or murmurs. CHEST: clear bilaterally, No added sounds, rales or wheezes ABDOMEN: Soft, nontender. No guarding or rebound. EXTREMITIES: No cyanosis, clubbing or edema. NEUROLOGIC: Generalized weakness. No focal deficits. Results/Medications Result Diagram: 07/19/17 0511 07/19/17 0511 Results 24 hrs Laboratory Tests Test 07/18/17 12:00 07/18/17 17:09 07/18/17 20:37 07/19/17 05:11 Bedside Glucose 185 147 151 White Blood Count 6.3 # Red Blood Count 3.11 L Hemoglobin 8.8 L Hematocrit 28.1 L Mean Corpuscular Volume 90.4 Mean Corpuscular Hemoglobin 28.3 L Mean Corpuscular Hemoglobin Concent 31.3 L Red Cell Distribution Width 16.6 H Platelet Count 234 Mean Platelet Volume 10.7 H Neutrophils % 79.5 H Lymphocytes % 9.7 L Monocytes % 8.6 Eosinophils % 1.1 Basophils % 0.3 Nucleated Red Blood Cells % 0.0 Neutrophils # (Manual) 5.0 Lymphocytes # 0.6 L Monocytes # 0.5 Eosinophils # 0.1 Basophils # 0.0 Nucleated Red Blood Cells # 0.0 Sodium Level 137 Potassium Level 3.3 L Chloride Level 101 Carbon Dioxide Level 33 H Anion Gap 6 L Blood Urea Nitrogen 10 Creatinine 0.59 L Glucose Level 98 Calcium Level 8.3 L Test 07/19/17 08:01 Bedside Glucose 123 Medications Current Medications Ondansetron HCl (Zofran Inj) 4 mg Q6H PRN IV NAUSEA AND/OR VOMITING; Start at 23:30 Acetaminophen (Tylenol Tab) 650 mg Q6H PRN PO PAIN LEVEL 1-3 OR FEVER Last administered on 07/16/17 15:55; Admin Dose 650 MG; Start 07/09/17 at 23:30 Acetaminophen/ Hydrocodone Bitart ([place] (5/325)) 1 tab Q6H PRN PO MODERATE PAIN LEVEL 4-6 Last administered on 07/17/17 14:27; Admin Dose 1 TAB; Start at 23:30 Morphine Sulfate (morphine) 2 mg Q4H PRN IV SEVERE PAIN LEVEL 7-10 Last administered on 07/18/17 20:30; Admin Dose 2 MG; Start 07/09/17 at 23:30 Docusate Sodium (Colace) 100 mg Q12H PRN PO CONSTIPATION Last administered on 16:34; Admin Dose 100 MG; Start 07/09/17 at 23:30 Magnesium Hydroxide (Milk Of Mag) 30 ml DAILY PRN PO CONSTIPATION Last administered on 07/14/17 21:26; Admin Dose 30 ML; Start 07/09/17 at 23:30 Bisacodyl (Dulcolax) 5 mg DAILY PRN PO CONSTIPATION Last administered on 16:34; Admin Dose 5 MG; Start 07/09/17 at 23:30 Zolpidem Tartrate (Ambien) 5 mg QHS PRN PO SLEEP Last administered on 07/18/17 20:35; Admin Dose 5 MG; Start 07/09/17 at 23:30 Famotidine (Pepcid) 20 mg Q12 PO Last administered on 07/19/17 08:55; Admin Dose 20 MG; Start 07/10/17 at 09:00 Enoxaparin Sodium (Lovenox) 40 mg DAILY SC Last administered on 07/19/17 09:00 ; Admin Dose 40 MG; Start 07/10/17 at 09:00 Bisacodyl (Dulcolax Supp) [address] CONSTIPATION Last administered on 13:06; Admin Dose 10 MG; Start 07/10/17 at 12:00 Atorvastatin Calcium (Lipitor) 10 mg QHS PO Last administered on 07/18/17 20:32 ; Admin Dose 10 MG; Start 07/10/17 at 21:00 Clopidogrel Bisulfate (plaVIX) 75 mg QAM PO Last administered on 07/19/17 08:55 ; Admin Dose 75 MG; Start 07/10/17 at 14:00 Midodrine (Proamatine) 5 mg BID PO Last administered on 07/17/17 08:58; Admin Dose 5 MG; Start 07/10/17 at 21:00 Montelukast Sodium (Singulair) 10 mg QAM PO Last administered on 07/19/17 08:56 ; Admin Dose 10 MG; Start 07/10/17 at 14:00 Ranitidine HCl (Zantac) 150 mg HS PO Last administered on 07/18/17 20:32; Admin Dose 150 MG; Start 07/10/17 at 21:00 Ranolazine (Ranexa) 500 mg Q12 PO Last administered on 07/19/17 08:56; Admin Dose 500 MG; Start 07/10/17 at 21:00 Tamsulosin HCl (Flomax) 0.4 mg HS PO Last administered on 07/18/17 20:33; Admin Dose 0.4 MG; Start 07/10/17 at 21:00 Cholecalciferol (Vitamin D) 2,000 unit DAILY PO Last administered on 07/19/17 08:57; Admin Dose 2,000 UNIT; Start 07/10/17 at 14:00 Escitalopram Oxalate (Lexapro) 5 mg QPM PO Last administered on 07/18/17 20:35 ; Admin Dose 5 MG; Start 07/11/17 at 09:00 Pantoprazole (Protonix Tab) 40 mg DAILY@06 PO Last administered on 07/19/17 06: 02; Admin Dose 40 MG; Start 07/11/17 at 06:00 Diagnostic Test (Pha) (Accu-Chek) 1 ea 02 XX Last administered on 07/18/17 02: 05; Admin Dose 1 EA; Start 07/11/17 at 02:00 Miscellaneous Information 1 ea NOTE XX ; Start 07/10/17 at 15:00 Glucose (Glutose) 15 gm Q15M PRN PO DECREASED GLUCOSE; Start 07/10/17 at 15:00 Glucose (Glutose) 22.5 gm Q15M PRN PO DECREASED GLUCOSE; Start 07/10/17 at 15: 00 Dextrose (D50w Syringe) 25 ml Q15M PRN IV DECREASED GLUCOSE; Start 07/10/17 at 15:00 Dextrose (D50w Syringe) 50 ml Q15M PRN IV DECREASED GLUCOSE; Start 07/10/17 at 15:00 Glucagon (Glucagen) 1 mg Q15M PRN IM DECREASED GLUCOSE; Start 07/10/17 at 15:00 Glucose (Glutose) 15 gm Q15M PRN BUCCAL DECREASED GLUCOSE; Start 07/10/17 at 15 :00 Linagliptin (Tradjenta) 5 mg DAILY PO Last administered on 07/19/17 08:55; Admin Dose 5 MG; Start 07/11/17 at 09:00 Digoxin (Digoxin) 0.125 mg DAILY@13 PO Last administered on 07/18/17 14:54; Admin Dose 0.125 MG; Start 07/12/17 at 13:00 Carvedilol (Coreg) 3.125 mg BID PO Last administered on 07/19/17 08:56; Admin Dose 3.125 MG; Start 07/14/17 at 21:00 Potassium Chloride (Klor-Con 20) 20 meq BID PO Last administered on 07/19/17 08 :55; Admin Dose 20 MEQ; Start 07/15/17 at 21:00 Furosemide (Lasix) 20 mg DAILY PO Last administered on 07/19/17 08:56; Admin Dose 20 MG; Start 07/16/17 at 09:00 Assessment/Plan Chief Complaint/Hosp Course ASSESSMENT: 1. 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 2. Stable diastolic dysfunction. 3. Incomplete data. 4. Recent hypokalemia. PLAN: 1. Continue supplemental O2 as needed. 2. Encourage out of bed. 3. Discharge planning okay from pulmonary standpoint. 4. Follow up with me in the office. 5. DVT and GI prophylaxis. Consider palliative care consult Problems: LORA ROYAL MD, [facility] Jul 19, 2017 11:21
[2017-07-19 14:11] VITALS: BP 137/66; RESP 18
--- NOTE | 2017-07-19 15:52 | CONS ---
Date/Time of Note Date/Time of Note DATE: 07/19/17 TIME: 15:50 Assessment/Plan Assessment/Plan Additional Assessment/Plan 1. Hypokalemia- K replaced today 2. Pleural effusion 3. 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 Denies having lung surgery or prior TB 4. h/o NSCLC s/p chemo and XRT plan : continue KCL 20mEQ PO BID , today electrolytes and Cr slightly low Keep magnesium normal Keep pt even, no IV Fluids BP stable will follow up \dw Dr Tsering Stein Consultation Date/Type/Reason Admit Date/Time Jul 09, 2017 at 19:15 Initial Consult Date 07/13/17 Type of Consultation: Pulmonary Referring Provider: RUIZ GRAJEDA MD 24 HR Interval Summary Constitutional: requiring O2 Detailed Summary Respiratory: no complaints Cardiovascular: no complaints Gastrointestinal: no complaints Genitourinary: no complaints Musculoskeletal: no complaints Exam/Review of Systems Vital Signs Vitals Vital Signs Date Time Temp Pulse Resp B/P Pulse Ox O2 Delivery O2 Flow Rate FiO2 07/19/17 15:23 1.0 07/19/17 14:11 98.8 76 18 137/66 96 07/19/17 08:20 Nasal Cannula Intake and Output 07/18/17 07/18/17 07/19/17 15:00 23:00 07:00 Intake Total 600 ml Balance 600 ml Exam Constitutional: alert, oriented, well developed Respiratory: clear to auscultation, diminished breath sounds Cardiovascular: nl pulses, regular rate and rhythm Gastrointestinal: non-tender, soft Musculoskeletal: nl extremities to inspection Extremities: normal pulses 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: nl mental status, nl speech Results Result Diagram: 07/19/17 0511 07/19/17 0511 Results 24 hrs Laboratory Tests Test 07/18/17 17:09 07/18/17 20:37 07/19/17 05:11 07/19/17 06:50 Bedside Glucose 147 151 White Blood Count 6.3 # Red Blood Count 3.11 L Hemoglobin 8.8 L Hematocrit 28.1 L Mean Corpuscular Volume 90.4 Mean Corpuscular Hemoglobin 28.3 L Mean Corpuscular Hemoglobin Concent 31.3 L Red Cell Distribution Width 16.6 H Platelet Count 234 Mean Platelet Volume 10.7 H Neutrophils % 79.5 H Lymphocytes % 9.7 L Monocytes % 8.6 Eosinophils % 1.1 Basophils % 0.3 Nucleated Red Blood Cells % 0.0 Neutrophils # (Manual) 5.0 Lymphocytes # 0.6 L Monocytes # 0.5 Eosinophils # 0.1 Basophils # 0.0 Nucleated Red Blood Cells # 0.0 Sodium Level 137 Potassium Level 3.3 L Chloride Level 101 Carbon Dioxide Level 33 H Anion Gap 6 L Blood Urea Nitrogen 10 Creatinine 0.59 L Glucose Level 98 Calcium Level 8.3 L Stool Occult Blood NEGATIVE Test 07/19/17 08:01 07/19/17 12:23 Bedside Glucose 123 128 Medications Medications Current Medications Ondansetron HCl (Zofran Inj) 4 mg Q6H PRN IV NAUSEA AND/OR VOMITING; Start at 23:30 Acetaminophen (Tylenol Tab) 650 mg Q6H PRN PO PAIN LEVEL 1-3 OR FEVER Last administered on 07/16/17 15:55; Admin Dose 650 MG; Start 07/09/17 at 23:30 Acetaminophen/ Hydrocodone Bitart ([place] (5/325)) 1 tab Q6H PRN PO MODERATE PAIN LEVEL 4-6 Last administered on 07/17/17 14:27; Admin Dose 1 TAB; Start at 23:30 Morphine Sulfate (morphine) 2 mg Q4H PRN IV SEVERE PAIN LEVEL 7-10 Last administered on 07/18/17 20:30; Admin Dose 2 MG; Start 07/09/17 at 23:30 Docusate Sodium (Colace) 100 mg Q12H PRN PO CONSTIPATION Last administered on 16:34; Admin Dose 100 MG; Start 07/09/17 at 23:30 Magnesium Hydroxide (Milk Of Mag) 30 ml DAILY PRN PO CONSTIPATION Last administered on 07/14/17 21:26; Admin Dose 30 ML; Start 07/09/17 at 23:30 Bisacodyl (Dulcolax) 5 mg DAILY PRN PO CONSTIPATION Last administered on 16:34; Admin Dose 5 MG; Start 07/09/17 at 23:30 Zolpidem Tartrate (Ambien) 5 mg QHS PRN PO SLEEP Last administered on 07/18/17 20:35; Admin Dose 5 MG; Start 07/09/17 at 23:30 Famotidine (Pepcid) 20 mg Q12 PO Last administered on 07/19/17 08:55; Admin Dose 20 MG; Start 07/10/17 at 09:00 Enoxaparin Sodium (Lovenox) 40 mg DAILY SC Last administered on 07/19/17 09:00 ; Admin Dose 40 MG; Start 07/10/17 at 09:00 Bisacodyl (Dulcolax Supp) 10 mg Q48H PRN [place] CONSTIPATION Last administered on 13:06; Admin Dose 10 MG; Start 07/10/17 at 12:00 Atorvastatin Calcium (Lipitor) 10 mg QHS PO Last administered on 07/18/17 20:32 ; Admin Dose 10 MG; Start 07/10/17 at 21:00 Clopidogrel Bisulfate (plaVIX) 75 mg QAM PO Last administered on 07/19/17 08:55 ; Admin Dose 75 MG; Start 07/10/17 at 14:00 Midodrine (Proamatine) 5 mg BID PO Last administered on 07/17/17 08:58; Admin Dose 5 MG; Start 07/10/17 at 21:00 Montelukast Sodium (Singulair) 10 mg QAM PO Last administered on 07/19/17 08:56 ; Admin Dose 10 MG; Start 07/10/17 at 14:00 Ranitidine HCl (Zantac) 150 mg HS PO Last administered on 07/18/17 20:32; Admin Dose 150 MG; Start 07/10/17 at 21:00 Ranolazine (Ranexa) 500 mg Q12 PO Last administered on 07/19/17 08:56; Admin Dose 500 MG; Start 07/10/17 at 21:00 Tamsulosin HCl (Flomax) 0.4 mg HS PO Last administered on 07/18/17 20:33; Admin Dose 0.4 MG; Start 07/10/17 at 21:00 Cholecalciferol (Vitamin D) 2,000 unit DAILY PO Last administered on 07/19/17 08:57; Admin Dose 2,000 UNIT; Start 07/10/17 at 14:00 Escitalopram Oxalate (Lexapro) 5 mg QPM PO Last administered on 07/18/17 20:35 ; Admin Dose 5 MG; Start 07/11/17 at 09:00 Pantoprazole (Protonix Tab) 40 mg DAILY@06 PO Last administered on 07/19/17 06: 02; Admin Dose 40 MG; Start 07/11/17 at 06:00 Diagnostic Test (Pha) (Accu-Chek) 1 ea 02 XX Last administered on 07/18/17 02: 05; Admin Dose 1 EA; Start 07/11/17 at 02:00 Miscellaneous Information 1 ea NOTE XX ; Start 07/10/17 at 15:00 Glucose (Glutose) 15 gm Q15M PRN PO DECREASED GLUCOSE; Start 07/10/17 at 15:00 Glucose (Glutose) 22.5 gm Q15M PRN PO DECREASED GLUCOSE; Start 07/10/17 at 15: 00 Dextrose (D50w Syringe) 25 ml Q15M PRN IV DECREASED GLUCOSE; Start 07/10/17 at 15:00 Dextrose (D50w Syringe) 50 ml Q15M PRN IV DECREASED GLUCOSE; Start 07/10/17 at 15:00 Glucagon (Glucagen) 1 mg Q15M PRN IM DECREASED GLUCOSE; Start 07/10/17 at 15:00 Glucose (Glutose) 15 gm Q15M PRN BUCCAL DECREASED GLUCOSE; Start 07/10/17 at 15 :00 Linagliptin (Tradjenta) 5 mg DAILY PO Last administered on 07/19/17 08:55; Admin Dose 5 MG; Start 07/11/17 at 09:00 Digoxin (Digoxin) 0.125 mg DAILY@13 PO Last administered on 07/18/17 14:54; Admin Dose 0.125 MG; Start 07/12/17 at 13:00 Carvedilol (Coreg) 3.125 mg BID PO Last administered on 07/19/17 08:56; Admin Dose 3.125 MG; Start 07/14/17 at 21:00 Potassium Chloride (Klor-Con 20) 20 meq BID PO Last administered on 07/19/17 08 :55; Admin Dose 20 MEQ; Start 07/15/17 at 21:00 Furosemide (Lasix) 20 mg DAILY PO Last administered on 07/19/17 08:56; Admin Dose 20 MG; Start 07/16/17 at 09:00 [facility] Jul 19, 2017 15:52
[2017-07-19] MEDS: DIGOXIN 0.125 MG TAB PO SCH (16:16)
[2017-07-19] MEDS: morphine 2 MG INJ IV PRN ×2 (16:16→21:42)
[2017-07-19 20:06] VITALS: BP 128/62; RESP 18
[2017-07-19] MEDS: TAMSULOSIN (SR) 0.4 MG CAP PO SCH (20:26)
[2017-07-19] MEDS: ESCITALOPRAM 10 MG TAB PO SCH (20:26)
[2017-07-19] MEDS: ATORVASTATIN 10 MG TAB PO SCH (20:27)
[2017-07-19] MEDS: RANITIDINE 150 MG TAB PO SCH (20:27)
[2017-07-19] MEDS: ZOLPIDEM 5 MG TAB PO PRN (20:28)
[2017-07-20] MEDS: ACCU-CHEK XX SCH (02:00)
[2017-07-20 02:01] VITALS: BP 110/56; RESP 18
[2017-07-20] MEDS: PANTOPRAZOLE (EC) 40 MG TAB PO SCH (05:58)
[2017-07-20 06:58] LABS: BASOPHILS % 0.4 % (0.0-2.0); EOSINOPHILS # 0.1 10^3/ul (0.0-0.5); EOSINOPHILS % 0.8 % (0.0-7.0); HEMOGLOBIN 8.8 g/dl (14.0-18.0); LYMPHOCYTES # 0.8 10^3/ul (0.8-2.9); LYMPHOCYTES % 10.6 % (15.0-51.0); MEAN CORPUSCULAR HEMOGLOBIN 28.5 pg (29.0-33.0); MEAN CORPUSCULAR HGB CONC 31.4 g/dl (32.0-37.0); MEAN CORPUSCULAR VOLUME 90.6 fl (82.0-101.0); MEAN PLATELET VOLUME 10.3 fl (7.4-10.4); MONOCYTE # 0.7 10^3/ul (0.3-0.9); MONOCYTES % 9.6 % (0.0-11.0); NEUTROPHILS % 77.8 % (39.0-77.0); PLATELET COUNT 229 10^3/UL (140-415); RED BLOOD COUNT 3.09 10^6/ul (4.70-6.10); RED CELL DISTRIBUTION WIDTH 16.5 % (11.5-14.5); WHITE BLOOD COUNT 7.1 10^3/ul (4.8-10.8)
[2017-07-20 07:34] LABS: CALCIUM 8.5 mg/dl (8.4-10.2); CREATININE 0.65 mg/dl (0.61-1.24); POTASSIUM 4.2 mmol/L (3.5-5.1)
[2017-07-20 07:41] VITALS: BP 191/81; RESP 20
[2017-07-20 07:47] VITALS: BP 122/58; RESP 20
--- NOTE | 2017-07-20 07:57 | CONS ---
Date/Time of Note Date/Time of Note DATE: 07/20/17 TIME: 07:55 Assessment/Plan Assessment/Plan Chief Complaint/Hosp Course 1) CHF diastolic chronic 2) CAD 3) CABG 4) Preserved EF 5) h/o lung cancer Problems: Additional Assessment/Plan fluid status improved no change in cardiac meds BP stable on carvedilol Consultation Date/Type/Reason Admit Date/Time Jul 09, 2017 at 19:15 Initial Consult Date 07/13/17 Type of Consultation: cv Referring Provider: RUIZ GRAJEDA MD 24 HR Interval Summary Free Text/Dictation able to lie supine, no chest pain, mild SOB upon exertion, family at bedside Detailed Summary Respiratory: shortness of breath Cardiovascular: no complaints Gastrointestinal: no complaints Musculoskeletal: no complaints Skin: no complaints Neurologic: no complaints Exam/Review of Systems Vital Signs Vitals Vital Signs Date Time Temp Pulse Resp B/P Pulse Ox O2 Delivery O2 Flow Rate FiO2 07/20/17 07:47 98.5 77 20 122/58 99 07/20/17 01:38 1.0 07/19/17 20:00 Nasal Cannula Intake and Output 07/19/17 07/19/17 07/20/17 14:59 22:59 06:59 Intake Total 240 ml 600 ml 240 ml Balance 240 ml 600 ml 240 ml Exam Constitutional: frail Head: atraumatic, normocephalic Neck: supple Respiratory: diminished breath sounds Cardiovascular: regular rate and rhythm Gastrointestinal: soft Musculoskeletal: nl extremities to inspection Extremities: normal pulses Results Result Diagram: 07/20/17 0539 07/20/17 0538 Results 24 hrs Laboratory Tests Test 07/19/17 08:01 07/19/17 12:23 07/19/17 17:28 07/19/17 20:32 Bedside Glucose 123 128 118 159 Test 07/20/17 05:38 07/20/17 05:39 Sodium Level 136 Potassium Level 4.2 Chloride Level 100 Carbon Dioxide Level 33 H Anion Gap 7 L Blood Urea Nitrogen 11 Creatinine 0.65 Glucose Level 104 Calcium Level 8.5 White Blood Count 7.1 Red Blood Count 3.09 L Hemoglobin 8.8 L Hematocrit 28.0 L Mean Corpuscular Volume 90.6 Mean Corpuscular Hemoglobin 28.5 L Mean Corpuscular Hemoglobin Concent 31.4 L Red Cell Distribution Width 16.5 H Platelet Count 229 Mean Platelet Volume 10.3 Neutrophils % 77.8 H Lymphocytes % 10.6 L Monocytes % 9.6 Eosinophils % 0.8 Basophils % 0.4 Nucleated Red Blood Cells % 0.0 Neutrophils # (Manual) 5.5 Lymphocytes # 0.8 Monocytes # 0.7 Eosinophils # 0.1 Basophils # 0.0 Nucleated Red Blood Cells # 0.0 Medications Medications Current Medications Ondansetron HCl (Zofran Inj) 4 mg Q6H PRN IV NAUSEA AND/OR VOMITING; Start at 23:30 Acetaminophen (Tylenol Tab) 650 mg Q6H PRN PO PAIN LEVEL 1-3 OR FEVER Last administered on 07/16/17 15:55; Admin Dose 650 MG; Start 07/09/17 at 23:30 Acetaminophen/ Hydrocodone Bitart ([place] (5/325)) 1 tab Q6H PRN PO MODERATE PAIN LEVEL 4-6 Last administered on 07/17/17 14:27; Admin Dose 1 TAB; Start at 23:30 Morphine Sulfate (morphine) 2 mg Q4H PRN IV SEVERE PAIN LEVEL 7-10 Last administered on 07/19/17 21:42; Admin Dose 2 MG; Start 07/09/17 at 23:30 Docusate Sodium (Colace) 100 mg Q12H PRN PO CONSTIPATION Last administered on 16:34; Admin Dose 100 MG; Start 07/09/17 at 23:30 Magnesium Hydroxide (Milk Of Mag) 30 ml DAILY PRN PO CONSTIPATION Last administered on 07/14/17 21:26; Admin Dose 30 ML; Start 07/09/17 at 23:30 Bisacodyl (Dulcolax) 5 mg DAILY PRN PO CONSTIPATION Last administered on 16:34; Admin Dose 5 MG; Start 07/09/17 at 23:30 Zolpidem Tartrate (Ambien) 5 mg QHS PRN PO SLEEP Last administered on 07/19/17 20:28; Admin Dose 5 MG; Start 07/09/17 at 23:30 Famotidine (Pepcid) 20 mg Q12 PO Last administered on 07/19/17 20:27; Admin Dose 20 MG; Start 07/10/17 at 09:00 Enoxaparin Sodium (Lovenox) 40 mg DAILY SC Last administered on 07/19/17 09:00 ; Admin Dose 40 MG; Start 07/10/17 at 09:00 Bisacodyl (Dulcolax Supp) 10 mg Q48H PRN [place] CONSTIPATION Last administered on 13:06; Admin Dose 10 MG; Start 07/10/17 at 12:00 Atorvastatin Calcium (Lipitor) 10 mg QHS PO Last administered on 07/19/17 20:27 ; Admin Dose 10 MG; Start 07/10/17 at 21:00 Clopidogrel Bisulfate (plaVIX) 75 mg QAM PO Last administered on 07/19/17 08:55 ; Admin Dose 75 MG; Start 07/10/17 at 14:00 Midodrine (Proamatine) 5 mg BID PO Last administered on 07/17/17 08:58; Admin Dose 5 MG; Start 07/10/17 at 21:00 Montelukast Sodium (Singulair) 10 mg QAM PO Last administered on 07/19/17 08:56 ; Admin Dose 10 MG; Start 07/10/17 at 14:00 Ranitidine HCl (Zantac) 150 mg HS PO Last administered on 07/19/17 20:27; Admin Dose 150 MG; Start 07/10/17 at 21:00 Ranolazine (Ranexa) 500 mg Q12 PO Last administered on 07/19/17 20:27; Admin Dose 500 MG; Start 07/10/17 at 21:00 Tamsulosin HCl (Flomax) 0.4 mg HS PO Last administered on 07/19/17 20:26; Admin Dose 0.4 MG; Start 07/10/17 at 21:00 Cholecalciferol (Vitamin D) 2,000 unit DAILY PO Last administered on 07/19/17 08:57; Admin Dose 2,000 UNIT; Start 07/10/17 at 14:00 Escitalopram Oxalate (Lexapro) 5 mg QPM PO Last administered on 07/19/17 20:26 ; Admin Dose 5 MG; Start 07/11/17 at 09:00 Pantoprazole (Protonix Tab) 40 mg DAILY@06 PO Last administered on 07/20/17 05: 58; Admin Dose 40 MG; Start 07/11/17 at 06:00 Diagnostic Test (Pha) (Accu-Chek) 1 ea 02 XX Last administered on 07/18/17 02: 05; Admin Dose 1 EA; Start 07/11/17 at 02:00 Miscellaneous Information 1 ea NOTE XX ; Start 07/10/17 at 15:00 Glucose (Glutose) 15 gm Q15M PRN PO DECREASED GLUCOSE; Start 07/10/17 at 15:00 Glucose (Glutose) 22.5 gm Q15M PRN PO DECREASED GLUCOSE; Start 07/10/17 at 15: 00 Dextrose (D50w Syringe) 25 ml Q15M PRN IV DECREASED GLUCOSE; Start 07/10/17 at 15:00 Dextrose (D50w Syringe) 50 ml Q15M PRN IV DECREASED GLUCOSE; Start 07/10/17 at 15:00 Glucagon (Glucagen) 1 mg Q15M PRN IM DECREASED GLUCOSE; Start 07/10/17 at 15:00 Glucose (Glutose) 15 gm Q15M PRN BUCCAL DECREASED GLUCOSE; Start 07/10/17 at 15 :00 Linagliptin (Tradjenta) 5 mg DAILY PO Last administered on 07/19/17 08:55; Admin Dose 5 MG; Start 07/11/17 at 09:00 Digoxin (Digoxin) 0.125 mg DAILY@13 PO Last administered on 07/19/17 16:16; Admin Dose 0.125 MG; Start 07/12/17 at 13:00 Carvedilol (Coreg) 3.125 mg BID PO Last administered on 07/19/17 20:29; Admin Dose 3.125 MG; Start 07/14/17 at 21:00 Potassium Chloride (Klor-Con 20) 20 meq BID PO Last administered on 07/19/17 20 :27; Admin Dose 20 MEQ; Start 07/15/17 at 21:00 Furosemide (Lasix) 20 mg DAILY PO Last administered on 07/19/17 08:56; Admin Dose 20 MG; Start 07/16/17 at 09:00 MARYANA COWART MD Jul 20, 2017 07:57
[2017-07-20] MEDS: RANOLAZINE (SR) 500 MG TAB PO SCH ×2 (08:23→20:40)
[2017-07-20] MEDS: LINAGLIPTIN 5 MG TABLET PO SCH (08:23)
[2017-07-20] MEDS: CHOLECALCIFEROL 2,000 UNIT CAP PO SCH (08:23)
[2017-07-20] MEDS: FAMOTIDINE 20 MG TAB PO SCH ×2 (08:23→20:40)
[2017-07-20] MEDS: POTASSIUM CHLORIDE (SR) 20 MEQ TAB PO SCH ×2 (08:24→20:40)
[2017-07-20] MEDS: MIDODRINE 5 MG TAB PO SCH ×2 (08:24→20:41)
[2017-07-20] MEDS: FUROSEMIDE 20 MG TAB PO SCH (08:24)
[2017-07-20] MEDS: MONTELUKAST 10 MG TAB PO SCH (08:25)
[2017-07-20] MEDS: CLOPIDOGREL 75 MG TAB PO SCH (08:25)
[2017-07-20] MEDS: INSULIN ASPART [NOVOLOG] 3 ML PEN SC SCH ×4 (08:35→20:47)
[2017-07-20] MEDS: ENOXAPARIN 40 MG/0.4 ML SYG SC SCH (08:35)
--- NOTE | 2017-07-20 09:41 | CONS ---
Date/Time of Note Date/Time of Note DATE: 07/20/17 TIME: 09:40 Consult Date/Type/Reason Admit Date/Time Jul 09, 2017 at 19:15 Initial Consult Date 07/13/17 Type of Consultation: Pulm Ordering Provider: RUIZ GRAJEDA MD Subjective Comfortable, Objective Vital Signs Date Time Temp Pulse Resp B/P Pulse Ox O2 Delivery O2 Flow Rate FiO2 07/20/17 08:00 Nasal Cannula 2.0 07/20/17 07:47 98.5 77 20 122/58 99 Intake and Output 07/19/17 07/19/17 07/20/17 15:00 23:00 07:00 Intake Total 240 ml 600 ml 240 ml Balance 240 ml 600 ml 240 ml Exam GENERAL: Thin elderly gentleman VITAL SIGNS: per chart NECK: Supple. No JVD or lymphadenopathy. CARDIAC EXAM: S1, S2. No added sounds or murmurs. CHEST: clear bilaterally, No added sounds, rales or wheezes ABDOMEN: Soft, nontender. No guarding or rebound. EXTREMITIES: No cyanosis, clubbing or edema. NEUROLOGIC: Generalized weakness. No focal deficits. Results/Medications Result Diagram: 07/20/17 0539 07/20/17 0538 Results 24 hrs Laboratory Tests Test 07/19/17 12:23 07/19/17 17:28 07/19/17 20:32 07/20/17 05:38 Bedside Glucose 128 118 159 Sodium Level 136 Potassium Level 4.2 Chloride Level 100 Carbon Dioxide Level 33 H Anion Gap 7 L Blood Urea Nitrogen 11 Creatinine 0.65 Glucose Level 104 Calcium Level 8.5 Test 07/20/17 05:39 07/20/17 08:22 White Blood Count 7.1 Red Blood Count 3.09 L Hemoglobin 8.8 L Hematocrit 28.0 L Mean Corpuscular Volume 90.6 Mean Corpuscular Hemoglobin 28.5 L Mean Corpuscular Hemoglobin Concent 31.4 L Red Cell Distribution Width 16.5 H Platelet Count 229 Mean Platelet Volume 10.3 Neutrophils % 77.8 H Lymphocytes % 10.6 L Monocytes % 9.6 Eosinophils % 0.8 Basophils % 0.4 Nucleated Red Blood Cells % 0.0 Neutrophils # (Manual) 5.5 Lymphocytes # 0.8 Monocytes # 0.7 Eosinophils # 0.1 Basophils # 0.0 Nucleated Red Blood Cells # 0.0 Bedside Glucose 158 Medications Current Medications Ondansetron HCl (Zofran Inj) 4 mg Q6H PRN IV NAUSEA AND/OR VOMITING; Start at 23:30 Acetaminophen (Tylenol Tab) 650 mg Q6H PRN PO PAIN LEVEL 1-3 OR FEVER Last administered on 07/16/17 15:55; Admin Dose 650 MG; Start 07/09/17 at 23:30 Acetaminophen/ Hydrocodone Bitart ([place] (5/325)) 1 tab Q6H PRN PO MODERATE PAIN LEVEL 4-6 Last administered on 07/17/17 14:27; Admin Dose 1 TAB; Start at 23:30 Morphine Sulfate (morphine) 2 mg Q4H PRN IV SEVERE PAIN LEVEL 7-10 Last administered on 07/19/17 21:42; Admin Dose 2 MG; Start 07/09/17 at 23:30 Docusate Sodium (Colace) 100 mg Q12H PRN PO CONSTIPATION Last administered on 16:34; Admin Dose 100 MG; Start 07/09/17 at 23:30 Magnesium Hydroxide (Milk Of Mag) 30 ml DAILY PRN PO CONSTIPATION Last administered on 07/14/17 21:26; Admin Dose 30 ML; Start 07/09/17 at 23:30 Bisacodyl (Dulcolax) 5 mg DAILY PRN PO CONSTIPATION Last administered on 16:34; Admin Dose 5 MG; Start 07/09/17 at 23:30 Zolpidem Tartrate (Ambien) 5 mg QHS PRN PO SLEEP Last administered on 07/19/17 20:28; Admin Dose 5 MG; Start 07/09/17 at 23:30 Famotidine (Pepcid) 20 mg Q12 PO Last administered on 07/20/17 08:23; Admin Dose 20 MG; Start 07/10/17 at 09:00 Enoxaparin Sodium (Lovenox) 40 mg DAILY SC Last administered on 07/20/17 08:35 ; Admin Dose 40 MG; Start 07/10/17 at 09:00 Bisacodyl (Dulcolax Supp) 10 mg Q48H PRN [place] CONSTIPATION Last administered on 13:06; Admin Dose 10 MG; Start 07/10/17 at 12:00 Atorvastatin Calcium (Lipitor) 10 mg QHS PO Last administered on 07/19/17 20:27 ; Admin Dose 10 MG; Start 07/10/17 at 21:00 Clopidogrel Bisulfate (plaVIX) 75 mg QAM PO Last administered on 07/20/17 08:25 ; Admin Dose 75 MG; Start 07/10/17 at 14:00 Midodrine (Proamatine) 5 mg BID PO Last administered on 07/20/17 08:24; Admin Dose 5 MG; Start 07/10/17 at 21:00 Montelukast Sodium (Singulair) 10 mg QAM PO Last administered on 07/20/17 08:25 ; Admin Dose 10 MG; Start 07/10/17 at 14:00 Ranitidine HCl (Zantac) 150 mg HS PO Last administered on 07/19/17 20:27; Admin Dose 150 MG; Start 07/10/17 at 21:00 Ranolazine (Ranexa) 500 mg Q12 PO Last administered on 07/20/17 08:23; Admin Dose 500 MG; Start 07/10/17 at 21:00 Tamsulosin HCl (Flomax) 0.4 mg HS PO Last administered on 07/19/17 20:26; Admin Dose 0.4 MG; Start 07/10/17 at 21:00 Cholecalciferol (Vitamin D) 2,000 unit DAILY PO Last administered on 07/20/17 08:23; Admin Dose 2,000 UNIT; Start 07/10/17 at 14:00 Escitalopram Oxalate (Lexapro) 5 mg QPM PO Last administered on 07/19/17 20:26 ; Admin Dose 5 MG; Start 07/11/17 at 09:00 Pantoprazole (Protonix Tab) 40 mg DAILY@06 PO Last administered on 07/20/17 05: 58; Admin Dose 40 MG; Start 07/11/17 at 06:00 Diagnostic Test (Pha) (Accu-Chek) 1 ea 02 XX Last administered on 07/18/17 02: 05; Admin Dose 1 EA; Start 07/11/17 at 02:00 Miscellaneous Information 1 ea NOTE XX ; Start 07/10/17 at 15:00 Glucose (Glutose) 15 gm Q15M PRN PO DECREASED GLUCOSE; Start 07/10/17 at 15:00 Glucose (Glutose) 22.5 gm Q15M PRN PO DECREASED GLUCOSE; Start 07/10/17 at 15: 00 Dextrose (D50w Syringe) 25 ml Q15M PRN IV DECREASED GLUCOSE; Start 07/10/17 at 15:00 Dextrose (D50w Syringe) 50 ml Q15M PRN IV DECREASED GLUCOSE; Start 07/10/17 at 15:00 Glucagon (Glucagen) 1 mg Q15M PRN IM DECREASED GLUCOSE; Start 07/10/17 at 15:00 Glucose (Glutose) 15 gm Q15M PRN BUCCAL DECREASED GLUCOSE; Start 07/10/17 at 15 :00 Linagliptin (Tradjenta) 5 mg DAILY PO Last administered on 07/20/17 08:23; Admin Dose 5 MG; Start 07/11/17 at 09:00 Digoxin (Digoxin) 0.125 mg DAILY@13 PO Last administered on 07/19/17 16:16; Admin Dose 0.125 MG; Start 07/12/17 at 13:00 Carvedilol (Coreg) 3.125 mg BID PO Last administered on 07/20/17 08:25; Admin Dose 3.125 MG; Start 07/14/17 at 21:00 Potassium Chloride (Klor-Con 20) 20 meq BID PO Last administered on 07/20/17 08 :24; Admin Dose 20 MEQ; Start 07/15/17 at 21:00 Furosemide (Lasix) 20 mg DAILY PO Last administered on 07/20/17 08:24; Admin Dose 20 MG; Start 07/16/17 at 09:00 Assessment/Plan Chief Complaint/Hosp Course ASSESSMENT: 1. 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 2. Stable diastolic dysfunction. PLAN: 1. Continue supplemental O2 as needed. 2. Encourage out of bed. 3. Discharge planning okay from pulmonary standpoint. 4. Follow up with me in the office. 5. DVT and GI prophylaxis. Consider palliative care consult Problems: LORA ROYAL MD, [facility] Jul 20, 2017 09:41
--- NOTE | 2017-07-20 10:53 | PN ---
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 Dr Nagy is following in pulmonology consultation. -Coronary artery disease status post CABG in 2004. Continue Plavix. Dr. 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 Continue Lasix, monitor electrolytes. -Diastolic dysfunction congestive heart failure -Bilateral lower extremity edema, venous Dopplers negative for any deep venous thrombosis. -History of lung cancer dx 2006, completed chemotherapy in 2009. -Diabetes mellitus, continue Tradjenta and NovoLog per mild algorithm sliding scale. -BPH, continue Flomax. Problems: Subjective 24 Hr Interval Summary Free Text/Dictation Patient doing better, has no complaints Exam/Review of Systems Vital Signs Vitals Vital Signs Date Time Temp Pulse Resp B/P Pulse Ox O2 Delivery O2 Flow Rate FiO2 07/20/17 08:00 Nasal Cannula 2.0 07/20/17 07:47 98.5 77 20 122/58 99 Intake and Output 07/19/17 07/19/17 07/20/17 15:00 23:00 07:00 Intake Total 240 ml 600 ml 240 ml Balance 240 ml 600 ml 240 ml Exam Constitutional: well developed Head: atraumatic, normocephalic Neck: supple Respiratory: clear to auscultation Cardiovascular: regular rate and rhythm Gastrointestinal: non-tender, soft Extremities: normal pulses Results Result Diagram: 07/20/17 0539 07/20/17 0538 Results 24 hrs Laboratory Tests Test 07/19/17 12:23 07/19/17 17:28 07/19/17 20:32 07/20/17 05:38 Bedside Glucose 128 118 159 Sodium Level 136 Potassium Level 4.2 Chloride Level 100 Carbon Dioxide Level 33 H Anion Gap 7 L Blood Urea Nitrogen 11 Creatinine 0.65 Glucose Level 104 Calcium Level 8.5 Test 07/20/17 05:39 07/20/17 08:22 White Blood Count 7.1 Red Blood Count 3.09 L Hemoglobin 8.8 L Hematocrit 28.0 L Mean Corpuscular Volume 90.6 Mean Corpuscular Hemoglobin 28.5 L Mean Corpuscular Hemoglobin Concent 31.4 L Red Cell Distribution Width 16.5 H Platelet Count 229 Mean Platelet Volume 10.3 Neutrophils % 77.8 H Lymphocytes % 10.6 L Monocytes % 9.6 Eosinophils % 0.8 Basophils % 0.4 Nucleated Red Blood Cells % 0.0 Neutrophils # (Manual) 5.5 Lymphocytes # 0.8 Monocytes # 0.7 Eosinophils # 0.1 Basophils # 0.0 Nucleated Red Blood Cells # 0.0 Bedside Glucose 158 Medications Medications Current Medications Ondansetron HCl (Zofran Inj) 4 mg Q6H PRN IV NAUSEA AND/OR VOMITING; Start at 23:30 Acetaminophen (Tylenol Tab) 650 mg Q6H PRN PO PAIN LEVEL 1-3 OR FEVER Last administered on 07/16/17 15:55; Admin Dose 650 MG; Start 07/09/17 at 23:30 Acetaminophen/ Hydrocodone Bitart ([place] (5/325)) 1 tab Q6H PRN PO MODERATE PAIN LEVEL 4-6 Last administered on 07/17/17 14:27; Admin Dose 1 TAB; Start at 23:30 Morphine Sulfate (morphine) 2 mg Q4H PRN IV SEVERE PAIN LEVEL 7-10 Last administered on 07/19/17 21:42; Admin Dose 2 MG; Start 07/09/17 at 23:30 Docusate Sodium (Colace) 100 mg Q12H PRN PO CONSTIPATION Last administered on 16:34; Admin Dose 100 MG; Start 07/09/17 at 23:30 Magnesium Hydroxide (Milk Of Mag) 30 ml DAILY PRN PO CONSTIPATION Last administered on 07/14/17 21:26; Admin Dose 30 ML; Start 07/09/17 at 23:30 Bisacodyl (Dulcolax) 5 mg DAILY PRN PO CONSTIPATION Last administered on 16:34; Admin Dose 5 MG; Start 07/09/17 at 23:30 Zolpidem Tartrate (Ambien) 5 mg QHS PRN PO SLEEP Last administered on 07/19/17 20:28; Admin Dose 5 MG; Start 07/09/17 at 23:30 Famotidine (Pepcid) 20 mg Q12 PO Last administered on 07/20/17 08:23; Admin Dose 20 MG; Start 07/10/17 at 09:00 Enoxaparin Sodium (Lovenox) 40 mg DAILY SC Last administered on 07/20/17 08:35 ; Admin Dose 40 MG; Start 07/10/17 at 09:00 Bisacodyl (Dulcolax Supp) 10 mg Q48H PRN [place] CONSTIPATION Last administered on 13:06; Admin Dose 10 MG; Start 07/10/17 at 12:00 Atorvastatin Calcium (Lipitor) 10 mg QHS PO Last administered on 07/19/17 20:27 ; Admin Dose 10 MG; Start 07/10/17 at 21:00 Clopidogrel Bisulfate (plaVIX) 75 mg QAM PO Last administered on 07/20/17 08:25 ; Admin Dose 75 MG; Start 07/10/17 at 14:00 Midodrine (Proamatine) 5 mg BID PO Last administered on 07/20/17 08:24; Admin Dose 5 MG; Start 07/10/17 at 21:00 Montelukast Sodium (Singulair) 10 mg QAM PO Last administered on 07/20/17 08:25 ; Admin Dose 10 MG; Start 07/10/17 at 14:00 Ranitidine HCl (Zantac) 150 mg HS PO Last administered on 07/19/17 20:27; Admin Dose 150 MG; Start 07/10/17 at 21:00 Ranolazine (Ranexa) 500 mg Q12 PO Last administered on 07/20/17 08:23; Admin Dose 500 MG; Start 07/10/17 at 21:00 Tamsulosin HCl (Flomax) 0.4 mg HS PO Last administered on 07/19/17 20:26; Admin Dose 0.4 MG; Start 07/10/17 at 21:00 Cholecalciferol (Vitamin D) 2,000 unit DAILY PO Last administered on 07/20/17 08:23; Admin Dose 2,000 UNIT; Start 07/10/17 at 14:00 Escitalopram Oxalate (Lexapro) 5 mg QPM PO Last administered on 07/19/17 20:26 ; Admin Dose 5 MG; Start 07/11/17 at 09:00 Pantoprazole (Protonix Tab) 40 mg DAILY@06 PO Last administered on 07/20/17 05: 58; Admin Dose 40 MG; Start 07/11/17 at 06:00 Diagnostic Test (Pha) (Accu-Chek) 1 ea 02 XX Last administered on 07/18/17 02: 05; Admin Dose 1 EA; Start 07/11/17 at 02:00 Miscellaneous Information 1 ea NOTE XX ; Start 07/10/17 at 15:00 Glucose (Glutose) 15 gm Q15M PRN PO DECREASED GLUCOSE; Start 07/10/17 at 15:00 Glucose (Glutose) 22.5 gm Q15M PRN PO DECREASED GLUCOSE; Start 07/10/17 at 15: 00 Dextrose (D50w Syringe) 25 ml Q15M PRN IV DECREASED GLUCOSE; Start 07/10/17 at 15:00 Dextrose (D50w Syringe) 50 ml Q15M PRN IV DECREASED GLUCOSE; Start 07/10/17 at 15:00 Glucagon (Glucagen) 1 mg Q15M PRN IM DECREASED GLUCOSE; Start 07/10/17 at 15:00 Glucose (Glutose) 15 gm Q15M PRN BUCCAL DECREASED GLUCOSE; Start 07/10/17 at 15 :00 Linagliptin (Tradjenta) 5 mg DAILY PO Last administered on 07/20/17 08:23; Admin Dose 5 MG; Start 07/11/17 at 09:00 Digoxin (Digoxin) 0.125 mg DAILY@13 PO Last administered on 07/19/17 16:16; Admin Dose 0.125 MG; Start 07/12/17 at 13:00 Carvedilol (Coreg) 3.125 mg BID PO Last administered on 07/20/17 08:25; Admin Dose 3.125 MG; Start 07/14/17 at 21:00 Potassium Chloride (Klor-Con 20) 20 meq BID PO Last administered on 07/20/17 08 :24; Admin Dose 20 MEQ; Start 07/15/17 at 21:00 Furosemide (Lasix) 20 mg DAILY PO Last administered on 07/20/17 08:24; Admin Dose 20 MG; Start 07/16/17 at 09:00 TATIANA GUILLEN Jul 20, 2017 10:53
[2017-07-20] MEDS: DIGOXIN 0.125 MG TAB PO SCH (12:28)
[2017-07-20 13:16] VITALS: BP 88/53; RESP 20
--- NOTE | 2017-07-20 15:53 | CONS ---
Date/Time of Note Date/Time of Note DATE: 07/20/17 TIME: 15:47 Assessment/Plan Assessment/Plan Additional Assessment/Plan 1. Hypokalemia- K replaced today, bmp Pending 2. Pleural effusion 3. 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 Denies having lung surgery or prior TB 4. h/o NSCLC s/p chemo and XRT plan : continue KCL 20mEQ PO BID , today electrolytes and Cr slightly low Keep magnesium normal Keep pt even, no IV Fluids BP stable will follow up \dw Dr Tsering Stein Consultation Date/Type/Reason Admit Date/Time Jul 09, 2017 at 19:15 Initial Consult Date 07/13/17 Type of Consultation: Pulm Referring Provider: RUIZ GRAJEDA MD 24 HR Interval Summary Constitutional: requiring O2 Detailed Summary Respiratory: shortness of breath Cardiovascular: no complaints Gastrointestinal: no complaints Genitourinary: no complaints Musculoskeletal: no complaints Exam/Review of Systems Vital Signs Vitals Vital Signs Date Time Temp Pulse Resp B/P Pulse Ox O2 Delivery O2 Flow Rate FiO2 07/20/17 13:16 97.6 81 20 88/53 98 07/20/17 08:00 Nasal Cannula 2.0 Intake and Output 07/19/17 07/19/17 07/20/17 15:00 23:00 07:00 Intake Total 240 ml 600 ml 240 ml Balance 240 ml 600 ml 240 ml Exam Constitutional: alert, well developed Respiratory: diminished breath sounds (bilateral at bases but nore on right side) Musculoskeletal: nl extremities to inspection Extremities: normal pulses 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: nl mental status Results Result Diagram: 07/20/17 0539 07/20/17 0538 Results 24 hrs Laboratory Tests Test 07/19/17 17:28 07/19/17 20:32 07/20/17 05:38 07/20/17 05:39 Bedside Glucose 118 159 Sodium Level 136 Potassium Level 4.2 Chloride Level 100 Carbon Dioxide Level 33 H Anion Gap 7 L Blood Urea Nitrogen 11 Creatinine 0.65 Glucose Level 104 Calcium Level 8.5 White Blood Count 7.1 Red Blood Count 3.09 L Hemoglobin 8.8 L Hematocrit 28.0 L Mean Corpuscular Volume 90.6 Mean Corpuscular Hemoglobin 28.5 L Mean Corpuscular Hemoglobin Concent 31.4 L Red Cell Distribution Width 16.5 H Platelet Count 229 Mean Platelet Volume 10.3 Neutrophils % 77.8 H Lymphocytes % 10.6 L Monocytes % 9.6 Eosinophils % 0.8 Basophils % 0.4 Nucleated Red Blood Cells % 0.0 Neutrophils # (Manual) 5.5 Lymphocytes # 0.8 Monocytes # 0.7 Eosinophils # 0.1 Basophils # 0.0 Nucleated Red Blood Cells # 0.0 Test 07/20/17 08:22 07/20/17 12:29 Bedside Glucose 158 156 Medications Medications Current Medications Ondansetron HCl (Zofran Inj) 4 mg Q6H PRN IV NAUSEA AND/OR VOMITING; Start at 23:30 Acetaminophen (Tylenol Tab) 650 mg Q6H PRN PO PAIN LEVEL 1-3 OR FEVER Last administered on 07/16/17 15:55; Admin Dose 650 MG; Start 07/09/17 at 23:30 Acetaminophen/ Hydrocodone Bitart ([place] (5/325)) 1 tab Q6H PRN PO MODERATE PAIN LEVEL 4-6 Last administered on 07/17/17 14:27; Admin Dose 1 TAB; Start at 23:30 Morphine Sulfate (morphine) 2 mg Q4H PRN IV SEVERE PAIN LEVEL 7-10 Last administered on 07/19/17 21:42; Admin Dose 2 MG; Start 07/09/17 at 23:30 Docusate Sodium (Colace) 100 mg Q12H PRN PO CONSTIPATION Last administered on 16:34; Admin Dose 100 MG; Start 07/09/17 at 23:30 Magnesium Hydroxide (Milk Of Mag) 30 ml DAILY PRN PO CONSTIPATION Last administered on 07/14/17 21:26; Admin Dose 30 ML; Start 07/09/17 at 23:30 Bisacodyl (Dulcolax) 5 mg DAILY PRN PO CONSTIPATION Last administered on 16:34; Admin Dose 5 MG; Start 07/09/17 at 23:30 Zolpidem Tartrate (Ambien) 5 mg QHS PRN PO SLEEP Last administered on 07/19/17 20:28; Admin Dose 5 MG; Start 07/09/17 at 23:30 Famotidine (Pepcid) 20 mg Q12 PO Last administered on 07/20/17 08:23; Admin Dose 20 MG; Start 07/10/17 at 09:00 Enoxaparin Sodium (Lovenox) 40 mg DAILY SC Last administered on 07/20/17 08:35 ; Admin Dose 40 MG; Start 07/10/17 at 09:00 Bisacodyl (Dulcolax Supp) 10 mg Q48H PRN [place] CONSTIPATION Last administered on 13:06; Admin Dose 10 MG; Start 07/10/17 at 12:00 Atorvastatin Calcium (Lipitor) 10 mg QHS PO Last administered on 07/19/17 20:27 ; Admin Dose 10 MG; Start 07/10/17 at 21:00 Clopidogrel Bisulfate (plaVIX) 75 mg QAM PO Last administered on 07/20/17 08:25 ; Admin Dose 75 MG; Start 07/10/17 at 14:00 Midodrine (Proamatine) 5 mg BID PO Last administered on 07/20/17 08:24; Admin Dose 5 MG; Start 07/10/17 at 21:00 Montelukast Sodium (Singulair) 10 mg QAM PO Last administered on 07/20/17 08:25 ; Admin Dose 10 MG; Start 07/10/17 at 14:00 Ranitidine HCl (Zantac) 150 mg HS PO Last administered on 07/19/17 20:27; Admin Dose 150 MG; Start 07/10/17 at 21:00 Ranolazine (Ranexa) 500 mg Q12 PO Last administered on 07/20/17 08:23; Admin Dose 500 MG; Start 07/10/17 at 21:00 Tamsulosin HCl (Flomax) 0.4 mg HS PO Last administered on 07/19/17 20:26; Admin Dose 0.4 MG; Start 07/10/17 at 21:00 Cholecalciferol (Vitamin D) 2,000 unit DAILY PO Last administered on 07/20/17 08:23; Admin Dose 2,000 UNIT; Start 07/10/17 at 14:00 Escitalopram Oxalate (Lexapro) 5 mg QPM PO Last administered on 07/19/17 20:26 ; Admin Dose 5 MG; Start 07/11/17 at 09:00 Pantoprazole (Protonix Tab) 40 mg DAILY@06 PO Last administered on 07/20/17 05: 58; Admin Dose 40 MG; Start 07/11/17 at 06:00 Diagnostic Test (Pha) (Accu-Chek) 1 ea 02 XX Last administered on 07/18/17 02: 05; Admin Dose 1 EA; Start 07/11/17 at 02:00 Miscellaneous Information 1 ea NOTE XX ; Start 07/10/17 at 15:00 Glucose (Glutose) 15 gm Q15M PRN PO DECREASED GLUCOSE; Start 07/10/17 at 15:00 Glucose (Glutose) 22.5 gm Q15M PRN PO DECREASED GLUCOSE; Start 07/10/17 at 15: 00 Dextrose (D50w Syringe) 25 ml Q15M PRN IV DECREASED GLUCOSE; Start 07/10/17 at 15:00 Dextrose (D50w Syringe) 50 ml Q15M PRN IV DECREASED GLUCOSE; Start 07/10/17 at 15:00 Glucagon (Glucagen) 1 mg Q15M PRN IM DECREASED GLUCOSE; Start 07/10/17 at 15:00 Glucose (Glutose) 15 gm Q15M PRN BUCCAL DECREASED GLUCOSE; Start 07/10/17 at 15 :00 Linagliptin (Tradjenta) 5 mg DAILY PO Last administered on 07/20/17 08:23; Admin Dose 5 MG; Start 07/11/17 at 09:00 Digoxin (Digoxin) 0.125 mg DAILY@13 PO Last administered on 07/20/17 12:28; Admin Dose 0.125 MG; Start 07/12/17 at 13:00 Carvedilol (Coreg) 3.125 mg BID PO Last administered on 07/20/17 08:25; Admin Dose 3.125 MG; Start 07/14/17 at 21:00 Potassium Chloride (Klor-Con 20) 20 meq BID PO Last administered on 07/20/17 08 :24; Admin Dose 20 MEQ; Start 07/15/17 at 21:00 Furosemide (Lasix) 20 mg DAILY PO Last administered on 07/20/17 08:24; Admin Dose 20 MG; Start 07/16/17 at 09:00 VA ALTMAN Jul 20, 2017 15:53
[2017-07-20 16:53] LABS: CALCIUM 8.6 mg/dl (8.4-10.2); CREATININE 0.61 mg/dl (0.61-1.24); POTASSIUM 4.2 mmol/L (3.5-5.1)
--- NOTE | 2017-07-20 17:22 | RADRPT ---
PROCEDURE: XR Chest. CLINICAL INDICATION: Shortness of breath . TECHNIQUE: Single frontal chest x-ray. COMPARISON: 07/09/2017 FINDINGS: There is near complete opacity of the right hemithorax with volume loss and consolidation of the rig ht lung. Gas density in the right upper thorax correlates to an area of cavitary change described o n previous CT scan of the chest. The left lung is clear. . Sternotomy wires are present.. The car diomediastinal silhouette is unremarkable. The osseous structures are intact. IMPRESSION: Volume loss and dense consolidation of the right lung with cavitary change seen in the right upper t horax (see CT scan of the chest). Findings are similar to prior chest radiograph. Status post sternotomy.. RPTAT: AA .Ambrosio Desai MD, Date Time Electronically viewed and signed by .Ambrosio Desai MD, on 07/20/2017 17:22 .L/
[2017-07-20 17:34] LABS: AADO2 Arterial 24.9 mmHg (7.0-24.0); Allen Test ACCEPTAB; Arterial Base Excess 8.3 mmol/L (-3.0-3); Arterial COHb 0.6 % (0.0-3.0); Arterial Fraction of Oxyhgb 97.1 % (93.0-99.0); Arterial HCO3 32.9 mmol/L (22.0-26.0); Arterial MetHb 0.4 % (0.0-1.5); Arterial Total Hemglobin 12.2 g/dl (12.0-18.0); MODE NASAL CANNULA
[2017-07-20 19:30] VITALS: BP 109/54; RESP 18
[2017-07-20] MEDS: ZOLPIDEM 5 MG TAB PO PRN (20:40)
[2017-07-20] MEDS: RANITIDINE 150 MG TAB PO SCH (20:40)
[2017-07-20] MEDS: ATORVASTATIN 10 MG TAB PO SCH (20:40)
[2017-07-20] MEDS: TAMSULOSIN (SR) 0.4 MG CAP PO SCH (20:40)
[2017-07-20] MEDS: ESCITALOPRAM 10 MG TAB PO SCH (20:40)
[2017-07-20] MEDS: morphine 2 MG INJ IV PRN (22:37)
[2017-07-21 02:00] VITALS: BP 111/55; RESP 18
[2017-07-21] MEDS: ACCU-CHEK XX SCH (02:00)
[2017-07-21] MEDS: PANTOPRAZOLE (EC) 40 MG TAB PO SCH (05:30)
[2017-07-21 06:41] LABS: CALCIUM 8.7 mg/dl (8.4-10.2); CREATININE 0.65 mg/dl (0.61-1.24); POTASSIUM 4.2 mmol/L (3.5-5.1)
[2017-07-21 07:37] VITALS: BP 122/58; RESP 20
[2017-07-21] MEDS: CLOPIDOGREL 75 MG TAB PO SCH (07:56)
[2017-07-21] MEDS: RANOLAZINE (SR) 500 MG TAB PO SCH ×2 (07:56→20:23)
[2017-07-21] MEDS: POTASSIUM CHLORIDE (SR) 20 MEQ TAB PO SCH ×2 (07:56→20:23)
[2017-07-21] MEDS: FAMOTIDINE 20 MG TAB PO SCH ×2 (07:56→20:23)
[2017-07-21] MEDS: MONTELUKAST 10 MG TAB PO SCH (07:56)
[2017-07-21] MEDS: MIDODRINE 5 MG TAB PO SCH ×2 (07:57→20:24)
[2017-07-21] MEDS: LINAGLIPTIN 5 MG TABLET PO SCH (07:57)
[2017-07-21] MEDS: FUROSEMIDE 20 MG TAB PO SCH (07:58)
[2017-07-21] MEDS: CHOLECALCIFEROL 2,000 UNIT CAP PO SCH (07:58)
[2017-07-21] MEDS: ENOXAPARIN 40 MG/0.4 ML SYG SC SCH (08:07)
[2017-07-21] MEDS: INSULIN ASPART [NOVOLOG] 3 ML PEN SC SCH ×4 (08:08→20:25)
--- NOTE | 2017-07-21 10:07 | PN ---
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 Dr Ngay is following in pulmonology consultation. -Coronary artery disease status post CABG in 2004. Continue Plavix. Dr. 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 Continue Lasix, monitor electrolytes. -Diastolic dysfunction congestive heart failure -Bilateral lower extremity edema, venous Dopplers negative for any deep venous thrombosis. -History of lung cancer dx 2006, completed chemotherapy in 2009. -Diabetes mellitus, continue Tradjenta and NovoLog per mild algorithm sliding scale. -BPH, continue Flomax. Problems: Subjective 24 Hr Interval Summary Free Text/Dictation Patient has no complaints Exam/Review of Systems Vital Signs Vitals Vital Signs Date Time Temp Pulse Resp B/P Pulse Ox O2 Delivery O2 Flow Rate FiO2 07/21/17 08:00 Nasal Cannula 2.0 07/21/17 07:37 98.3 75 20 122/58 97 Intake and Output 07/20/17 07/20/17 07/21/17 15:00 23:00 07:00 Intake Total 960 ml 600 ml Output Total 0 ml Balance 960 ml 600 ml Exam Constitutional: well developed Head: atraumatic, normocephalic Neck: supple Respiratory: clear to auscultation Cardiovascular: regular rate and rhythm Gastrointestinal: non-tender, soft Extremities: normal pulses Results Result Diagram: 07/20/17 0539 07/21/17 0549 Results 24 hrs Laboratory Tests Test 07/20/17 12:29 07/20/17 15:48 07/20/17 16:00 07/20/17 17:19 Bedside Glucose 156 142 Blood Gas Specimen Source Blood arterial Arterial Blood Date Drawn 07/20/2017 5:25:34 PM Arterial Blood pH (Temp corrected) 7.475 H Arterial Blood pCO2 (Temp correct) 45.7 H Arterial Blood pO2 (Temp corrected) 113.6 H Arterial Blood HCO3 32.9 H Arterial Blood Base Excess 8.3 H Arterial Blood Oxygen Saturation 98.1 Bimal Test ACCEPTAB Arterial Blood Gas Puncture Site Right Radial Arterial Blood Carboxyhemoglobin 0.6 Arterial Blood Methemoglobin 0.4 Blood Gas A-a O2 Differential 24.9 H Oxyhemoglobin Percent 97.1 Total Hemoglobin 12.2 Blood Gas Temperature 37.0 Blood Gas Modality NASAL CANNULA FiO2 27.0 Blood Gas Notified Whom CW Blood Gas Notified Time 07/20/2017 5:34:02 PM Sodium Level 134 L Potassium Level 4.2 Chloride Level 97 Carbon Dioxide Level 33 H Anion Gap 8 Blood Urea Nitrogen 13 Creatinine 0.61 Glucose Level 120 Calcium Level 8.6 Test 07/20/17 20:44 07/21/17 03:04 07/21/17 05:49 07/21/17 07:55 Bedside Glucose 185 120 134 Sodium Level 136 Potassium Level 4.2 Chloride Level 99 Carbon Dioxide Level 33 H Anion Gap 8 Blood Urea Nitrogen 10 Creatinine 0.65 Glucose Level 114 Calcium Level 8.7 Medications Medications Current Medications Ondansetron HCl (Zofran Inj) 4 mg Q6H PRN IV NAUSEA AND/OR VOMITING; Start at 23:30 Acetaminophen (Tylenol Tab) 650 mg Q6H PRN PO PAIN LEVEL 1-3 OR FEVER Last administered on 07/16/17 15:55; Admin Dose 650 MG; Start 07/09/17 at 23:30 Acetaminophen/ Hydrocodone Bitart ([place] (5/325)) 1 tab Q6H PRN PO MODERATE PAIN LEVEL 4-6 Last administered on 07/17/17 14:27; Admin Dose 1 TAB; Start at 23:30 Morphine Sulfate (morphine) 2 mg Q4H PRN IV SEVERE PAIN LEVEL 7-10 Last administered on 07/20/17 22:37; Admin Dose 2 MG; Start 07/09/17 at 23:30 Docusate Sodium (Colace) 100 mg Q12H PRN PO CONSTIPATION Last administered on 16:34; Admin Dose 100 MG; Start 07/09/17 at 23:30 Magnesium Hydroxide (Milk Of Mag) 30 ml DAILY PRN PO CONSTIPATION Last administered on 07/14/17 21:26; Admin Dose 30 ML; Start 07/09/17 at 23:30 Bisacodyl (Dulcolax) 5 mg DAILY PRN PO CONSTIPATION Last administered on 16:34; Admin Dose 5 MG; Start 07/09/17 at 23:30 Zolpidem Tartrate (Ambien) 5 mg QHS PRN PO SLEEP Last administered on 07/20/17 20:40; Admin Dose 5 MG; Start 07/09/17 at 23:30 Famotidine (Pepcid) 20 mg Q12 PO Last administered on 07/21/17 07:56; Admin Dose 20 MG; Start 07/10/17 at 09:00 Enoxaparin Sodium (Lovenox) 40 mg DAILY SC Last administered on 07/21/17 08:07 ; Admin Dose 40 MG; Start 07/10/17 at 09:00 Bisacodyl (Dulcolax Supp) 10 mg Q48H PRN [place] CONSTIPATION Last administered on 13:06; Admin Dose 10 MG; Start 07/10/17 at 12:00 Atorvastatin Calcium (Lipitor) 10 mg QHS PO Last administered on 07/20/17 20:40 ; Admin Dose 10 MG; Start 07/10/17 at 21:00 Clopidogrel Bisulfate (plaVIX) 75 mg QAM PO Last administered on 07/21/17 07:56 ; Admin Dose 75 MG; Start 07/10/17 at 14:00 Midodrine (Proamatine) 5 mg BID PO Last administered on 07/20/17 08:24; Admin Dose 5 MG; Start 07/10/17 at 21:00 Montelukast Sodium (Singulair) 10 mg QAM PO Last administered on 07/21/17 07:56 ; Admin Dose 10 MG; Start 07/10/17 at 14:00 Ranitidine HCl (Zantac) 150 mg HS PO Last administered on 07/20/17 20:40; Admin Dose 150 MG; Start 07/10/17 at 21:00 Ranolazine (Ranexa) 500 mg Q12 PO Last administered on 07/21/17 07:56; Admin Dose 500 MG; Start 07/10/17 at 21:00 Tamsulosin HCl (Flomax) 0.4 mg HS PO Last administered on 07/20/17 20:40; Admin Dose 0.4 MG; Start 07/10/17 at 21:00 Cholecalciferol (Vitamin D) 2,000 unit DAILY PO Last administered on 07/21/17 07:58; Admin Dose 2,000 UNIT; Start 07/10/17 at 14:00 Escitalopram Oxalate (Lexapro) 5 mg QPM PO Last administered on 07/20/17 20:40 ; Admin Dose 5 MG; Start 07/11/17 at 09:00 Pantoprazole (Protonix Tab) 40 mg DAILY@06 PO Last administered on 07/21/17 05: 30; Admin Dose 40 MG; Start 07/11/17 at 06:00 Diagnostic Test (Pha) (Accu-Chek) 1 ea 02 XX Last administered on 07/21/17 02: 00; Admin Dose 1 EA; Start 07/11/17 at 02:00 Miscellaneous Information 1 ea NOTE XX ; Start 07/10/17 at 15:00 Glucose (Glutose) 15 gm Q15M PRN PO DECREASED GLUCOSE; Start 07/10/17 at 15:00 Glucose (Glutose) 22.5 gm Q15M PRN PO DECREASED GLUCOSE; Start 07/10/17 at 15: 00 Dextrose (D50w Syringe) 25 ml Q15M PRN IV DECREASED GLUCOSE; Start 07/10/17 at 15:00 Dextrose (D50w Syringe) 50 ml Q15M PRN IV DECREASED GLUCOSE; Start 07/10/17 at 15:00 Glucagon (Glucagen) 1 mg Q15M PRN IM DECREASED GLUCOSE; Start 07/10/17 at 15:00 Glucose (Glutose) 15 gm Q15M PRN BUCCAL DECREASED GLUCOSE; Start 07/10/17 at 15 :00 Linagliptin (Tradjenta) 5 mg DAILY PO Last administered on 07/21/17 07:57; Admin Dose 5 MG; Start 07/11/17 at 09:00 Digoxin (Digoxin) 0.125 mg DAILY@13 PO Last administered on 07/20/17 12:28; Admin Dose 0.125 MG; Start 07/12/17 at 13:00 Carvedilol (Coreg) 3.125 mg BID PO Last administered on 07/21/17 07:58; Admin Dose 3.125 MG; Start 07/14/17 at 21:00 Potassium Chloride (Klor-Con 20) 20 meq BID PO Last administered on 07/21/17 07 :56; Admin Dose 20 MEQ; Start 07/15/17 at 21:00 Furosemide (Lasix) 20 mg DAILY PO Last administered on 07/21/17 07:58; Admin Dose 20 MG; Start 07/16/17 at 09:00 TATIANA GUILLEN Jul 21, 2017 10:07
[2017-07-21] MEDS: DIGOXIN 0.125 MG TAB PO SCH (12:01)
[2017-07-21 13:55] VITALS: BP 88/46; RESP 18
--- NOTE | 2017-07-21 15:39 | CONS ---
Date/Time of Note Date/Time of Note DATE: 07/21/17 TIME: 15:38 Assessment/Plan Assessment/Plan Additional Assessment/Plan 1. Hypokalemia 2. Pleural effusion 3. 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 Denies having lung surgery or prior TB 4. h/o NSCLC s/p chemo and XRT plan : continue KCL 20mEQ PO BID , today electrolytes and Cr stable Keep magnesium normal Keep pt even, no IV Fluids BP stable will follow up Consultation Date/Type/Reason Admit Date/Time Jul 09, 2017 at 19:15 Initial Consult Date 07/13/17 Type of Consultation: NEPHROLOGY Referring Provider: RUIZ GRAJEDA MD Exam/Review of Systems Vital Signs Vitals Vital Signs Date Time Temp Pulse Resp B/P Pulse Ox O2 Delivery O2 Flow Rate FiO2 07/21/17 13:55 97.0 73 18 88/46 96 07/21/17 08:00 Nasal Cannula 2.0 Intake and Output 07/20/17 07/20/17 07/21/17 15:00 23:00 07:00 Intake Total 960 ml 600 ml Output Total 0 ml Balance 960 ml 600 ml Exam Constitutional: alert, oriented Neck: supple Respiratory: other (Coarse breath sounds bilaterally, no wheezing) Cardiovascular: other (S1-S2 heard), regular rate and rhythm Gastrointestinal: bowel sounds, non-tender, soft Extremities: pitting pedal rogelio Results Result Diagram: 07/20/17 0539 07/21/17 0549 Results 24 hrs Laboratory Tests Test 07/20/17 15:48 07/20/17 16:00 07/20/17 17:19 07/20/17 20:44 Blood Gas Specimen Source Blood arterial Arterial Blood Date Drawn 07/20/2017 5:25:34 PM Arterial Blood pH (Temp corrected) 7.475 H Arterial Blood pCO2 (Temp correct) 45.7 H Arterial Blood pO2 (Temp corrected) 113.6 H Arterial Blood HCO3 32.9 H Arterial Blood Base Excess 8.3 H Arterial Blood Oxygen Saturation 98.1 Bimal Test ACCEPTAB Arterial Blood Gas Puncture Site Right Radial Arterial Blood Carboxyhemoglobin 0.6 Arterial Blood Methemoglobin 0.4 Blood Gas A-a O2 Differential 24.9 H Oxyhemoglobin Percent 97.1 Total Hemoglobin 12.2 Blood Gas Temperature 37.0 Blood Gas Modality NASAL CANNULA FiO2 27.0 Blood Gas Notified Whom CW Blood Gas Notified Time 07/20/2017 5:34:02 PM Sodium Level 134 L Potassium Level 4.2 Chloride Level 97 Carbon Dioxide Level 33 H Anion Gap 8 Blood Urea Nitrogen 13 Creatinine 0.61 Glucose Level 120 Calcium Level 8.6 Bedside Glucose 142 185 Test 07/21/17 03:04 07/21/17 05:49 07/21/17 07:55 07/21/17 12:03 Bedside Glucose 120 134 159 Sodium Level 136 Potassium Level 4.2 Chloride Level 99 Carbon Dioxide Level 33 H Anion Gap 8 Blood Urea Nitrogen 10 Creatinine 0.65 Glucose Level 114 Calcium Level 8.7 Medications Medications Current Medications Ondansetron HCl (Zofran Inj) 4 mg Q6H PRN IV NAUSEA AND/OR VOMITING; Start at 23:30 Acetaminophen (Tylenol Tab) 650 mg Q6H PRN PO PAIN LEVEL 1-3 OR FEVER Last administered on 07/16/17 15:55; Admin Dose 650 MG; Start 07/09/17 at 23:30 Acetaminophen/ Hydrocodone Bitart ([place] (5/325)) 1 tab Q6H PRN PO MODERATE PAIN LEVEL 4-6 Last administered on 07/17/17 14:27; Admin Dose 1 TAB; Start at 23:30 Morphine Sulfate (morphine) 2 mg Q4H PRN IV SEVERE PAIN LEVEL 7-10 Last administered on 07/20/17 22:37; Admin Dose 2 MG; Start 07/09/17 at 23:30 Docusate Sodium (Colace) 100 mg Q12H PRN PO CONSTIPATION Last administered on 16:34; Admin Dose 100 MG; Start 07/09/17 at 23:30 Magnesium Hydroxide (Milk Of Mag) 30 ml DAILY PRN PO CONSTIPATION Last administered on 07/14/17 21:26; Admin Dose 30 ML; Start 07/09/17 at 23:30 Bisacodyl (Dulcolax) 5 mg DAILY PRN PO CONSTIPATION Last administered on 16:34; Admin Dose 5 MG; Start 07/09/17 at 23:30 Zolpidem Tartrate (Ambien) 5 mg QHS PRN PO SLEEP Last administered on 07/20/17 20:40; Admin Dose 5 MG; Start 07/09/17 at 23:30 Famotidine (Pepcid) 20 mg Q12 PO Last administered on 07/21/17 07:56; Admin Dose 20 MG; Start 07/10/17 at 09:00 Enoxaparin Sodium (Lovenox) 40 mg DAILY SC Last administered on 07/21/17 08:07 ; Admin Dose 40 MG; Start 07/10/17 at 09:00 Bisacodyl (Dulcolax Supp) 10 mg Q48H PRN [place] CONSTIPATION Last administered on 13:06; Admin Dose 10 MG; Start 07/10/17 at 12:00 Atorvastatin Calcium (Lipitor) 10 mg QHS PO Last administered on 07/20/17 20:40 ; Admin Dose 10 MG; Start 07/10/17 at 21:00 Clopidogrel Bisulfate (plaVIX) 75 mg QAM PO Last administered on 07/21/17 07:56 ; Admin Dose 75 MG; Start 07/10/17 at 14:00 Midodrine (Proamatine) 5 mg BID PO Last administered on 07/20/17 08:24; Admin Dose 5 MG; Start 07/10/17 at 21:00 Montelukast Sodium (Singulair) 10 mg QAM PO Last administered on 07/21/17 07:56 ; Admin Dose 10 MG; Start 07/10/17 at 14:00 Ranitidine HCl (Zantac) 150 mg HS PO Last administered on 07/20/17 20:40; Admin Dose 150 MG; Start 07/10/17 at 21:00 Ranolazine (Ranexa) 500 mg Q12 PO Last administered on 07/21/17 07:56; Admin Dose 500 MG; Start 07/10/17 at 21:00 Tamsulosin HCl (Flomax) 0.4 mg HS PO Last administered on 07/20/17 20:40; Admin Dose 0.4 MG; Start 07/10/17 at 21:00 Cholecalciferol (Vitamin D) 2,000 unit DAILY PO Last administered on 07/21/17 07:58; Admin Dose 2,000 UNIT; Start 07/10/17 at 14:00 Escitalopram Oxalate (Lexapro) 5 mg QPM PO Last administered on 07/20/17 20:40 ; Admin Dose 5 MG; Start 07/11/17 at 09:00 Pantoprazole (Protonix Tab) 40 mg DAILY@06 PO Last administered on 07/21/17 05: 30; Admin Dose 40 MG; Start 07/11/17 at 06:00 Diagnostic Test (Pha) (Accu-Chek) 1 ea 02 XX Last administered on 07/21/17 02: 00; Admin Dose 1 EA; Start 07/11/17 at 02:00 Miscellaneous Information 1 ea NOTE XX ; Start 07/10/17 at 15:00 Glucose (Glutose) 15 gm Q15M PRN PO DECREASED GLUCOSE; Start 07/10/17 at 15:00 Glucose (Glutose) 22.5 gm Q15M PRN PO DECREASED GLUCOSE; Start 07/10/17 at 15: 00 Dextrose (D50w Syringe) 25 ml Q15M PRN IV DECREASED GLUCOSE; Start 07/10/17 at 15:00 Dextrose (D50w Syringe) 50 ml Q15M PRN IV DECREASED GLUCOSE; Start 07/10/17 at 15:00 Glucagon (Glucagen) 1 mg Q15M PRN IM DECREASED GLUCOSE; Start 07/10/17 at 15:00 Glucose (Glutose) 15 gm Q15M PRN BUCCAL DECREASED GLUCOSE; Start 07/10/17 at 15 :00 Linagliptin (Tradjenta) 5 mg DAILY PO Last administered on 07/21/17 07:57; Admin Dose 5 MG; Start 07/11/17 at 09:00 Digoxin (Digoxin) 0.125 mg DAILY@13 PO Last administered on 07/21/17 12:01; Admin Dose 0.125 MG; Start 07/12/17 at 13:00 Carvedilol (Coreg) 3.125 mg BID PO Last administered on 07/21/17 07:58; Admin Dose 3.125 MG; Start 07/14/17 at 21:00 Potassium Chloride (Klor-Con 20) 20 meq BID PO Last administered on 07/21/17 07 :56; Admin Dose 20 MEQ; Start 07/15/17 at 21:00 Furosemide (Lasix) 20 mg DAILY PO Last administered on 07/21/17 07:58; Admin Dose 20 MG; Start 07/16/17 at 09:00 YARI MILLER MD Jul 21, 2017 15:39
[2017-07-21 19:29] VITALS: BP 111/60; RESP 18
[2017-07-21] MEDS: ZOLPIDEM 5 MG TAB PO PRN (20:23)
[2017-07-21] MEDS: ESCITALOPRAM 10 MG TAB PO SCH (20:23)
[2017-07-21] MEDS: ATORVASTATIN 10 MG TAB PO SCH (20:23)
[2017-07-21] MEDS: TAMSULOSIN (SR) 0.4 MG CAP PO SCH (20:24)
[2017-07-21] MEDS: RANITIDINE 150 MG TAB PO SCH (20:25)
[2017-07-22 02:00] VITALS: BP 109/56; RESP 18
[2017-07-22] MEDS: ACCU-CHEK XX SCH (02:00)
[2017-07-22 05:44] LABS: BASOPHIL # 0.1 10^3/ul (0.0-0.1); BASOPHILS % 0.5 % (0.0-2.0); EOSINOPHILS # 0.1 10^3/ul (0.0-0.5); EOSINOPHILS % 0.7 % (0.0-7.0); HEMATOCRIT 32.6 % (42.0-52.0); HEMOGLOBIN 10.4 g/dl (14.0-18.0); LYMPHOCYTES # 1.3 10^3/ul (0.8-2.9); LYMPHOCYTES % 13.6 % (15.0-51.0); MEAN CORPUSCULAR HGB CONC 31.9 g/dl (32.0-37.0); MEAN CORPUSCULAR VOLUME 90.8 fl (82.0-101.0); MEAN PLATELET VOLUME 10.1 fl (7.4-10.4); MONOCYTES % 10.3 % (0.0-11.0); NEUTROPHILS % 74.2 % (39.0-77.0); PLATELET COUNT 271 10^3/UL (140-415); RED BLOOD COUNT 3.59 10^6/ul (4.70-6.10); RED CELL DISTRIBUTION WIDTH 16.1 % (11.5-14.5); WHITE BLOOD COUNT 9.6 10^3/ul (4.8-10.8)
[2017-07-22] MEDS: PANTOPRAZOLE (EC) 40 MG TAB PO SCH (05:51)
[2017-07-22 06:11] LABS: CALCIUM 9.4 mg/dl (8.4-10.2); CREATININE 0.68 mg/dl (0.61-1.24); POTASSIUM 4.6 mmol/L (3.5-5.1)
[2017-07-22 07:21] VITALS: BP 116/57; RESP 18
[2017-07-22] MEDS: INSULIN ASPART [NOVOLOG] 3 ML PEN SC SCH ×4 (08:07→20:57)
[2017-07-22] MEDS: MIDODRINE 5 MG TAB PO SCH ×3 (08:51→20:53)
[2017-07-22] MEDS: RANOLAZINE (SR) 500 MG TAB PO SCH ×2 (09:01→20:51)
[2017-07-22] MEDS: CHOLECALCIFEROL 2,000 UNIT CAP PO SCH (09:01)
[2017-07-22] MEDS: LINAGLIPTIN 5 MG TABLET PO SCH (09:01)
[2017-07-22] MEDS: CLOPIDOGREL 75 MG TAB PO SCH (09:01)
[2017-07-22] MEDS: FUROSEMIDE 20 MG TAB PO SCH (09:01)
[2017-07-22] MEDS: POTASSIUM CHLORIDE (SR) 20 MEQ TAB PO SCH ×2 (09:01→20:50)
[2017-07-22] MEDS: MONTELUKAST 10 MG TAB PO SCH (09:01)
[2017-07-22] MEDS: FAMOTIDINE 20 MG TAB PO SCH ×2 (09:02→20:52)
[2017-07-22] MEDS: ENOXAPARIN 40 MG/0.4 ML SYG SC SCH (09:12)
[2017-07-22] MEDS: BISACODYL (EC) 5 MG TAB PO PRN (09:32)
[2017-07-22 13:18] VITALS: BP 87/52; RESP 18
[2017-07-22] MEDS: DIGOXIN 0.125 MG TAB PO SCH (13:40)
--- NOTE | 2017-07-22 13:59 | CONS ---
Date/Time of Note Date/Time of Note DATE: 07/22/17 TIME: 13:58 Assessment/Plan Assessment/Plan Additional Assessment/Plan History of lung cancer with current pleural effusion Acute decompensated diastolic congestive heart failure, improved CAD with history of CABG Preserved ejection fraction -Lower extremity edema has since resolved. Given borderline blood pressure, would DC diuretics the current time. DC planning Consultation Date/Type/Reason Admit Date/Time Jul 09, 2017 at 19:15 Initial Consult Date 07/13/17 Type of Consultation: cv Referring Provider: RUIZ GRAJEDA MD 24 HR Interval Summary Free Text/Dictation Lower extremity edema has improved. Denies chest pain Exam/Review of Systems Vital Signs Vitals Vital Signs Date Time Temp Pulse Resp B/P Pulse Ox O2 Delivery O2 Flow Rate FiO2 07/22/17 13:18 97.6 72 18 87/52 100 07/22/17 03:39 1.0 07/21/17 20:00 Nasal Cannula Intake and Output 07/21/17 07/21/17 07/22/17 15:00 23:00 07:00 Intake Total 780 ml 400 ml Output Total 0 ml Balance 780 ml 400 ml Exam No apparent distress Constitutional: alert, frail, oriented Head: normocephalic Respiratory: other (Coarse breath sounds bilaterally, no wheezing) Cardiovascular: other (s1 S2 heard), regular rate and rhythm Gastrointestinal: bowel sounds, non-tender, soft Extremities: other (No edema) Results Result Diagram: 07/22/17 0530 07/22/17 0530 Results 24 hrs Laboratory Tests Test 07/21/17 17:15 07/21/17 20:21 07/22/17 05:30 07/22/17 08:07 Bedside Glucose 206 135 121 White Blood Count 9.6 # Red Blood Count 3.59 L Hemoglobin 10.4 L Hematocrit 32.6 L Mean Corpuscular Volume 90.8 Mean Corpuscular Hemoglobin 29.0 Mean Corpuscular Hemoglobin Concent 31.9 L Red Cell Distribution Width 16.1 H Platelet Count 271 Mean Platelet Volume 10.1 Neutrophils % 74.2 Lymphocytes % 13.6 L Monocytes % 10.3 Eosinophils % 0.7 Basophils % 0.5 Nucleated Red Blood Cells % 0.0 Neutrophils # (Manual) 7.1 Lymphocytes # 1.3 Monocytes # 1.0 H Eosinophils # 0.1 Basophils # 0.1 Nucleated Red Blood Cells # 0.0 Sodium Level 137 Potassium Level 4.6 Chloride Level 99 Carbon Dioxide Level 32 H Anion Gap 11 Blood Urea Nitrogen 12 Creatinine 0.68 Glucose Level 107 Calcium Level 9.4 Test 07/22/17 12:15 Bedside Glucose 181 Medications Medications Current Medications Ondansetron HCl (Zofran Inj) 4 mg Q6H PRN IV NAUSEA AND/OR VOMITING; Start at 23:30 Acetaminophen (Tylenol Tab) 650 mg Q6H PRN PO PAIN LEVEL 1-3 OR FEVER Last administered on 07/16/17 15:55; Admin Dose 650 MG; Start 07/09/17 at 23:30 Acetaminophen/ Hydrocodone Bitart ([place] (5/325)) 1 tab Q6H PRN PO MODERATE PAIN LEVEL 4-6 Last administered on 07/17/17 14:27; Admin Dose 1 TAB; Start at 23:30 Morphine Sulfate (morphine) 2 mg Q4H PRN IV SEVERE PAIN LEVEL 7-10 Last administered on 07/20/17 22:37; Admin Dose 2 MG; Start 07/09/17 at 23:30 Docusate Sodium (Colace) 100 mg Q12H PRN PO CONSTIPATION Last administered on 16:34; Admin Dose 100 MG; Start 07/09/17 at 23:30 Magnesium Hydroxide (Milk Of Mag) 30 ml DAILY PRN PO CONSTIPATION Last administered on 07/14/17 21:26; Admin Dose 30 ML; Start 07/09/17 at 23:30 Bisacodyl (Dulcolax) 5 mg DAILY PRN PO CONSTIPATION Last administered on 09:32; Admin Dose 5 MG; Start 07/09/17 at 23:30 Zolpidem Tartrate (Ambien) 5 mg QHS PRN PO SLEEP Last administered on 07/21/17 20:23; Admin Dose 5 MG; Start 07/09/17 at 23:30 Famotidine (Pepcid) 20 mg Q12 PO Last administered on 07/22/17 09:02; Admin Dose 20 MG; Start 07/10/17 at 09:00 Enoxaparin Sodium (Lovenox) 40 mg DAILY SC Last administered on 07/22/17 09:12 ; Admin Dose 40 MG; Start 07/10/17 at 09:00 Bisacodyl (Dulcolax Supp) 10 mg Q48H PRN [place] CONSTIPATION Last administered on 13:06; Admin Dose 10 MG; Start 07/10/17 at 12:00 Atorvastatin Calcium (Lipitor) 10 mg QHS PO Last administered on 07/21/17 20:23 ; Admin Dose 10 MG; Start 07/10/17 at 21:00 Clopidogrel Bisulfate (plaVIX) 75 mg QAM PO Last administered on 07/22/17 09:01 ; Admin Dose 75 MG; Start 07/10/17 at 14:00 Midodrine (Proamatine) 5 mg BID PO Last administered on 07/22/17 13:42; Admin Dose 5 MG; Start 07/10/17 at 21:00 Montelukast Sodium (Singulair) 10 mg QAM PO Last administered on 07/22/17 09:01 ; Admin Dose 10 MG; Start 07/10/17 at 14:00 Ranitidine HCl (Zantac) 150 mg HS PO Last administered on 07/21/17 20:25; Admin Dose 150 MG; Start 07/10/17 at 21:00 Ranolazine (Ranexa) 500 mg Q12 PO Last administered on 07/22/17 09:01; Admin Dose 500 MG; Start 07/10/17 at 21:00 Tamsulosin HCl (Flomax) 0.4 mg HS PO Last administered on 07/21/17 20:24; Admin Dose 0.4 MG; Start 07/10/17 at 21:00 Cholecalciferol (Vitamin D) 2,000 unit DAILY PO Last administered on 07/22/17 09:01; Admin Dose 2,000 UNIT; Start 07/10/17 at 14:00 Escitalopram Oxalate (Lexapro) 5 mg QPM PO Last administered on 07/21/17 20:23 ; Admin Dose 5 MG; Start 07/11/17 at 09:00 Pantoprazole (Protonix Tab) 40 mg DAILY@06 PO Last administered on 07/22/17 05: 51; Admin Dose 40 MG; Start 07/11/17 at 06:00 Diagnostic Test (Pha) (Accu-Chek) 1 ea 02 XX Last administered on 07/21/17 02: 00; Admin Dose 1 EA; Start 07/11/17 at 02:00 Miscellaneous Information 1 ea NOTE XX ; Start 07/10/17 at 15:00 Glucose (Glutose) 15 gm Q15M PRN PO DECREASED GLUCOSE; Start 07/10/17 at 15:00 Glucose (Glutose) 22.5 gm Q15M PRN PO DECREASED GLUCOSE; Start 07/10/17 at 15: 00 Dextrose (D50w Syringe) 25 ml Q15M PRN IV DECREASED GLUCOSE; Start 07/10/17 at 15:00 Dextrose (D50w Syringe) 50 ml Q15M PRN IV DECREASED GLUCOSE; Start 07/10/17 at 15:00 Glucagon (Glucagen) 1 mg Q15M PRN IM DECREASED GLUCOSE; Start 07/10/17 at 15:00 Glucose (Glutose) 15 gm Q15M PRN BUCCAL DECREASED GLUCOSE; Start 07/10/17 at 15 :00 Linagliptin (Tradjenta) 5 mg DAILY PO Last administered on 07/22/17 09:01; Admin Dose 5 MG; Start 07/11/17 at 09:00 Digoxin (Digoxin) 0.125 mg DAILY@13 PO Last administered on 07/22/17 13:40; Admin Dose 0.125 MG; Start 07/12/17 at 13:00 Carvedilol (Coreg) 3.125 mg BID PO Last administered on 07/22/17 09:02; Admin Dose 3.125 MG; Start 07/14/17 at 21:00 Potassium Chloride (Klor-Con 20) 20 meq BID PO Last administered on 07/22/17 09 :01; Admin Dose 20 MEQ; Start 07/15/17 at 21:00 Furosemide (Lasix) 20 mg DAILY PO Last administered on 07/22/17 09:01; Admin Dose 20 MG; Start 07/16/17 at 09:00 Amado Rodriguez DO Jul 22, 2017 13:59
--- NOTE | 2017-07-22 14:17 | PN ---
Date/Time of Note Date/Time of Note DATE: 07/22/17 TIME: 13:43 Assessment/Plan Lines/Catheters IV C[facility] Type [facility]from [facility] Urinary Cath still in place: No Assessment/Plan Assessment/Plan -Severe right lung fibrocavitary disease with chronic loculated effusion. Dr Nagy is following in pulmonology consultation. -Coronary artery disease status post CABG in 2004. Continue Plavix. Dr. 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 Continue Lasix, monitor electrolytes. -Diastolic dysfunction congestive heart failure -Bilateral lower extremity edema, venous Dopplers negative for any deep venous thrombosis. -History of lung cancer dx 2006, completed chemotherapy in 2009. -Diabetes mellitus, continue Tradjenta and NovoLog per mild algorithm sliding scale. -BPH, continue Flomax Subjective 24 Hr Interval Summary Free Text/Dictation BPLOW- 87/52. FAMILY AT BED side- dw daughter- all Qs ANSWERED. dw staff Constitutional: requiring IVF, requiring O2 Respiratory: shortness of breath Cardiovascular: no complaints Gastrointestinal: no complaints Genitourinary: no complaints Musculoskeletal: no complaints Exam/Review of Systems Vital Signs Vitals Vital Signs Date Time Temp Pulse Resp B/P Pulse Ox O2 Delivery O2 Flow Rate FiO2 07/22/17 13:18 97.6 72 18 87/52 100 07/22/17 03:39 1.0 07/21/17 20:00 Nasal Cannula Intake and Output 07/21/17 07/21/17 07/22/17 15:00 23:00 07:00 Intake Total 780 ml 400 ml Output Total 0 ml Balance 780 ml 400 ml Exam Constitutional: alert, oriented Respiratory: diminished breath sounds Cardiovascular: nl pulses, regular rate and rhythm Gastrointestinal: non-tender, soft Musculoskeletal: nl extremities to inspection Extremities: normal pulses Results Result Diagram: 07/22/17 0530 07/22/17 0530 Results 24 hrs Laboratory Tests Test 07/21/17 17:15 07/21/17 20:21 07/22/17 05:30 07/22/17 08:07 Bedside Glucose 206 135 121 White Blood Count 9.6 # Red Blood Count 3.59 L Hemoglobin 10.4 L Hematocrit 32.6 L Mean Corpuscular Volume 90.8 Mean Corpuscular Hemoglobin 29.0 Mean Corpuscular Hemoglobin Concent 31.9 L Red Cell Distribution Width 16.1 H Platelet Count 271 Mean Platelet Volume 10.1 Neutrophils % 74.2 Lymphocytes % 13.6 L Monocytes % 10.3 Eosinophils % 0.7 Basophils % 0.5 Nucleated Red Blood Cells % 0.0 Neutrophils # (Manual) 7.1 Lymphocytes # 1.3 Monocytes # 1.0 H Eosinophils # 0.1 Basophils # 0.1 Nucleated Red Blood Cells # 0.0 Sodium Level 137 Potassium Level 4.6 Chloride Level 99 Carbon Dioxide Level 32 H Anion Gap 11 Blood Urea Nitrogen 12 Creatinine 0.68 Glucose Level 107 Calcium Level 9.4 Test 07/22/17 12:15 Bedside Glucose 181 Medications Medications Current Medications Ondansetron HCl (Zofran Inj) 4 mg Q6H PRN IV NAUSEA AND/OR VOMITING; Start at 23:30 Acetaminophen (Tylenol Tab) 650 mg Q6H PRN PO PAIN LEVEL 1-3 OR FEVER Last administered on 07/16/17 15:55; Admin Dose 650 MG; Start 07/09/17 at 23:30 Acetaminophen/ Hydrocodone Bitart ([place] (5/325)) 1 tab Q6H PRN PO MODERATE PAIN LEVEL 4-6 Last administered on 07/17/17 14:27; Admin Dose 1 TAB; Start at 23:30 Morphine Sulfate (morphine) 2 mg Q4H PRN IV SEVERE PAIN LEVEL 7-10 Last administered on 07/20/17 22:37; Admin Dose 2 MG; Start 07/09/17 at 23:30 Docusate Sodium (Colace) 100 mg Q12H PRN PO CONSTIPATION Last administered on 16:34; Admin Dose 100 MG; Start 07/09/17 at 23:30 Magnesium Hydroxide (Milk Of Mag) 30 ml DAILY PRN PO CONSTIPATION Last administered on 07/14/17 21:26; Admin Dose 30 ML; Start 07/09/17 at 23:30 Bisacodyl (Dulcolax) 5 mg DAILY PRN PO CONSTIPATION Last administered on 09:32; Admin Dose 5 MG; Start 07/09/17 at 23:30 Zolpidem Tartrate (Ambien) 5 mg QHS PRN PO SLEEP Last administered on 07/21/17 20:23; Admin Dose 5 MG; Start 07/09/17 at 23:30 Famotidine (Pepcid) 20 mg Q12 PO Last administered on 07/22/17 09:02; Admin Dose 20 MG; Start 07/10/17 at 09:00 Enoxaparin Sodium (Lovenox) 40 mg DAILY SC Last administered on 07/22/17 09:12 ; Admin Dose 40 MG; Start 07/10/17 at 09:00 Bisacodyl (Dulcolax Supp) 10 mg Q48H PRN [place] CONSTIPATION Last administered on 13:06; Admin Dose 10 MG; Start 07/10/17 at 12:00 Atorvastatin Calcium (Lipitor) 10 mg QHS PO Last administered on 07/21/17 20:23 ; Admin Dose 10 MG; Start 07/10/17 at 21:00 Clopidogrel Bisulfate (plaVIX) 75 mg QAM PO Last administered on 07/22/17 09:01 ; Admin Dose 75 MG; Start 07/10/17 at 14:00 Midodrine (Proamatine) 5 mg BID PO Last administered on 07/21/17 20:24; Admin Dose 5 MG; Start 07/10/17 at 21:00 Montelukast Sodium (Singulair) 10 mg QAM PO Last administered on 07/22/17 09:01 ; Admin Dose 10 MG; Start 07/10/17 at 14:00 Ranitidine HCl (Zantac) 150 mg HS PO Last administered on 07/21/17 20:25; Admin Dose 150 MG; Start 07/10/17 at 21:00 Ranolazine (Ranexa) 500 mg Q12 PO Last administered on 07/22/17 09:01; Admin Dose 500 MG; Start 07/10/17 at 21:00 Tamsulosin HCl (Flomax) 0.4 mg HS PO Last administered on 07/21/17 20:24; Admin Dose 0.4 MG; Start 07/10/17 at 21:00 Cholecalciferol (Vitamin D) 2,000 unit DAILY PO Last administered on 07/22/17 09:01; Admin Dose 2,000 UNIT; Start 07/10/17 at 14:00 Escitalopram Oxalate (Lexapro) 5 mg QPM PO Last administered on 07/21/17 20:23 ; Admin Dose 5 MG; Start 07/11/17 at 09:00 Pantoprazole (Protonix Tab) 40 mg DAILY@06 PO Last administered on 07/22/17 05: 51; Admin Dose 40 MG; Start 07/11/17 at 06:00 Diagnostic Test (Pha) (Accu-Chek) 1 ea 02 XX Last administered on 07/21/17 02: 00; Admin Dose 1 EA; Start 07/11/17 at 02:00 Miscellaneous Information 1 ea NOTE XX ; Start 07/10/17 at 15:00 Glucose (Glutose) 15 gm Q15M PRN PO DECREASED GLUCOSE; Start 07/10/17 at 15:00 Glucose (Glutose) 22.5 gm Q15M PRN PO DECREASED GLUCOSE; Start 07/10/17 at 15: 00 Dextrose (D50w Syringe) 25 ml Q15M PRN IV DECREASED GLUCOSE; Start 07/10/17 at 15:00 Dextrose (D50w Syringe) 50 ml Q15M PRN IV DECREASED GLUCOSE; Start 07/10/17 at 15:00 Glucagon (Glucagen) 1 mg Q15M PRN IM DECREASED GLUCOSE; Start 07/10/17 at 15:00 Glucose (Glutose) 15 gm Q15M PRN BUCCAL DECREASED GLUCOSE; Start 07/10/17 at 15 :00 Linagliptin (Tradjenta) 5 mg DAILY PO Last administered on 07/22/17 09:01; Admin Dose 5 MG; Start 07/11/17 at 09:00 Digoxin (Digoxin) 0.125 mg DAILY@13 PO Last administered on 07/21/17 12:01; Admin Dose 0.125 MG; Start 07/12/17 at 13:00 Carvedilol (Coreg) 3.125 mg BID PO Last administered on 07/22/17 09:02; Admin Dose 3.125 MG; Start 07/14/17 at 21:00 Potassium Chloride (Klor-Con 20) 20 meq BID PO Last administered on 07/22/17 09 :01; Admin Dose 20 MEQ; Start 07/15/17 at 21:00 Furosemide (Lasix) 20 mg DAILY PO Last administered on 07/22/17 09:01; Admin Dose 20 MG; Start 07/16/17 at 09:00 [facility] Jul 22, 2017 13:54
[2017-07-22] MEDS: SOD CHLORIDE 0.9% 1,000 ML IV SCH (14:46)
[2017-07-22 15:11] VITALS: BP 105/60; RESP 18
--- NOTE | 2017-07-22 18:01 | CONS ---
Date/Time of Note Date/Time of Note DATE: 07/22/17 TIME: 18:00 Assessment/Plan Assessment/Plan Additional Assessment/Plan 1. Hypokalemia 2. Pleural effusion 3. 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 Denies having lung surgery or prior TB 4. h/o NSCLC s/p chemo and XRT plan : continue KCL 20mEQ PO BID , today electrolytes and Cr stable Keep magnesium normal Keep pt even, no IV Fluids BP stable will follow up Consultation Date/Type/Reason Admit Date/Time Jul 09, 2017 at 19:15 Initial Consult Date 07/13/17 Type of Consultation: NEPHROLOG y Referring Provider: RUIZ GRAJEDA MD 24 HR Interval Summary Free Text/Dictation no acute events, BP stbale, Cr and electrolytes stable Exam/Review of Systems Vital Signs Vitals Vital Signs Date Time Temp Pulse Resp B/P Pulse Ox O2 Delivery O2 Flow Rate FiO2 07/22/17 15:11 97.2 75 18 105/60 100 07/22/17 15:07 1.0 07/22/17 08:45 Nasal Cannula Intake and Output 07/21/17 07/21/17 07/22/17 15:00 23:00 07:00 Intake Total 780 ml 400 ml Output Total 0 ml Balance 780 ml 400 ml Exam Constitutional: alert, oriented Neck: supple Respiratory: other (Coarse breath sounds bilaterally, no wheezing) Cardiovascular: other (S1-S2 heard), regular rate and rhythm Gastrointestinal: bowel sounds, non-tender, soft Extremities: pitting pedal rogelio Results Result Diagram: 07/22/17 0530 07/22/17 0530 Results 24 hrs Laboratory Tests Test 07/21/17 20:21 07/22/17 05:30 07/22/17 08:07 07/22/17 12:15 Bedside Glucose 135 121 181 White Blood Count 9.6 # Red Blood Count 3.59 L Hemoglobin 10.4 L Hematocrit 32.6 L Mean Corpuscular Volume 90.8 Mean Corpuscular Hemoglobin 29.0 Mean Corpuscular Hemoglobin Concent 31.9 L Red Cell Distribution Width 16.1 H Platelet Count 271 Mean Platelet Volume 10.1 Neutrophils % 74.2 Lymphocytes % 13.6 L Monocytes % 10.3 Eosinophils % 0.7 Basophils % 0.5 Nucleated Red Blood Cells % 0.0 Neutrophils # (Manual) 7.1 Lymphocytes # 1.3 Monocytes # 1.0 H Eosinophils # 0.1 Basophils # 0.1 Nucleated Red Blood Cells # 0.0 Sodium Level 137 Potassium Level 4.6 Chloride Level 99 Carbon Dioxide Level 32 H Anion Gap 11 Blood Urea Nitrogen 12 Creatinine 0.68 Glucose Level 107 Calcium Level 9.4 Test 07/22/17 17:21 Bedside Glucose 143 Medications Medications Current Medications Ondansetron HCl (Zofran Inj) 4 mg Q6H PRN IV NAUSEA AND/OR VOMITING; Start at 23:30 Acetaminophen (Tylenol Tab) 650 mg Q6H PRN PO PAIN LEVEL 1-3 OR FEVER Last administered on 07/16/17 15:55; Admin Dose 650 MG; Start 07/09/17 at 23:30 Acetaminophen/ Hydrocodone Bitart ([place] (5/325)) 1 tab Q6H PRN PO MODERATE PAIN LEVEL 4-6 Last administered on 07/17/17 14:27; Admin Dose 1 TAB; Start at 23:30 Morphine Sulfate (morphine) 2 mg Q4H PRN IV SEVERE PAIN LEVEL 7-10 Last administered on 07/20/17 22:37; Admin Dose 2 MG; Start 07/09/17 at 23:30 Docusate Sodium (Colace) 100 mg Q12H PRN PO CONSTIPATION Last administered on 16:34; Admin Dose 100 MG; Start 07/09/17 at 23:30 Magnesium Hydroxide (Milk Of Mag) 30 ml DAILY PRN PO CONSTIPATION Last administered on 07/14/17 21:26; Admin Dose 30 ML; Start 07/09/17 at 23:30 Bisacodyl (Dulcolax) 5 mg DAILY PRN PO CONSTIPATION Last administered on 09:32; Admin Dose 5 MG; Start 07/09/17 at 23:30 Zolpidem Tartrate (Ambien) 5 mg QHS PRN PO SLEEP Last administered on 07/21/17 20:23; Admin Dose 5 MG; Start 07/09/17 at 23:30 Famotidine (Pepcid) 20 mg Q12 PO Last administered on 07/22/17 09:02; Admin Dose 20 MG; Start 07/10/17 at 09:00 Enoxaparin Sodium (Lovenox) 40 mg DAILY SC Last administered on 07/22/17 09:12 ; Admin Dose 40 MG; Start 07/10/17 at 09:00 Bisacodyl (Dulcolax Supp) 10 mg Q48H PRN IN CONSTIPATION Last administered on 13:06; Admin Dose 10 MG; Start 07/10/17 at 12:00 Atorvastatin Calcium (Lipitor) 10 mg QHS PO Last administered on 07/21/17 20:23 ; Admin Dose 10 MG; Start 07/10/17 at 21:00 Clopidogrel Bisulfate (plaVIX) 75 mg QAM PO Last administered on 07/22/17 09:01 ; Admin Dose 75 MG; Start 07/10/17 at 14:00 Midodrine (Proamatine) 5 mg BID PO Last administered on 07/22/17 13:42; Admin Dose 5 MG; Start 07/10/17 at 21:00 Montelukast Sodium (Singulair) 10 mg QAM PO Last administered on 07/22/17 09:01 ; Admin Dose 10 MG; Start 07/10/17 at 14:00 Ranitidine HCl (Zantac) 150 mg HS PO Last administered on 07/21/17 20:25; Admin Dose 150 MG; Start 07/10/17 at 21:00 Ranolazine (Ranexa) 500 mg Q12 PO Last administered on 07/22/17 09:01; Admin Dose 500 MG; Start 07/10/17 at 21:00 Tamsulosin HCl (Flomax) 0.4 mg HS PO Last administered on 07/21/17 20:24; Admin Dose 0.4 MG; Start 07/10/17 at 21:00 Cholecalciferol (Vitamin D) 2,000 unit DAILY PO Last administered on 07/22/17 09:01; Admin Dose 2,000 UNIT; Start 07/10/17 at 14:00 Escitalopram Oxalate (Lexapro) 5 mg QPM PO Last administered on 07/21/17 20:23 ; Admin Dose 5 MG; Start 07/11/17 at 09:00 Pantoprazole (Protonix Tab) 40 mg DAILY@06 PO Last administered on 07/22/17 05: 51; Admin Dose 40 MG; Start 07/11/17 at 06:00 Diagnostic Test (Pha) (Accu-Chek) 1 ea 02 XX Last administered on 07/21/17 02: 00; Admin Dose 1 EA; Start 07/11/17 at 02:00 Miscellaneous Information 1 ea NOTE XX ; Start 07/10/17 at 15:00 Glucose (Glutose) 15 gm Q15M PRN PO DECREASED GLUCOSE; Start 07/10/17 at 15:00 Glucose (Glutose) 22.5 gm Q15M PRN PO DECREASED GLUCOSE; Start 07/10/17 at 15: 00 Dextrose (D50w Syringe) 25 ml Q15M PRN IV DECREASED GLUCOSE; Start 07/10/17 at 15:00 Dextrose (D50w Syringe) 50 ml Q15M PRN IV DECREASED GLUCOSE; Start 07/10/17 at 15:00 Glucagon (Glucagen) 1 mg Q15M PRN IM DECREASED GLUCOSE; Start 07/10/17 at 15:00 Glucose (Glutose) 15 gm Q15M PRN BUCCAL DECREASED GLUCOSE; Start 07/10/17 at 15 :00 Linagliptin (Tradjenta) 5 mg DAILY PO Last administered on 07/22/17 09:01; Admin Dose 5 MG; Start 07/11/17 at 09:00 Digoxin (Digoxin) 0.125 mg DAILY@13 PO Last administered on 07/22/17 13:40; Admin Dose 0.125 MG; Start 07/12/17 at 13:00 Carvedilol (Coreg) 3.125 mg BID PO Last administered on 07/22/17 09:02; Admin Dose 3.125 MG; Start 07/14/17 at 21:00 Potassium Chloride 20 meq 20 meq BID PO Last administered on 07/22/17 09:01; Admin Dose 20 MEQ; Start 07/15/17 at 21:00 Sodium Chloride (NS) 1,000 ml @ 80 mls/hr [id number] IV Last administered on 14:46; Admin Dose 80 MLS/HR; Start 07/22/17 at 14:00 YARI MILLER MD Jul 22, 2017 18:00
[2017-07-22 19:23] VITALS: BP 102/54; RESP 20
[2017-07-22] MEDS: ATORVASTATIN 10 MG TAB PO SCH (20:50)
[2017-07-22] MEDS: ESCITALOPRAM 10 MG TAB PO SCH (20:50)
[2017-07-22] MEDS: RANITIDINE 150 MG TAB PO SCH (20:52)
[2017-07-22] MEDS: TAMSULOSIN (SR) 0.4 MG CAP PO SCH (20:52)
[2017-07-22] MEDS: HYDROCODONE/APAP (5/325) TAB PO PRN (20:52)
[2017-07-22] MEDS: ZOLPIDEM 5 MG TAB PO PRN (20:53)
[2017-07-23] MEDS: ACCU-CHEK XX SCH (01:59)
[2017-07-23 02:02] VITALS: BP_SYST 112; BP_SYST 114; BP_DIAS 58; BP_DIAS 70; RESP 18; RESP 20
[2017-07-23] MEDS: SOD CHLORIDE 0.9% 1,000 ML IV SCH (02:30)
[2017-07-23 06:20] LABS: BASOPHILS % 0.6 % (0.0-2.0); EOSINOPHILS # 0.1 10^3/ul (0.0-0.5); EOSINOPHILS % 1.1 % (0.0-7.0); HEMATOCRIT 28.3 % (42.0-52.0); HEMOGLOBIN 8.8 g/dl (14.0-18.0); LYMPHOCYTES # 0.8 10^3/ul (0.8-2.9); LYMPHOCYTES % 12.8 % (15.0-51.0); MEAN CORPUSCULAR HGB CONC 31.1 g/dl (32.0-37.0); MEAN CORPUSCULAR VOLUME 90.1 fl (82.0-101.0); MEAN PLATELET VOLUME 10.4 fl (7.4-10.4); MONOCYTE # 0.8 10^3/ul (0.3-0.9); MONOCYTES % 12.6 % (0.0-11.0); NEUTROPHILS % 72.1 % (39.0-77.0); PLATELET COUNT 214 10^3/UL (140-415); RED BLOOD COUNT 3.14 10^6/ul (4.70-6.10); RED CELL DISTRIBUTION WIDTH 16.2 % (11.5-14.5); WHITE BLOOD COUNT 6.3 10^3/ul (4.8-10.8)
[2017-07-23] MEDS: PANTOPRAZOLE (EC) 40 MG TAB PO SCH (06:29)
[2017-07-23 06:38] LABS: CALCIUM 8.8 mg/dl (8.4-10.2); CREATININE 0.65 mg/dl (0.61-1.24); POTASSIUM 4.1 mmol/L (3.5-5.1)
[2017-07-23 07:44] VITALS: BP 109/63; RESP 18
[2017-07-23] MEDS: MIDODRINE 5 MG TAB PO SCH (08:07)
[2017-07-23] MEDS: MONTELUKAST 10 MG TAB PO SCH (08:07)
[2017-07-23] MEDS: CLOPIDOGREL 75 MG TAB PO SCH (08:07)
[2017-07-23] MEDS: LINAGLIPTIN 5 MG TABLET PO SCH (08:07)
[2017-07-23] MEDS: RANOLAZINE (SR) 500 MG TAB PO SCH (08:07)
[2017-07-23] MEDS: FAMOTIDINE 20 MG TAB PO SCH (08:07)
[2017-07-23] MEDS: CHOLECALCIFEROL 2,000 UNIT CAP PO SCH (08:07)
[2017-07-23] MEDS: POTASSIUM CHLORIDE (SR) 20 MEQ TAB PO SCH (08:08)
[2017-07-23] MEDS: INSULIN ASPART [NOVOLOG] 3 ML PEN SC SCH ×2 (08:15→12:32)
[2017-07-23] MEDS: ENOXAPARIN 40 MG/0.4 ML SYG SC SCH (08:25)
[2017-07-23] MEDS: DIGOXIN 0.125 MG TAB PO SCH (12:19)
--- NOTE | 2017-07-23 13:21 | DS ---
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 -Coronary artery disease status post CABG in 2004. Continue Plavix. 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 -Diastolic dysfunction congestive heart failure -Bilateral lower extremity edema, venous Dopplers negative for any deep venous thrombosis. -History of lung cancer dx 2006, completed chemotherapy in 2009. -Diabetes mellitus -BPH, continue Patient Condition: Guarded Hx of Present Illness HPI This is a 81-year-old man with a history of lung cancer 2006 on chemo til 2009 hypertension, diabetes mellitus, CAD, [place] CABG 2004, [place], Hyperlipidemia, chronic chest pain, Hypotension on midodrine, Diabetes Mellitus, BPH is admitted with chest pain and shortness of breath 3 weeks, moderate cough as well, generalized weakness, He denied fevers he has had recent bilateral lower extremity swelling. He states the pain is sharp worse with cough, nonexertional nonradiating. Denies chest pain, shortness of breath, vomiting or diarrhea, no weight loss, no blood per rectum. Patient is resting in bed, seems comfortable. Dr Morrissey is the admitting and attending provider, ROS All systems reviewed and are negative except as per history of present illness. Hospital Course ASSESSMENT: 1. 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 2. Stable diastolic dysfunction. PLAN: 1. Continue supplemental O2 as needed. 2. Encourage out of bed. 3. Discharge planning okay from pulmonary standpoint. 4. Follow up with me in the office. 5. DVT and GI prophylaxis. Consider palliative care consult Home Meds Reported Medications Ranolazine* (Ranexa*) 500 Mg Tab.sr.12h, 500 MG PO Q12 for ANGINA, TAB 07/09/17 Escitalopram Oxalate* (Escitalopram Oxalate*) 5 Mg/5 Ml Solution, 5 MG PO QPM, ML 07/09/17 Montelukast Sodium* (Montelukast Sodium*) 10 Mg Tablet, 10 MG PO QAM, #30 TAB 07/09/17 Clopidogrel Bisulfate* (Clopidogrel Bisulfate*) 75 Mg Tablet, 75 MG PO QAM, #30 TAB 07/09/17 Atorvastatin Calcium (Atorvastatin Calcium) 10 Mg Tablet, 10 MG PO QHS, #30 TAB 07/09/17 Carvedilol* (Carvedilol*) 3.125 Mg Tablet, 3.125 MG PO QAM, #60 TAB 07/09/17 Tamsulosin Hcl* (Tamsulosin Hcl*) 0.4 Mg Cap.er.24h, 0.4 MG PO HS, CAP 07/09/17 Midodrine* (Midodrine*) 5 Mg Tablet, 5 MG PO BID, TAB 07/09/17 Metformin* (Glucophage*) 500 Mg Tab, 500 MG PO PC BREAKFAST, #60 TAB 07/09/17 Ranitidine Hcl* (Ranitidine Hcl*) 150 Mg Tablet, 150 MG PO HS, #30 TAB 07/09/17 Digoxin* (Digitek*) 125 Mcg Tablet, 0.125 MG PO QAM, TAB 07/09/17 Ergocalciferol (Vitamin D2) (VITAMIN D2) 2,000 Unit Tablet, 2000 UNIT PO, TAB 07/09/17 [place]-3 Fatty Acids/Fish Oil ([place] 3 1,000 mg Softgel) 1 Each Capsule, 1 EACH PO, CAP 07/09/17 Primary Care Provider Dakota Morrissey MD Pending Labs Laboratory Tests Test 07/22/17 17:21 07/22/17 20:57 07/23/17 05:39 07/23/17 08:05 Bedside Glucose 143mg/dL (70-220) 172mg/dL (70-220) 126mg/dL (70-220) White Blood Count 6.310^3/ul (4.8-10.8) Red Blood Count 3.1410^6/ul (4.70-6.10) Hemoglobin 8.8g/dl (14.0-18.0) Hematocrit 28.3% (42.0-52.0) Mean Corpuscular Volume 90.1fl (82.0-101.0) Mean Corpuscular Hemoglobin 28.0pg (29.0-33.0) Mean Corpuscular Hemoglobin Concent 31.1g/dl (32.0-37.0) Red Cell Distribution Width 16.2% (11.5-14.5) Platelet Count 89525^3/UL (140-415) Mean Platelet Volume 10.4fl (7.4-10.4) Neutrophils % 72.1% (39.0-77.0) Lymphocytes % 12.8% (15.0-51.0) Monocytes % 12.6% (0.0-11.0) Eosinophils % 1.1% (0.0-7.0) Basophils % 0.6% (0.0-2.0) Nucleated Red Blood Cells % 0.0/100WBC (0.0-0.0) Neutrophils # (Manual) 4.510^3/ul (1.7-7.5) Lymphocytes # 0.810^3/ul (0.8-2.9) Monocytes # 0.810^3/ul (0.3-0.9) Eosinophils # 0.110^3/ul (0.0-0.5) Basophils # 0.010^3/ul (0.0-0.1) Nucleated Red Blood Cells # 0.010^3/ul (0.0-0.0) Sodium Level 136mmol/L (135-144) Potassium Level 4.1mmol/L (3.5-5.1) Chloride Level 102mmol/L (97-110) Carbon Dioxide Level 31mmol/L (21-31) Anion Gap 7 (8-16) Blood Urea Nitrogen 14mg/dl (7-20) Creatinine 0.65mg/dl (0.61-1.24) Glucose Level 111mg/dl (70-220) Calcium Level 8.8mg/dl (8.4-10.2) Test 07/23/17 12:17 Bedside Glucose 156mg/dL (70-220) [facility] Jul 23, 2017 13:21
[2017-07-23] MEDS ORDERED: HYDR-3498 PO (13:25)
[2017-07-23] MEDS ORDERED: DOCU-216 PO ×2 (13:25→13:32)
[2017-07-23 14:35] VITALS: BP 112/65; RESP 20
[2017-07-23] MEDS ORDERED: POTA20TA15 PO (15:05)
--- NOTE | 2017-07-23 16:26 | CONS ---
Date/Time of Note Date/Time of Note DATE: 07/23/17 TIME: 16:25 Assessment/Plan Assessment/Plan Additional Assessment/Plan 1. Hypokalemia 2. Pleural effusion 3. 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 Denies having lung surgery or prior TB 4. h/o NSCLC s/p chemo and XRT plan : continue KCL 20mEQ PO BID , today electrolytes and Cr stable - will sign off, call us if any questions Consultation Date/Type/Reason Admit Date/Time Jul 09, 2017 at 19:15 Initial Consult Date 07/13/17 Type of Consultation: NEPHROLOG y Referring Provider: RUIZ GRAJEDA MD Exam/Review of Systems Vital Signs Vitals Vital Signs Date Time Temp Pulse Resp B/P Pulse Ox O2 Delivery O2 Flow Rate FiO2 07/23/17 14:35 97.7 79 20 112/65 95 07/23/17 03:58 1.0 07/22/17 20:02 Nasal Cannula Intake and Output 07/22/17 07/22/17 07/23/17 15:00 23:00 07:00 Intake Total 1400 ml 300 ml Output Total 0 ml Balance 1400 ml 300 ml Exam Constitutional: alert, oriented Neck: supple Respiratory: other (Coarse breath sounds bilaterally, no wheezing) Cardiovascular: other (S1-S2 heard), regular rate and rhythm Gastrointestinal: bowel sounds, non-tender, soft Extremities: pitting pedal rogelio Results Result Diagram: 07/23/17 0539 07/23/17 0539 Results 24 hrs Laboratory Tests Test 07/22/17 17:21 07/22/17 20:57 07/23/17 05:39 07/23/17 08:05 Bedside Glucose 143 172 126 White Blood Count 6.3 # Red Blood Count 3.14 L Hemoglobin 8.8 L Hematocrit 28.3 L Mean Corpuscular Volume 90.1 Mean Corpuscular Hemoglobin 28.0 L Mean Corpuscular Hemoglobin Concent 31.1 L Red Cell Distribution Width 16.2 H Platelet Count 214 # Mean Platelet Volume 10.4 Neutrophils % 72.1 Lymphocytes % 12.8 L Monocytes % 12.6 H Eosinophils % 1.1 Basophils % 0.6 Nucleated Red Blood Cells % 0.0 Neutrophils # (Manual) 4.5 Lymphocytes # 0.8 Monocytes # 0.8 Eosinophils # 0.1 Basophils # 0.0 Nucleated Red Blood Cells # 0.0 Sodium Level 136 Potassium Level 4.1 Chloride Level 102 Carbon Dioxide Level 31 Anion Gap 7 L Blood Urea Nitrogen 14 Creatinine 0.65 Glucose Level 111 Calcium Level 8.8 Test 07/23/17 12:17 Bedside Glucose 156 Medications Medications Current Medications Ondansetron HCl (Zofran Inj) 4 mg Q6H PRN IV NAUSEA AND/OR VOMITING; Start at 23:30 Acetaminophen (Tylenol Tab) 650 mg Q6H PRN PO PAIN LEVEL 1-3 OR FEVER Last administered on 07/16/17 15:55; Admin Dose 650 MG; Start 07/09/17 at 23:30 Acetaminophen/ Hydrocodone Bitart ([place] (5/325)) 1 tab Q6H PRN PO MODERATE PAIN LEVEL 4-6 Last administered on 07/22/17 20:52; Admin Dose 1 TAB; Start at 23:30 Morphine Sulfate (morphine) 2 mg Q4H PRN IV SEVERE PAIN LEVEL 7-10 Last administered on 07/20/17 22:37; Admin Dose 2 MG; Start 07/09/17 at 23:30 Docusate Sodium (Colace) 100 mg Q12H PRN PO CONSTIPATION Last administered on 16:34; Admin Dose 100 MG; Start 07/09/17 at 23:30 Magnesium Hydroxide (Milk Of Mag) 30 ml DAILY PRN PO CONSTIPATION Last administered on 07/14/17 21:26; Admin Dose 30 ML; Start 07/09/17 at 23:30 Bisacodyl (Dulcolax) 5 mg DAILY PRN PO CONSTIPATION Last administered on 09:32; Admin Dose 5 MG; Start 07/09/17 at 23:30 Zolpidem Tartrate (Ambien) 5 mg QHS PRN PO SLEEP Last administered on 07/22/17 20:53; Admin Dose 5 MG; Start 07/09/17 at 23:30 Famotidine (Pepcid) 20 mg Q12 PO Last administered on 07/23/17 08:07; Admin Dose 20 MG; Start 07/10/17 at 09:00 Enoxaparin Sodium (Lovenox) 40 mg DAILY SC Last administered on 07/23/17 08:25 ; Admin Dose 40 MG; Start 07/10/17 at 09:00 Bisacodyl (Dulcolax Supp) 10 mg Q48H PRN RI CONSTIPATION Last administered on 13:06; Admin Dose 10 MG; Start 07/10/17 at 12:00 Atorvastatin Calcium (Lipitor) 10 mg QHS PO Last administered on 07/22/17 20:50 ; Admin Dose 10 MG; Start 07/10/17 at 21:00 Clopidogrel Bisulfate (plaVIX) 75 mg QAM PO Last administered on 07/23/17 08:07 ; Admin Dose 75 MG; Start 07/10/17 at 14:00 Midodrine (Proamatine) 5 mg BID PO Last administered on 07/23/17 08:07; Admin Dose 5 MG; Start 07/10/17 at 21:00 Montelukast Sodium (Singulair) 10 mg QAM PO Last administered on 07/23/17 08:07 ; Admin Dose 10 MG; Start 07/10/17 at 14:00 Ranitidine HCl (Zantac) 150 mg HS PO Last administered on 07/22/17 20:52; Admin Dose 150 MG; Start 07/10/17 at 21:00 Ranolazine (Ranexa) 500 mg Q12 PO Last administered on 07/23/17 08:07; Admin Dose 500 MG; Start 07/10/17 at 21:00 Tamsulosin HCl (Flomax) 0.4 mg HS PO Last administered on 07/22/17 20:52; Admin Dose 0.4 MG; Start 07/10/17 at 21:00 Cholecalciferol (Vitamin D) 2,000 unit DAILY PO Last administered on 07/23/17 08:07; Admin Dose 2,000 UNIT; Start 07/10/17 at 14:00 Escitalopram Oxalate (Lexapro) 5 mg QPM PO Last administered on 07/22/17 20:50 ; Admin Dose 5 MG; Start 07/11/17 at 09:00 Pantoprazole (Protonix Tab) 40 mg DAILY@06 PO Last administered on 07/23/17 06: 29; Admin Dose 40 MG; Start 07/11/17 at 06:00 Diagnostic Test (Pha) (Accu-Chek) 1 ea 02 XX Last administered on 07/21/17 02: 00; Admin Dose 1 EA; Start 07/11/17 at 02:00 Miscellaneous Information 1 ea NOTE XX ; Start 07/10/17 at 15:00 Glucose (Glutose) 15 gm Q15M PRN PO DECREASED GLUCOSE; Start 07/10/17 at 15:00 Glucose (Glutose) 22.5 gm Q15M PRN PO DECREASED GLUCOSE; Start 07/10/17 at 15: 00 Dextrose (D50w Syringe) 25 ml Q15M PRN IV DECREASED GLUCOSE; Start 07/10/17 at 15:00 Dextrose (D50w Syringe) 50 ml Q15M PRN IV DECREASED GLUCOSE; Start 07/10/17 at 15:00 Glucagon (Glucagen) 1 mg Q15M PRN IM DECREASED GLUCOSE; Start 07/10/17 at 15:00 Glucose (Glutose) 15 gm Q15M PRN BUCCAL DECREASED GLUCOSE; Start 07/10/17 at 15 :00 Linagliptin (Tradjenta) 5 mg DAILY PO Last administered on 07/23/17 08:07; Admin Dose 5 MG; Start 07/11/17 at 09:00 Digoxin (Digoxin) 0.125 mg DAILY@13 PO Last administered on 07/23/17 12:19; Admin Dose 0.125 MG; Start 07/12/17 at 13:00 Carvedilol (Coreg) 3.125 mg BID PO Last administered on 07/23/17 08:07; Admin Dose 3.125 MG; Start 07/14/17 at 21:00 Potassium Chloride 20 meq 20 meq BID PO Last administered on 07/23/17 08:08; Admin Dose 20 MEQ; Start 07/15/17 at 21:00 Sodium Chloride (NS) 1,000 ml @ 80 mls/hr [id number] IV Last administered on 14:46; Admin Dose 80 MLS/HR; Start 07/22/17 at 14:00 YARI MILLER MD Jul 23, 2017 16:26
== END 2017-07-23 16:25 | disposition home or self-care (01) | DRG 205 ==
LOC: E/R 16:48 → TEL 19:15 → MS2 07-14 23:20
PROVIDERS: ADMIT Internal Medicine; ATTEND Internal Medicine
PROC: 4A033R1 Measurement of Arterial Saturation, Peripheral, Percutaneous Approach (ICD-10-PCS; principal; 2017-07-20)
DX: J98.4 Other disorders of lung (principal); I50.33 Acute on chronic diastolic (congestive) heart failure; I95.9 Hypotension, unspecified; E11.9 Type 2 diabetes mellitus without complications; D63.8 Anemia in other chronic diseases classified elsewhere; I11.0 Hypertensive heart disease with heart failure; E78.5 Hyperlipidemia, unspecified; J90 Pleural effusion, not elsewhere classified; Z95.1 Presence of aortocoronary bypass graft; Z85.118 Personal history of other malignant neoplasm of bronchus and lung; Z92.21 Personal history of antineoplastic chemotherapy; I25.10 Atherosclerotic heart disease of native coronary artery without angina pectoris; I25.2 Old myocardial infarction; N40.0 Benign prostatic hyperplasia without lower urinary tract symptoms; E87.6 Hypokalemia; G89.29 Other chronic pain; Z92.3 Personal history of irradiation
CPT/HCPCS: 36600; 71010; 71250; 80048; 80053; 80061; 80076; 82270; 82607; 82728; 82746; 82803; 82962; 83036; 83540; 83690; 83735; 83880; 84439; 84443; 84484; 85025; 85045; 93005; 93306; 93970; 97110; 97116; 97162; 97530; J1940; J1650; J1815; J2270; J3475; J3480; J7030

== ENCOUNTER 2017-08-21 10:27 | Inpatient (IN) | payer MEDICARE, OTHER ==
[~2017-08-21] VITALS: Ht 167.6 cm; Wt 55.8 kg
[~2017-08-21 10:27] MED LIST: ATOR10TA65 PO; CARV3.1260 PO; CLOP75TA4 PO; DIGO125T PO; DOCU-216 PO; ERGO2000 PO; ESCI5SOL2 PO; HYDR-3498 PO; METF500T4 PO; MIDO5TAB19 PO; MONT10TA24 PO; OMEG1CAP90 PO; POTA20TA15 PO; RANI150T5 PO; RANO500T2 PO; TAMS0.4C2 PO
[2017-08-21] MEDS ORDERED: ASPIRIN 325 MG TAB PO ONE (11:00)
[2017-08-21 11:11] LABS: BASOPHILS % 0.4 % (0.0-2.0); EOSINOPHILS # 0.1 10^3/ul (0.0-0.5); EOSINOPHILS % 0.9 % (0.0-7.0); HEMATOCRIT 31.1 % (42.0-52.0); HEMOGLOBIN 9.7 g/dl (14.0-18.0); LYMPHOCYTES # 0.8 10^3/ul (0.8-2.9); LYMPHOCYTES % 9.5 % (15.0-51.0); MEAN CORPUSCULAR HEMOGLOBIN 28.3 pg (29.0-33.0); MEAN CORPUSCULAR HGB CONC 31.2 g/dl (32.0-37.0); MEAN CORPUSCULAR VOLUME 90.7 fl (82.0-101.0); MEAN PLATELET VOLUME 10.7 fl (7.4-10.4); MONOCYTE # 0.7 10^3/ul (0.3-0.9); MONOCYTES % 8.2 % (0.0-11.0); NEUTROPHIL # 6.6 10^3/ul (1.6-7.5); NEUTROPHILS % 80.5 % (39.0-77.0); PLATELET COUNT 296 10^3/UL (140-415); RED BLOOD COUNT 3.43 10^6/ul (4.70-6.10); RED CELL DISTRIBUTION WIDTH 17.2 % (11.5-14.5); WHITE BLOOD COUNT 8.2 10^3/ul (4.8-10.8)
[2017-08-21 11:46] LABS: CALCIUM 8.4 mg/dl (8.4-10.2); CREATININE 0.6 mg/dl (0.61-1.24); POTASSIUM 3.2 mmol/L (3.5-5.1)
[2017-08-21 11:50] LABS: TROPONIN-I 0.122 ng/ml (0.00-0.12)
--- NOTE | 2017-08-21 11:53 | RADRPT ---
PROCEDURE: XR Chest. CLINICAL INDICATION: Chest pain . TECHNIQUE: Single frontal chest x-ray. COMPARISON: 07/20/2017, CT chest 07/12/2017 FINDINGS: There is near-complete opacification of the right hemithorax with irregular pleural thickening at th e right upper thorax and dense consolidation in the right lower thorax. Focal aeration or cavitary c hanges are seen in the right upper lung. (Please see CT chest 07/12/2017 for more details). Findings appear unchanged since previous exam. The left lung is clear. Calcific atherosclerosis of the aorta is present. Sternotomy wires are present. The cardiomediastinal silhouette is unremarkable. The oss eous structures are intact. IMPRESSION: No significant change since prior exam.. RPTAT: GG .Ambrosio Desai MD, Date Time Electronically viewed and signed by .Ambrosio Desia MD, on 08/21/2017 11:52 .L/
[2017-08-21] MEDS ORDERED: FLEETPED PR (12:05)
[2017-08-21] MEDS ORDERED: [UNRECOGNIZED DRUG - CODE] PO (12:08)
[2017-08-21] MEDS ORDERED: MORP15TA92 PO (12:09)
[2017-08-21] MEDS ORDERED: NITR1PAT47 TD (12:10)
[2017-08-21] MEDS ORDERED: NITR1PAT46 TD (12:10)
[2017-08-21] MEDS ORDERED: POTA20TA96 PO (12:11)
[2017-08-21] MEDS ORDERED: PROT946L PO (12:11)
[2017-08-21] MEDS ORDERED: ONDA-43 PO (12:12)
[2017-08-21] MEDS ORDERED: ACETAMINOPHEN 325 MG TAB PO PRN (12:30)
[2017-08-21] MEDS ORDERED: ONDANSETRON 4 MG INJ IV PRN (12:30)
[2017-08-21] MEDS ORDERED: POTASSIUM CHLORIDE (SR) 20 MEQ TAB PO STA (12:34)
--- NOTE | 2017-08-21 12:34 | ERA ---
ER Documentation Chief Complaint Date/Time DATE: 08/21/17 TIME: 12:29 Chief Complaint PT BIB RA 90 from [facility] with c/o Cp X 2 hours. HPI Duck Farmer used to obtain history of present illness given the fact that this patient and his speak Chinese. This is an 81-year-old male presents to the emergency room for evaluation of chest pain. This patient has had chest pain for 1 days duration, did take 1 sublingual nitro with mild relief of his pain however today he is noted that he was having increased pain in the chest told nursing staff who EMS and EMS subsequently transferred patient to the emergency room. He states his chest pain is in the center of his chest and describes as an achy pain. The patient does have a history of hypertension, previous MS, bypass surgery, and lung cancer ROS All systems reviewed and are negative except as per history of present illness. Medications Home Meds Active Scripts Docusate Sodium (Dok) 100 Mg Capsule, 100 MG PO DAILY Y for CONSTIPATION for 30 Days, CAP Prov:AV ALTMAN 07/23/17 Reported Medications Ondansetron Hcl* (Zofran*) 4 Mg Tab, 4 MG PO Q6H Y for NAUSEA AND OR VOMITING, TAB 08/21/17 Protein Supplement (Promod) 946 Ml Liquid, 30 ML PO DAILY 08/21/17 Potassium Chloride* (Potassium Chloride*) 20 Meq Tablet.er, 20 MEQ PO DAILY, TAB.SA 08/21/17 Nitroglycerin* (Nitroglycerin* Patch) 0.2 mg/hr Patch, 1 PATCH TD DAILY, PATCH 08/21/17 Nitroglycerin* (Nitroglycerin* Patch) 0.1 mg/hr Patch, 1 PATCH TD DAILY, PATCH 08/21/17 Morphine Sulfate* (Ms Contin*) 15 Mg Tablet.sa, 15 MG PO Q6 Y for SEVERE PAIN LEVEL 7-10, TAB 08/21/17 Megestrol Acetate* (Megace ES*) 625 Mg/5 Ml Oral.susp, 200 MG PO BID, ML 08/21/17 Sod Phosphate/Sod Biphosphate* (Fleet* Enema Pediatric) 66.6 Ml Soln, 66.6 ML SC DAILY Y for CONSTIPATION, ENEMA 08/21/17 Carvedilol* (Carvedilol*) 3.125 Mg Tablet, 3.125 MG PO QAM, #60 TAB 07/09/17 Tamsulosin Hcl* (Tamsulosin Hcl*) 0.4 Mg Cap.er.24h, 0.4 MG PO HS, CAP 07/09/17 Midodrine* (Midodrine*) 5 Mg Tablet, 5 MG PO BID, TAB 07/09/17 Metformin* (Glucophage*) 500 Mg Tab, 500 MG PO PC BREAKFAST, #60 TAB 07/09/17 Discontinued Reported Medications Ranolazine* (Ranexa*) 500 Mg Tab.sr.12h, 500 MG PO Q12 for ANGINA, TAB 07/09/17 Escitalopram Oxalate* (Escitalopram Oxalate*) 5 Mg/5 Ml Solution, 5 MG PO QPM, ML 07/09/17 Montelukast Sodium* (Montelukast Sodium*) 10 Mg Tablet, 10 MG PO QAM, #30 TAB 07/09/17 Clopidogrel Bisulfate* (Clopidogrel Bisulfate*) 75 Mg Tablet, 75 MG PO QAM, #30 TAB 07/09/17 Atorvastatin Calcium (Atorvastatin Calcium) 10 Mg Tablet, 10 MG PO QHS, #30 TAB 07/09/17 Ranitidine Hcl* (Ranitidine Hcl*) 150 Mg Tablet, 150 MG PO HS, #30 TAB 07/09/17 Digoxin* (Digitek*) 125 Mcg Tablet, 0.125 MG PO QAM, TAB 07/09/17 Ergocalciferol (Vitamin D2) (VITAMIN D2) 2,000 Unit Tablet, 2000 UNIT PO, TAB 07/09/17 Hedrick-3 Fatty Acids/Fish Oil (Hedrick 3 1,000 mg Softgel) 1 Each Capsule, 1 EACH PO, CAP 07/09/17 Discontinued Scripts Potassium Chloride* (K-Dur*) 20 Meq Tab.prt.sr, 20 MEQ PO BID for 30 Days Prov:VA ALTMAN 07/23/17 Hydrocodone Bit-Acetaminophen (Hydrocodone Bit-APAP) 5-325MG Tablet, 1 TAB PO Q6H Y for MODERATE PAIN LEVEL 4-6, #14 TAB Prov:VA ALTMAN 07/23/17 Allergies Allergies: Coded Allergies: No Known Allergy (Unverified , 08/21/17) PMhx/Soc History of Surgery: Yes (HEART SURGERY) Anesthesia Reaction: No Hx 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 Disorder: No Hx Respiratory Disorders: Yes (LUNG CA ( CHEMO)) Hx Cardiac Disorders: Yes (CAD, HEART SURGERY) Hx Psychiatric Problems: No Hx Miscellaneous Medical Probl: Yes (DM,CAD,LUNG CA,MS, CHEST PAIN, BPH, HYPERCHOLESTEROLEMIA) Hx Alcohol Use: No Hx Substance Use: No Hx Tobacco Use: No Smoking Status: Never smoker Physical Exam Vitals Vital Signs Date Time Temp Pulse Resp B/P Pulse Ox O2 Delivery O2 Flow Rate FiO2 08/21/17 10:37 98.1 98 18 99/69 98 Physical Exam INITIAL VITAL SIGNS: Reviewed by me GENERAL: The patient is ill-appearing elderly male in no acute distress HEENT: Dry mucous membranes, pupils equal, round, and reactive to light. EOMI. There is no scleral icterus. NECK: C-spine is soft and supple, there is no meningismus. There is no cervical lymphadenopathy. LUNGS: Coarse breath sounds bilaterally HEART: Regular rate and rhythm, no murmurs, clicks, rubs or gallops. ABDOMEN: Soft, non-tender, non-distended. There are bowel sounds in all four quadrants. No rebound or guarding. EXTREMITIES: There is no peripheral cyanosis or edema. No focal swelling or erythema. NEUROLOGICAL: The patient moves all four extremities with 5/5 strength. Cranial nerves II - XII are intact. Normal gait. Alert and oriented SKIN: There is no apparent rash or petechiae. HEME/LYMPHATIC: There is no evidence of excessive bruising or lymphedema. PSYCHIATRIC: The patient does not appear anxious or depressed. Result Diagram: 08/21/17 1045 08/21/17 1045 Results 24 hrs Laboratory Tests Test 08/21/17 10:45 White Blood Count 8.210^3/ul Red Blood Count 3.4310^6/ul Hemoglobin 9.7g/dl Hematocrit 31.1% Mean Corpuscular Volume 90.7fl Mean Corpuscular Hemoglobin 28.3pg Mean Corpuscular Hemoglobin Concent 31.2g/dl Red Cell Distribution Width 17.2% Platelet Count 46563^3/UL Mean Platelet Volume 10.7fl Neutrophils % 80.5% Lymphocytes % 9.5% Monocytes % 8.2% Eosinophils % 0.9% Basophils % 0.4% Nucleated Red Blood Cells % 0.0/100WBC Neutrophils # 6.610^3/ul Lymphocytes # 0.810^3/ul Monocytes # 0.710^3/ul Eosinophils # 0.110^3/ul Basophils # 0.010^3/ul Nucleated Red Blood Cells # 0.010^3/ul Sodium Level 137mmol/L Potassium Level 3.2mmol/L Chloride Level 101mmol/L Carbon Dioxide Level 32mmol/L Anion Gap 7 Blood Urea Nitrogen 11mg/dl Creatinine 0.60mg/dl Glucose Level 153mg/dl Calcium Level 8.4mg/dl Troponin I 0.122ng/ml B-Type Natriuretic Peptide [id number]/ML Current Medications Medications (Trade) Dose Ordered Sig/Sari Route PRN Reason Start Time Stop Time Status Last Admin Dose Admin Aspirin (Aspirin) 325 mg ONCE ONCE PO 08/21/17 11:00 08/21/17 11:01 DC 08/21/17 11:02 Ondansetron HCl (Zofran Inj) 4 mg ER BRIDGE PRN IV NAUSEA AND/OR VOMITING 08/21/17 12:30 08/22/17 12:29 Acetaminophen (Tylenol Tab) 650 mg ER BRIDGE PRN PO MILD PAIN/FEVER 08/21/17 12:30 08/22/17 12:29 Procedures/MDM EKG: Rate/Rhythm: Sinus rhythm with first-degree AV block and ST abnormality in lateral leads QRS, ST, T-waves: [No changes consistent w/ acute ischemia] Impression: Sinus rhythm with first-degree AV block and ST abnormality in lateral leads EKG: #2 Rate/Rhythm: Sinus rhythm with first-degree AV block and ST abnormality in lateral leads QRS, ST, T-waves: [No changes consistent w/ acute ischemia] Impression: Sinus rhythm with first-degree AV block and ST abnormality in lateral leads Chest X-ray 1V Interpreted by me: Soft Tissue: There is near- complete opacification of the right hemithorax with irregular pleural thickening at the right upper thorax and dense consolidation in the right lower thorax. Focal aeration or cavitary changes are seen in the right upper lung. ( Please see CT chest 07/12/2017 for more details). Findings appear unchanged since previous exam. The left lung is clear. Calcific atherosclerosis of the aorta is present. Sternotomy wires are present. The cardiomediastinal silhouette is unremarkable. The osseous structures are intact. Bones: No acute abnormalities Mediastinum/Cardiac Silhouette/Lungs: [No acute abnormalities] This 81-year-old male presents to the emergency room for evaluation of chest pain. When I evaluated this patient he was hemodynamically stable. The patient underwent a cardiac workup in the emergency room which does demonstrate an elevated troponin. The patient does have a near opacification of his right hemithorax which is chronic and not new in nature. The patient was given aspirin in the emergency room. I have contacted his primary care physician, Dr. oleary and have discussed the case with him and he is in agreement this patient can be admitted to the telemetry floor at this time for evaluation of non-ST elevation MS. This patient was found to have a potassium three-point she was given 40 mg once a potassium by mouth this patient was notified of his diagnosis and disposition and both the patient and the patient's family member feel comfortable with our plan of care at this time. Critical Care: Excluding all billable procedures Time: 38 minutes Treatments/Evaluations: Close monitoring and treatment of unstable vital signs, cardiorespiratory, and neurologic status, while maintaining tight balance of fluid, respiratory, and cardiac interventions. Departure Diagnosis: Primary Impression: Non-ST elevation MS (NSTEMI) Additional Impressions: Hypokalemia Chest pain Normocytic anemia Elevated brain natriuretic peptide (BNP) level Condition: Serious ABDIRAHMANBRITTANY ZAMORANO DO Aug 21, 2017 12:34
[2017-08-21 14:16] VITALS: TEMP 98.1
[2017-08-21] MEDS ORDERED: ONDANSETRON 4 MG INJ IV STA (14:32)
[2017-08-21] MEDS ORDERED: morphine 4 MG/ML VIAL IV STA (14:32)
[2017-08-21 16:00] VITALS: PULSE 95
[2017-08-21 16:03] VITALS: BP 107/65; RESP 16
[2017-08-21 16:22] VITALS: Ht 167.6 cm; Wt 55.8 kg
[2017-08-21 17:13] LABS: CREATINE KINASE < 20 IU/L (23-200)
[2017-08-21 17:22] LABS: TROPONIN-I 0.086 ng/ml (0.00-0.12)
[2017-08-21 17:27] LABS: CK-MB 0.36 ng/ml (0.0-2.4)
[2017-08-21 18:55] LABS: CHOL/HDL RATIO 4.6 RATIO
[2017-08-21 20:07] VITALS: BP 110/56; RESP 16
[2017-08-21 20:21] VITALS: PULSE 95
[2017-08-21] MEDS ORDERED: PANTOPRAZOLE (EC) 40 MG TAB PO ONE (20:30)
[2017-08-21] MEDS ORDERED: morphine 2 MG INJ IV PRN (20:30)
[2017-08-21] MEDS ORDERED: GLUCOSE GEL 15 GRAM TUBE PO PRN ×2 (21:00)
[2017-08-21] MEDS ORDERED: GLUCAGON 1 MG INJ IM PRN (21:00)
[2017-08-21] MEDS ORDERED: GLUCOSE GEL 15 GRAM TUBE BUCCAL PRN (21:00)
[2017-08-21] MEDS: INSULIN ASPART [NOVOLOG] 3 ML PEN SC SCH (21:00)
[2017-08-21] MEDS ORDERED: DEXTROSE 50% 50 ML SYRINGE IV PRN ×2 (21:00)
--- NOTE | 2017-08-21 21:27 | HP ---
Date/Time of Note Date/Time of Note DATE: 08/21/17 TIME: 21:27 Assessment/Plan VTE Prophylaxis VTE Prophylaxis Intervention: SCD's Lines/Catheters IV Catheter Type (from Nrs): Saline Lock Urinary Cath still in place: No Assessment/Plan Assessment/Plan - Non-ST elevation ID (NSTEMI) - admit to tele - cardiology consult- dr Kaur notified - Coronary Artery Disease- sp Heart Surggery - abnormal chest xray- There is near-complete opacification of the right hemithorax with irregular pleural thickening at the right upper thorax and dense consolidation in the right lower thorax. - pulmonary consult dr Whitaker notified - Hypokalemia - kcl replaced in ER, am BMP - Chest pain - per cardiology - Normocytic anemia - monitor CBC - Elevated brain natriuretic peptide (BNP) level - per cardiology - Diabetes Mellitus - glycemic control - Lung Cancer- sp chemotherapy - BPH - cont. Flomax - HYPERCHOLESTEROLEMIA PLAN - Admit to tele - Admission orders done - DVT prophylaxixs- SCD - GI prophylaxis Plan of care dw dr Morrissey/staff HPI/ROS Admit Date/Time Admit Date/Time Aug 21, 2017 at 12:27 Hx of Present Illness This is an 81-year-old male with past history of hypertension, previous ID, bypass surgery, and lung cancer is admitted with c/o chest pain x 1 day, did take 1 sublingual nitro with mild relief of his pain increased and he was brought to hospital by EMS, He described his chest pain is in the center of his chest and is achy type pain. ROS All systems reviewed and are negative except as per history of present illness. Allergies No Known Allergy (Unverified , 08/21/17) PMH/Family/Social Past Medical History PMhx/Soc History of Surgery: Yes (HEART SURGERY) Anesthesia Reaction: No Hx 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 Disorder: No Hx Respiratory Disorders: Yes (LUNG CA ( CHEMO)) Hx Cardiac Disorders: Yes (CAD, HEART SURGERY) Hx Psychiatric Problems: No Hx Miscellaneous Medical Probl: Yes (DM,CAD,LUNG CA,ID, CHEST PAIN, BPH, HYPERCHOLESTEROLEMIA) Hx Alcohol Use: No Hx Substance Use: No Hx Tobacco Use: No Smoking Status: Never smoker Past Surgical History Past Surgical Hx: other Social History Smoking Status: Never smoker Exam/Review of Systems Vital Signs Vitals Vital Signs Date Time Temp Pulse Resp B/P Pulse Ox O2 Delivery O2 Flow Rate FiO2 08/21/17 20:21 95 08/21/17 20:07 97.8 16 110/56 98 08/21/17 14:16 Room Air Exam Constitutional: alert, oriented Psych: nl mood/affect Neck: non-tender Respiratory: diminished breath sounds Cardiovascular: nl pulses Gastrointestinal: non-tender, soft Musculoskeletal: nl extremities to inspection Extremities: normal pulses 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: nl mental status, nl speech Labs Result Diagram: 08/21/17 1045 08/21/17 1045 Medications Medications Current Medications Carvedilol (Coreg) 3.125 mg QAM PO ; Start 08/22/17 at 09:00; Status Future Hold Midodrine (Proamatine) 5 mg BID PO ; Start 08/21/17 at 21:00 Nitroglycerin (Nitroglycerin 0.2 Mg/Hr) 1 patch DAILY TRANSDERM ; Start at 09:00 Potassium Chloride (Klor-Con 20) 20 meq DAILY PO ; Start 08/22/17 at 09:00 Tamsulosin HCl (Flomax) 0.4 mg HS PO ; Start 08/21/17 at 21:00 Pantoprazole (Protonix Tab) 40 mg DAILY@06 PO ; Start 08/22/17 at 06:00 Morphine Sulfate (morphine) 1 mg Q6 PRN IV PAIN; Start 08/21/17 at 20:30 Zolpidem Tartrate (Ambien) 5 mg HS PRN PO INSOMNIA; Start 08/21/17 at 20:30 Ondansetron HCl (Zofran Inj) 4 mg Q6H PRN IV NAUSEA AND/OR VOMITING; Start 08/21/17 at 20:30 Diagnostic Test (Pha) (Accu-Chek) 1 ea 02 XX ; Start 08/22/17 at 02:00 Docusate Sodium (Colace) 100 mg BID PO ; Start 08/21/17 at 21:00 Miscellaneous Information 1 ea NOTE XX ; Start 08/21/17 at 21:00 Glucose (Glutose) 15 gm Q15M PRN PO DECREASED GLUCOSE; Start 08/21/17 at 21:00 Glucose (Glutose) 22.5 gm Q15M PRN PO DECREASED GLUCOSE; Start 08/21/17 at 21: 00 Dextrose (D50w Syringe) 25 ml Q15M PRN IV DECREASED GLUCOSE; Start 08/21/17 at 21:00 Dextrose (D50w Syringe) 50 ml Q15M PRN IV DECREASED GLUCOSE; Start 08/21/17 at 21:00 Glucagon (Glucagen) 1 mg Q15M PRN IM DECREASED GLUCOSE; Start 08/21/17 at 21:00 Glucose (Glutose) 15 gm Q15M PRN BUCCAL DECREASED GLUCOSE; Start 08/21/17 at 21 :00 Procedures Procedures EK Rate/Rhythm: Sinus rhythm with first-degree AV block and ST abnormality in lateral leads QRS, ST, T-waves: [No changes consistent w/ acute ischemia] Impression: Sinus rhythm with first-degree AV block and ST abnormality in lateral leads EKG: #2 Rate/Rhythm: Sinus rhythm with first-degree AV block and ST abnormality in lateral leads QRS, ST, T-waves: [No changes consistent w/ acute ischemia] Impression: Sinus rhythm with first-degree AV block and ST abnormality in lateral leads Chest X-ray : There is near-complete opacification of the right hemithorax with irregular pleural thickening at the right upper thorax and dense consolidation in the right lower thorax. Focal aeration or cavitary changes are seen in the right upper lung. (Please see CT chest 07/12/2017 for more details). Findings appear unchanged since previous exam. The left lung is clear. Calcific atherosclerosis of the aorta is present. Sternotomy wires are present. The cardiomediastinal silhouette is unremarkable. The osseous structures are intact. Bones: No acute abnormalities Mediastinum/Cardiac Silhouette/Lungs: [No acute abnormalities] VA ALTMAN Aug 21, 2017 21:27
[2017-08-21] MEDS: DOCUSATE SODIUM 100 MG CAP PO SCH (21:45)
[2017-08-21] MEDS: MIDODRINE 5 MG TAB PO SCH (21:45)
[2017-08-21] MEDS: TAMSULOSIN (SR) 0.4 MG CAP PO SCH (21:45)
[2017-08-21] MEDS: ZOLPIDEM 5 MG TAB PO PRN (21:45)
[2017-08-21 23:05] LABS: CREATINE KINASE < 20 IU/L (23-200)
[2017-08-21 23:17] LABS: TROPONIN-I 0.105 ng/ml (0.00-0.12)
[2017-08-21 23:18] LABS: CK-MB 0.64 ng/ml (0.0-2.4)
[2017-08-22] VITALS (13 sets, daily range): BP systolic 96–116; BP diastolic 47–65; PULSE 87–108; RESP 16–20
[2017-08-22] MEDS: ACCU-CHEK XX SCH (01:25)
[2017-08-22] MEDS ORDERED: ACCU-CHEK XX SCH (02:00)
[2017-08-22] MEDS: PANTOPRAZOLE (EC) 40 MG TAB PO SCH (05:53)
[2017-08-22 05:59] LABS: BASOPHILS % 0.3 % (0.0-2.0); EOSINOPHILS # 0.1 10^3/ul (0.0-0.5); EOSINOPHILS % 1.2 % (0.0-7.0); HEMOGLOBIN 10.3 g/dl (14.0-18.0); LYMPHOCYTES # 0.6 10^3/ul (0.8-2.9); LYMPHOCYTES % 9.8 % (15.0-51.0); MEAN CORPUSCULAR HEMOGLOBIN 28.4 pg (29.0-33.0); MEAN CORPUSCULAR HGB CONC 31.2 g/dl (32.0-37.0); MEAN CORPUSCULAR VOLUME 90.9 fl (82.0-101.0); MONOCYTE # 0.5 10^3/ul (0.3-0.9); NEUTROPHIL # 5.2 10^3/ul (1.6-7.5); NEUTROPHILS % 81.1 % (39.0-77.0); PLATELET COUNT 301 10^3/UL (140-415); RED BLOOD COUNT 3.63 10^6/ul (4.70-6.10); RED CELL DISTRIBUTION WIDTH 17.4 % (11.5-14.5); WHITE BLOOD COUNT 6.4 10^3/ul (4.8-10.8)
[2017-08-22 06:54] LABS: ALBUMIN 2.9 g/dl (3.3-4.9); ALBUMIN/GLOBULIN RATIO 0.85; BILIRUBIN,INDIRECT 0.2 mg/dl (0-1.1); BILIRUBIN,TOTAL 0.2 mg/dl (0.2-1.3); CALCIUM 8.9 mg/dl (8.4-10.2); CREATININE 0.6 mg/dl (0.61-1.24); POTASSIUM 4.2 mmol/L (3.5-5.1); TOTAL PROTEIN 6.3 g/dl (6.1-8.1)
[2017-08-22] MEDS: INSULIN ASPART [NOVOLOG] 3 ML PEN SC SCH ×4 (08:19→21:00)
[2017-08-22] MEDS: POTASSIUM CHLORIDE (SR) 20 MEQ TAB PO SCH (08:50)
[2017-08-22] MEDS: MIDODRINE 5 MG TAB PO SCH ×2 (08:51→20:55)
[2017-08-22] MEDS: DOCUSATE SODIUM 100 MG CAP PO SCH ×2 (08:59→20:55)
[2017-08-22] MEDS: NITROGLYCERIN 0.2 MG/HR PATCH TRANSDERM SCH (09:07)
--- NOTE | 2017-08-22 12:43 | CONS ---
Date/Time of Note Date/Time of Note DATE: 08/22/17 TIME: 12:39 Assessment/Plan Assessment/Plan Additional Assessment/Plan -+TROP / with atypical chst pain -cabg -abnormal chest xray- - Hypokalemia - Chest pain - Normocytic anemia - Elevated brain natriuretic peptide (BNP) level - Diabetes Mellitus - Lung Cancer- sp chemotherapy - BPH - HYPERCHOLESTEROLEMIA -1/3 trops mildly positive due to anemai vs lung disease -given comorbiditis, consdervative therapy best - age, hx of lung ca, frail, no exertional symptoms -off cardiac meds due to bp on the low side -on midodrine -rx asa if hct remasin stable -pulmonary invovled re: hx of lung cancer and opacification of one side of the lung -Ef 55% 07/03 Consultation Date/Type/Reason Admit Date/Time Aug 21, 2017 at 12:27 Hx of Present Illness This is an 81-year-old male with past history of hypertension, previous MD, bypass surgery, and lung cancer is admitted with c/o chest pain x 1 day, did take 1 sublingual nitro with mild relief of his pain increased and he was brought to hospital by EMS, He described his chest pain is in the center of his chest and is achy type pain. he is currently pain free and friends helped interpret with chst pain that was diffuse but no exeritonal symtoms and no recurrecne Psychological: nl mood/affect Past Surgical History Past Surgical Hx: other Social History Smoking Status: Never smoker Exam/Review of Systems Vital Signs Vitals Vital Signs Date Time Temp Pulse Resp B/P Pulse Ox O2 Delivery O2 Flow Rate FiO2 08/22/17 12:31 105 08/22/17 11:22 98.0 16 109/58 96 08/22/17 08:10 Nasal Cannula 3.0 Intake and Output 08/21/17 08/21/17 08/22/17 15:00 23:00 07:00 Intake Total 650 ml Balance 650 ml Results Result Diagram: 08/22/17 0532 08/22/17 0500 Results 24 hrs Laboratory Tests Test 08/21/17 16:27 08/21/17 21:48 08/21/17 22:27 08/22/17 05:00 Creatine Kinase < 20 L < 20 L Creatine Kinase Index Creatinine Kinase MB (Mass) 0.36 0.64 Troponin I 0.086 0.105 Triglycerides Level 71 Cholesterol Level 107 LDL Cholesterol, Calculated 70 HDL Cholesterol 23 L Cholesterol/HDL Ratio 4.6 Bedside Glucose 173 Sodium Level 138 Potassium Level 4.2 Chloride Level 102 Carbon Dioxide Level 31 Anion Gap 9 Blood Urea Nitrogen 11 Creatinine 0.60 L Glucose Level 127 Calcium Level 8.9 Total Bilirubin 0.2 Direct Bilirubin 0.00 Indirect Bilirubin 0.2 Aspartate Amino Transf (AST/SGOT) 25 Alanine Aminotransferase (ALT/SGPT) 36 Alkaline Phosphatase 71 Total Protein 6.3 Albumin 2.9 L Globulin 3.40 H Albumin/Globulin Ratio 0.85 Test 08/22/17 05:31 08/22/17 05:32 08/22/17 08:15 08/22/17 11:34 Hemoglobin A1c 7.0 H White Blood Count 6.4 # Red Blood Count 3.63 L Hemoglobin 10.3 L Hematocrit 33.0 L Mean Corpuscular Volume 90.9 Mean Corpuscular Hemoglobin 28.4 L Mean Corpuscular Hemoglobin Concent 31.2 L Red Cell Distribution Width 17.4 H Platelet Count 301 Mean Platelet Volume 10.0 Neutrophils % 81.1 H Lymphocytes % 9.8 L Monocytes % 7.0 Eosinophils % 1.2 Basophils % 0.3 Nucleated Red Blood Cells % 0.0 Neutrophils # 5.2 Lymphocytes # 0.6 L Monocytes # 0.5 Eosinophils # 0.1 Basophils # 0.0 Nucleated Red Blood Cells # 0.0 Bedside Glucose 223 H 110 Medications Medications Current Medications Carvedilol (Coreg) 3.125 mg QAM PO ; Start 08/22/17 at 09:00; Status Future Hold Midodrine (Proamatine) 5 mg BID PO Last administered on 08/22/17 08:51; Admin Dose 5 MG; Start 08/21/17 at 21:00 Nitroglycerin (Nitroglycerin 0.2 Mg/Hr) 1 patch DAILY TRANSDERM Last administered on 08/22/17 09:07; Admin Dose 1 PATCH; Start 08/22/17 at 09:00 Potassium Chloride (Klor-Con 20) 20 meq DAILY PO Last administered on 08:50; Admin Dose 20 MEQ; Start 08/22/17 at 09:00 Tamsulosin HCl (Flomax) 0.4 mg HS PO Last administered on 08/21/17 21:45; Admin Dose 0.4 MG; Start 08/21/17 at 21:00 Pantoprazole (Protonix Tab) 40 mg DAILY@06 PO Last administered on 08/22/17 05 :53; Admin Dose 40 MG; Start 08/22/17 at 06:00 Morphine Sulfate (morphine) 1 mg Q6 PRN IV PAIN; Start 08/21/17 at 20:30 Zolpidem Tartrate (Ambien) 5 mg HS PRN PO INSOMNIA Last administered on 21:45; Admin Dose 5 MG; Start 08/21/17 at 20:30 Ondansetron HCl (Zofran Inj) 4 mg Q6H PRN IV NAUSEA AND/OR VOMITING; Start 08/21/17 at 20:30 Diagnostic Test (Pha) (Accu-Chek) 1 ea 02 XX ; Start 08/22/17 at 02:00 Docusate Sodium (Colace) 100 mg BID PO Last administered on 08/22/17 08:59; Admin Dose 100 MG; Start 08/21/17 at 21:00 Miscellaneous Information 1 ea NOTE XX ; Start 08/21/17 at 21:00 Glucose (Glutose) 15 gm Q15M PRN PO DECREASED GLUCOSE; Start 08/21/17 at 21:00 Glucose (Glutose) 22.5 gm Q15M PRN PO DECREASED GLUCOSE; Start 08/21/17 at 21: 00 Dextrose (D50w Syringe) 25 ml Q15M PRN IV DECREASED GLUCOSE; Start 08/21/17 at 21:00 Dextrose (D50w Syringe) 50 ml Q15M PRN IV DECREASED GLUCOSE; Start 08/21/17 at 21:00 Glucagon (Glucagen) 1 mg Q15M PRN IM DECREASED GLUCOSE; Start 08/21/17 at 21:00 Glucose (Glutose) 15 gm Q15M PRN BUCCAL DECREASED GLUCOSE; Start 08/21/17 at 21 :00 MELLISA SMALLS MD Aug 22, 2017 12:43
[2017-08-22] MEDS ORDERED: ZOLPIDEM 5 MG TAB PO PRN (17:00)
--- NOTE | 2017-08-22 18:52 | PN ---
Date/Time of Note Date/Time of Note DATE: 08/22/17 TIME: 18:46 Assessment/Plan VTE Prophylaxis VTE Prophylaxis Intervention: LMWH Lines/Catheters IV [facility]from [facility] Saline Lock Urinary Cath still in place: No Assessment/Plan Chief Complaint/Hosp Course Patient continues on supplemental oxygen able to ambulate in the hallway using a walker Assessment/Plan - NSCLIFTONI, Dr. Kaur is following in cardiology consultation. -Coronary artery disease status post CABG in 2004. Continue Plavix. 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 Continue Lasix, monitor electrolytes. - Bilateral lower extremity edema, venous Dopplers negative for any deep venous thrombosis. -History of lung cancer dx 2006, completed chemotherapy in 2009. -Diabetes mellitus, continue NovoLog per mild algorithm sliding scale. -BPH, continue Flomax. Further recommendations based on clinical course. Plan of care discussed with Dr. Morrissey. Problems: Exam/Review of Systems Vital Signs Vitals Vital Signs Date Time Temp Pulse Resp B/P Pulse Ox O2 Delivery O2 Flow Rate FiO2 08/22/17 16:11 104 08/22/17 15:05 98.5 16 103/57 99 08/22/17 08:10 Nasal Cannula 3.0 Intake and Output 08/21/17 08/21/17 08/22/17 14:59 22:59 06:59 Intake Total 650 ml Balance 650 ml Exam Constitutional: alert, oriented Eyes: nl conjunctiva Respiratory: diminished breath sounds Cardiovascular: nl pulses Gastrointestinal: non-tender, soft Musculoskeletal: nl extremities to inspection Extremities: edema Results Result Diagram: 08/22/17 0532 08/22/17 0500 Results 24 hrs Laboratory Tests Test 08/21/17 21:48 08/21/17 22:27 08/22/17 05:00 08/22/17 05:31 Bedside Glucose 173 Creatine Kinase < 20 L Creatine Kinase Index Creatinine Kinase MB (Mass) 0.64 Troponin I 0.105 Sodium Level 138 Potassium Level 4.2 Chloride Level 102 Carbon Dioxide Level 31 Anion Gap 9 Blood Urea Nitrogen 11 Creatinine 0.60 L Glucose Level 127 Calcium Level 8.9 Total Bilirubin 0.2 Direct Bilirubin 0.00 Indirect Bilirubin 0.2 Aspartate Amino Transf (AST/SGOT) 25 Alanine Aminotransferase (ALT/SGPT) 36 Alkaline Phosphatase 71 Total Protein 6.3 Albumin 2.9 L Globulin 3.40 H Albumin/Globulin Ratio 0.85 Hemoglobin A1c 7.0 H Test 08/22/17 05:32 08/22/17 08:15 08/22/17 11:34 08/22/17 17:17 White Blood Count 6.4 # Red Blood Count 3.63 L Hemoglobin 10.3 L Hematocrit 33.0 L Mean Corpuscular Volume 90.9 Mean Corpuscular Hemoglobin 28.4 L Mean Corpuscular Hemoglobin Concent 31.2 L Red Cell Distribution Width 17.4 H Platelet Count 301 Mean Platelet Volume 10.0 Neutrophils % 81.1 H Lymphocytes % 9.8 L Monocytes % 7.0 Eosinophils % 1.2 Basophils % 0.3 Nucleated Red Blood Cells % 0.0 Neutrophils # 5.2 Lymphocytes # 0.6 L Monocytes # 0.5 Eosinophils # 0.1 Basophils # 0.0 Nucleated Red Blood Cells # 0.0 Bedside Glucose 223 H 110 160 Medications Medications Current Medications Carvedilol (Coreg) 3.125 mg QAM PO ; Start 08/22/17 at 09:00; Status Future Hold Midodrine (Proamatine) 5 mg BID PO Last administered on 08/22/17 08:51; Admin Dose 5 MG; Start 08/21/17 at 21:00 Nitroglycerin (Nitroglycerin 0.2 Mg/Hr) 1 patch DAILY TRANSDERM Last administered on 08/22/17 09:07; Admin Dose 1 PATCH; Start 08/22/17 at 09:00 Potassium Chloride (Klor-Con 20) 20 meq DAILY PO Last administered on 08:50; Admin Dose 20 MEQ; Start 08/22/17 at 09:00 Tamsulosin HCl (Flomax) 0.4 mg HS PO Last administered on 08/21/17 21:45; Admin Dose 0.4 MG; Start 08/21/17 at 21:00 Pantoprazole (Protonix Tab) 40 mg DAILY@06 PO Last administered on 08/22/17 05 :53; Admin Dose 40 MG; Start 08/22/17 at 06:00 Zolpidem Tartrate (Ambien) 5 mg HS PRN PO INSOMNIA Last administered on 21:45; Admin Dose 5 MG; Start 08/21/17 at 20:30 Ondansetron HCl (Zofran Inj) 4 mg Q6H PRN IV NAUSEA AND/OR VOMITING; Start 08/21/17 at 20:30 Diagnostic Test (Pha) (Accu-Chek) 1 ea 02 XX ; Start 08/22/17 at 02:00 Docusate Sodium (Colace) 100 mg BID PO Last administered on 08/22/17t 08:59; Admin Dose 100 MG; Start 08/21/17 at 21:00 Miscellaneous Information 1 ea NOTE XX ; Start 08/21/17 at 21:00 Glucose (Glutose) 15 gm Q15M PRN PO DECREASED GLUCOSE; Start 08/21/17 at 21:00 Glucose (Glutose) 22.5 gm Q15M PRN PO DECREASED GLUCOSE; Start 08/21/17 at 21: 00 Dextrose (D50w Syringe) 25 ml Q15M PRN IV DECREASED GLUCOSE; Start 08/21/17 at 21:00 Dextrose (D50w Syringe) 50 ml Q15M PRN IV DECREASED GLUCOSE; Start 08/21/17 at 21:00 Glucagon (Glucagen) 1 mg Q15M PRN IM DECREASED GLUCOSE; Start 08/21/17 at 21:00 Glucose (Glutose) 15 gm Q15M PRN BUCCAL DECREASED GLUCOSE; Start 08/21/17 at 21 :00 Morphine Sulfate (morphine) 2 mg Q6 PRN IV PAIN; Start 08/22/17 at 17:00 Zolpidem Tartrate (Ambien) 5 mg HS PRN PO INSOMNIA; Start 08/22/17 at 17:00 MARC URIOSTEGUI Aug 22, 2017 18:52
[2017-08-22] MEDS: ZOLPIDEM 5 MG TAB PO PRN (20:55)
[2017-08-22] MEDS: TAMSULOSIN (SR) 0.4 MG CAP PO SCH (20:55)
[2017-08-22] MEDS: morphine 2 MG INJ IV PRN (21:02)
[2017-08-23] VITALS (12 sets, daily range): BP systolic 89–115; BP diastolic 50–67; PULSE 88–109; RESP 15–20
[2017-08-23] MEDS: ACCU-CHEK XX SCH (01:39)
[2017-08-23] MEDS: morphine 2 MG INJ IV PRN ×2 (05:48→17:40)
[2017-08-23] MEDS: PANTOPRAZOLE (EC) 40 MG TAB PO SCH (05:48)
[2017-08-23] MEDS: INSULIN ASPART [NOVOLOG] 3 ML PEN SC SCH ×4 (08:00→21:00)
[2017-08-23] MEDS: DOCUSATE SODIUM 100 MG CAP PO SCH ×2 (08:44→21:00)
[2017-08-23] MEDS: POTASSIUM CHLORIDE (SR) 20 MEQ TAB PO SCH (08:44)
[2017-08-23] MEDS: MIDODRINE 5 MG TAB PO SCH ×2 (08:44→21:10)
[2017-08-23] MEDS: NITROGLYCERIN 0.2 MG/HR PATCH TRANSDERM SCH (08:45)
--- NOTE | 2017-08-23 10:02 | PN ---
Date/Time of Note Date/Time of Note DATE: 08/23/17 TIME: 09:56 Assessment/Plan Lines/Catheters IV Catheter Type (from Nrs): Peripheral IV Urinary Cath still in place: No Assessment/Plan Assessment/Plan - Shortness of breath-none at present, remains on supplement oxygen- - pulmonary consult - [facility], Dr. Kaur is following in cardiology consultation. -Coronary artery disease status post CABG in 2004. Continue Plavix. 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 Continue Lasix, monitor electrolytes. - Bilateral lower extremity edema, venous Dopplers negative for any deep venous thrombosis. -History of lung cancer dx 2006, completed chemotherapy in 2009. -Diabetes mellitus, continue NovoLog per mild algorithm sliding scale. -BPH, continue Flomax. - Anemia- monitor CBC Further recommendations based on clinical course. Plan of care discussed with Dr. Morrissey. Subjective 24 Hr Interval Summary Free Text/Dictation Remains on supplemental oxygen able to ambulate in the hallway using a walker- pe staff. c/o constipation. Constitutional: requiring O2 Respiratory: no complaints Cardiovascular: no complaints Gastrointestinal: no complaints Genitourinary: no complaints Musculoskeletal: no complaints Exam/Review of Systems Vital Signs Vitals Vital Signs Date Time Temp Pulse Resp B/P Pulse Ox O2 Delivery O2 Flow Rate FiO2 08/23/17 08:16 95 08/23/17 07:54 98.8 15 100/53 97 89/52 08/22/17 21:14 Nasal Cannula 3.0 Intake and Output 08/22/17 08/22/17 08/23/17 15:00 23:00 07:00 Intake Total 800 ml 550 ml Balance 800 ml 550 ml Exam Constitutional: alert, oriented, other (cachexia) Respiratory: diminished breath sounds Cardiovascular: nl pulses Gastrointestinal: non-tender, soft Results Result Diagram: 08/22/17 0532 08/22/17 0500 Results 24 hrs Laboratory Tests Test 08/22/17 11:34 08/22/17 17:17 08/22/17 21:00 08/23/17 08:14 Bedside Glucose 110 160 165 132 Medications Medications Current Medications Carvedilol (Coreg) 3.125 mg QAM PO ; Start 08/22/17 at 09:00; Status Future Hold Midodrine (Proamatine) 5 mg BID PO Last administered on 08/23/17t 08:44; Admin Dose 5 MG; Start 08/21/17 at 21:00 Nitroglycerin (Nitroglycerin 0.2 Mg/Hr) 1 patch DAILY TRANSDERM Last administered on 08/23/17 08:45; Admin Dose 1 PATCH; Start 08/22/17 at 09:00 Potassium Chloride (Klor-Con 20) 20 meq DAILY PO Last administered on 08:44; Admin Dose 20 MEQ; Start 08/22/17 at 09:00 Tamsulosin HCl (Flomax) 0.4 mg HS PO Last administered on 08/22/17 20:55; Admin Dose 0.4 MG; Start 08/21/17 at 21:00 Pantoprazole (Protonix Tab) 40 mg DAILY@06 PO Last administered on 08/23/17 05 :48; Admin Dose 40 MG; Start 08/22/17 at 06:00 Zolpidem Tartrate (Ambien) 5 mg HS PRN PO INSOMNIA Last administered on 20:55; Admin Dose 5 MG; Start 08/21/17 at 20:30 Ondansetron HCl (Zofran Inj) 4 mg Q6H PRN IV NAUSEA AND/OR VOMITING; Start 08/21/17 at 20:30 Diagnostic Test (Pha) (Accu-Chek) 1 ea 02 XX ; Start 08/22/17 at 02:00 Docusate Sodium (Colace) 100 mg BID PO Last administered on 08/23/17 08:44; Admin Dose 100 MG; Start 08/21/17 at 21:00 Miscellaneous Information 1 ea NOTE XX ; Start 08/21/17 at 21:00 Glucose (Glutose) 15 gm Q15M PRN PO DECREASED GLUCOSE; Start 08/21/17 at 21:00 Glucose (Glutose) 22.5 gm Q15M PRN PO DECREASED GLUCOSE; Start 08/21/17 at 21: 00 Dextrose (D50w Syringe) 25 ml Q15M PRN IV DECREASED GLUCOSE; Start 08/21/17 at 21:00 Dextrose (D50w Syringe) 50 ml Q15M PRN IV DECREASED GLUCOSE; Start 08/21/17 at 21:00 Glucagon (Glucagen) 1 mg Q15M PRN IM DECREASED GLUCOSE; Start 08/21/17 at 21:00 Glucose (Glutose) 15 gm Q15M PRN BUCCAL DECREASED GLUCOSE; Start 08/21/17 at 21 :00 Morphine Sulfate (morphine) 2 mg Q6 PRN IV PAIN Last administered on 08/23/17t 05:48; Admin Dose 2 MG; Start 08/22/17 at 17:00 Zolpidem Tartrate (Ambien) 5 mg HS PRN PO INSOMNIA; Start 08/22/17 at 17:00 [facility] Aug 23, 2017 10:02
[2017-08-23] MEDS ORDERED: DOCUSATE SODIUM 100 MG CAP PO SCH (10:30)
--- NOTE | 2017-08-23 13:07 | QN ---
Documentation Comment Hernan RN/patient daughter- Magda- regarding patient's code status. was also involved and daughter translated the discussion. Family requested for DNR/DNI CODE STATUS. Goals of care dw family as well. Daughter verbalized understanding goals of care.Family also requested for placement at [facility]. Hernan Briggs as [id number] [facility] Aug 23, 2017 13:07
[2017-08-23] MEDS: BISACODYL (EC) 5 MG TAB PO PRN (14:38)
--- NOTE | 2017-08-23 15:08 | CONS ---
Date/Time of Note Date/Time of Note DATE: 08/23/17 TIME: 15:04 Assessment/Plan Assessment/Plan Additional Assessment/Plan IMP: 1. Atypical Chest Pain 2. Advanced NSCLC 3. Right Lung Volume loss and fibrotic changes--some may be related to prior XRT as well as old granulomatous disease RECS: 1. BD's 2. CPT 3. Agree with goals of care as determined by family Consultation Date/Type/Reason Admit Date/Time Aug 21, 2017 at 12:27 Type of Consultation: Pulm/CCM Hx of Present Illness Briefly,is an 81-year-old male with past history of hypertension, previous [place], bypass surgery, and lung cancer with known chronic right lung volume loss and fibrotic disease, who is admitted with c/o chest pain x 1 day. He denies any other symptoms and has undergone evaluation by Cardiology. Constitutional: improved, no complaints, requiring O2 ENT: no complaints Respiratory: no complaints Cardiovascular: no complaints Gastrointestinal: no complaints Genitourinary: no complaints Musculoskeletal: no complaints Skin: no complaints Neurologic: no complaints Psychological: nl mood/affect Past Medical History Medical History: angina, congestive heart failure, hypertension, other (lung cancer) Past Surgical History Past Surgical Hx: other Family History Significant Family History: no pertinent family hx Social History Alcohol Use: none Smoking Status: Former smoker Drug Use: none Exam/Review of Systems Vital Signs Vitals Vital Signs Date Time Temp Pulse Resp B/P Pulse Ox O2 Delivery O2 Flow Rate FiO2 08/23/17 12:10 99 08/23/17 11:46 98.5 16 100/59 99 08/23/17 08:20 Nasal Cannula 3.0 Intake and Output 08/22/17 08/22/17 08/23/17 15:00 23:00 07:00 Intake Total 800 ml 550 ml Balance 800 ml 550 ml Exam Constitutional: alert, oriented Psych: nl mood/affect, no complaints Head: atraumatic, normocephalic Eyes: EOMI, nl conjunctiva ENMT: nl external ears & nose, nl lips & teeth Neck: non-tender, supple Respiratory: congested cough, diminished breath sounds Cardiovascular: nl pulses, regular rate and rhythm, systolic murmur Gastrointestinal: nl liver, spleen, soft Extremities: normal pulses 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: INDEPENDENT [employer]OR II-XII intact Results Result Diagram: 08/22/17 0532 08/22/17 0500 Results 24 hrs Laboratory Tests Test 08/22/17 17:17 08/22/17 21:00 08/23/17 08:14 08/23/17 11:53 Bedside Glucose 160 165 132 165 Medications Medications Current Medications Carvedilol (Coreg) 3.125 mg QAM PO ; Start 08/22/17 at 09:00; Status Future Hold Midodrine (Proamatine) 5 mg BID PO Last administered on 08/23/17 08:44; Admin Dose 5 MG; Start 08/21/17 at 21:00 Nitroglycerin (Nitroglycerin 0.2 Mg/Hr) 1 patch DAILY TRANSDERM Last administered on 08/23/17 08:45; Admin Dose 1 PATCH; Start 08/22/17 at 09:00 Potassium Chloride (Klor-Con 20) 20 meq DAILY PO Last administered on 08:44; Admin Dose 20 MEQ; Start 08/22/17 at 09:00 Tamsulosin HCl (Flomax) 0.4 mg HS PO Last administered on 08/22/17 20:55; Admin Dose 0.4 MG; Start 08/21/17 at 21:00 Pantoprazole (Protonix Tab) 40 mg DAILY@06 PO Last administered on 08/23/17 05 :48; Admin Dose 40 MG; Start 08/22/17 at 06:00 Zolpidem Tartrate (Ambien) 5 mg HS PRN PO INSOMNIA Last administered on 20:55; Admin Dose 5 MG; Start 08/21/17 at 20:30 Ondansetron HCl (Zofran Inj) 4 mg Q6H PRN IV NAUSEA AND/OR VOMITING; Start 08/21/17 at 20:30 Diagnostic Test (Pha) (Accu-Chek) 1 ea 02 XX ; Start 08/22/17 at 02:00 Docusate Sodium (Colace) 100 mg BID PO Last administered on 08/23/17 08:44; Admin Dose 100 MG; Start 08/21/17 at 21:00 Miscellaneous Information 1 ea NOTE XX ; Start 08/21/17 at 21:00 Glucose (Glutose) 15 gm Q15M PRN PO DECREASED GLUCOSE; Start 08/21/17 at 21:00 Glucose (Glutose) 22.5 gm Q15M PRN PO DECREASED GLUCOSE; Start 08/21/17 at 21: 00 Dextrose (D50w Syringe) 25 ml Q15M PRN IV DECREASED GLUCOSE; Start 08/21/17 at 21:00 Dextrose (D50w Syringe) 50 ml Q15M PRN IV DECREASED GLUCOSE; Start 08/21/17 at 21:00 Glucagon (Glucagen) 1 mg Q15M PRN IM DECREASED GLUCOSE; Start 08/21/17 at 21:00 Glucose (Glutose) 15 gm Q15M PRN BUCCAL DECREASED GLUCOSE; Start 08/21/17 at 21 :00 Morphine Sulfate (morphine) 2 mg Q6 PRN IV PAIN Last administered on 08/23/17 05:48; Admin Dose 2 MG; Start 08/22/17 at 17:00 Zolpidem Tartrate (Ambien) 5 mg HS PRN PO INSOMNIA; Start 08/22/17 at 17:00 Bisacodyl (Dulcolax) 5 mg DAILY PRN PO CONSTIPATION Last administered on 14:38; Admin Dose 5 MG; Start 08/23/17 at 10:30 KELVIN CARDENAS MD Aug 23, 2017 15:08
[2017-08-23] MEDS ORDERED: NA PHOSPHATE/BIPHOS 133 ML ENEMA PR ONE (15:30)
--- NOTE | 2017-08-23 16:50 | RADRPT ---
PROCEDURE: XR Chest. CLINICAL INDICATION: History of lung cancer. Shortness of breath. TECHNIQUE: Two views. Frontal and lateral. COMPARISON: 08/21/2017. FINDINGS: There is volume loss and extensive opacification throughout the right hemithorax, unchanged. The lef t lung is clear. The heart is enlarged. There is calcification in the aorta consistent with atherosclerosis. There ar e sternal wires. There is no pleural effusion. There is no pneumothorax. IMPRESSION: 1. No change from 08/21/2017. RPTAT: QQ .Douglas Ernst MD, MD Date Time Electronically viewed and signed by .Douglas Ernst MD, MD on 08/23/2017 16:49 .R/
[2017-08-23] MEDS: ZOLPIDEM 5 MG TAB PO PRN (21:10)
[2017-08-23] MEDS: TAMSULOSIN (SR) 0.4 MG CAP PO SCH (21:10)
[2017-08-24] VITALS (12 sets, daily range): BP systolic 94–114; BP diastolic 54–74; PULSE 90–110; RESP 18–20
[2017-08-24] MEDS: ACCU-CHEK XX SCH (02:00)
[2017-08-24] MEDS: morphine 2 MG INJ IV PRN ×2 (03:57→14:41)
[2017-08-24] MEDS: PANTOPRAZOLE (EC) 40 MG TAB PO SCH (05:31)
[2017-08-24] MEDS: INSULIN ASPART [NOVOLOG] 3 ML PEN SC SCH ×4 (07:34→21:31)
[2017-08-24] MEDS: POTASSIUM CHLORIDE (SR) 20 MEQ TAB PO SCH (08:51)
[2017-08-24] MEDS: NITROGLYCERIN 0.2 MG/HR PATCH TRANSDERM SCH (08:51)
[2017-08-24] MEDS: DOCUSATE SODIUM 100 MG CAP PO SCH ×2 (08:51→21:00)
[2017-08-24] MEDS: MIDODRINE 5 MG TAB PO SCH ×2 (08:51→21:28)
[2017-08-24 09:25] LABS: ABNORMAL IP MESSAGE 1; BASOPHILS % 0.4 % (0.0-2.0); EOSINOPHILS # 0.1 10^3/ul (0.0-0.5); EOSINOPHILS % 1.3 % (0.0-7.0); HEMATOCRIT 30.4 % (42.0-52.0); HEMOGLOBIN 9.3 g/dl (14.0-18.0); LYMPHOCYTES # 0.4 10^3/ul (0.8-2.9); LYMPHOCYTES % 6.5 % (15.0-51.0); MEAN CORPUSCULAR HEMOGLOBIN 28.1 pg (29.0-33.0); MEAN CORPUSCULAR HGB CONC 30.6 g/dl (32.0-37.0); MEAN CORPUSCULAR VOLUME 91.8 fl (82.0-101.0); MEAN PLATELET VOLUME 10.5 fl (7.4-10.4); MONOCYTE # 0.5 10^3/ul (0.3-0.9); MONOCYTES % 7.5 % (0.0-11.0); NEUTROPHIL # 5.7 10^3/ul (1.6-7.5); NEUTROPHILS % 83.7 % (39.0-77.0); PLATELET COUNT 265 10^3/UL (140-415); POSITIVE DIFF @See below; RED BLOOD COUNT 3.31 10^6/ul (4.70-6.10); RED CELL DISTRIBUTION WIDTH 17.2 % (11.5-14.5); WHITE BLOOD COUNT 6.8 10^3/ul (4.8-10.8)
[2017-08-24 09:50] LABS: CALCIUM 8.4 mg/dl (8.4-10.2); CREATININE 0.6 mg/dl (0.61-1.24); POTASSIUM 3.8 mmol/L (3.5-5.1)
[2017-08-24] MEDS ORDERED: HYDROCODONE/HOMATROPINE 5ML CUP PO PRN (10:30)
--- NOTE | 2017-08-24 10:31 | PN ---
Date/Time of Note Date/Time of Note DATE: 08/24/17 TIME: 10:17 Assessment/Plan VTE Prophylaxis VTE Prophylaxis Intervention: SCD's Lines/Catheters [facility]from [facility] [place] Urinary Cath still in place: No Assessment/Plan Assessment/Plan DNR/DNI CODE STATUS - Shortness of breath-none at present, remains on supplement oxygen- - [facility] Dr[facility] Kaur is following in cardiology consultation. -Coronary artery disease status post CABG in 2004. Continue Plavix. 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 Continue Lasix, monitor electrolytes. - Bilateral lower extremity edema, venous Dopplers negative for any deep venous thrombosis. -History of lung cancer dx 2006, completed chemotherapy in 2009. -Diabetes mellitus, continue NovoLog per mild algorithm sliding scale. -BPH, continue Flomax. - Anemia- monitor CBC - Cachexia- dietary consult Further recommendations based on clinical course. Plan of care discussed with Dr. Morrissey. Subjective 24 Hr Interval Summary Free Text/Dictation remains DNR, c/o cough, afebrile, , pulmonary follows, staff. Constitutional: requiring O2 Respiratory: cough Cardiovascular: no complaints Gastrointestinal: no complaints Genitourinary: no complaints Musculoskeletal: no complaints Neurologic: no complaints Exam/Review of Systems Vital Signs Vitals Vital Signs Date Time Temp Pulse Resp B/P Pulse Ox O2 Delivery O2 Flow Rate FiO2 08/24/17 08:10 108 08/24/17 08:03 98.1 19 104/62 98 08/23/17 20:00 Nasal Cannula 3.0 Intake and Output 08/23/17 08/23/17 08/24/17 15:00 23:00 07:00 Intake Total 1000 ml 850 ml Balance 1000 ml 850 ml Exam Constitutional: alert, oriented, well developed Psych: nl mood/affect Respiratory: diminished breath sounds, normal air movement Gastrointestinal: non-tender, soft Musculoskeletal: nl extremities to inspection Extremities: normal pulses 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: nl mental status, nl speech Results Result Diagram: 08/24/17 0841 08/24/17 0841 Results 24 hrs Laboratory Tests Test 08/23/17 11:53 08/23/17 17:12 08/23/17 20:34 08/24/17 07:34 Bedside Glucose 165 188 150 109 Test 08/24/17 08:41 White Blood Count 6.8 Red Blood Count 3.31 L Hemoglobin 9.3 L Hematocrit 30.4 L Mean Corpuscular Volume 91.8 Mean Corpuscular Hemoglobin 28.1 L Mean Corpuscular Hemoglobin Concent 30.6 L Red Cell Distribution Width 17.2 H Platelet Count 265 Mean Platelet Volume 10.5 H Neutrophils % 83.7 H Lymphocytes % 6.5 L Monocytes % 7.5 Eosinophils % 1.3 Basophils % 0.4 Nucleated Red Blood Cells % 0.0 Neutrophils # 5.7 Lymphocytes # 0.4 L Monocytes # 0.5 Eosinophils # 0.1 Basophils # 0.0 Nucleated Red Blood Cells # 0.0 Sodium Level 135 Potassium Level 3.8 Chloride Level 104 Carbon Dioxide Level 27 Anion Gap 8 Blood Urea Nitrogen 8 Creatinine 0.60 L Glucose Level 121 Calcium Level 8.4 Medications Medications Current Medications Carvedilol (Coreg) 3.125 mg QAM PO ; Start 08/22/17 at 09:00; Status Future Hold Midodrine (Proamatine) 5 mg BID PO Last administered on 08/24/17 08:51; Admin Dose 5 MG; Start 08/21/17 at 21:00 Nitroglycerin (Nitroglycerin 0.2 Mg/Hr) 1 patch DAILY TRANSDERM Last administered on 08/24/17 08:51; Admin Dose 1 PATCH; Start 08/22/17 at 09:00 Potassium Chloride (Klor-Con 20) 20 meq DAILY PO Last administered on 08:51; Admin Dose 20 MEQ; Start 08/22/17 at 09:00 Tamsulosin HCl (Flomax) 0.4 mg HS PO Last administered on 08/23/17 21:10; Admin Dose 0.4 MG; Start 08/21/17 at 21:00 Pantoprazole (Protonix Tab) 40 mg DAILY@06 PO Last administered on 08/24/17 05 :31; Admin Dose 40 MG; Start 08/22/17 at 06:00 Zolpidem Tartrate (Ambien) 5 mg HS PRN PO INSOMNIA Last administered on 21:10; Admin Dose 5 MG; Start 08/21/17 at 20:30 Ondansetron HCl (Zofran Inj) 4 mg Q6H PRN IV NAUSEA AND/OR VOMITING; Start 08/21/17 at 20:30 Diagnostic Test (Pha) (Accu-Chek) 1 ea 02 XX ; Start 08/22/17 at 02:00 Docusate Sodium (Colace) 100 mg BID PO Last administered on 08/24/17 08:51; Admin Dose 100 MG; Start 08/21/17 at 21:00 Miscellaneous Information 1 ea NOTE XX ; Start 08/21/17 at 21:00 Glucose (Glutose) 15 gm Q15M PRN PO DECREASED GLUCOSE; Start 08/21/17 at 21:00 Glucose (Glutose) 22.5 gm Q15M PRN PO DECREASED GLUCOSE; Start 08/21/17 at 21: 00 Dextrose (D50w Syringe) 25 ml Q15M PRN IV DECREASED GLUCOSE; Start 08/21/17 at 21:00 Dextrose (D50w Syringe) 50 ml Q15M PRN IV DECREASED GLUCOSE; Start 08/21/17 at 21:00 Glucagon (Glucagen) 1 mg Q15M PRN IM DECREASED GLUCOSE; Start 08/21/17 at 21:00 Glucose (Glutose) 15 gm Q15M PRN BUCCAL DECREASED GLUCOSE; Start 08/21/17 at 21 :00 Morphine Sulfate (morphine) 2 mg Q6 PRN IV PAIN Last administered on 08/24/17 03:57; Admin Dose 2 MG; Start 08/22/17 at 17:00 Zolpidem Tartrate (Ambien) 5 mg HS PRN PO INSOMNIA; Start 08/22/17 at 17:00 Bisacodyl (Dulcolax) 5 mg DAILY PRN PO CONSTIPATION Last administered on 14:38; Admin Dose 5 MG; Start 08/23/17 at 10:30 Guaifenesin/ Codeine Phosphate (Robitussin Ac Liquid Cup) 10 ml Q6 PRN PO COUGH ; Start 08/24/17 at 10:00 [facility] Aug 24, 2017 10:27
[2017-08-24] MEDS: GUAIFENESIN/CODEINE 5ML CUP PO PRN (11:21)
--- NOTE | 2017-08-24 15:08 | CONS ---
Date/Time of Note Date/Time of Note DATE: 08/24/17 TIME: 15:07 Consult Date/Type/Reason Admit Date/Time Aug 21, 2017 at 12:27 Initial Consult Date Type of Consultation: Pulm/CCM Subjective No events. No c/o Objective Vital Signs Date Time Temp Pulse Resp B/P Pulse Ox O2 Delivery O2 Flow Rate FiO2 08/24/17 12:14 110 08/24/17 12:03 98.3 19 100/54 96 08/24/17 08:10 Nasal Cannula 3.0 Intake and Output 08/23/17 08/23/17 08/24/17 15:00 23:00 07:00 Intake Total 1000 ml 850 ml Balance 1000 ml 850 ml Exam HEENT: Neck supple; no JVD; no LAD CVS: RRR, S1 and S2 CHEST: Decreased BS right lung ABD: Soft, NT, + BS EXT: No c/c/e Results/Medications Result Diagram: 08/24/17 0841 08/24/17 0841 Results 24 hrs Laboratory Tests Test 08/23/17 17:12 08/23/17 20:34 08/24/17 07:34 08/24/17 08:41 Bedside Glucose 188 150 109 White Blood Count 6.8 Red Blood Count 3.31 L Hemoglobin 9.3 L Hematocrit 30.4 L Mean Corpuscular Volume 91.8 Mean Corpuscular Hemoglobin 28.1 L Mean Corpuscular Hemoglobin Concent 30.6 L Red Cell Distribution Width 17.2 H Platelet Count 265 Mean Platelet Volume 10.5 H Neutrophils % 83.7 H Lymphocytes % 6.5 L Monocytes % 7.5 Eosinophils % 1.3 Basophils % 0.4 Nucleated Red Blood Cells % 0.0 Neutrophils # 5.7 Lymphocytes # 0.4 L Monocytes # 0.5 Eosinophils # 0.1 Basophils # 0.0 Nucleated Red Blood Cells # 0.0 Sodium Level 135 Potassium Level 3.8 Chloride Level 104 Carbon Dioxide Level 27 Anion Gap 8 Blood Urea Nitrogen 8 Creatinine 0.60 L Glucose Level 121 Calcium Level 8.4 Test 08/24/17 11:56 Bedside Glucose 223 H Medications Current Medications Carvedilol (Coreg) 3.125 mg QAM PO ; Start 08/22/17 at 09:00; Status Future Hold Midodrine (Proamatine) 5 mg BID PO Last administered on 08/24/17t 08:51; Admin Dose 5 MG; Start 08/21/17 at 21:00 Nitroglycerin (Nitroglycerin 0.2 Mg/Hr) 1 patch DAILY TRANSDERM Last administered on 08/24/17 08:51; Admin Dose 1 PATCH; Start 08/22/17 at 09:00 Potassium Chloride (Klor-Con 20) 20 meq DAILY PO Last administered on 08:51; Admin Dose 20 MEQ; Start 08/22/17 at 09:00 Tamsulosin HCl (Flomax) 0.4 mg HS PO Last administered on 08/23/17 21:10; Admin Dose 0.4 MG; Start 08/21/17 at 21:00 Pantoprazole (Protonix Tab) 40 mg DAILY@06 PO Last administered on 08/24/17 05 :31; Admin Dose 40 MG; Start 08/22/17 at 06:00 Zolpidem Tartrate (Ambien) 5 mg HS PRN PO INSOMNIA Last administered on 21:10; Admin Dose 5 MG; Start 08/21/17 at 20:30 Ondansetron HCl (Zofran Inj) 4 mg Q6H PRN IV NAUSEA AND/OR VOMITING; Start 08/21/17 at 20:30 Diagnostic Test (Pha) (Accu-Chek) 1 ea 02 XX ; Start 08/22/17 at 02:00 Docusate Sodium (Colace) 100 mg BID PO Last administered on 08/24/17 08:51; Admin Dose 100 MG; Start 08/21/17 at 21:00 Miscellaneous Information 1 ea NOTE XX ; Start 08/21/17 at 21:00 Glucose (Glutose) 15 gm Q15M PRN PO DECREASED GLUCOSE; Start 08/21/17 at 21:00 Glucose (Glutose) 22.5 gm Q15M PRN PO DECREASED GLUCOSE; Start 08/21/17 at 21: 00 Dextrose (D50w Syringe) 25 ml Q15M PRN IV DECREASED GLUCOSE; Start 08/21/17 at 21:00 Dextrose (D50w Syringe) 50 ml Q15M PRN IV DECREASED GLUCOSE; Start 08/21/17 at 21:00 Glucagon (Glucagen) 1 mg Q15M PRN IM DECREASED GLUCOSE; Start 08/21/17 at 21:00 Glucose (Glutose) 15 gm Q15M PRN BUCCAL DECREASED GLUCOSE; Start 08/21/17 at 21 :00 Morphine Sulfate (morphine) 2 mg Q6 PRN IV PAIN Last administered on 08/24/17 14:41; Admin Dose 2 MG; Start 08/22/17 at 17:00 Zolpidem Tartrate (Ambien) 5 mg HS PRN PO INSOMNIA; Start 08/22/17 at 17:00 Bisacodyl (Dulcolax) 5 mg DAILY PRN PO CONSTIPATION Last administered on 14:38; Admin Dose 5 MG; Start 08/23/17 at 10:30 Guaifenesin/ Codeine Phosphate (Robitussin Ac Liquid Cup) 10 ml Q6 PRN PO COUGH Last administered on 08/24/17 11:21; Admin Dose 10 ML; Start 08/24/17 at 10:00 Hydrocodone Bit/ Homatropine Methylb (Hycodan Liquid) 5 ml BID PRN PO COUGH; Start 08/24/17 at 10:30 Assessment/Plan Chief Complaint/Hosp Course Briefly,is an 81-year-old male with past history of hypertension, previous [place], bypass surgery, and lung cancer with known chronic right lung volume loss and fibrotic disease, who is admitted with c/o chest pain x 1 day. He denies any other symptoms and has undergone evaluation by Cardiology. Problems: Additional Assessment/Plan IMP: 1. Atypical Chest Pain 2. Advanced NSCLC 3. Right Lung Volume loss and fibrotic changes--some may be related to prior XRT as well as old granulomatous disease RECS: 1. BD's 2. CPT 3. Agree with goals of care as determined by family--> DNR/DNI KELVIN CARDENAS MD Aug 24, 2017 15:08
[2017-08-24] MEDS: ZOLPIDEM 5 MG TAB PO PRN (21:28)
[2017-08-24] MEDS: TAMSULOSIN (SR) 0.4 MG CAP PO SCH (21:28)
[2017-08-25] VITALS (12 sets, daily range): BP systolic 107–120; BP diastolic 62–85; PULSE 90–119; RESP 16–21
[2017-08-25] MEDS: ACCU-CHEK XX SCH (02:00)
[2017-08-25] MEDS: morphine 2 MG INJ IV PRN ×3 (02:10→23:55)
[2017-08-25] MEDS: PANTOPRAZOLE (EC) 40 MG TAB PO SCH (05:59)
[2017-08-25] MEDS: NITROGLYCERIN 0.2 MG/HR PATCH TRANSDERM SCH (08:16)
[2017-08-25] MEDS: MIDODRINE 5 MG TAB PO SCH ×2 (08:17→20:56)
[2017-08-25] MEDS: DOCUSATE SODIUM 100 MG CAP PO SCH ×2 (08:17→20:55)
[2017-08-25] MEDS: POTASSIUM CHLORIDE (SR) 20 MEQ TAB PO SCH (08:17)
[2017-08-25] MEDS: INSULIN ASPART [NOVOLOG] 3 ML PEN SC SCH ×4 (08:19→20:53)
[2017-08-25 09:09] LABS: ABNORMAL IP MESSAGE 1; BASOPHILS % 0.3 % (0.0-2.0); EOSINOPHILS # 0.1 10^3/ul (0.0-0.5); EOSINOPHILS % 0.9 % (0.0-7.0); HEMATOCRIT 30.8 % (42.0-52.0); HEMOGLOBIN 9.7 g/dl (14.0-18.0); LYMPHOCYTES # 0.3 10^3/ul (0.8-2.9); LYMPHOCYTES % 3.1 % (15.0-51.0); MEAN CORPUSCULAR HEMOGLOBIN 28.8 pg (29.0-33.0); MEAN CORPUSCULAR HGB CONC 31.5 g/dl (32.0-37.0); MEAN CORPUSCULAR VOLUME 91.4 fl (82.0-101.0); MEAN PLATELET VOLUME 10.4 fl (7.4-10.4); MONOCYTE # 0.5 10^3/ul (0.3-0.9); MONOCYTES % 4.3 % (0.0-11.0); NEUTROPHIL # 9.8 10^3/ul (1.6-7.5); NEUTROPHILS % 90.9 % (39.0-77.0); PLATELET COUNT 254 10^3/UL (140-415); POSITIVE DIFF @See below; RED BLOOD COUNT 3.37 10^6/ul (4.70-6.10); WHITE BLOOD COUNT 10.7 10^3/ul (4.8-10.8)
[2017-08-25 09:41] LABS: CALCIUM 8.2 mg/dl (8.4-10.2); CREATININE 0.59 mg/dl (0.61-1.24); POTASSIUM 3.9 mmol/L (3.5-5.1)
--- NOTE | 2017-08-25 12:23 | CONS ---
Date/Time of Note Date/Time of Note DATE: 08/25/17 TIME: 12:22 Assessment/Plan Assessment/Plan Additional Assessment/Plan Assessment and recommendations; 1. Patient admitted with atypical chest pain with interval resolution. 2. History of non-small cell lung cancer involving right lung with severe volume loss. 3. Prior history of CABG. Continue current treatment. Consider discharge. Consultation Date/Type/Reason Admit Date/Time Aug 21, 2017 at 12:27 Initial Consult Date Type of Consultation: Pulm/CCM 24 HR Interval Summary Free Text/Dictation Patient's condition is stable. Remains awake and alert. Denies any shortness of breath. General exam; elderly male, awake and alert. Currently in no distress. Exam/Review of Systems Vital Signs Vitals Vital Signs Date Time Temp Pulse Resp B/P Pulse Ox O2 Delivery O2 Flow Rate FiO2 08/25/17 11:37 97.4 91 18 110/62 97 08/25/17 08:10 Nasal Cannula 3.0 Intake and Output 08/24/17 08/24/17 08/25/17 15:00 23:00 07:00 Intake Total 500 ml 700 ml Balance 500 ml 700 ml Exam HEENT exam; supple neck, no JVD. No lymphadenopathy. Midline trachea. No thyromegaly. Patient has few remaining teeth. Has bilateral intraocular lens implants. Chest exam; diminished breath sounds right lung. Left lung is clear to auscultation. S1-S2 audible, no murmurs. Regular rhythm. Abdomen exam; soft, nontender. No organomegaly. Bowel sounds audible. Extremity exam; no peripheral edema. 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 Results Result Diagram: 08/25/17 0832 08/25/17 0832 Results 24 hrs Laboratory Tests Test 08/24/17 17:08 08/24/17 21:22 08/25/17 00:55 08/25/17 08:04 Bedside Glucose 163 205 131 167 Test 08/25/17 08:32 08/25/17 12:12 White Blood Count 10.7 # Red Blood Count 3.37 L Hemoglobin 9.7 L Hematocrit 30.8 L Mean Corpuscular Volume 91.4 Mean Corpuscular Hemoglobin 28.8 L Mean Corpuscular Hemoglobin Concent 31.5 L Red Cell Distribution Width 17.0 H Platelet Count 254 Mean Platelet Volume 10.4 Neutrophils % 90.9 H Lymphocytes % 3.1 L Monocytes % 4.3 Eosinophils % 0.9 Basophils % 0.3 Nucleated Red Blood Cells % 0.0 Neutrophils # 9.8 H Lymphocytes # 0.3 L Monocytes # 0.5 Eosinophils # 0.1 Basophils # 0.0 Nucleated Red Blood Cells # 0.0 Sodium Level 135 Potassium Level 3.9 Chloride Level 103 Carbon Dioxide Level 27 Anion Gap 9 Blood Urea Nitrogen 11 Creatinine 0.59 L Glucose Level 176 Calcium Level 8.2 L Bedside Glucose 139 Medications Medications Current Medications Carvedilol (Coreg) 3.125 mg QAM PO ; Start 08/22/17 at 09:00; Status Future Hold Midodrine (Proamatine) 5 mg BID PO Last administered on 08/25/17 08:17; Admin Dose 5 MG; Start 08/21/17 at 21:00 Nitroglycerin (Nitroglycerin 0.2 Mg/Hr) 1 patch DAILY TRANSDERM Last administered on 08/25/17 08:16; Admin Dose 1 PATCH; Start 08/22/17 at 09:00 Potassium Chloride (Klor-Con 20) 20 meq DAILY PO Last administered on 08:17; Admin Dose 20 MEQ; Start 08/22/17 at 09:00 Tamsulosin HCl (Flomax) 0.4 mg HS PO Last administered on 08/24/17 21:28; Admin Dose 0.4 MG; Start 08/21/17 at 21:00 Pantoprazole (Protonix Tab) 40 mg DAILY@06 PO Last administered on 08/25/17 05 :59; Admin Dose 40 MG; Start 08/22/17 at 06:00 Zolpidem Tartrate (Ambien) 5 mg HS PRN PO INSOMNIA Last administered on 21:28; Admin Dose 5 MG; Start 08/21/17 at 20:30 Ondansetron HCl (Zofran Inj) 4 mg Q6H PRN IV NAUSEA AND/OR VOMITING; Start 08/21/17 at 20:30 Diagnostic Test (Pha) (Accu-Chek) 1 ea 02 XX ; Start 08/22/17 at 02:00 Docusate Sodium (Colace) 100 mg BID PO Last administered on 08/25/17 08:17; Admin Dose 100 MG; Start 08/21/17 at 21:00 Miscellaneous Information 1 ea NOTE XX ; Start 08/21/17 at 21:00 Glucose (Glutose) 15 gm Q15M PRN PO DECREASED GLUCOSE; Start 08/21/17 at 21:00 Glucose (Glutose) 22.5 gm Q15M PRN PO DECREASED GLUCOSE; Start 08/21/17 at 21: 00 Dextrose (D50w Syringe) 25 ml Q15M PRN IV DECREASED GLUCOSE; Start 08/21/17 at 21:00 Dextrose (D50w Syringe) 50 ml Q15M PRN IV DECREASED GLUCOSE; Start 08/21/17 at 21:00 Glucagon (Glucagen) 1 mg Q15M PRN IM DECREASED GLUCOSE; Start 08/21/17 at 21:00 Glucose (Glutose) 15 gm Q15M PRN BUCCAL DECREASED GLUCOSE; Start 08/21/17 at 21 :00 Morphine Sulfate (morphine) 2 mg Q6 PRN IV PAIN Last administered on 08/25/17 02:10; Admin Dose 2 MG; Start 08/22/17 at 17:00 Zolpidem Tartrate (Ambien) 5 mg HS PRN PO INSOMNIA; Start 08/22/17 at 17:00 Bisacodyl (Dulcolax) 5 mg DAILY PRN PO CONSTIPATION Last administered on 14:38; Admin Dose 5 MG; Start 08/23/17 at 10:30 Guaifenesin/ Codeine Phosphate (Robitussin Ac Liquid Cup) 10 ml Q6 PRN PO COUGH Last administered on 08/24/17 11:21; Admin Dose 10 ML; Start 08/24/17 at 10:00 Hydrocodone Bit/ Homatropine Methylb (Hycodan Liquid) 5 ml BID PRN PO COUGH; Start 08/24/17 at 10:30 MARCELLO CORDERO Aug 25, 2017 12:23
--- NOTE | 2017-08-25 17:42 | PN ---
Date/Time of Note Date/Time of Note DATE: 08/25/17 TIME: 17:40 Assessment/Plan VTE Prophylaxis VTE Prophylaxis Intervention: SCD's Lines/Catheters IV Catheter Type (from [facility]): Saline Lock Urinary Cath still in place: No Assessment/Plan Chief Complaint/Hosp Course Patient is comfortable on supplemental oxygen, patient complains insomnia. Patient needs cardiology clearance prior to [facility]. Assessment/Plan - NSI, Dr. Kaur is following in cardiology consultation. -Coronary artery disease status post CABG in 2004. Continue Plavix. 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 Continue Lasix, monitor electrolytes. - Bilateral lower extremity edema, venous Dopplers negative for any deep venous thrombosis. -History of lung cancer dx 2006, completed chemotherapy in 2009. -Diabetes mellitus, continue NovoLog per mild algorithm sliding scale. -BPH, continue Flomax. -Insomnia continue Ambien nightly Further recommendations based on clinical course. Plan of care discussed with Dr. Morrissey. Problems: Exam/Review of Systems Vital Signs Vitals Vital Signs Date Time Temp Pulse Resp B/P Pulse Ox O2 Delivery O2 Flow Rate FiO2 08/25/17 16:12 105 08/25/17 15:58 98.5 16 117/70 99 08/25/17 08:10 Nasal Cannula 3.0 Intake and Output 08/24/17 08/24/17 08/25/17 15:00 23:00 07:00 Intake Total 500 ml 700 ml Balance 500 ml 700 ml Exam Constitutional: alert, oriented Eyes: nl conjunctiva Respiratory: diminished breath sounds Cardiovascular: nl pulses Gastrointestinal: non-tender, soft Musculoskeletal: nl extremities to inspection Extremities: edema Results Result Diagram: 08/25/17 0832 08/25/17 0832 Results 24 hrs Laboratory Tests Test 08/24/17 21:22 08/25/17 00:55 08/25/17 08:04 08/25/17 08:32 Bedside Glucose 205 131 167 White Blood Count 10.7 # Red Blood Count 3.37 L Hemoglobin 9.7 L Hematocrit 30.8 L Mean Corpuscular Volume 91.4 Mean Corpuscular Hemoglobin 28.8 L Mean Corpuscular Hemoglobin Concent 31.5 L Red Cell Distribution Width 17.0 H Platelet Count 254 Mean Platelet Volume 10.4 Neutrophils % 90.9 H Lymphocytes % 3.1 L Monocytes % 4.3 Eosinophils % 0.9 Basophils % 0.3 Nucleated Red Blood Cells % 0.0 Neutrophils # 9.8 H Lymphocytes # 0.3 L Monocytes # 0.5 Eosinophils # 0.1 Basophils # 0.0 Nucleated Red Blood Cells # 0.0 Sodium Level 135 Potassium Level 3.9 Chloride Level 103 Carbon Dioxide Level 27 Anion Gap 9 Blood Urea Nitrogen 11 Creatinine 0.59 L Glucose Level 176 Calcium Level 8.2 L Test 08/25/17 12:12 Bedside Glucose 139 Medications Medications Current Medications Carvedilol (Coreg) 3.125 mg QAM PO ; Start 08/22/17 at 09:00; Status Future Hold Midodrine (Proamatine) 5 mg BID PO Last administered on 08/25/17 08:17; Admin Dose 5 MG; Start 08/21/17 at 21:00 Nitroglycerin (Nitroglycerin 0.2 Mg/Hr) 1 patch DAILY TRANSDERM Last administered on 08/25/17 08:16; Admin Dose 1 PATCH; Start 08/22/17 at 09:00 Potassium Chloride (Klor-Con 20) 20 meq DAILY PO Last administered on 08:17; Admin Dose 20 MEQ; Start 08/22/17 at 09:00 Tamsulosin HCl (Flomax) 0.4 mg HS PO Last administered on 08/24/17 21:28; Admin Dose 0.4 MG; Start 08/21/17 at 21:00 Pantoprazole (Protonix Tab) 40 mg DAILY@06 PO Last administered on 08/25/17 05 :59; Admin Dose 40 MG; Start 08/22/17 at 06:00 Zolpidem Tartrate (Ambien) 5 mg HS PRN PO INSOMNIA Last administered on 21:28; Admin Dose 5 MG; Start 08/21/17 at 20:30 Ondansetron HCl (Zofran Inj) 4 mg Q6H PRN IV NAUSEA AND/OR VOMITING; Start 08/21/17 at 20:30 Diagnostic Test (Pha) (Accu-Chek) 1 ea 02 XX ; Start 08/22/17 at 02:00 Docusate Sodium (Colace) 100 mg BID PO Last administered on 08/25/17 08:17; Admin Dose 100 MG; Start 08/21/17 at 21:00 Miscellaneous Information 1 ea NOTE XX ; Start 08/21/17 at 21:00 Glucose (Glutose) 15 gm Q15M PRN PO DECREASED GLUCOSE; Start 08/21/17 at 21:00 Glucose (Glutose) 22.5 gm Q15M PRN PO DECREASED GLUCOSE; Start 08/21/17 at 21: 00 Dextrose (D50w Syringe) 25 ml Q15M PRN IV DECREASED GLUCOSE; Start 08/21/17 at 21:00 Dextrose (D50w Syringe) 50 ml Q15M PRN IV DECREASED GLUCOSE; Start 08/21/17 at 21:00 Glucagon (Glucagen) 1 mg Q15M PRN IM DECREASED GLUCOSE; Start 08/21/17 at 21:00 Glucose (Glutose) 15 gm Q15M PRN BUCCAL DECREASED GLUCOSE; Start 08/21/17 at 21 :00 Morphine Sulfate (morphine) 2 mg Q6 PRN IV PAIN Last administered on 08/25/17 13:31; Admin Dose 2 MG; Start 08/22/17 at 17:00 Zolpidem Tartrate (Ambien) 5 mg HS PRN PO INSOMNIA; Start 08/22/17 at 17:00 Bisacodyl (Dulcolax) 5 mg DAILY PRN PO CONSTIPATION Last administered on 14:38; Admin Dose 5 MG; Start 08/23/17 at 10:30 Guaifenesin/ Codeine Phosphate (Robitussin Ac Liquid Cup) 10 ml Q6 PRN PO COUGH Last administered on 08/24/17 11:21; Admin Dose 10 ML; Start 08/24/17 at 10:00 Hydrocodone Bit/ Homatropine Methylb (Hycodan Liquid) 5 ml BID PRN PO COUGH; Start 08/24/17 at 10:30 MACR URIOSTEGUI Aug 25, 2017 17:42
--- NOTE | 2017-08-25 18:02 | PN ---
Date/Time of Note Date/Time of Note DATE: 08/25/17 TIME: 17:57 Assessment/Plan VTE Prophylaxis VTE Prophylaxis Intervention: SCD's Lines/Catheters IV Catheter Type (from Nrsg): Saline Lock Urinary Cath still in place: No Assessment/Plan Chief Complaint/Hosp Course This is an 81-year-old male with past history of hypertension, previous HI, bypass surgery, and lung cancer is admitted with c/o chest pain x 1 day, did take 1 sublingual nitro with mild relief of his pain increased and he was brought to hospital by EMS, He described his chest pain is in the center of his chest and is achy type pain. he is currently pain free and friends helped interpret with chst pain that was diffuse but no exeritonal symtoms and no recurrecne Problems: Assessment/Plan -+TROP 11/19 with atypical chst pain -cabg -abnormal chest xray- - Hypokalemia - Chest pain - Normocytic anemia - Elevated brain natriuretic peptide (BNP) level - Diabetes Mellitus - Lung Cancer- sp chemotherapy - BPH - HYPERCHOLESTEROLEMIA -11/19 trops mildly positive due to anemai vs lung disease -given comorbiditis, consdervative therapy best - age, hx of lung ca, frail, no exertional symptoms -off cardiac meds due to bp on the low side except coreg - no acei for now -on midodrine -rx asa if hct remasin stable -pulmonary invovled re: hx of lung cancer and opacification of one side of the lung -Ef 55% 07/03 -will add low dsoe isordil and medical therapy best over invasive route for coronary disease unless becomes absolutely necessary - will manage as outpteint if all stable. check BP with isordil Subjective 24 Hr Interval Summary Free Text/Dictation The patient wtith occasionla chest pain at rest but short lived and no assoicated symtpoms Exam/Review of Systems Vital Signs Vitals Vital Signs Date Time Temp Pulse Resp B/P Pulse Ox O2 Delivery O2 Flow Rate FiO2 08/25/17 16:12 105 08/25/17 15:58 98.5 16 117/70 99 08/25/17 08:10 Nasal Cannula 3.0 Intake and Output 08/24/17 08/24/17 08/25/17 15:00 23:00 07:00 Intake Total 500 ml 700 ml Balance 500 ml 700 ml Results Result Diagram: 08/25/17 0832 08/25/17 0832 Results 24 hrs Laboratory Tests Test 08/24/17 21:22 08/25/17 00:55 08/25/17 08:04 08/25/17 08:32 Bedside Glucose 205 131 167 White Blood Count 10.7 # Red Blood Count 3.37 L Hemoglobin 9.7 L Hematocrit 30.8 L Mean Corpuscular Volume 91.4 Mean Corpuscular Hemoglobin 28.8 L Mean Corpuscular Hemoglobin Concent 31.5 L Red Cell Distribution Width 17.0 H Platelet Count 254 Mean Platelet Volume 10.4 Neutrophils % 90.9 H Lymphocytes % 3.1 L Monocytes % 4.3 Eosinophils % 0.9 Basophils % 0.3 Nucleated Red Blood Cells % 0.0 Neutrophils # 9.8 H Lymphocytes # 0.3 L Monocytes # 0.5 Eosinophils # 0.1 Basophils # 0.0 Nucleated Red Blood Cells # 0.0 Sodium Level 135 Potassium Level 3.9 Chloride Level 103 Carbon Dioxide Level 27 Anion Gap 9 Blood Urea Nitrogen 11 Creatinine 0.59 L Glucose Level 176 Calcium Level 8.2 L Test 08/25/17 12:12 Bedside Glucose 139 Medications Medications Current Medications Carvedilol (Coreg) 3.125 mg QAM PO ; Start 08/22/17 at 09:00; Status Future Hold Midodrine (Proamatine) 5 mg BID PO Last administered on 08/25/17 08:17; Admin Dose 5 MG; Start 08/21/17 at 21:00 Nitroglycerin (Nitroglycerin 0.2 Mg/Hr) 1 patch DAILY TRANSDERM Last administered on 08/25/17 08:16; Admin Dose 1 PATCH; Start 08/22/17 at 09:00 Potassium Chloride (Klor-Con 20) 20 meq DAILY PO Last administered on 08:17; Admin Dose 20 MEQ; Start 08/22/17 at 09:00 Tamsulosin HCl (Flomax) 0.4 mg HS PO Last administered on 08/24/17 21:28; Admin Dose 0.4 MG; Start 08/21/17 at 21:00 Pantoprazole (Protonix Tab) 40 mg DAILY@06 PO Last administered on 08/25/17 05 :59; Admin Dose 40 MG; Start 08/22/17 at 06:00 Ondansetron HCl (Zofran Inj) 4 mg Q6H PRN IV NAUSEA AND/OR VOMITING; Start 08/21/17 at 20:30 Diagnostic Test (Pha) (Accu-Chek) 1 ea 02 XX ; Start 08/22/17 at 02:00 Docusate Sodium (Colace) 100 mg BID PO Last administered on 08/25/17 08:17; Admin Dose 100 MG; Start 08/21/17 at 21:00 Miscellaneous Information 1 ea NOTE XX ; Start 08/21/17 at 21:00 Glucose (Glutose) 15 gm Q15M PRN PO DECREASED GLUCOSE; Start 08/21/17 at 21:00 Glucose (Glutose) 22.5 gm Q15M PRN PO DECREASED GLUCOSE; Start 08/21/17 at 21: 00 Dextrose (D50w Syringe) 25 ml Q15M PRN IV DECREASED GLUCOSE; Start 08/21/17 at 21:00 Dextrose (D50w Syringe) 50 ml Q15M PRN IV DECREASED GLUCOSE; Start 08/21/17 at 21:00 Glucagon (Glucagen) 1 mg Q15M PRN IM DECREASED GLUCOSE; Start 08/21/17 at 21:00 Glucose (Glutose) 15 gm Q15M PRN BUCCAL DECREASED GLUCOSE; Start 08/21/17 at 21 :00 Morphine Sulfate (morphine) 2 mg Q6 PRN IV PAIN Last administered on 08/25/17 13:31; Admin Dose 2 MG; Start 08/22/17 at 17:00 Bisacodyl (Dulcolax) 5 mg DAILY PRN PO CONSTIPATION Last administered on 14:38; Admin Dose 5 MG; Start 08/23/17 at 10:30 Guaifenesin/ Codeine Phosphate (Robitussin Ac Liquid Cup) 10 ml Q6 PRN PO COUGH Last administered on 08/24/17 11:21; Admin Dose 10 ML; Start 08/24/17 at 10:00 Hydrocodone Bit/ Homatropine Methylb (Hycodan Liquid) 5 ml BID PRN PO COUGH; Start 08/24/17 at 10:30 Zolpidem Tartrate (Ambien) 5 mg HS PO ; Start 08/25/17 at 21:00 MELLISA SMALLS MD Aug 25, 2017 18:02
[2017-08-25] MEDS: TAMSULOSIN (SR) 0.4 MG CAP PO SCH (20:55)
[2017-08-25] MEDS: ISOSORBIDE DINITRATE 10 MG TAB PO SCH (20:56)
[2017-08-25] MEDS: ZOLPIDEM 5 MG TAB PO SCH (20:57)
[2017-08-26] VITALS (12 sets, daily range): BP systolic 93–126; BP diastolic 55–61; PULSE 106–129; RESP 16–20
[2017-08-26] MEDS: ACCU-CHEK XX SCH (02:00)
[2017-08-26] MEDS: PANTOPRAZOLE (EC) 40 MG TAB PO SCH (05:29)
[2017-08-26] MEDS: GUAIFENESIN/CODEINE 5ML CUP PO PRN (05:30)
[2017-08-26] MEDS: DOCUSATE SODIUM 100 MG CAP PO SCH ×2 (08:17→20:22)
[2017-08-26] MEDS: MIDODRINE 5 MG TAB PO SCH ×2 (08:18→20:23)
[2017-08-26] MEDS: ASPIRIN 81 MG TAB PO SCH (08:18)
[2017-08-26] MEDS: NITROGLYCERIN 0.2 MG/HR PATCH TRANSDERM SCH (08:19)
[2017-08-26] MEDS: POTASSIUM CHLORIDE (SR) 20 MEQ TAB PO SCH (08:19)
[2017-08-26] MEDS: ISOSORBIDE DINITRATE 10 MG TAB PO SCH ×3 (08:20→20:22)
[2017-08-26] MEDS: INSULIN ASPART [NOVOLOG] 3 ML PEN SC SCH ×4 (08:21→20:23)
[2017-08-26 08:50] LABS: ABNORMAL IP MESSAGE 1; BASOPHILS % 0.3 % (0.0-2.0); EOSINOPHILS # 0.1 10^3/ul (0.0-0.5); EOSINOPHILS % 0.5 % (0.0-7.0); LYMPHOCYTES # 0.2 10^3/ul (0.8-2.9); LYMPHOCYTES % 2.5 % (15.0-51.0); MEAN CORPUSCULAR VOLUME 90.3 fl (82.0-101.0); MEAN PLATELET VOLUME 10.6 fl (7.4-10.4); MONOCYTE # 0.4 10^3/ul (0.3-0.9); MONOCYTES % 4.3 % (0.0-11.0); PLATELET COUNT 237 10^3/UL (140-415); RED BLOOD COUNT 3.21 10^6/ul (4.70-6.10); RED CELL DISTRIBUTION WIDTH 16.8 % (11.5-14.5); WHITE BLOOD COUNT 9.8 10^3/ul (4.8-10.8)
[2017-08-26 09:12] LABS: CALCIUM 8.1 mg/dl (8.4-10.2); CREATININE 0.55 mg/dl (0.61-1.24); POTASSIUM 3.7 mmol/L (3.5-5.1)
--- NOTE | 2017-08-26 10:23 | RADRPT ---
PROCEDURE: CT Brain without contrast. CLINICAL INDICATION: Fell, head injury. TECHNIQUE: A CT of the brain was performed on a multidetector CT scanner utilizing axial sections from the skull base through the vertex without contrast. Images were reviewed on a high-resolution [employer] workstation. Exam CTDI = 87.36 mGy and the DLP = 720.23 mGy-cm. One or the following dose reduction techniques were used: -Automated exposure control. -Adjustment of the mA and/or KV according to patient's size. -Use of iterative reconstruction technique COMPARISON: None available FINDINGS: Mild diffuse cerebral and cerebellar atrophy is present. There is proportionate dilatation of the v entricular system and sulci in a symmetric fashion. There is prominence of the extraaxial spaces sec ondary to atrophy. There is no evidence of intracranial hemorrhage, mass effect or midline shift. N o abnormal intra-axial or extra-axial fluid collections are seen. The density of the brain is prince l and the nielson/white matter differentiation is well preserved. Mild patchy diffuse deep white matte r microangiopathic ischemic change is seen. The osseous structures and visualized paranasal sinuses are unremarkable. Vascular calcifications are identified. IMPRESSION: 1. No evidence of acute intracranial pathology. 2. Age-related volume loss and small vessel ischemic changes. 3. Intracranial atherosclerosis. RPTAT: [facility] Physician Maya Date Time Electronically viewed and signed by Physician Maya on 08/26/2017 10:23 /
--- NOTE | 2017-08-26 11:29 | CONS ---
Date/Time of Note Date/Time of Note DATE: 08/26/17 TIME: 11:27 Assessment/Plan Assessment/Plan Additional Assessment/Plan Assessment and recommendations; 1. Patient admitted with atypical chest pain with interval resolution. 2. History of lung cancer involving right lung with extensive volume loss. Continue current treatment. Consider discharge. Consultation Date/Type/Reason Admit Date/Time Aug 21, 2017 at 12:27 Type of Consultation: Pulm/CCM 24 HR Interval Summary Free Text/Dictation Patient's condition is stable. Denies any shortness of breath any further chest pain. General exam; elderly male, awake and alert. Currently in no distress. Sitting on the edge of the bed. Exam/Review of Systems Vital Signs Vitals Vital Signs Date Time Temp Pulse Resp B/P Pulse Ox O2 Delivery O2 Flow Rate FiO2 08/26/17 08:30 Nasal Cannula 3.0 08/26/17 08:10 111 08/26/17 07:56 97.4 19 93/55 96 Intake and Output 08/25/17 08/25/17 08/26/17 15:00 23:00 07:00 Intake Total 980 ml Balance 980 ml Exam HEENT exam; supple neck, no JVD. No lymphadenopathy. Midline trachea. No thyromegaly. Chest exam; diminished breath sounds right lung. Left lung is clear to auscultation. S1-S2 audible, no murmurs. Regular rhythm. Abdomen exam; soft, nontender. No organomegaly. Bowel sounds audible. Extremity exam; no peripheral edema. [employer] exam; no focal deficit. Results Result Diagram: 08/26/1720 08/26/17 0720 Results 24 hrs Laboratory Tests Test 08/25/17 12:12 08/25/17 17:26 08/25/17 20:26 08/25/17 20:53 Bedside Glucose 139 183 161 145 Test 08/26/17 07:20 08/26/17 08:13 White Blood Count 9.8 Red Blood Count 3.21 L Hemoglobin 9.0 L Hematocrit 29.0 L Mean Corpuscular Volume 90.3 Mean Corpuscular Hemoglobin 28.0 L Mean Corpuscular Hemoglobin Concent 31.0 L Red Cell Distribution Width 16.8 H Platelet Count 237 Mean Platelet Volume 10.6 H Neutrophils % 92.0 H Lymphocytes % 2.5 L Monocytes % 4.3 Eosinophils % 0.5 Basophils % 0.3 Nucleated Red Blood Cells % 0.0 Neutrophils # 9.0 H Lymphocytes # 0.2 L Monocytes # 0.4 Eosinophils # 0.1 Basophils # 0.0 Nucleated Red Blood Cells # 0.0 Sodium Level 132 L Potassium Level 3.7 Chloride Level 102 Carbon Dioxide Level 24 Anion Gap 10 Blood Urea Nitrogen 11 Creatinine 0.55 L Glucose Level 180 Calcium Level 8.1 L Bedside Glucose 161 Medications Medications Current Medications Carvedilol (Coreg) 3.125 mg QAM PO ; Start 08/22/17 at 09:00; Status Future Hold Midodrine (Proamatine) 5 mg BID PO Last administered on 08/26/17 08:18; Admin Dose 5 MG; Start 08/21/17 at 21:00 Nitroglycerin (Nitroglycerin 0.2 Mg/Hr) 1 patch DAILY TRANSDERM Last administered on 08/26/17 08:19; Admin Dose 1 PATCH; Start 08/22/17 at 09:00 Potassium Chloride (Klor-Con 20) 20 meq DAILY PO Last administered on 08:19; Admin Dose 20 MEQ; Start 08/22/17 at 09:00 Tamsulosin HCl (Flomax) 0.4 mg HS PO Last administered on 08/25/17 20:55; Admin Dose 0.4 MG; Start 08/21/17 at 21:00 Pantoprazole (Protonix Tab) 40 mg DAILY@06 PO Last administered on 08/26/17 05:29; Admin Dose 40 MG; Start 08/22/17 at 06:00 Ondansetron HCl (Zofran Inj) 4 mg Q6H PRN IV NAUSEA AND/OR VOMITING; Start 08/21/17 at 20:30 Diagnostic Test (Pha) (Accu-Chek) 1 ea 02 XX ; Start 08/22/17 at 02:00 Docusate Sodium (Colace) 100 mg BID PO Last administered on 08/26/17 08:17; Admin Dose 100 MG; Start 08/21/17 at 21:00 Miscellaneous Information 1 ea NOTE XX ; Start 08/21/17 at 21:00 Glucose (Glutose) 15 gm Q15M PRN PO DECREASED GLUCOSE; Start 08/21/17 at 21:00 Glucose (Glutose) 22.5 gm Q15M PRN PO DECREASED GLUCOSE; Start 08/21/17 at 21: 00 Dextrose (D50w Syringe) 25 ml Q15M PRN IV DECREASED GLUCOSE; Start 08/21/17 at 21:00 Dextrose (D50w Syringe) 50 ml Q15M PRN IV DECREASED GLUCOSE; Start 08/21/17 at 21:00 Glucagon (Glucagen) 1 mg Q15M PRN IM DECREASED GLUCOSE; Start 08/21/17 at 21:00 Glucose (Glutose) 15 gm Q15M PRN BUCCAL DECREASED GLUCOSE; Start 08/21/17 at 21 :00 Morphine Sulfate (morphine) 2 mg Q6 PRN IV PAIN Last administered on 08/25/17 23:55; Admin Dose 2 MG; Start 08/22/17 at 17:00 Bisacodyl (Dulcolax) 5 mg DAILY PRN PO CONSTIPATION Last administered on 14:38; Admin Dose 5 MG; Start 08/23/17 at 10:30 Guaifenesin/ Codeine Phosphate (Robitussin Ac Liquid Cup) 10 ml Q6 PRN PO COUGH Last administered on 08/26/17 05:30; Admin Dose 10 ML; Start 08/24/17 at 10:00 Hydrocodone Bit/ Homatropine Methylb (Hycodan Liquid) 5 ml BID PRN PO COUGH; Start 08/24/17 at 10:30 Zolpidem Tartrate (Ambien) 5 mg HS PO Last administered on 08/25/17 20:57; Admin Dose 5 MG; Start 08/25/17 at 21:00 Aspirin (Aspirin) 81 mg DAILY PO Last administered on 08/26/17 08:18; Admin Dose 81 MG; Start 08/26/17 at 09:00 Isosorbide Dinitrate (Isordil) 10 mg TID PO Last administered on 08/25/17 20: 56; Admin Dose 10 MG; Start 08/25/17 at 21:00 MARCELLO CORDERO Aug 26, 2017 11:28
[2017-08-26] MEDS: BISACODYL (EC) 5 MG TAB PO PRN (12:28)
[2017-08-26] MEDS ORDERED: BISACODYL 10 MG SUPP PR PRN (13:30)
--- NOTE | 2017-08-26 13:39 | PN ---
Date/Time of Note Date/Time of Note DATE: 08/26/17 TIME: 13:35 Assessment/Plan VTE Prophylaxis VTE Prophylaxis Intervention: SCD's Lines/Catheters IV [facility]from [facility] Saline Lock Urinary Cath still in place: No Assessment/Plan Chief Complaint/Hosp Course Patient is s/p mechanical fall, awake, alert, denies SOB, denies chest pain, CT head is negative, monitor neuro status, PT eval Assessment/Plan - NSTMI, Dr. Kaur is following in cardiology consultation. -Coronary artery disease status post CABG in 2004. Continue Aspirin. 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 - Bilateral lower extremity edema, venous Dopplers negative for any deep venous thrombosis. -History of lung cancer dx 2006, completed chemotherapy in 2009. -Diabetes mellitus, HglA1C is 7. Continue NovoLog per mild algorithm sliding scale. -BPH, continue Flomax. -Insomnia continue Ambien nightly Further recommendations based on clinical course. Plan of care discussed with Dr. Morrissey. Problems: Exam/Review of Systems Vital Signs Vitals Vital Signs Date Time Temp Pulse Resp B/P Pulse Ox O2 Delivery O2 Flow Rate FiO2 08/26/17 12:13 106 08/26/17 11:27 98.2 16 126/55 96 08/26/17 08:30 Nasal Cannula 3.0 Intake and Output 08/25/17 08/25/17 08/26/17 15:00 23:00 07:00 Intake Total 980 ml Balance 980 ml Exam Constitutional: alert, oriented Eyes: nl conjunctiva Respiratory: diminished breath sounds Cardiovascular: nl pulses Gastrointestinal: non-tender, soft Musculoskeletal: nl extremities to inspection Extremities: edema Results Result Diagram: 08/26/1720 08/26/17 0720 Results 24 hrs Laboratory Tests Test 08/25/17 17:26 08/25/17 20:26 08/25/17 20:53 08/26/17 07:20 Bedside Glucose 183 161 145 White Blood Count 9.8 Red Blood Count 3.21 L Hemoglobin 9.0 L Hematocrit 29.0 L Mean Corpuscular Volume 90.3 Mean Corpuscular Hemoglobin 28.0 L Mean Corpuscular Hemoglobin Concent 31.0 L Red Cell Distribution Width 16.8 H Platelet Count 237 Mean Platelet Volume 10.6 H Neutrophils % 92.0 H Lymphocytes % 2.5 L Monocytes % 4.3 Eosinophils % 0.5 Basophils % 0.3 Nucleated Red Blood Cells % 0.0 Neutrophils # 9.0 H Lymphocytes # 0.2 L Monocytes # 0.4 Eosinophils # 0.1 Basophils # 0.0 Nucleated Red Blood Cells # 0.0 Sodium Level 132 L Potassium Level 3.7 Chloride Level 102 Carbon Dioxide Level 24 Anion Gap 10 Blood Urea Nitrogen 11 Creatinine 0.55 L Glucose Level 180 Calcium Level 8.1 L Test 08/26/17 08:13 08/26/17 12:17 Bedside Glucose 161 224 H Medications Medications Current Medications Carvedilol (Coreg) 3.125 mg QAM PO ; Start 08/22/17 at 09:00; Status Future Hold Midodrine (Proamatine) 5 mg BID PO Last administered on 08/26/17 08:18; Admin Dose 5 MG; Start 08/21/17 at 21:00 Nitroglycerin (Nitroglycerin 0.2 Mg/Hr) 1 patch DAILY TRANSDERM Last administered on 08/26/17 08:19; Admin Dose 1 PATCH; Start 08/22/17 at 09:00 Potassium Chloride (Klor-Con 20) 20 meq DAILY PO Last administered on 08:19; Admin Dose 20 MEQ; Start 08/22/17 at 09:00 Tamsulosin HCl (Flomax) 0.4 mg HS PO Last administered on 08/25/17 20:55; Admin Dose 0.4 MG; Start 08/21/17 at 21:00 Pantoprazole (Protonix Tab) 40 mg DAILY@06 PO Last administered on 08/26/17 05:29; Admin Dose 40 MG; Start 08/22/17 at 06:00 Ondansetron HCl (Zofran Inj) 4 mg Q6H PRN IV NAUSEA AND/OR VOMITING; Start 08/21/17 at 20:30 Diagnostic Test (Pha) (Accu-Chek) 1 ea 02 XX ; Start 08/22/17 at 02:00 Docusate Sodium (Colace) 100 mg BID PO Last administered on 08/26/17 08:17; Admin Dose 100 MG; Start 08/21/17 at 21:00 Miscellaneous Information 1 ea NOTE XX ; Start 08/21/17 at 21:00 Glucose (Glutose) 15 gm Q15M PRN PO DECREASED GLUCOSE; Start 08/21/17 at 21:00 Glucose (Glutose) 22.5 gm Q15M PRN PO DECREASED GLUCOSE; Start 08/21/17 at 21: 00 Dextrose (D50w Syringe) 25 ml Q15M PRN IV DECREASED GLUCOSE; Start 08/21/17 at 21:00 Dextrose (D50w Syringe) 50 ml Q15M PRN IV DECREASED GLUCOSE; Start 08/21/17 at 21:00 Glucagon (Glucagen) 1 mg Q15M PRN IM DECREASED GLUCOSE; Start 08/21/17 at 21:00 Glucose (Glutose) 15 gm Q15M PRN BUCCAL DECREASED GLUCOSE; Start 08/21/17 at 21 :00 Morphine Sulfate (morphine) 2 mg Q6 PRN IV PAIN Last administered on 08/25/17 23:55; Admin Dose 2 MG; Start 08/22/17 at 17:00 Bisacodyl (Dulcolax) 5 mg DAILY PRN PO CONSTIPATION Last administered on 12:28; Admin Dose 5 MG; Start 08/23/17 at 10:30 Guaifenesin/ Codeine Phosphate (Robitussin Ac Liquid Cup) 10 ml Q6 PRN PO COUGH Last administered on 08/26/17 05:30; Admin Dose 10 ML; Start 08/24/17 at 10:00 Hydrocodone Bit/ Homatropine Methylb (Hycodan Liquid) 5 ml BID PRN PO COUGH; Start 08/24/17 at 10:30 Zolpidem Tartrate (Ambien) 5 mg HS PO Last administered on 08/25/17 20:57; Admin Dose 5 MG; Start 08/25/17 at 21:00 Aspirin (Aspirin) 81 mg DAILY PO Last administered on 08/26/17 08:18; Admin Dose 81 MG; Start 08/26/17 at 09:00 Isosorbide Dinitrate (Isordil) 10 mg TID PO Last administered on 08/26/17 12: 19; Admin Dose 10 MG; Start 08/25/17 at 21:00 Bisacodyl (Dulcolax Supp) 10 mg DAILY PRN SD CONSTIPATION; Start 08/26/17 at 13:30 MARC URIOSTEGUI Aug 26, 2017 13:39
[2017-08-26] MEDS ORDERED: NA PHOSPHATE/BIPHOS 133 ML ENEMA PR ONE (15:00)
[2017-08-26] MEDS: morphine 2 MG INJ IV PRN (16:49)
--- NOTE | 2017-08-26 18:16 | PN ---
Date/Time of Note Date/Time of Note DATE: 08/26/17 TIME: 18:15 Assessment/Plan VTE Prophylaxis VTE Prophylaxis Intervention: SCD's Lines/Catheters IV Catheter Type (from Nrs): Saline Lock Urinary Cath still in place: No Assessment/Plan Chief Complaint/Hosp Course This is an 81-year-old male with past history of hypertension, previous PA, bypass surgery, and lung cancer is admitted with c/o chest pain x 1 day, did take 1 sublingual nitro with mild relief of his pain increased and he was brought to hospital by EMS, He described his chest pain is in the center of his chest and is achy type pain. he is currently pain free and friends helped interpret with chst pain that was diffuse but no exeritonal symtoms and no recurrecne Problems: Assessment/Plan -+TROP 11/19 with atypical chst pain -cabg -abnormal chest xray- - Hypokalemia - Chest pain - Normocytic anemia - Elevated brain natriuretic peptide (BNP) level - Diabetes Mellitus - Lung Cancer- sp chemotherapy - BPH - HYPERCHOLESTEROLEMIA -11/19 trops mildly positive due to anemai vs lung disease -given comorbiditis, consdervative therapy best - age, hx of lung ca, frail, no exertional symptoms -off cardiac meds due to bp on the low side -on midodrine -rx asa if hct remasin stable -pulmonary invovled re: hx of lung cancer and opacification of one side of the lung -Ef 55% 07/03 Subjective 24 Hr Interval Summary Free Text/Dictation the aptient with no cahgne Exam/Review of Systems Vital Signs Vitals Vital Signs Date Time Temp Pulse Resp B/P Pulse Ox O2 Delivery O2 Flow Rate FiO2 08/26/17 16:02 123 08/26/17 15:39 98.1 16 107/59 96 08/26/17 08:30 Nasal Cannula 3.0 Intake and Output 08/25/17 08/25/17 08/26/17 14:59 22:59 06:59 Intake Total 980 ml Balance 980 ml Results Result Diagram: 08/26/1771908/26/17719 Results 24 hrs Laboratory Tests Test 08/25/17 20:26 08/25/17 20:53 08/26/17 07:20 08/26/17 08:13 Bedside Glucose 161 145 161 White Blood Count 9.8 Red Blood Count 3.21 L Hemoglobin 9.0 L Hematocrit 29.0 L Mean Corpuscular Volume 90.3 Mean Corpuscular Hemoglobin 28.0 L Mean Corpuscular Hemoglobin Concent 31.0 L Red Cell Distribution Width 16.8 H Platelet Count 237 Mean Platelet Volume 10.6 H Neutrophils % 92.0 H Lymphocytes % 2.5 L Monocytes % 4.3 Eosinophils % 0.5 Basophils % 0.3 Nucleated Red Blood Cells % 0.0 Neutrophils # 9.0 H Lymphocytes # 0.2 L Monocytes # 0.4 Eosinophils # 0.1 Basophils # 0.0 Nucleated Red Blood Cells # 0.0 Sodium Level 132 L Potassium Level 3.7 Chloride Level 102 Carbon Dioxide Level 24 Anion Gap 10 Blood Urea Nitrogen 11 Creatinine 0.55 L Glucose Level 180 Calcium Level 8.1 L Test 08/26/17 12:17 08/26/17 17:25 Bedside Glucose 224 H 182 Medications Medications Current Medications Carvedilol (Coreg) 3.125 mg QAM PO ; Start 08/22/17 at 09:00; Status Future Hold Midodrine (Proamatine) 5 mg BID PO Last administered on 08/26/17 08:18; Admin Dose 5 MG; Start 08/21/17 at 21:00 Nitroglycerin (Nitroglycerin 0.2 Mg/Hr) 1 patch DAILY TRANSDERM Last administered on 08/26/17 08:19; Admin Dose 1 PATCH; Start 08/22/17 at 09:00 Potassium Chloride (Klor-Con 20) 20 meq DAILY PO Last administered on 08:19; Admin Dose 20 MEQ; Start 08/22/17 at 09:00 Tamsulosin HCl (Flomax) 0.4 mg HS PO Last administered on 08/25/17 20:55; Admin Dose 0.4 MG; Start 08/21/17 at 21:00 Pantoprazole (Protonix Tab) 40 mg DAILY@06 PO Last administered on 08/26/17 05:29; Admin Dose 40 MG; Start 08/22/17 at 06:00 Ondansetron HCl (Zofran Inj) 4 mg Q6H PRN IV NAUSEA AND/OR VOMITING; Start 08/21/17 at 20:30 Diagnostic Test (Pha) (Accu-Chek) 1 ea 02 XX ; Start 08/22/17 at 02:00 Docusate Sodium (Colace) 100 mg BID PO Last administered on 08/26/17 08:17; Admin Dose 100 MG; Start 08/21/17 at 21:00 Miscellaneous Information 1 ea NOTE XX ; Start 08/21/17 at 21:00 Glucose (Glutose) 15 gm Q15M PRN PO DECREASED GLUCOSE; Start 08/21/17 at 21:00 Glucose (Glutose) 22.5 gm Q15M PRN PO DECREASED GLUCOSE; Start 08/21/17 at 21: 00 Dextrose (D50w Syringe) 25 ml Q15M PRN IV DECREASED GLUCOSE; Start 08/21/17 at 21:00 Dextrose (D50w Syringe) 50 ml Q15M PRN IV DECREASED GLUCOSE; Start 08/21/17 at 21:00 Glucagon (Glucagen) 1 mg Q15M PRN IM DECREASED GLUCOSE; Start 08/21/17 at 21:00 Glucose (Glutose) 15 gm Q15M PRN BUCCAL DECREASED GLUCOSE; Start 08/21/17 at 21 :00 Morphine Sulfate (morphine) 2 mg Q6 PRN IV PAIN Last administered on 16:49; Admin Dose 2 MG; Start 08/22/17 at 17:00 Bisacodyl (Dulcolax) 5 mg DAILY PRN PO CONSTIPATION Last administered on 12:28; Admin Dose 5 MG; Start 08/23/17 at 10:30 Guaifenesin/ Codeine Phosphate (Robitussin Ac Liquid Cup) 10 ml Q6 PRN PO COUGH Last administered on 08/26/17 05:30; Admin Dose 10 ML; Start 08/24/17 at 10:00 Hydrocodone Bit/ Homatropine Methylb (Hycodan Liquid) 5 ml BID PRN PO COUGH; Start 08/24/17 at 10:30 Zolpidem Tartrate (Ambien) 5 mg HS PO Last administered on 08/25/17 20:57; Admin Dose 5 MG; Start 08/25/17 at 21:00 Aspirin (Aspirin) 81 mg DAILY PO Last administered on 08/26/17 08:18; Admin Dose 81 MG; Start 08/26/17 at 09:00 Isosorbide Dinitrate (Isordil) 10 mg TID PO Last administered on 10/10/17at 12: 19; Admin Dose 10 MG; Start 08/25/17 at 21:00 Bisacodyl (Dulcolax Supp) 10 mg DAILY PRN [place] CONSTIPATION; Start 08/26/17 at 13:30 MELLISA SMALLS MD Aug 26, 2017 18:16
[2017-08-26] MEDS: ZOLPIDEM 5 MG TAB PO SCH (20:22)
[2017-08-26] MEDS: TAMSULOSIN (SR) 0.4 MG CAP PO SCH (20:23)
[2017-08-27] VITALS (14 sets, daily range): BP systolic 85–114; BP diastolic 52–70; PULSE 112–120; RESP 16–20
[2017-08-27] MEDS: ACCU-CHEK XX SCH (01:14)
[2017-08-27] MEDS: PANTOPRAZOLE (EC) 40 MG TAB PO SCH (05:08)
[2017-08-27] MEDS: INSULIN ASPART [NOVOLOG] 3 ML PEN SC SCH ×4 (07:47→20:47)
[2017-08-27 08:15] LABS: BASOPHILS % 0.4 % (0.0-2.0); EOSINOPHILS # 0.1 10^3/ul (0.0-0.5); EOSINOPHILS % 1.3 % (0.0-7.0); HEMATOCRIT 30.6 % (42.0-52.0); HEMOGLOBIN 9.8 g/dl (14.0-18.0); LYMPHOCYTES # 0.9 10^3/ul (0.8-2.9); LYMPHOCYTES % 8.6 % (15.0-51.0); MEAN CORPUSCULAR HEMOGLOBIN 28.7 pg (29.0-33.0); MEAN CORPUSCULAR VOLUME 89.5 fl (82.0-101.0); MONOCYTE # 0.7 10^3/ul (0.3-0.9); MONOCYTES % 6.6 % (0.0-11.0); NEUTROPHIL # 8.4 10^3/ul (1.6-7.5); NEUTROPHILS % 82.8 % (39.0-77.0); PLATELET COUNT 277 10^3/UL (140-415); RED BLOOD COUNT 3.42 10^6/ul (4.70-6.10); WHITE BLOOD COUNT 10.2 10^3/ul (4.8-10.8)
[2017-08-27] MEDS: NITROGLYCERIN 0.2 MG/HR PATCH TRANSDERM SCH (08:20)
[2017-08-27] MEDS: POTASSIUM CHLORIDE (SR) 20 MEQ TAB PO SCH (08:21)
[2017-08-27] MEDS: MIDODRINE 5 MG TAB PO SCH ×2 (08:21→20:40)
[2017-08-27] MEDS: DOCUSATE SODIUM 100 MG CAP PO SCH ×2 (08:21→20:39)
[2017-08-27] MEDS: ISOSORBIDE DINITRATE 10 MG TAB PO SCH ×3 (08:21→20:48)
[2017-08-27] MEDS: ASPIRIN 81 MG TAB PO SCH (08:21)
--- NOTE | 2017-08-27 08:42 | PN ---
Date/Time of Note Date/Time of Note DATE: 08/27/17 TIME: 08:42 Assessment/Plan VTE Prophylaxis VTE Prophylaxis Intervention: SCD's Lines/Catheters IV Catheter Type (from Nrsg): Saline Lock Urinary Cath still in place: No Assessment/Plan Chief Complaint/Hosp Course This is an 81-year-old male with past history of hypertension, previous [place], bypass surgery, and lung cancer is admitted with c/o chest pain x 1 day, did take 1 sublingual nitro with mild relief of his pain increased and he was brought to hospital by EMS, He described his chest pain is in the center of his chest and is achy type pain. he is currently pain free and friends helped interpret with chst pain that was diffuse but no exeritonal symtoms and no recurrecne Problems: Assessment/Plan -+TROP 11/19 with atypical chst pain -cabg -abnormal chest xray- - Hypokalemia - Chest pain - Normocytic anemia - Elevated brain natriuretic peptide (BNP) level - Diabetes Mellitus - Lung Cancer- sp chemotherapy - BPH - HYPERCHOLESTEROLEMIA -11/19 trops mildly positive due to anemai vs lung disease -given comorbiditis, consdervative therapy best - age, hx of lung ca, frail, no exertional symptoms -off cardiac meds due to bp on the low side -on midodrine -rx asa if hct remasin stable -pulmonary invovled re: hx of lung cancer and opacification of one side of the lung -Ef 55% 07/03 Subjective 24 Hr Interval Summary Free Text/Dictation the patient with atypical chest pian when lies down Exam/Review of Systems Vital Signs Vitals Vital Signs Date Time Temp Pulse Resp B/P Pulse Ox O2 Delivery O2 Flow Rate FiO2 08/27/17 08:13 116 08/27/17 07:49 98.0 20 90/61 99 08/26/17 08:30 Nasal Cannula 3.0 Intake and Output 08/26/17 08/26/17 08/27/17 15:00 23:00 07:00 Intake Total 300 ml 720 ml Output Total 300 ml Balance 300 ml 420 ml Results Result Diagram: 08/27/17 0714 08/26/17 0720 Results 24 hrs Laboratory Tests Test 08/26/17 12:17 08/26/17 17:25 08/26/17 20:22 08/27/17 07:14 Bedside Glucose 224 H 182 140 White Blood Count 10.2 Red Blood Count 3.42 L Hemoglobin 9.8 L Hematocrit 30.6 L Mean Corpuscular Volume 89.5 Mean Corpuscular Hemoglobin 28.7 L Mean Corpuscular Hemoglobin Concent 32.0 Red Cell Distribution Width 17.0 H Platelet Count 277 Mean Platelet Volume 11.0 H Neutrophils % 82.8 H Lymphocytes % 8.6 L Monocytes % 6.6 Eosinophils % 1.3 Basophils % 0.4 Nucleated Red Blood Cells % 0.0 Neutrophils # 8.4 H Lymphocytes # 0.9 Monocytes # 0.7 Eosinophils # 0.1 Basophils # 0.0 Nucleated Red Blood Cells # 0.0 Test 08/27/17 07:40 Bedside Glucose 159 Medications Medications Current Medications Carvedilol (Coreg) 3.125 mg QAM PO ; Start 08/22/17 at 09:00; Status Future Hold Midodrine (Proamatine) 5 mg BID PO Last administered on 08/27/17 08:21; Admin Dose 5 MG; Start 08/21/17 at 21:00 Nitroglycerin (Nitroglycerin 0.2 Mg/Hr) 1 patch DAILY TRANSDERM Last administered on 08/27/17 08:20; Admin Dose 1 PATCH; Start 08/22/17 at 09:00 Potassium Chloride (Klor-Con 20) 20 meq DAILY PO Last administered on 08:21; Admin Dose 20 MEQ; Start 08/22/17 at 09:00 Tamsulosin HCl (Flomax) 0.4 mg HS PO Last administered on 08/26/17 20:23; Admin Dose 0.4 MG; Start 08/21/17 at 21:00 Pantoprazole (Protonix Tab) 40 mg DAILY@06 PO Last administered on 08/27/17 05:08; Admin Dose 40 MG; Start 08/22/17 at 06:00 Ondansetron HCl (Zofran Inj) 4 mg Q6H PRN IV NAUSEA AND/OR VOMITING; Start 08/21/17 at 20:30 Diagnostic Test (Pha) (Accu-Chek) 1 ea 02 XX ; Start 08/22/17 at 02:00 Docusate Sodium (Colace) 100 mg BID PO Last administered on 08/27/17 08:21; Admin Dose 100 MG; Start 08/21/17 at 21:00 Miscellaneous Information 1 ea NOTE XX ; Start 08/21/17 at 21:00 Glucose (Glutose) 15 gm Q15M PRN PO DECREASED GLUCOSE; Start 08/21/17 at 21:00 Glucose (Glutose) 22.5 gm Q15M PRN PO DECREASED GLUCOSE; Start 08/21/17 at 21: 00 Dextrose (D50w Syringe) 25 ml Q15M PRN IV DECREASED GLUCOSE; Start 08/21/17 at 21:00 Dextrose (D50w Syringe) 50 ml Q15M PRN IV DECREASED GLUCOSE; Start 08/21/17 at 21:00 Glucagon (Glucagen) 1 mg Q15M PRN IM DECREASED GLUCOSE; Start 08/21/17 at 21:00 Glucose (Glutose) 15 gm Q15M PRN BUCCAL DECREASED GLUCOSE; Start 08/21/17 at 21 :00 Morphine Sulfate (morphine) 2 mg Q6 PRN IV PAIN Last administered on 16:49; Admin Dose 2 MG; Start 08/22/17 at 17:00 Bisacodyl (Dulcolax) 5 mg DAILY PRN PO CONSTIPATION Last administered on 12:28; Admin Dose 5 MG; Start 08/23/17 at 10:30 Guaifenesin/ Codeine Phosphate (Robitussin Ac Liquid Cup) 10 ml Q6 PRN PO COUGH Last administered on 08/26/17 05:30; Admin Dose 10 ML; Start 08/24/17 at 10:00 Hydrocodone Bit/ Homatropine Methylb (Hycodan Liquid) 5 ml BID PRN PO COUGH; Start 08/24/17 at 10:30 Zolpidem Tartrate (Ambien) 5 mg HS PO Last administered on 08/26/17 20:22; Admin Dose 5 MG; Start 08/25/17 at 21:00 Aspirin (Aspirin) 81 mg DAILY PO Last administered on 08/27/17 08:21; Admin Dose 81 MG; Start 08/26/17 at 09:00 Isosorbide Dinitrate (Isordil) 10 mg TID PO Last administered on 08/26/17 20: 22; Admin Dose 10 MG; Start 08/25/17 at 21:00 Bisacodyl (Dulcolax Supp) 10 mg DAILY PRN [place] CONSTIPATION; Start 08/26/17 at 13:30 MELLISA SMALLS MD Aug 27, 2017 08:42
[2017-08-27 08:44] LABS: CALCIUM 8.5 mg/dl (8.4-10.2); CREATININE 0.56 mg/dl (0.61-1.24); POTASSIUM 3.5 mmol/L (3.5-5.1)
--- NOTE | 2017-08-27 12:36 | CONS ---
Date/Time of Note Date/Time of Note DATE: 08/27/17 TIME: 12:34 Assessment/Plan Assessment/Plan Additional Assessment/Plan Assessment and recommendations; 1. Patient admitted with chest pain with interval resolution. Likely atypical. 2. Extensive right lung malignancy. Continue current treatment. Consider discharge. Consultation Date/Type/Reason Admit Date/Time Aug 21, 2017 at 12:27 Type of Consultation: Pulm/CCM 24 HR Interval Summary Free Text/Dictation Patient's condition is stable. Denies any shortness of breath, chest pain. Any coughing or sputum production. General exam; elderly male, awake alert, currently in no distress. Exam/Review of Systems Vital Signs Vitals Vital Signs Date Time Temp Pulse Resp B/P Pulse Ox O2 Delivery O2 Flow Rate FiO2 08/27/17 12:03 97.5 118 20 114/67 99 08/26/17 08:30 Nasal Cannula 3.0 Intake and Output 08/26/17 08/26/17 08/27/17 15:00 23:00 07:00 Intake Total 300 ml 720 ml Output Total 300 ml Balance 300 ml 420 ml Exam HEENT exam; supple neck, no JVD. No lymphadenopathy. Midline trachea. No thyromegaly. Patient has few remaining teeth. Chest exam; diminished breath sounds right lung. Left lung is clear to auscultation. S1-S2 audible, no murmurs. Regular rhythm. Abdomen exam; soft, nontender. No organomegaly. Bowel sounds audible. Extremity exam; no peripheral edema. [employer] exam; no focal deficit. Results Result Diagram: 08/27/17 0714 08/27/1714 Results 24 hrs Laboratory Tests Test 08/26/17 17:25 08/26/17 20:22 08/27/17 07:14 08/27/17 07:40 Bedside Glucose 182 140 159 White Blood Count 10.2 Red Blood Count 3.42 L Hemoglobin 9.8 L Hematocrit 30.6 L Mean Corpuscular Volume 89.5 Mean Corpuscular Hemoglobin 28.7 L Mean Corpuscular Hemoglobin Concent 32.0 Red Cell Distribution Width 17.0 H Platelet Count 277 Mean Platelet Volume 11.0 H Neutrophils % 82.8 H Lymphocytes % 8.6 L Monocytes % 6.6 Eosinophils % 1.3 Basophils % 0.4 Nucleated Red Blood Cells % 0.0 Neutrophils # 8.4 H Lymphocytes # 0.9 Monocytes # 0.7 Eosinophils # 0.1 Basophils # 0.0 Nucleated Red Blood Cells # 0.0 Sodium Level 135 Potassium Level 3.5 Chloride Level 103 Carbon Dioxide Level 25 Anion Gap 11 Blood Urea Nitrogen 10 Creatinine 0.56 L Glucose Level 132 # Calcium Level 8.5 Test 08/27/17 11:50 Bedside Glucose 202 Medications Medications Current Medications Carvedilol (Coreg) 3.125 mg QAM PO ; Start 08/22/17 at 09:00; Status Future Hold Midodrine (Proamatine) 5 mg BID PO Last administered on 08/27/17 08:21; Admin Dose 5 MG; Start 08/21/17 at 21:00 Nitroglycerin (Nitroglycerin 0.2 Mg/Hr) 1 patch DAILY TRANSDERM Last administered on 08/27/17 08:20; Admin Dose 1 PATCH; Start 08/22/17 at 09:00 Potassium Chloride (Klor-Con 20) 20 meq DAILY PO Last administered on 08:21; Admin Dose 20 MEQ; Start 08/22/17 at 09:00 Tamsulosin HCl (Flomax) 0.4 mg HS PO Last administered on 08/26/17 20:23; Admin Dose 0.4 MG; Start 08/21/17 at 21:00 Pantoprazole (Protonix Tab) 40 mg DAILY@06 PO Last administered on 08/27/17 05:08; Admin Dose 40 MG; Start 08/22/17 at 06:00 Ondansetron HCl (Zofran Inj) 4 mg Q6H PRN IV NAUSEA AND/OR VOMITING; Start 08/21/17 at 20:30 Diagnostic Test (Pha) (Accu-Chek) 1 ea 02 XX ; Start 08/22/17 at 02:00 Docusate Sodium (Colace) 100 mg BID PO Last administered on 08/27/17 08:21; Admin Dose 100 MG; Start 08/21/17 at 21:00 Miscellaneous Information 1 ea NOTE XX ; Start 08/21/17 at 21:00 Glucose (Glutose) 15 gm Q15M PRN PO DECREASED GLUCOSE; Start 08/21/17 at 21:00 Glucose (Glutose) 22.5 gm Q15M PRN PO DECREASED GLUCOSE; Start 08/21/17 at 21: 00 Dextrose (D50w Syringe) 25 ml Q15M PRN IV DECREASED GLUCOSE; Start 08/21/17 at 21:00 Dextrose (D50w Syringe) 50 ml Q15M PRN IV DECREASED GLUCOSE; Start 08/21/17 at 21:00 Glucagon (Glucagen) 1 mg Q15M PRN IM DECREASED GLUCOSE; Start 08/21/17 at 21:00 Glucose (Glutose) 15 gm Q15M PRN BUCCAL DECREASED GLUCOSE; Start 08/21/17 at 21 :00 Morphine Sulfate (morphine) 2 mg Q6 PRN IV PAIN Last administered on 16:49; Admin Dose 2 MG; Start 08/22/17 at 17:00 Bisacodyl (Dulcolax) 5 mg DAILY PRN PO CONSTIPATION Last administered on 12:28; Admin Dose 5 MG; Start 08/23/17 at 10:30 Guaifenesin/ Codeine Phosphate (Robitussin Ac Liquid Cup) 10 ml Q6 PRN PO COUGH Last administered on 08/26/17 05:30; Admin Dose 10 ML; Start 08/24/17 at 10:00 Hydrocodone Bit/ Homatropine Methylb (Hycodan Liquid) 5 ml BID PRN PO COUGH; Start 08/24/17 at 10:30 Zolpidem Tartrate (Ambien) 5 mg HS PO Last administered on 08/26/17 20:22; Admin Dose 5 MG; Start 08/25/17 at 21:00 Aspirin (Aspirin) 81 mg DAILY PO Last administered on 08/27/17 08:21; Admin Dose 81 MG; Start 08/26/17 at 09:00 Isosorbide Dinitrate (Isordil) 10 mg TID PO Last administered on 08/27/17 12: 01; Admin Dose 10 MG; Start 08/25/17 at 21:00 Bisacodyl (Dulcolax Supp) 10 mg DAILY PRN [place] CONSTIPATION; Start 08/26/17 at 13:30 MARCELLO CORDERO Aug 27, 2017 12:36
[2017-08-27] MEDS: morphine 2 MG INJ IV PRN ×2 (15:04→23:43)
[2017-08-27] MEDS ORDERED: POTASSIUM CHLORIDE (SR) 20 MEQ TAB PO STA (16:41)
[2017-08-27] MEDS ORDERED: MAGNESIUM SULFATE 2 GM/50 ML 50 ML IVPB ONE (17:00)
--- NOTE | 2017-08-27 17:37 | PN ---
Date/Time of Note Date/Time of Note DATE: 08/27/17 TIME: 17:36 Assessment/Plan VTE Prophylaxis VTE Prophylaxis Intervention: SCD's Lines/Catheters IV C[facility]ter Type (from [facility]): Saline Lock Urinary Cath still in place: No Assessment/Plan Chief Complaint/Hosp Course Patient is tachycardic with a low blood pressure, complains of the mild chest pain 5 out of 10, will check troponin every 6 hours 2. Continue telemetry monitoring. Assessment/Plan - NSTMI, Dr. Kaur is following in cardiology consultation. -Coronary artery disease status post CABG in 2004. Continue Aspirin. 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 - Bilateral lower extremity edema, venous Dopplers negative for any deep venous thrombosis. -History of lung cancer dx 2006, completed chemotherapy in 2009. -Diabetes mellitus, HglA1C is 7. Continue NovoLog per mild algorithm sliding scale. -BPH, continue Flomax. -Insomnia continue Ambien nightly Further recommendations based on clinical course. Plan of care discussed with Dr. Morrissey. Problems: Exam/Review of Systems Vital Signs Vitals Vital Signs Date Time Temp Pulse Resp B/P Pulse Ox O2 Delivery O2 Flow Rate FiO2 08/27/17 16:08 112 08/27/17 15:56 98.7 20 88/53 98 08/26/17 08:30 Nasal Cannula 3.0 Intake and Output 08/26/17 08/26/17 08/27/17 15:00 23:00 07:00 Intake Total 300 ml 720 ml Output Total 300 ml Balance 300 ml 420 ml Exam Constitutional: alert, oriented Eyes: nl conjunctiva Respiratory: diminished breath sounds Cardiovascular: nl pulses Gastrointestinal: non-tender, soft Musculoskeletal: nl extremities to inspection Extremities: edema Results Result Diagram: 08/27/1714 08/27/1714 Results 24 hrs Laboratory Tests Test 08/26/17 20:22 08/27/17 07:14 08/27/17 07:40 08/27/17 11:50 Bedside Glucose 140 159 202 White Blood Count 10.2 Red Blood Count 3.42 L Hemoglobin 9.8 L Hematocrit 30.6 L Mean Corpuscular Volume 89.5 Mean Corpuscular Hemoglobin 28.7 L Mean Corpuscular Hemoglobin Concent 32.0 Red Cell Distribution Width 17.0 H Platelet Count 277 Mean Platelet Volume 11.0 H Neutrophils % 82.8 H Lymphocytes % 8.6 L Monocytes % 6.6 Eosinophils % 1.3 Basophils % 0.4 Nucleated Red Blood Cells % 0.0 Neutrophils # 8.4 H Lymphocytes # 0.9 Monocytes # 0.7 Eosinophils # 0.1 Basophils # 0.0 Nucleated Red Blood Cells # 0.0 Sodium Level 135 Potassium Level 3.5 Chloride Level 103 Carbon Dioxide Level 25 Anion Gap 11 Blood Urea Nitrogen 10 Creatinine 0.56 L Glucose Level 132 # Calcium Level 8.5 Test 08/27/17 17:12 Bedside Glucose 147 Medications Medications Current Medications Carvedilol (Coreg) 3.125 mg QAM PO ; Start 08/22/17 at 09:00; Status Future Hold Midodrine (Proamatine) 5 mg BID PO Last administered on 08/27/17 08:21; Admin Dose 5 MG; Start 08/21/17 at 21:00 Nitroglycerin (Nitroglycerin 0.2 Mg/Hr) 1 patch DAILY TRANSDERM Last administered on 08/27/17 08:20; Admin Dose 1 PATCH; Start 08/22/17 at 09:00 Potassium Chloride (Klor-Con 20) 20 meq DAILY PO Last administered on 08:21; Admin Dose 20 MEQ; Start 08/22/17 at 09:00 Tamsulosin HCl (Flomax) 0.4 mg HS PO Last administered on 08/26/17 20:23; Admin Dose 0.4 MG; Start 08/21/17 at 21:00 Pantoprazole (Protonix Tab) 40 mg DAILY@06 PO Last administered on 08/27/17 05:08; Admin Dose 40 MG; Start 08/22/17 at 06:00 Ondansetron HCl (Zofran Inj) 4 mg Q6H PRN IV NAUSEA AND/OR VOMITING; Start 08/21/17 at 20:30 Diagnostic Test (Pha) (Accu-Chek) 1 ea 02 XX ; Start 08/22/17 at 02:00 Docusate Sodium (Colace) 100 mg BID PO Last administered on 08/27/17 08:21; Admin Dose 100 MG; Start 08/21/17 at 21:00 Miscellaneous Information 1 ea NOTE XX ; Start 08/21/17 at 21:00 Glucose (Glutose) 15 gm Q15M PRN PO DECREASED GLUCOSE; Start 08/21/17 at 21:00 Glucose (Glutose) 22.5 gm Q15M PRN PO DECREASED GLUCOSE; Start 08/21/17 at 21: 00 Dextrose (D50w Syringe) 25 ml Q15M PRN IV DECREASED GLUCOSE; Start 08/21/17 at 21:00 Dextrose (D50w Syringe) 50 ml Q15M PRN IV DECREASED GLUCOSE; Start 08/21/17 at 21:00 Glucagon (Glucagen) 1 mg Q15M PRN IM DECREASED GLUCOSE; Start 08/21/17 at 21:00 Glucose (Glutose) 15 gm Q15M PRN BUCCAL DECREASED GLUCOSE; Start 08/21/17 at 21 :00 Morphine Sulfate (morphine) 2 mg Q6 PRN IV PAIN Last administered on 15:04; Admin Dose 2 MG; Start 08/22/17 at 17:00 Bisacodyl (Dulcolax) 5 mg DAILY PRN PO CONSTIPATION Last administered on 12:28; Admin Dose 5 MG; Start 08/23/17 at 10:30 Guaifenesin/ Codeine Phosphate (Robitussin Ac Liquid Cup) 10 ml Q6 PRN PO COUGH Last administered on 08/26/17 05:30; Admin Dose 10 ML; Start 08/24/17 at 10:00 Hydrocodone Bit/ Homatropine Methylb (Hycodan Liquid) 5 ml BID PRN PO COUGH; Start 08/24/17 at 10:30 Zolpidem Tartrate (Ambien) 5 mg HS PO Last administered on 08/26/17 20:22; Admin Dose 5 MG; Start 08/25/17 at 21:00 Aspirin (Aspirin) 81 mg DAILY PO Last administered on 08/27/17 08:21; Admin Dose 81 MG; Start 08/26/17 at 09:00 Isosorbide Dinitrate (Isordil) 10 mg TID PO Last administered on 08/27/17 12: 01; Admin Dose 10 MG; Start 08/25/17 at 21:00 Bisacodyl 10 mg 10 mg DAILY PRN [place] CONSTIPATION; Start 08/26/17 at 13:30 Magnesium Sulfate (Magnesium Sulfate 2 Gm/50 ml) 50 ml @ 25 mls/hr ONCE ONCE IVPB Last administered on 10/11/17at 17:20; Admin Dose 25 MLS/HR; Start at 17:00; Stop 08/27/17 at 18:59 MARC URIOSTEGUI Aug 27, 2017 17:37
[2017-08-27] MEDS: ZOLPIDEM 5 MG TAB PO SCH (20:39)
[2017-08-27] MEDS: TAMSULOSIN (SR) 0.4 MG CAP PO SCH (20:39)
[2017-08-28] VITALS (15 sets, daily range): BP systolic 97–118; BP diastolic 57–74; PULSE 109–123; RESP 18–20
[2017-08-28] MEDS: ACCU-CHEK XX SCH (02:00)
[2017-08-28] MEDS: morphine 2 MG INJ IV PRN ×3 (05:46→21:05)
[2017-08-28] MEDS: PANTOPRAZOLE (EC) 40 MG TAB PO SCH ×2 (06:00→08:08)
[2017-08-28] MEDS: INSULIN ASPART [NOVOLOG] 3 ML PEN SC SCH ×4 (07:41→21:07)
[2017-08-28] MEDS: DOCUSATE SODIUM 100 MG CAP PO SCH ×2 (08:08→21:05)
[2017-08-28] MEDS: POTASSIUM CHLORIDE (SR) 20 MEQ TAB PO SCH (08:08)
[2017-08-28] MEDS: ASPIRIN 81 MG TAB PO SCH (08:09)
[2017-08-28] MEDS: MIDODRINE 5 MG TAB PO SCH ×2 (08:09→21:00)
[2017-08-28] MEDS: ISOSORBIDE DINITRATE 10 MG TAB PO SCH ×3 (08:09→21:00)
[2017-08-28] MEDS: NITROGLYCERIN 0.2 MG/HR PATCH TRANSDERM SCH (08:09)
[2017-08-28 08:35] LABS: ABNORMAL IP MESSAGE 1; BASOPHIL # 0.1 10^3/ul (0.0-0.1); BASOPHILS % 0.4 % (0.0-2.0); EOSINOPHILS # 0.1 10^3/ul (0.0-0.5); EOSINOPHILS % 1.1 % (0.0-7.0); HEMATOCRIT 29.6 % (42.0-52.0); HEMOGLOBIN 9.1 g/dl (14.0-18.0); LYMPHOCYTES # 0.6 10^3/ul (0.8-2.9); LYMPHOCYTES % 4.4 % (15.0-51.0); MEAN CORPUSCULAR HEMOGLOBIN 27.4 pg (29.0-33.0); MEAN CORPUSCULAR HGB CONC 30.7 g/dl (32.0-37.0); MEAN CORPUSCULAR VOLUME 89.2 fl (82.0-101.0); MONOCYTE # 0.5 10^3/ul (0.3-0.9); NEUTROPHIL # 11.1 10^3/ul (1.6-7.5); NEUTROPHILS % 89.7 % (39.0-77.0); PLATELET COUNT 265 10^3/UL (140-415); POSITIVE DIFF @See below; RED BLOOD COUNT 3.32 10^6/ul (4.70-6.10); RED CELL DISTRIBUTION WIDTH 17.2 % (11.5-14.5); WHITE BLOOD COUNT 12.4 10^3/ul (4.8-10.8)
[2017-08-28] MEDS ORDERED: REGADENOSON 0.4 MG/5 ML SYG ONE (08:39)
[2017-08-28 09:21] LABS: CALCIUM 8.6 mg/dl (8.4-10.2); CREATININE 0.59 mg/dl (0.61-1.24); POTASSIUM 4.2 mmol/L (3.5-5.1)
--- NOTE | 2017-08-28 10:33 | PN ---
Date/Time of Note Date/Time of Note DATE: 08/28/17 TIME: 10:31 Assessment/Plan Lines/Catheters IV Catheter Type (from Nrs): Saline Lock Urinary Cath still in place: No Assessment/Plan Assessment/Plan - NSTMI, SP stress test today- fu. no chest pain at present. -Dr. Kaur is following in cardiology consultation. -Coronary artery disease status post CABG in 2004. Continue Aspirin. 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 - Bilateral lower extremity edema, venous Dopplers negative for any deep venous thrombosis. -History of lung cancer dx 2006, completed chemotherapy in 2009. -Diabetes mellitus, HglA1C is 7. Continue NovoLog per mild algorithm sliding scale. -BPH, continue Flomax. -Insomnia continue Ambien Further recommendations based on clinical course. Plan of care discussed with Dr. Morrissey. Subjective 24 Hr Interval Summary Free Text/Dictation Came back from [facility] test- fu. dw staff Constitutional: requiring O2 Respiratory: shortness of breath Cardiovascular: no complaints Gastrointestinal: no complaints Exam/Review of Systems Vital Signs Vitals Vital Signs Date Time Temp Pulse Resp B/P Pulse Ox O2 Delivery O2 Flow Rate FiO2 08/28/17 08:04 97.9 124 20 99/62 100 08/28/17 00:20 Nasal Cannula 2.0 Intake and Output 08/27/17 08/27/17 08/28/17 15:00 23:00 07:00 Intake Total 720 ml 250 ml Output Total 125 ml Balance 720 ml 125 ml Exam Constitutional: alert, oriented Cardiovascular: nl pulses, other (tachycardia- HR 122), regular rate and rhythm Gastrointestinal: non-tender, soft Musculoskeletal: nl extremities to inspection Extremities: normal pulses 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: nl mental status, nl speech Results Result Diagram: 08/28/1743 08/28/17 0743 Results 24 hrs Laboratory Tests Test 08/27/17 11:50 08/27/17 17:12 08/27/17 18:38 08/27/17 20:36 Bedside Glucose 202 147 191 Troponin I 0.053 Test 08/28/17 00:56 08/28/17 02:07 08/28/17 07:34 08/28/17 07:43 Troponin I 0.047 Bedside Glucose 105 136 White Blood Count 12.4 #H Red Blood Count 3.32 L Hemoglobin 9.1 L Hematocrit 29.6 L Mean Corpuscular Volume 89.2 Mean Corpuscular Hemoglobin 27.4 L Mean Corpuscular Hemoglobin Concent 30.7 L Red Cell Distribution Width 17.2 H Platelet Count 265 Mean Platelet Volume 11.0 H Neutrophils % 89.7 H Lymphocytes % 4.4 L Monocytes % 4.0 Eosinophils % 1.1 Basophils % 0.4 Nucleated Red Blood Cells % 0.0 Neutrophils # 11.1 H Lymphocytes # 0.6 L Monocytes # 0.5 Eosinophils # 0.1 Basophils # 0.1 Nucleated Red Blood Cells # 0.0 Sodium Level 132 L Potassium Level 4.2 Chloride Level 104 Carbon Dioxide Level 23 Anion Gap 9 Blood Urea Nitrogen 12 Creatinine 0.59 L Glucose Level 127 Calcium Level 8.6 Magnesium Level 1.9 Medications Medications Current Medications Carvedilol (Coreg) 3.125 mg QAM PO ; Start 08/22/17 at 09:00; Status Future Hold Midodrine (Proamatine) 5 mg BID PO Last administered on 08/28/17 08:09; Admin Dose 5 MG; Start 08/21/17 at 21:00 Nitroglycerin (Nitroglycerin 0.2 Mg/Hr) 1 patch DAILY TRANSDERM Last administered on 08/28/17 08:09; Admin Dose 1 PATCH; Start 08/22/17 at 09:00 Potassium Chloride (Klor-Con 20) 20 meq DAILY PO Last administered on 08:08; Admin Dose 20 MEQ; Start 08/22/17 at 09:00 Tamsulosin HCl (Flomax) 0.4 mg HS PO Last administered on 08/27/17 20:39; Admin Dose 0.4 MG; Start 08/21/17 at 21:00 Pantoprazole (Protonix Tab) 40 mg DAILY@06 PO Last administered on 08/27/17 05:08; Admin Dose 40 MG; Start 08/22/17 at 06:00 Ondansetron HCl (Zofran Inj) 4 mg Q6H PRN IV NAUSEA AND/OR VOMITING; Start 08/21/17 at 20:30 Diagnostic Test (Pha) (Accu-Chek) 1 ea 02 XX ; Start 08/22/17 at 02:00 Docusate Sodium (Colace) 100 mg BID PO Last administered on 08/28/17 08:08; Admin Dose 100 MG; Start 08/21/17 at 21:00 Miscellaneous Information 1 ea NOTE XX ; Start 08/21/17 at 21:00 Glucose (Glutose) 15 gm Q15M PRN PO DECREASED GLUCOSE; Start 08/21/17 at 21:00 Glucose (Glutose) 22.5 gm Q15M PRN PO DECREASED GLUCOSE; Start 08/21/17 at 21: 00 Dextrose (D50w Syringe) 25 ml Q15M PRN IV DECREASED GLUCOSE; Start 08/21/17 at 21:00 Dextrose (D50w Syringe) 50 ml Q15M PRN IV DECREASED GLUCOSE; Start 08/21/17 at 21:00 Glucagon (Glucagen) 1 mg Q15M PRN IM DECREASED GLUCOSE; Start 08/21/17 at 21:00 Glucose (Glutose) 15 gm Q15M PRN BUCCAL DECREASED GLUCOSE; Start 08/21/17 at 21 :00 Morphine Sulfate (morphine) 2 mg Q6 PRN IV PAIN Last administered on 05:46; Admin Dose 2 MG; Start 08/22/17 at 17:00 Bisacodyl (Dulcolax) 5 mg DAILY PRN PO CONSTIPATION Last administered on 12:28; Admin Dose 5 MG; Start 08/23/17 at 10:30 Guaifenesin/ Codeine Phosphate (Robitussin Ac Liquid Cup) 10 ml Q6 PRN PO COUGH Last administered on 08/26/17 05:30; Admin Dose 10 ML; Start 08/24/17 at 10:00 Hydrocodone Bit/ Homatropine Methylb (Hycodan Liquid) 5 ml BID PRN PO COUGH; Start 08/24/17 at 10:30 Zolpidem Tartrate (Ambien) 5 mg HS PO Last administered on 08/27/17 20:39; Admin Dose 5 MG; Start 08/25/17 at 21:00 Aspirin (Aspirin) 81 mg DAILY PO Last administered on 08/28/17 08:09; Admin Dose 81 MG; Start 08/26/17 at 09:00 Isosorbide Dinitrate (Isordil) 10 mg TID PO Last administered on 08/27/17 12: 01; Admin Dose 10 MG; Start 08/25/17 at 21:00 Bisacodyl (Dulcolax Supp) 10 mg DAILY PRN [place] CONSTIPATION; Start 08/26/17 at 13:30 VA ALTMAN Aug 28, 2017 10:33
--- NOTE | 2017-08-28 13:14 | TMLRPT ---
DATE: 08/28/2017 LEXISCAN CARDIOLITE INDICATIONS: 1. CABG. normal sinus rhythm, right bundle branch block. 2. Normal . 3. There are no EKG changes consistent with ischemia. 4. No arrhythmia. IMAGING: Results are pending. Dictated By: MELLISA SMALLS MD, MS/AIRAM Conf#: [id number] DID#: [id number]
[2017-08-28] MEDS: GUAIFENESIN/CODEINE 5ML CUP PO PRN (15:11)
--- NOTE | 2017-08-28 19:36 | PN ---
Date/Time of Note Date/Time of Note DATE: 08/28/17 TIME: 19:35 Assessment/Plan VTE Prophylaxis VTE Prophylaxis Intervention: SCD's Lines/Catheters IV Catheter Type (from Nrsg): Saline Lock Urinary Cath still in place: No Assessment/Plan Chief Complaint/Hosp Course This is an 81-year-old male with past history of hypertension, previous [place], bypass surgery, and lung cancer is admitted with c/o chest pain x 1 day, did take 1 sublingual nitro with mild relief of his pain increased and he was brought to hospital by EMS, He described his chest pain is in the center of his chest and is achy type pain. he is currently pain free and friends helped interpret with chst pain that was diffuse but no exeritonal symtoms and no recurrecne Problems: Assessment/Plan +TROP 11/19 with atypical chst pain -cabg -abnormal chest xray- - Hypokalemia - Chest pain - Normocytic anemia - Elevated brain natriuretic peptide (BNP) level - Diabetes Mellitus - Lung Cancer- sp chemotherapy - BPH - HYPERCHOLESTEROLEMIA -11/19 trops mildly positive due to anemai vs lung disease -given comorbiditis, consdervative therapy best - age, hx of lung ca, frail, no exertional symptoms -off cardiac meds due to bp on the low side -on midodrine -rx asa if hct remasin stable -pulmonary invovled re: hx of lung cancer and opacification of one side of the lung -Ef 55% 07/03 -s/p cardiolyte today - high trhesold to cath given comorbidities and freail state Subjective 24 Hr Interval Summary Free Text/Dictation The patient with no change Exam/Review of Systems Vital Signs Vitals Vital Signs Date Time Temp Pulse Resp B/P Pulse Ox O2 Delivery O2 Flow Rate FiO2 08/28/17 16:00 109 08/28/17 15:46 97.7 18 98/57 100 08/28/17 00:20 Nasal Cannula 2.0 Intake and Output 08/27/17 08/27/17 08/28/17 15:00 23:00 07:00 Intake Total 720 ml 250 ml Output Total 125 ml Balance 720 ml 125 ml Results Result Diagram: 08/28/17 0743 08/28/17 0743 Results 24 hrs Laboratory Tests Test 08/27/17 20:36 08/28/17 00:56 08/28/17 02:07 08/28/17 07:34 Bedside Glucose 191 105 136 Troponin I 0.047 Test 08/28/17 07:43 08/28/17 12:12 08/28/17 17:13 White Blood Count 12.4 #H Red Blood Count 3.32 L Hemoglobin 9.1 L Hematocrit 29.6 L Mean Corpuscular Volume 89.2 Mean Corpuscular Hemoglobin 27.4 L Mean Corpuscular Hemoglobin Concent 30.7 L Red Cell Distribution Width 17.2 H Platelet Count 265 Mean Platelet Volume 11.0 H Neutrophils % 89.7 H Lymphocytes % 4.4 L Monocytes % 4.0 Eosinophils % 1.1 Basophils % 0.4 Nucleated Red Blood Cells % 0.0 Neutrophils # 11.1 H Lymphocytes # 0.6 L Monocytes # 0.5 Eosinophils # 0.1 Basophils # 0.1 Nucleated Red Blood Cells # 0.0 Sodium Level 132 L Potassium Level 4.2 Chloride Level 104 Carbon Dioxide Level 23 Anion Gap 9 Blood Urea Nitrogen 12 Creatinine 0.59 L Glucose Level 127 Calcium Level 8.6 Magnesium Level 1.9 Bedside Glucose 225 H 175 Medications Medications Current Medications Carvedilol (Coreg) 3.125 mg QAM PO ; Start 08/22/17 at 09:00; Status Future Hold Midodrine (Proamatine) 5 mg BID PO Last administered on 08/28/17 08:09; Admin Dose 5 MG; Start 08/21/17 at 21:00 Nitroglycerin (Nitroglycerin 0.2 Mg/Hr) 1 patch DAILY TRANSDERM Last administered on 08/28/17 08:09; Admin Dose 1 PATCH; Start 08/22/17 at 09:00 Potassium Chloride (Klor-Con 20) 20 meq DAILY PO Last administered on 08:08; Admin Dose 20 MEQ; Start 08/22/17 at 09:00 Tamsulosin HCl (Flomax) 0.4 mg HS PO Last administered on 08/27/17 20:39; Admin Dose 0.4 MG; Start 08/21/17 at 21:00 Pantoprazole (Protonix Tab) 40 mg DAILY@06 PO Last administered on 08/27/17 05:08; Admin Dose 40 MG; Start 08/22/17 at 06:00 Ondansetron HCl (Zofran Inj) 4 mg Q6H PRN IV NAUSEA AND/OR VOMITING; Start 08/21/17 at 20:30 Diagnostic Test (Pha) (Accu-Chek) 1 ea 02 XX ; Start 08/22/17 at 02:00 Docusate Sodium (Colace) 100 mg BID PO Last administered on 08/28/17 08:08; Admin Dose 100 MG; Start 08/21/17 at 21:00 Miscellaneous Information 1 ea NOTE XX ; Start 08/21/17 at 21:00 Glucose (Glutose) 15 gm Q15M PRN PO DECREASED GLUCOSE; Start 08/21/17 at 21:00 Glucose (Glutose) 22.5 gm Q15M PRN PO DECREASED GLUCOSE; Start 08/21/17 at 21: 00 Dextrose (D50w Syringe) 25 ml Q15M PRN IV DECREASED GLUCOSE; Start 08/21/17 at 21:00 Dextrose (D50w Syringe) 50 ml Q15M PRN IV DECREASED GLUCOSE; Start 08/21/17 at 21:00 Glucagon (Glucagen) 1 mg Q15M PRN IM DECREASED GLUCOSE; Start 08/21/17 at 21:00 Glucose (Glutose) 15 gm Q15M PRN BUCCAL DECREASED GLUCOSE; Start 08/21/17 at 21 :00 Morphine Sulfate (morphine) 2 mg Q6 PRN IV PAIN Last administered on 10:56; Admin Dose 2 MG; Start 08/22/17 at 17:00 Bisacodyl (Dulcolax) 5 mg DAILY PRN PO CONSTIPATION Last administered on 12:28; Admin Dose 5 MG; Start 08/23/17 at 10:30 Guaifenesin/ Codeine Phosphate (Robitussin Ac Liquid Cup) 10 ml Q6 PRN PO COUGH Last administered on 08/28/17 15:11; Admin Dose 10 ML; Start 08/24/17 at 10:00 Hydrocodone Bit/ Homatropine Methylb (Hycodan Liquid) 5 ml BID PRN PO COUGH; Start 08/24/17 at 10:30 Zolpidem Tartrate (Ambien) 5 mg HS PO Last administered on 08/27/17 20:39; Admin Dose 5 MG; Start 08/25/17 at 21:00 Aspirin (Aspirin) 81 mg DAILY PO Last administered on 08/28/17 08:09; Admin Dose 81 MG; Start 08/26/17 at 09:00 Isosorbide Dinitrate (Isordil) 10 mg TID PO Last administered on 08/27/17 12: 01; Admin Dose 10 MG; Start 08/25/17 at 21:00 Bisacodyl (Dulcolax Supp) 10 mg DAILY PRN [place] CONSTIPATION; Start 08/26/17 at 13:30 MELLISA SMALLS MD Aug 28, 2017 19:36
[2017-08-28] MEDS: TAMSULOSIN (SR) 0.4 MG CAP PO SCH (21:05)
[2017-08-28] MEDS: ZOLPIDEM 5 MG TAB PO SCH (21:05)
[2017-08-29] VITALS (12 sets, daily range): BP systolic 103–118; BP diastolic 60–75; PULSE 105–124; RESP 17–20
[2017-08-29] MEDS: ACCU-CHEK XX SCH (02:00)
[2017-08-29] MEDS: PANTOPRAZOLE (EC) 40 MG TAB PO SCH (05:49)
[2017-08-29] MEDS: morphine 2 MG INJ IV PRN ×2 (05:50→17:44)
[2017-08-29] MEDS: ONDANSETRON 4 MG INJ IV PRN (06:27)
[2017-08-29] MEDS: INSULIN ASPART [NOVOLOG] 3 ML PEN SC SCH ×4 (07:44→20:39)
[2017-08-29] MEDS: NITROGLYCERIN 0.2 MG/HR PATCH TRANSDERM SCH (08:07)
[2017-08-29] MEDS: POTASSIUM CHLORIDE (SR) 20 MEQ TAB PO SCH (08:07)
[2017-08-29] MEDS: ASPIRIN 81 MG TAB PO SCH (08:07)
[2017-08-29] MEDS: MIDODRINE 5 MG TAB PO SCH ×2 (08:08→20:36)
[2017-08-29] MEDS: DOCUSATE SODIUM 100 MG CAP PO SCH ×2 (08:08→20:36)
[2017-08-29] MEDS: ISOSORBIDE DINITRATE 10 MG TAB PO SCH ×3 (08:08→20:36)
[2017-08-29] MEDS ORDERED: LORAZEPAM 2 MG INJ IV PRN (14:00)
[2017-08-29] MEDS ORDERED: NA PHOSPHATE/BIPHOS 133 ML ENEMA PR ONE (14:00)
--- NOTE | 2017-08-29 16:16 | RADRPT ---
PROCEDURE: Lexiscan myocardial perfusion study CLINICAL INDICATION: 81 -year-old patient complaining of chest pain. TECHNIQUE: Lexiscan 0.4 mg intravenously separate acquisition gated myocardial perfusion SPECT usi ng Tc 99m sestamibi mCi intravenously at stress and Tc-99m Sestamibi, 25.5 mCi intravenously at res t was performed using the sequence. Poststress sestamibi SPECT images were obtained in the supine and prone positions. COMPARISON: No prior studies. FINDINGS: Perfusion images reveal a large size moderate in degree partially reversible perfusion defect in the apical, distal to mid anterior, distal to mid anteroseptal, distal anterolateral and distal inferio r [place]. Lexiscan post stress gated SPECT images demonstrate moderate hypokinesis of the left ventricle. IMPRESSION: 1. The type and distribution of the scintigraphic abnormalities are most consistent with a large si ze partially reversible perfusion defect in the apex, distal to mid anterior, distal to mid anterose ptal, distal anterolateral and distal inferior [place]. 2. Moderate hypokinesis of the left ventricle. 3. The left ventricle ejection fraction at stress is 21%. A call report was made to Dr. Kaur at 04:15 p.m. on August 29, 2017. RPTAT: HH .Namrata Espinal MD, Date Time Electronically viewed and signed by .Namrata Espinal MD, MD on 08/29/2017 16:16 .L/
--- NOTE | 2017-08-29 17:31 | PN ---
Date/Time of Note Date/Time of Note DATE: 08/29/17 TIME: 17:28 Assessment/Plan VTE Prophylaxis VTE Prophylaxis Intervention: SCD's Lines/Catheters IV Catheter Type (from Nrsg): Saline Lock Urinary Cath still in place: No Assessment/Plan Chief Complaint/Hosp Course This is an 81-year-old male with past history of hypertension, previous [place], bypass surgery, and lung cancer is admitted with c/o chest pain x 1 day, did take 1 sublingual nitro with mild relief of his pain increased and he was brought to hospital by EMS, He described his chest pain is in the center of his chest and is achy type pain. he is currently pain free and friends helped interpret with chst pain that was diffuse but no exeritonal symtoms and no recurrecne Problems: Assessment/Plan +TROP 11/19 with atypical chst pain -cabg -abnormal chest xray- - Hypokalemia - Chest pain - Normocytic anemia - Elevated brain natriuretic peptide (BNP) level - Diabetes Mellitus - Lung Cancer- sp chemotherapy - BPH - HYPERCHOLESTEROLEMIA -11/19 trops mildly positive due to anemai vs lung disease -given comorbiditis, consdervative therapy best - age, hx of lung ca, frail, no exertional symptoms -off cardiac meds due to bp on the low side -on midodrine -rx asa if hct remasin stable -pulmonary invovled re: hx of lung cancer and opacification of one side of the lung -Ef 55% 07/03 -s/p cardiolyte today - large partial reversible defects in multiple territories - given his current comorbidities, meical therapy may be best but will speak with dr oleary and thereafter, the family to further deicde on definitve plan Subjective 24 Hr Interval Summary Free Text/Dictation the patijnt stable overnight Exam/Review of Systems Vital Signs Vitals Vital Signs Date Time Temp Pulse Resp B/P Pulse Ox O2 Delivery O2 Flow Rate FiO2 08/29/17 16:12 123 08/29/17 15:50 97.2 20 107/68 98 08/29/17 08:00 Nasal Cannula 2.0 Intake and Output 08/28/17 08/28/17 08/29/17 15:00 23:00 07:00 Intake Total 720 ml 650 ml Balance 720 ml 650 ml Results Result Diagram: 08/28/17 0743 08/28/17 0743 Results 24 hrs Laboratory Tests Test 08/28/17 20:52 08/29/17 01:35 08/29/17 07:40 08/29/17 11:48 Bedside Glucose 190 136 215 140 Test 08/29/17 17:07 Bedside Glucose 198 Medications Medications Current Medications Carvedilol (Coreg) 3.125 mg QAM PO ; Start 08/22/17 at 09:00; Status Future Hold Midodrine (Proamatine) 5 mg BID PO Last administered on 08/29/17 08:08; Admin Dose 5 MG; Start 08/21/17 at 21:00 Nitroglycerin (Nitroglycerin 0.2 Mg/Hr) 1 patch DAILY TRANSDERM Last administered on 08/29/17 08:07; Admin Dose 1 PATCH; Start 08/22/17 at 09:00 Potassium Chloride (Klor-Con 20) 20 meq DAILY PO Last administered on 08:07; Admin Dose 20 MEQ; Start 08/22/17 at 09:00 Tamsulosin HCl (Flomax) 0.4 mg HS PO Last administered on 08/28/17 21:05; Admin Dose 0.4 MG; Start 08/21/17 at 21:00 Pantoprazole (Protonix Tab) 40 mg DAILY@06 PO Last administered on 08/29/17 05:49; Admin Dose 40 MG; Start 08/22/17 at 06:00 Ondansetron HCl (Zofran Inj) 4 mg Q6H PRN IV NAUSEA AND/OR VOMITING Last administered on 08/29/17 06:27; Admin Dose 4 MG; Start 08/21/17 at 20:30 Diagnostic Test (Pha) (Accu-Chek) 1 ea 02 XX ; Start 08/22/17 at 02:00 Docusate Sodium (Colace) 100 mg BID PO Last administered on 08/29/17 08:08; Admin Dose 100 MG; Start 08/21/17 at 21:00 Miscellaneous Information 1 ea NOTE XX ; Start 08/21/17 at 21:00 Glucose (Glutose) 15 gm Q15M PRN PO DECREASED GLUCOSE; Start 08/21/17 at 21:00 Glucose (Glutose) 22.5 gm Q15M PRN PO DECREASED GLUCOSE; Start 08/21/17 at 21: 00 Dextrose (D50w Syringe) 25 ml Q15M PRN IV DECREASED GLUCOSE; Start 08/21/17 at 21:00 Dextrose (D50w Syringe) 50 ml Q15M PRN IV DECREASED GLUCOSE; Start 08/21/17 at 21:00 Glucagon (Glucagen) 1 mg Q15M PRN IM DECREASED GLUCOSE; Start 08/21/17 at 21:00 Glucose (Glutose) 15 gm Q15M PRN BUCCAL DECREASED GLUCOSE; Start 08/21/17 at 21 :00 Bisacodyl (Dulcolax) 5 mg DAILY PRN PO CONSTIPATION Last administered on 12:28; Admin Dose 5 MG; Start 08/23/17 at 10:30 Guaifenesin/ Codeine Phosphate (Robitussin Ac Liquid Cup) 10 ml Q6 PRN PO COUGH Last administered on 08/28/17 15:11; Admin Dose 10 ML; Start 08/24/17 at 10:00 Hydrocodone Bit/ Homatropine Methylb (Hycodan Liquid) 5 ml BID PRN PO COUGH Last administered on 08/29/17 06:27; Admin Dose 5 ML; Start 08/24/17 at 10:30 Zolpidem Tartrate (Ambien) 5 mg HS PO Last administered on 08/28/17 21:05; Admin Dose 5 MG; Start 08/25/17 at 21:00 Aspirin (Aspirin) 81 mg DAILY PO Last administered on 08/29/17 08:07; Admin Dose 81 MG; Start 08/26/17 at 09:00 Isosorbide Dinitrate (Isordil) 10 mg TID PO Last administered on 08/29/17 13: 17; Admin Dose 10 MG; Start 08/25/17 at 21:00 Bisacodyl (Dulcolax Supp) 10 mg DAILY PRN [place] CONSTIPATION; Start 08/26/17 at 13:30 Morphine Sulfate (morphine) 2 mg Q4H PRN IV PAIN; Start 08/29/17 at 14:00 Lorazepam (Ativan) 0.5 mg Q6H PRN IV ANXIETY; Start 08/29/17 at 14:00 MELLISA SMALLS MD Aug 29, 2017 17:31
--- NOTE | 2017-08-29 19:15 | PN ---
Date/Time of Note Date/Time of Note DATE: 08/29/17 TIME: 19:13 Assessment/Plan VTE Prophylaxis VTE Prophylaxis Intervention: SCD's Lines/Catheters IV [facility]from [facility] Saline [facility] Urinary Cath still in place: No Assessment/Plan Chief Complaint/Hosp Course Patient remains tachycardic, BP is more stable, able to ambulate in in the hallway with walker. Assessment/Plan - NSTMI, Dr. Kaur is following in cardiology consultation. S/p Lexiscan with large partial reversible defects in multiple territories. Continue medical therapy, f/up cardiology recs. -Coronary artery disease status post CABG in 2004. Continue Aspirin. 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 - Bilateral lower extremity edema, venous Dopplers negative for any deep venous thrombosis. -History of lung cancer dx 2006, completed chemotherapy in 2009. -Diabetes mellitus, HglA1C is 7. Continue NovoLog per mild algorithm sliding scale. -BPH, continue Flomax. -Insomnia continue Ambien nightly Further recommendations based on clinical course. Plan of care discussed with Dr. Morrissey. Problems: Exam/Review of Systems Vital Signs Vitals Vital Signs Date Time Temp Pulse Resp B/P Pulse Ox O2 Delivery O2 Flow Rate FiO2 08/29/17 16:12 123 08/29/17 15:50 97.2 20 107/68 98 08/29/17 08:00 Nasal Cannula 2.0 Intake and Output 08/28/17 08/28/17 08/29/17 14:59 22:59 06:59 Intake Total 720 ml 650 ml Balance 720 ml 650 ml Exam Constitutional: alert, oriented Eyes: nl conjunctiva Respiratory: diminished breath sounds Cardiovascular: nl pulses Gastrointestinal: non-tender, soft Musculoskeletal: nl extremities to inspection Extremities: edema Results Result Diagram: 08/28/17 0743 08/28/17 0743 Results 24 hrs Laboratory Tests Test 08/28/17 20:52 08/29/17 01:35 08/29/17 07:40 08/29/17 11:48 Bedside Glucose 190 136 215 140 Test 08/29/17 17:07 Bedside Glucose 198 Medications Medications Current Medications Carvedilol (Coreg) 3.125 mg QAM PO ; Start 08/22/17 at 09:00; Status Future Hold Midodrine (Proamatine) 5 mg BID PO Last administered on 08/29/17 08:08; Admin Dose 5 MG; Start 08/21/17 at 21:00 Nitroglycerin (Nitroglycerin 0.2 Mg/Hr) 1 patch DAILY TRANSDERM Last administered on 08/29/17 08:07; Admin Dose 1 PATCH; Start 08/22/17 at 09:00 Potassium Chloride (Klor-Con 20) 20 meq DAILY PO Last administered on 08:07; Admin Dose 20 MEQ; Start 08/22/17 at 09:00 Tamsulosin HCl (Flomax) 0.4 mg HS PO Last administered on 08/28/17 21:05; Admin Dose 0.4 MG; Start 08/21/17 at 21:00 Pantoprazole (Protonix Tab) 40 mg DAILY@06 PO Last administered on 08/29/17 05:49; Admin Dose 40 MG; Start 08/22/17 at 06:00 Ondansetron HCl (Zofran Inj) 4 mg Q6H PRN IV NAUSEA AND/OR VOMITING Last administered on 08/29/17 06:27; Admin Dose 4 MG; Start 08/21/17 at 20:30 Diagnostic Test (Pha) (Accu-Chek) 1 ea 02 XX ; Start 08/22/17 at 02:00 Docusate Sodium (Colace) 100 mg BID PO Last administered on 08/29/17 08:08; Admin Dose 100 MG; Start 08/21/17 at 21:00 Miscellaneous Information 1 ea NOTE XX ; Start 08/21/17 at 21:00 Glucose (Glutose) 15 gm Q15M PRN PO DECREASED GLUCOSE; Start 08/21/17 at 21:00 Glucose (Glutose) 22.5 gm Q15M PRN PO DECREASED GLUCOSE; Start 08/21/17 at 21: 00 Dextrose (D50w Syringe) 25 ml Q15M PRN IV DECREASED GLUCOSE; Start 08/21/17 at 21:00 Dextrose (D50w Syringe) 50 ml Q15M PRN IV DECREASED GLUCOSE; Start 08/21/17 at 21:00 Glucagon (Glucagen) 1 mg Q15M PRN IM DECREASED GLUCOSE; Start 08/21/17 at 21:00 Glucose (Glutose) 15 gm Q15M PRN BUCCAL DECREASED GLUCOSE; Start 08/21/17 at 21 :00 Bisacodyl (Dulcolax) 5 mg DAILY PRN PO CONSTIPATION Last administered on 12:28; Admin Dose 5 MG; Start 08/23/17 at 10:30 Guaifenesin/ Codeine Phosphate (Robitussin Ac Liquid Cup) 10 ml Q6 PRN PO COUGH Last administered on 08/28/17 15:11; Admin Dose 10 ML; Start 08/24/17 at 10:00 Hydrocodone Bit/ Homatropine Methylb (Hycodan Liquid) 5 ml BID PRN PO COUGH Last administered on 08/29/17 06:27; Admin Dose 5 ML; Start 08/24/17 at 10:30 Zolpidem Tartrate (Ambien) 5 mg HS PO Last administered on 08/28/17 21:05; Admin Dose 5 MG; Start 08/25/17 at 21:00 Aspirin (Aspirin) 81 mg DAILY PO Last administered on 08/29/17 08:07; Admin Dose 81 MG; Start 08/26/17 at 09:00 Isosorbide Dinitrate (Isordil) 10 mg TID PO Last administered on 08/29/17 13: 17; Admin Dose 10 MG; Start 08/25/17 at 21:00 Bisacodyl (Dulcolax Supp) 10 mg DAILY PRN [place] CONSTIPATION; Start 08/26/17 at 13:30 Morphine Sulfate (morphine) 2 mg Q4H PRN IV PAIN Last administered on 17:44; Admin Dose 2 MG; Start 08/29/17 at 14:00 Lorazepam (Ativan) 0.5 mg Q6H PRN IV ANXIETY; Start 08/29/17 at 14:00 MARC URIOSTEGUI Aug 29, 2017 19:15
[2017-08-29] MEDS: ZOLPIDEM 5 MG TAB PO SCH (20:36)
[2017-08-29] MEDS: TAMSULOSIN (SR) 0.4 MG CAP PO SCH (20:37)
[2017-08-30] VITALS (13 sets, daily range): BP systolic 91–126; BP diastolic 53–87; PULSE 106–144; RESP 18–28
[2017-08-30] MEDS: ACCU-CHEK XX SCH (02:00)
[2017-08-30] MEDS: morphine 2 MG INJ IV PRN ×4 (05:22→21:40)
[2017-08-30] MEDS: PANTOPRAZOLE (EC) 40 MG TAB PO SCH (05:22)
[2017-08-30] MEDS: INSULIN ASPART [NOVOLOG] 3 ML PEN SC SCH ×4 (07:34→20:30)
[2017-08-30 08:17] LABS: ABNORMAL IP MESSAGE 1; BASOPHILS % 0.5 % (0.0-2.0); EOSINOPHILS # 0.1 10^3/ul (0.0-0.5); EOSINOPHILS % 1.1 % (0.0-7.0); LYMPHOCYTES # 0.4 10^3/ul (0.8-2.9); LYMPHOCYTES % 4.3 % (15.0-51.0); MEAN CORPUSCULAR HEMOGLOBIN 27.2 pg (29.0-33.0); MEAN CORPUSCULAR HGB CONC 30.3 g/dl (32.0-37.0); MEAN CORPUSCULAR VOLUME 89.9 fl (82.0-101.0); MEAN PLATELET VOLUME 11.1 fl (7.4-10.4); MONOCYTE # 0.4 10^3/ul (0.3-0.9); NEUTROPHIL # 7.8 10^3/ul (1.6-7.5); NEUTROPHILS % 88.5 % (39.0-77.0); PLATELET COUNT 307 10^3/UL (140-415); POSITIVE DIFF @See below; RED BLOOD COUNT 3.67 10^6/ul (4.70-6.10); RED CELL DISTRIBUTION WIDTH 17.2 % (11.5-14.5); WHITE BLOOD COUNT 8.8 10^3/ul (4.8-10.8)
[2017-08-30] MEDS: POTASSIUM CHLORIDE (SR) 20 MEQ TAB PO SCH (08:30)
[2017-08-30] MEDS: DOCUSATE SODIUM 100 MG CAP PO SCH ×2 (08:30→20:25)
[2017-08-30] MEDS: ISOSORBIDE DINITRATE 10 MG TAB PO SCH ×3 (08:31→21:00)
[2017-08-30] MEDS: MIDODRINE 5 MG TAB PO SCH ×2 (08:31→20:29)
[2017-08-30] MEDS: ASPIRIN 81 MG TAB PO SCH (08:32)
[2017-08-30 08:49] LABS: CALCIUM 9.4 mg/dl (8.4-10.2); CREATININE 0.58 mg/dl (0.61-1.24)
[2017-08-30] MEDS: NITROGLYCERIN 0.2 MG/HR PATCH TRANSDERM SCH (09:47)
--- NOTE | 2017-08-30 10:27 | CONS ---
Date/Time of Note Date/Time of Note DATE: 08/30/17 TIME: : Assessment/Plan Assessment/Plan Chief Complaint/Hosp Course 1) CAD 2) CABG 3) LV dysfunction 4) Lung cancer with right lung opacification 5) Malnutrition 6) frailty 7) Chest pain with partially reversible defect 8) Marked anemia 9) Hypotension Problems: Additional Assessment/Plan 1) While invasive strategy is generally indication patient currently is not a cath candidate given very high risk of periinterventional complications and adverse outcome 2) Will start Ranexa 500 bid 3) dw at great length with patient and in their [place] language via bowling ball finisher. At this time family prefers pain medication and medical therapy to limit his suffering as opposed to high risk intervention. Will pursue this at this time and reassess on a daily basis 4) Will consider starting clopidogrel in addition to ASA to assess patients tolerability for DAPT Consultation Date/Type/Reason Admit Date/Time Aug 21, 2017 at 12:27 Initial Consult Date Type of Consultation: cv 24 HR Interval Summary Free Text/Dictation patient weak, labored breathing, no gross fluid overload, no edema, intermittent chest pressure, partially right side, partially left, nonexertional , limited food and fluid intake Constitutional: other (frail), poor po Detailed Summary ENT: no complaints Respiratory: shortness of breath Cardiovascular: chest pain Gastrointestinal: decreased appetite Musculoskeletal: no complaints Skin: no complaints Neurologic: no complaints Endocrine: no complaints Exam/Review of Systems Vital Signs Vitals Vital Signs Date Time Temp Pulse Resp B/P Pulse Ox O2 Delivery O2 Flow Rate FiO2 08/30/17 08:00 116 08/30/17 07:32 97.2 19 98/65 99 08/30/17 05:10 Room Air 08/30/17 04:11 2.0 Intake and Output 08/29/17 08/29/17 08/30/17 15:00 23:00 07:00 Intake Total 400 ml 650 ml Output Total 850 ml Balance 400 ml -200 ml Exam Constitutional: frail Head: atraumatic, normocephalic Neck: jvd Respiratory: diminished breath sounds Cardiovascular: gallop Gastrointestinal: soft Musculoskeletal: muscle weakness Extremities: normal pulses 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: 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 WORKER II-XII 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 Results Result Diagram: 08/30/17 0657 08/30/17 0657 Results 24 hrs Laboratory Tests Test 08/29/17 11:48 08/29/17 17:07 08/29/17 20:39 08/30/17 06:57 Bedside Glucose 140 198 169 White Blood Count 8.8 # Red Blood Count 3.67 L Hemoglobin 10.0 L Hematocrit 33.0 L Mean Corpuscular Volume 89.9 Mean Corpuscular Hemoglobin 27.2 L Mean Corpuscular Hemoglobin Concent 30.3 L Red Cell Distribution Width 17.2 H Platelet Count 307 Mean Platelet Volume 11.1 H Neutrophils % 88.5 H Lymphocytes % 4.3 L Monocytes % 5.0 Eosinophils % 1.1 Basophils % 0.5 Nucleated Red Blood Cells % 0.0 Neutrophils # 7.8 H Lymphocytes # 0.4 L Monocytes # 0.4 Eosinophils # 0.1 Basophils # 0.0 Nucleated Red Blood Cells # 0.0 Sodium Level 127 L Potassium Level 4.0 Chloride Level 99 Carbon Dioxide Level 24 Anion Gap 8 Blood Urea Nitrogen 12 Creatinine 0.58 L Glucose Level 159 Calcium Level 9.4 Test 08/30/17 07:05 Bedside Glucose 158 Medications Medications Current Medications Carvedilol (Coreg) 3.125 mg QAM PO ; Start 08/22/17 at 09:00; Status Future Hold Midodrine (Proamatine) 5 mg BID PO Last administered on 08/30/17 08:31; Admin Dose 5 MG; Start 08/21/17 at 21:00 Nitroglycerin (Nitroglycerin 0.2 Mg/Hr) 1 patch DAILY TRANSDERM Last administered on 08/30/17 09:47; Admin Dose 1 PATCH; Start 08/22/17 at 09:00 Potassium Chloride (Klor-Con 20) 20 meq DAILY PO Last administered on 08:30; Admin Dose 20 MEQ; Start 08/22/17 at 09:00 Tamsulosin HCl (Flomax) 0.4 mg HS PO Last administered on 08/29/17 20:37; Admin Dose 0.4 MG; Start 08/21/17 at 21:00 Pantoprazole (Protonix Tab) 40 mg DAILY@06 PO Last administered on 08/30/17 05:22; Admin Dose 40 MG; Start 08/22/17 at 06:00 Ondansetron HCl (Zofran Inj) 4 mg Q6H PRN IV NAUSEA AND/OR VOMITING Last administered on 08/29/17 06:27; Admin Dose 4 MG; Start 08/21/17 at 20:30 Diagnostic Test (Pha) (Accu-Chek) 1 ea 02 XX ; Start 08/22/17 at 02:00 Docusate Sodium (Colace) 100 mg BID PO Last administered on 08/30/17 08:30; Admin Dose 100 MG; Start 08/21/17 at 21:00 Miscellaneous Information 1 ea NOTE XX ; Start 08/21/17 at 21:00 Glucose (Glutose) 15 gm Q15M PRN PO DECREASED GLUCOSE; Start 08/21/17 at 21:00 Glucose (Glutose) 22.5 gm Q15M PRN PO DECREASED GLUCOSE; Start 08/21/17 at 21: 00 Dextrose (D50w Syringe) 25 ml Q15M PRN IV DECREASED GLUCOSE; Start 08/21/17 at 21:00 Dextrose (D50w Syringe) 50 ml Q15M PRN IV DECREASED GLUCOSE; Start 08/21/17 at 21:00 Glucagon (Glucagen) 1 mg Q15M PRN IM DECREASED GLUCOSE; Start 08/21/17 at 21:00 Glucose (Glutose) 15 gm Q15M PRN BUCCAL DECREASED GLUCOSE; Start 08/21/17 at 21 :00 Bisacodyl (Dulcolax) 5 mg DAILY PRN PO CONSTIPATION Last administered on 12:28; Admin Dose 5 MG; Start 08/23/17 at 10:30 Guaifenesin/ Codeine Phosphate (Robitussin Ac Liquid Cup) 10 ml Q6 PRN PO COUGH Last administered on 08/28/17 15:11; Admin Dose 10 ML; Start 08/24/17 at 10:00 Hydrocodone Bit/ Homatropine Methylb (Hycodan Liquid) 5 ml BID PRN PO COUGH Last administered on 08/29/17 06:27; Admin Dose 5 ML; Start 08/24/17 at 10:30 Zolpidem Tartrate (Ambien) 5 mg HS PO Last administered on 08/29/17 20:36; Admin Dose 5 MG; Start 08/25/17 at 21:00 Aspirin (Aspirin) 81 mg DAILY PO Last administered on 08/30/17 08:32; Admin Dose 81 MG; Start 08/26/17 at 09:00 Isosorbide Dinitrate (Isordil) 10 mg TID PO Last administered on 08/30/17 08: 31; Admin Dose 10 MG; Start 08/25/17 at 21:00 Bisacodyl (Dulcolax Supp) 10 mg DAILY PRN [place] CONSTIPATION; Start 08/26/17 at 13:30 Morphine Sulfate (morphine) 2 mg Q4H PRN IV PAIN Last administered on 05:22; Admin Dose 2 MG; Start 08/29/17 at 14:00 Lorazepam 0.5 mg 0.5 mg Q6H PRN IV ANXIETY Last administered on 08/29/17 23: 01; Admin Dose 0.5 MG; Start 08/29/17 at 14:00 Sodium Chloride (NS) 1,000 ml @ 75 mls/hr [id number] IV ; Start 08/31/17 at 00:00 Ranolazine (Ranexa) 500 mg Q12 PO ; Start 08/30/17 at 21:00; Status UNMARYANA GUTIERREZ MD Aug 30, 2017 10:27
[2017-08-30] MEDS: RANOLAZINE (SR) 500 MG TAB PO SCH ×2 (11:31→21:08)
--- NOTE | 2017-08-30 11:58 | PN ---
Date/Time of Note Date/Time of Note DATE: 08/30/17 TIME: 11:57 Assessment/Plan VTE Prophylaxis VTE Prophylaxis Intervention: other Lines/Catheters IV [facility] Saline Lock Assessment/Plan Chief Complaint/Hosp Course - NSTMI, Dr. Kaur is following in cardiology consultation. S/p Lexiscan with large partial reversible defects in multiple territories. Continue medical therapy, f/up cardiology recs. -Coronary artery disease status post CABG in 2004. Continue Aspirin. 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 - Bilateral lower extremity edema, venous Dopplers negative for any deep venous thrombosis. -History of lung cancer dx 2006, completed chemotherapy in 2009. -Diabetes mellitus, HglA1C is 7. Continue NovoLog per mild algorithm sliding scale. -BPH, continue Flomax. -Insomnia continue Ambien nightly Problems: Subjective 24 Hr Interval Summary Free Text/Dictation Patient complain of chest pain Exam/Review of Systems Vital Signs Vitals Vital Signs Date Time Temp Pulse Resp B/P Pulse Ox O2 Delivery O2 Flow Rate FiO2 08/30/17 11:43 98.5 122 18 108/56 97 08/30/17 08:00 Nasal Cannula 2.0 Intake and Output 08/29/17 08/29/17 08/30/17 15:00 23:00 07:00 Intake Total 400 ml 650 ml Output Total 850 ml Balance 400 ml -200 ml Exam Constitutional: well developed Head: atraumatic, normocephalic Neck: supple Respiratory: clear to auscultation Cardiovascular: regular rate and rhythm Gastrointestinal: non-tender, soft Extremities: normal pulses Results Result Diagram: 08/30/17 0657 08/30/17 0657 Results 24 hrs Laboratory Tests Test 08/29/17 17:07 08/29/17 20:39 08/30/17 06:57 08/30/17 07:05 Bedside Glucose 198 169 158 White Blood Count 8.8 # Red Blood Count 3.67 L Hemoglobin 10.0 L Hematocrit 33.0 L Mean Corpuscular Volume 89.9 Mean Corpuscular Hemoglobin 27.2 L Mean Corpuscular Hemoglobin Concent 30.3 L Red Cell Distribution Width 17.2 H Platelet Count 307 Mean Platelet Volume 11.1 H Neutrophils % 88.5 H Lymphocytes % 4.3 L Monocytes % 5.0 Eosinophils % 1.1 Basophils % 0.5 Nucleated Red Blood Cells % 0.0 Neutrophils # 7.8 H Lymphocytes # 0.4 L Monocytes # 0.4 Eosinophils # 0.1 Basophils # 0.0 Nucleated Red Blood Cells # 0.0 Sodium Level 127 L Potassium Level 4.0 Chloride Level 99 Carbon Dioxide Level 24 Anion Gap 8 Blood Urea Nitrogen 12 Creatinine 0.58 L Glucose Level 159 Calcium Level 9.4 Test 08/30/17 11:30 Bedside Glucose 181 Medications Medications Current Medications Carvedilol (Coreg) 3.125 mg QAM PO ; Start 08/22/17 at 09:00; Status Future Hold Midodrine (Proamatine) 5 mg BID PO Last administered on 08/30/17 08:31; Admin Dose 5 MG; Start 08/21/17 at 21:00 Nitroglycerin (Nitroglycerin 0.2 Mg/Hr) 1 patch DAILY TRANSDERM Last administered on 08/30/17 09:47; Admin Dose 1 PATCH; Start 08/22/17 at 09:00 Potassium Chloride (Klor-Con 20) 20 meq DAILY PO Last administered on 08:30; Admin Dose 20 MEQ; Start 08/22/17 at 09:00 Tamsulosin HCl (Flomax) 0.4 mg HS PO Last administered on 08/29/17 20:37; Admin Dose 0.4 MG; Start 08/21/17 at 21:00 Pantoprazole (Protonix Tab) 40 mg DAILY@06 PO Last administered on 08/30/17 05:22; Admin Dose 40 MG; Start 08/22/17 at 06:00 Ondansetron HCl (Zofran Inj) 4 mg Q6H PRN IV NAUSEA AND/OR VOMITING Last administered on 08/29/17 06:27; Admin Dose 4 MG; Start 08/21/17 at 20:30 Diagnostic Test (Pha) (Accu-Chek) 1 ea 02 XX ; Start 08/22/17 at 02:00 Docusate Sodium (Colace) 100 mg BID PO Last administered on 08/30/17 08:30; Admin Dose 100 MG; Start 08/21/17 at 21:00 Miscellaneous Information 1 ea NOTE XX ; Start 08/21/17 at 21:00 Glucose (Glutose) 15 gm Q15M PRN PO DECREASED GLUCOSE; Start 08/21/17 at 21:00 Glucose (Glutose) 22.5 gm Q15M PRN PO DECREASED GLUCOSE; Start 08/21/17 at 21: 00 Dextrose (D50w Syringe) 25 ml Q15M PRN IV DECREASED GLUCOSE; Start 08/21/17 at 21:00 Dextrose (D50w Syringe) 50 ml Q15M PRN IV DECREASED GLUCOSE; Start 08/21/17 at 21:00 Glucagon (Glucagen) 1 mg Q15M PRN IM DECREASED GLUCOSE; Start 08/21/17 at 21:00 Glucose (Glutose) 15 gm Q15M PRN BUCCAL DECREASED GLUCOSE; Start 08/21/17 at 21 :00 Bisacodyl (Dulcolax) 5 mg DAILY PRN PO CONSTIPATION Last administered on 12:28; Admin Dose 5 MG; Start 08/23/17 at 10:30 Guaifenesin/ Codeine Phosphate (Robitussin Ac Liquid Cup) 10 ml Q6 PRN PO COUGH Last administered on 08/28/17 15:11; Admin Dose 10 ML; Start 08/24/17 at 10:00 Hydrocodone Bit/ Homatropine Methylb (Hycodan Liquid) 5 ml BID PRN PO COUGH Last administered on 08/29/17 06:27; Admin Dose 5 ML; Start 08/24/17 at 10:30 Zolpidem Tartrate (Ambien) 5 mg HS PO Last administered on 08/29/17 20:36; Admin Dose 5 MG; Start 08/25/17 at 21:00 Aspirin (Aspirin) 81 mg DAILY PO Last administered on 08/30/17 08:32; Admin Dose 81 MG; Start 08/26/17 at 09:00 Isosorbide Dinitrate (Isordil) 10 mg TID PO Last administered on 08/30/17 08: 31; Admin Dose 10 MG; Start 08/25/17 at 21:00 Bisacodyl (Dulcolax Supp) 10 mg DAILY PRN [place]ST[place]; Start 08/26/17 at 13:30 Morphine Sulfate (morphine) 2 mg Q4H PRN IV PAIN Last administered on 11:31; Admin Dose 2 MG; Start 08/29/17 at 14:00 Lorazepam 0.5 mg 0.5 mg Q6H PRN IV ANXIETY Last administered on 08/29/17 23: 01; Admin Dose 0.5 MG; Start 08/29/17 at 14:00 Sodium Chloride (NS) 1,000 ml @ 75 mls/hr [id number] IV ; Start 08/31/17 at 00:00 Ranolazine (Ranexa) 500 mg Q12 PO Last administered on 08/30/17 11:31; Admin Dose 500 MG; Start 08/30/17 at 11:00 TATIANA GUILLEN Aug 30, 2017 11:58
[2017-08-30] MEDS: ZOLPIDEM 5 MG TAB PO SCH (20:25)
[2017-08-30] MEDS: TAMSULOSIN (SR) 0.4 MG CAP PO SCH (20:25)
[2017-08-30] MEDS ORDERED: NITROGLYCERIN (SL) 0.4 MG TAB ONE (23:12)
[2017-08-31] VITALS (11 sets, daily range): BP systolic 87–110; BP diastolic 54–72; PULSE 104–119; RESP 17–20
[2017-08-31] MEDS: SOD CHLORIDE 0.9% 1,000 ML IV SCH ×2 (00:06→12:22)
[2017-08-31] MEDS: morphine 2 MG INJ IV PRN ×5 (01:01→20:00)
[2017-08-31] MEDS: ACCU-CHEK XX SCH (02:00)
[2017-08-31] MEDS: PANTOPRAZOLE (EC) 40 MG TAB PO SCH (06:21)
[2017-08-31] MEDS: INSULIN ASPART [NOVOLOG] 3 ML PEN SC SCH ×4 (07:35→21:52)
[2017-08-31] MEDS: POTASSIUM CHLORIDE (SR) 20 MEQ TAB PO SCH (08:35)
[2017-08-31] MEDS: RANOLAZINE (SR) 500 MG TAB PO SCH ×2 (08:35→21:41)
[2017-08-31] MEDS: MIDODRINE 5 MG TAB PO SCH (08:35)
[2017-08-31] MEDS: DOCUSATE SODIUM 100 MG CAP PO SCH ×2 (08:35→21:40)
[2017-08-31] MEDS: ISOSORBIDE DINITRATE 10 MG TAB PO SCH ×2 (08:35→12:21)
[2017-08-31] MEDS: NITROGLYCERIN 0.2 MG/HR PATCH TRANSDERM SCH (08:35)
[2017-08-31] MEDS: ASPIRIN 81 MG TAB PO SCH (08:36)
--- NOTE | 2017-08-31 13:01 | PN ---
Date/Time of Note Date/Time of Note DATE: 08/31/17 TIME: 13:00 Assessment/Plan VTE Prophylaxis VTE Prophylaxis Intervention: other Lines/Catheters IV [facility] Type [facility] Saline Lock Assessment/Plan Chief Complaint/Hosp Course - NSTMI, Dr. Kaur is following in cardiology consultation. S/p Lexiscan with large partial reversible defects in multiple territories. Continue medical therapy, f/up cardiology recs. -Coronary artery disease status post CABG in 2004. Continue Aspirin. 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 - Bilateral lower extremity edema, venous Dopplers negative for any deep venous thrombosis. -History of lung cancer dx 2006, completed chemotherapy in 2009. -Diabetes mellitus, HglA1C is 7. Continue NovoLog per mild algorithm sliding scale. -BPH, continue Flomax. -Insomnia continue Ambien nightly Problems: Subjective 24 Hr Interval Summary Free Text/Dictation Patient has no complaints Exam/Review of Systems Vital Signs Vitals Vital Signs Date Time Temp Pulse Resp B/P Pulse Ox O2 Delivery O2 Flow Rate FiO2 08/31/17 12:29 119 08/31/17 12:04 97.6 17 87/54 98 08/31/17 08:00 Nasal Cannula 2.0 Intake and Output 08/30/17 08/30/17 08/31/17 15:00 23:00 07:00 Intake Total 550 ml 850 ml Balance 550 ml 850 ml Exam Constitutional: well developed Head: atraumatic, normocephalic Neck: supple Respiratory: clear to auscultation Cardiovascular: regular rate and rhythm Gastrointestinal: non-tender, soft Extremities: normal pulses Results Result Diagram: 08/30/17 0657 08/30/17 0657 Results 24 hrs Laboratory Tests Test 08/30/17 17:30 08/30/17 19:59 08/31/17 07:31 08/31/17 11:25 Bedside Glucose 129 164 117 173 Medications Medications Current Medications Carvedilol (Coreg) 3.125 mg QAM PO ; Start 08/22/17 at 09:00; Status Future Hold Midodrine (Proamatine) 5 mg BID PO Last administered on 08/31/17 08:35; Admin Dose 5 MG; Start 08/21/17 at 21:00 Nitroglycerin (Nitroglycerin 0.2 Mg/Hr) 1 patch DAILY TRANSDERM Last administered on 08/31/17 08:35; Admin Dose 1 PATCH; Start 08/22/17 at 09:00 Potassium Chloride (Klor-Con 20) 20 meq DAILY PO Last administered on 08:35; Admin Dose 20 MEQ; Start 08/22/17 at 09:00 Tamsulosin HCl (Flomax) 0.4 mg HS PO Last administered on 08/30/17 20:25; Admin Dose 0.4 MG; Start 08/21/17 at 21:00 Pantoprazole (Protonix Tab) 40 mg DAILY@06 PO Last administered on 08/31/17 06:21; Admin Dose 40 MG; Start 08/22/17 at 06:00 Ondansetron HCl (Zofran Inj) 4 mg Q6H PRN IV NAUSEA AND/OR VOMITING Last administered on 08/29/17 06:27; Admin Dose 4 MG; Start 08/21/17 at 20:30 Diagnostic Test (Pha) (Accu-Chek) 1 ea 02 XX ; Start 08/22/17 at 02:00 Docusate Sodium (Colace) 100 mg BID PO Last administered on 08/31/17 08:35; Admin Dose 100 MG; Start 08/21/17 at 21:00 Miscellaneous Information 1 ea NOTE XX ; Start 08/21/17 at 21:00 Glucose (Glutose) 15 gm Q15M PRN PO DECREASED GLUCOSE; Start 08/21/17 at 21:00 Glucose (Glutose) 22.5 gm Q15M PRN PO DECREASED GLUCOSE; Start 08/21/17 at 21: 00 Dextrose (D50w Syringe) 25 ml Q15M PRN IV DECREASED GLUCOSE; Start 08/21/17 at 21:00 Dextrose (D50w Syringe) 50 ml Q15M PRN IV DECREASED GLUCOSE; Start 08/21/17 at 21:00 Glucagon (Glucagen) 1 mg Q15M PRN IM DECREASED GLUCOSE; Start 08/21/17 at 21:00 Glucose (Glutose) 15 gm Q15M PRN BUCCAL DECREASED GLUCOSE; Start 08/21/17 at 21 :00 Bisacodyl (Dulcolax) 5 mg DAILY PRN PO CONSTIPATION Last administered on 12:28; Admin Dose 5 MG; Start 08/23/17 at 10:30 Guaifenesin/ Codeine Phosphate (Robitussin Ac Liquid Cup) 10 ml Q6 PRN PO COUGH Last administered on 08/28/17 15:11; Admin Dose 10 ML; Start 08/24/17 at 10:00 Hydrocodone Bit/ Homatropine Methylb (Hycodan Liquid) 5 ml BID PRN PO COUGH Last administered on 08/29/17 06:27; Admin Dose 5 ML; Start 08/24/17 at 10:30 Zolpidem Tartrate (Ambien) 5 mg HS PO Last administered on 08/30/17 20:25; Admin Dose 5 MG; Start 08/25/17 at 21:00 Aspirin (Aspirin) 81 mg DAILY PO Last administered on 08/31/17 08:36; Admin Dose 81 MG; Start 08/26/17 at 09:00 Isosorbide Dinitrate (Isordil) 10 mg TID PO Last administered on 08/31/17 08: 35; Admin Dose 10 MG; Start 08/25/17 at 21:00 Bisacodyl (Dulcolax Supp) 10 mg DAILY PRN [place] CONSTIPATION; Start 08/26/17 at 13:30 Lorazepam 0.5 mg 0.5 mg Q6H PRN IV ANXIETY Last administered on 08/29/17 23: 01; Admin Dose 0.5 MG; Start 08/29/17 at 14:00 Sodium Chloride (NS) 1,000 ml @ 75 mls/hr [id number] IV Last administered on 00:06; Admin Dose 75 MLS/HR; Start 08/31/17 at 00:00 Ranolazine (Ranexa) 500 mg Q12 PO Last administered on 08/31/17 08:35; Admin Dose 500 MG; Start 08/30/17 at 11:00 Morphine Sulfate (morphine) 2 mg Q2H PRN IV PAIN Last administered on 04:36; Admin Dose 2 MG; Start 08/30/17 at 14:35 TATIANA GUILLEN Aug 31, 2017 13:01
--- NOTE | 2017-08-31 14:48 | CONS ---
Date/Time of Note Date/Time of Note DATE: 08/31/17 TIME: 14:41 Assessment/Plan Assessment/Plan Additional Assessment/Plan Chest pain CAD with history of CABG Abnormal nuclear cardiac perfusion study Lung cancer Hypotension -Patient with chest discomfort which is worse with lying down at the current time and improve with walking. He also has intermittent shortness of breath. He does have a known history of lung cancer. Furthermore, patient also with hypotension requiring use of Midodrine. Nuclear cardiac perfusion study with large area of infarct as well as partial reversibility. My colleague Dr Markham spoke with patient's family extensively yesterday and requesting aggressive medical management. Would start Plavix therapy, Ranexa has been started. Would decrease dose of midodrine given it increasing afterload could worsen symptoms. Start statin therapy. Consultation Date/Type/Reason Admit Date/Time Aug 21, 2017 at 12:27 Initial Consult Date Type of Consultation: cv 24 HR Interval Summary Free Text/Dictation Patient seen and examined, family at bedside. Patient with chest discomfort which worsens with lying down, with ambulation, denies chest pain. He does have intermittent shortness of breath. Chest pain at times is worse with coughing. He is feeling better today Exam/Review of Systems Vital Signs Vitals Vital Signs Date Time Temp Pulse Resp B/P Pulse Ox O2 Delivery O2 Flow Rate FiO2 08/31/17 12:29 119 08/31/17 12:04 97.6 17 87/54 98 08/31/17 08:00 Nasal Cannula 2.0 Intake and Output 08/30/17 08/30/17 08/31/17 15:00 23:00 07:00 Intake Total 550 ml 850 ml Balance 550 ml 850 ml Exam Constitutional: alert, frail, oriented Respiratory: other (Coarse breath sounds bilaterally, decreased right base) Cardiovascular: other (S1-S2 heard), regular rate and rhythm Gastrointestinal: bowel sounds, non-tender, soft Extremities: other (No edema) Results Result Diagram: 08/30/17 0657 08/30/17 0657 Results 24 hrs Laboratory Tests Test 08/30/17 17:30 08/30/17 19:59 08/31/17 07:31 08/31/17 11:25 Bedside Glucose 129 164 117 173 Medications Medications Current Medications Carvedilol (Coreg) 3.125 mg QAM PO ; Start 08/22/17 at 09:00; Status Future Hold Midodrine (Proamatine) 5 mg BID PO Last administered on 08/31/17 08:35; Admin Dose 5 MG; Start 08/21/17 at 21:00 Nitroglycerin (Nitroglycerin 0.2 Mg/Hr) 1 patch DAILY TRANSDERM Last administered on 08/31/17 08:35; Admin Dose 1 PATCH; Start 08/22/17 at 09:00 Potassium Chloride (Klor-Con 20) 20 meq DAILY PO Last administered on 08:35; Admin Dose 20 MEQ; Start 08/22/17 at 09:00 Tamsulosin HCl (Flomax) 0.4 mg HS PO Last administered on 08/30/17 20:25; Admin Dose 0.4 MG; Start 08/21/17 at 21:00 Pantoprazole (Protonix Tab) 40 mg DAILY@06 PO Last administered on 08/31/17 06:21; Admin Dose 40 MG; Start 08/22/17 at 06:00 Ondansetron HCl (Zofran Inj) 4 mg Q6H PRN IV NAUSEA AND/OR VOMITING Last administered on 08/29/17 06:27; Admin Dose 4 MG; Start 08/21/17 at 20:30 Diagnostic Test (Pha) (Accu-Chek) 1 ea 02 XX ; Start 08/22/17 at 02:00 Docusate Sodium (Colace) 100 mg BID PO Last administered on 08/31/17 08:35; Admin Dose 100 MG; Start 08/21/17 at 21:00 Miscellaneous Information 1 ea NOTE XX ; Start 08/21/17 at 21:00 Glucose (Glutose) 15 gm Q15M PRN PO DECREASED GLUCOSE; Start 08/21/17 at 21:00 Glucose (Glutose) 22.5 gm Q15M PRN PO DECREASED GLUCOSE; Start 08/21/17 at 21: 00 Dextrose (D50w Syringe) 25 ml Q15M PRN IV DECREASED GLUCOSE; Start 08/21/17 at 21:00 Dextrose (D50w Syringe) 50 ml Q15M PRN IV DECREASED GLUCOSE; Start 08/21/17 at 21:00 Glucagon (Glucagen) 1 mg Q15M PRN IM DECREASED GLUCOSE; Start 08/21/17 at 21:00 Glucose (Glutose) 15 gm Q15M PRN BUCCAL DECREASED GLUCOSE; Start 08/21/17 at 21 :00 Bisacodyl (Dulcolax) 5 mg DAILY PRN PO CONSTIPATION Last administered on 12:28; Admin Dose 5 MG; Start 08/23/17 at 10:30 Guaifenesin/ Codeine Phosphate (Robitussin Ac Liquid Cup) 10 ml Q6 PRN PO COUGH Last administered on 08/28/17 15:11; Admin Dose 10 ML; Start 08/24/17 at 10:00 Hydrocodone Bit/ Homatropine Methylb (Hycodan Liquid) 5 ml BID PRN PO COUGH Last administered on 08/29/17 06:27; Admin Dose 5 ML; Start 08/24/17 at 10:30 Zolpidem Tartrate (Ambien) 5 mg HS PO Last administered on 08/30/17 20:25; Admin Dose 5 MG; Start 08/25/17 at 21:00 Aspirin (Aspirin) 81 mg DAILY PO Last administered on 08/31/17 08:36; Admin Dose 81 MG; Start 08/26/17 at 09:00 Isosorbide Dinitrate (Isordil) 10 mg TID PO Last administered on 08/31/17 08: 35; Admin Dose 10 MG; Start 08/25/17 at 21:00 Bisacodyl (Dulcolax Supp) 10 mg DAILY PRN [place] CONSTIPATION; Start 08/26/17 at 13:30 Lorazepam 0.5 mg 0.5 mg Q6H PRN IV ANXIETY Last administered on 08/29/17 23: 01; Admin Dose 0.5 MG; Start 08/29/17 at 14:00 Sodium Chloride (NS) 1,000 ml @ 75 mls/hr [id number] IV Last administered on 00:06; Admin Dose 75 MLS/HR; Start 08/31/17 at 00:00 Ranolazine (Ranexa) 500 mg Q12 PO Last administered on 08/31/17 08:35; Admin Dose 500 MG; Start 08/30/17 at 11:00 Morphine Sulfate (morphine) 2 mg Q2H PRN IV PAIN Last administered on 14:01; Admin Dose 2 MG; Start 08/30/17 at 14:35 Amado Rodriguez DO Aug 31, 2017 14:47
[2017-08-31] MEDS: MIDODRINE 2.5 MG TAB PO SCH (21:00)
[2017-08-31] MEDS ORDERED: MIDODRINE 5 MG TAB PO SCH (21:00)
[2017-08-31] MEDS: TAMSULOSIN (SR) 0.4 MG CAP PO SCH (21:40)
[2017-08-31] MEDS: ZOLPIDEM 5 MG TAB PO SCH (21:40)
[2017-08-31] MEDS: ATORVASTATIN 40 MG TAB PO SCH (21:40)
[2017-09-01] VITALS (13 sets, daily range): BP systolic 96–108; BP diastolic 57–74; PULSE 117–160; RESP 17–20
[2017-09-01] MEDS: morphine 2 MG INJ IV PRN ×4 (01:13→17:02)
[2017-09-01] MEDS: ACCU-CHEK XX SCH (02:00)
[2017-09-01] MEDS: SOD CHLORIDE 0.9% 1,000 ML IV SCH (02:54)
[2017-09-01] MEDS: PANTOPRAZOLE (EC) 40 MG TAB PO SCH (05:58)
[2017-09-01] MEDS: INSULIN ASPART [NOVOLOG] 3 ML PEN SC SCH ×4 (08:18→21:00)
[2017-09-01 08:51] LABS: ABNORMAL IP MESSAGE 1; BASOPHIL # 0.1 10^3/ul (0.0-0.1); BASOPHILS % 0.6 % (0.0-2.0); EOSINOPHILS # 0.1 10^3/ul (0.0-0.5); EOSINOPHILS % 1.1 % (0.0-7.0); HEMATOCRIT 31.3 % (42.0-52.0); HEMOGLOBIN 9.8 g/dl (14.0-18.0); LYMPHOCYTES # 0.4 10^3/ul (0.8-2.9); LYMPHOCYTES % 5.5 % (15.0-51.0); MEAN CORPUSCULAR HGB CONC 31.3 g/dl (32.0-37.0); MEAN CORPUSCULAR VOLUME 89.4 fl (82.0-101.0); MEAN PLATELET VOLUME 10.8 fl (7.4-10.4); MONOCYTE # 0.5 10^3/ul (0.3-0.9); MONOCYTES % 6.2 % (0.0-11.0); NEUTROPHIL # 6.8 10^3/ul (1.6-7.5); NEUTROPHILS % 86.1 % (39.0-77.0); PLATELET COUNT 302 10^3/UL (140-415); POSITIVE DIFF @See below; RED CELL DISTRIBUTION WIDTH 17.1 % (11.5-14.5); WHITE BLOOD COUNT 7.9 10^3/ul (4.8-10.8)
[2017-09-01 09:13] LABS: CALCIUM 8.9 mg/dl (8.4-10.2); CREATININE 0.56 mg/dl (0.61-1.24); POTASSIUM 4.2 mmol/L (3.5-5.1)
[2017-09-01] MEDS: RANOLAZINE (SR) 500 MG TAB PO SCH ×2 (09:23→21:19)
[2017-09-01] MEDS: POTASSIUM CHLORIDE (SR) 20 MEQ TAB PO SCH (09:24)
[2017-09-01] MEDS: CLOPIDOGREL 75 MG TAB PO SCH (09:24)
[2017-09-01] MEDS: NITROGLYCERIN 0.2 MG/HR PATCH TRANSDERM SCH (09:24)
[2017-09-01] MEDS: DOCUSATE SODIUM 100 MG CAP PO SCH ×2 (09:24→21:18)
[2017-09-01] MEDS: MIDODRINE 2.5 MG TAB PO SCH (09:24)
[2017-09-01] MEDS: ASPIRIN 81 MG TAB PO SCH (09:24)
[2017-09-01] MEDS ORDERED: IOHEXOL 300MG/ML 150 ML BTL ONE (12:52)
[2017-09-01] MEDS ORDERED: SOD CHLORIDE 0.9% 100 ML ONE (12:52)
--- NOTE | 2017-09-01 13:29 | RADRPT ---
PROCEDURE: CTA Chest and pulmonary angiogram. CLINICAL INDICATION: Chest pain and shortness of breath. TECHNIQUE: CT scan of the chest and CT pulmonary angiogram was performed on a multidetector high-r esolution CT scanner. High-resolution thin slice coronal and sagittal imaging was obtained from the axial source images. 3-D volumetric rendered post processing was performed as well. The patient w as examined following the uncomplicated intravenous administration of 90 cc of Omnipaque-300. The im ages were reviewed on a PACS workstation. The total exam CTDI equals 2.82, 16.90, and 5.48 and the t otal exam DLP equals 235.39 mGy-cm. One or more of the following dose reduction techniques were used: Automated exposure control. Adjustment of the mA and/or kV according to patient size. Use of iterative reconstruction technique. COMPARISON: CT chest 07/12/2017 FINDINGS: CT chest: Redemonstrated is a significant volume loss of the right hemithorax with rightward mediastinal shif t. There is a large irregular cavity in the right upper lung. There is near complete consolidation o f the right lung with multiple dilated bronchi. There is loculated right-sided pleural effusion and pleural thickening. There is small left pleural effusion with basilar atelectasis. Branching microno dules are seen in the left upper lobe suggesting bronchiolitis. There is hypoventilatory changes in the posterior lingular segment and the left lower lobe. The mediastinum is unremarkable without evidence for mass or lymphadenopathy. The ascending aorta me asures up to 4.1 cm. There is multichamber cardiomegaly without pericardial effusion. Aortic and cor onary artery vascular calcifications are present. The axillary, subpectoral, and supraclavicular reg ions are unremarkable. Imaging obtained through the upper abdomen is remarkable for left renal cyst.. The adrenal glands a re symmetrically normal. The surrounding chest wall is unremarkable. The osseous structures are re markable for degenerative spondylosis of the spine. CT pulmonary angiogram: No thrombus, clot, filling defect, or pulmonary web is identified. The pulmonary arteries are prince l in caliber and morphology. No filling defect is present to suggest pulmonary embolism. There is no evidence for pulmonary arterial hypertension. IMPRESSION: 1. No evidence for pulmonary embolism. 2. No substantial change in postsurgical/post-treatment changes of the right lung, as described abo ve. 3. Small left pleural effusion with mild basilar atelectasis. Focal bronchiolitis in the left upper lobe. 4. Multichamber cardiomegaly without pericardial effusion. 5. No change in mild aneurysmal dilatation of the ascending aorta measures up to 4.1 cm. RPTAT: BB .Maynor Melo MD, Date Time Electronically viewed and signed by .Maynor Melo MD, on 09/01/2017 13:29 .O/
--- NOTE | 2017-09-01 15:02 | RADRPT ---
Vent Rate: 114 bpm RR Interval: 0 msec MD Interval: 196 msec QRS Duration: 122 msec QT Interval: 324 msec QTC Interval: 446 msec P-R-T [place]: 32 - -74 - 99 degrees Sinus tachycardia with occasional premature ventricular complexes and fusion complexes Possible Left atrial enlargement Left axis deviation Right bundle branch block Abnormal ECG Electronically Signed By: Nato Rodrigues [id number]
--- NOTE | 2017-09-01 15:19 | RADRPT ---
Echocardiogram Report Patient Name: ÁNGEL ESCOBAR Gender: Male Date: 1935 Study Date: 01-Sep-2017 Building Stonecutter: MARC Location: 5537 Ref. Physician: AMADO MCCLAIN Quality: Good Procedures: Transthoracic echocardiogram with complete 2D, M-Mode, and doppler examination. Indications: Chest Pain. 2D/M Mode Doppler Measurement Value Normal Ranges Measurement Value Normal Ranges AoR Diam MM 3.1 cm KAREN Vmax 2.0 cm2 LA/Ao MM 1.2 KAREN VTI 2.0 cm2 LA Dimen MM 4.3 cm AV Peak Tony 0.9 m/sec LVIDd 2D 5.6 3.5 - 5.6 cm AV Peak PG 3.1 mmHg LVIDs 2D 5.0 2.1 - 4.1 cm LVOT Peak Tony 0.6 m/sec LVPWd 2D 1.0 0.6 - 1.1 cm LVOT Peak PG 1.3 mmHg IVSd 2D 1.1 0.6 - 1.1 cm MV E Peak Tony 1.2 m/sec EDV 2D 151.2 cm3 MV A Peak Tony 0.4 m/sec ESV 2D 127.9 cm3 MV E/A 3.5 EF 2D 20.0 50.0 - 65.0 % MV Decel Time 84 msec LVOT Diam 2.0 cm MV Decel [place] 15 MV E/A 3.5 TR Peak Tony 2.8 m/sec TR Peak PG 31.4 mmHg Findings Left Ventricle: Normal left ventricular wall thickness. Mild enlargement of left ventricle cavity. Severe left ventricular systolic dysfunction. Ejection fraction is visually estimated at 25 %. Abnormal Diastolic Function. Right Ventricle: Normal right ventricular size. Normal right ventricular systolic function. Left Atrium: There is mild enlargement of left atrium. Right Atrium: There is mild enlargement of right atrium. Mitral Valve: Normal appearance of the mitral valve. Mild mitral valve regurgitation. Aortic Valve: Aortic sclerosis without stenosis. Aortic cusps appear mildly calcified. Trace aortic valve regurgitation by color. Tricuspid Valve: Normal appearance of the tricuspid valve. Estimated peak PA systolic pressure 56 mmHg. There is mild tricuspid regurgitation. Pulmonic Valve: Normal pulmonic valve appearance. Pericardium: Trivial pericardial effusion. Aorta: Normal aortic root. IVC: Dilated IVC with poor respiratory collapse consistent with elevated right atrial pressure. Conclusions 1.Normal left ventricular cavity size. Mild enlargement of left ventricle cavity. Severe left ventricular systolic dysfunction. Ejection fraction is visually estimated at 25 %. Abnormal Diastolic Function. 2.Normal right ventricular size. Normal right ventricular systolic function. 3.There is mild enlargement of left atrium. 4.There is mild enlargement of right atrium. 5.Mild mitral valve regurgitation. 6.Aortic sclerosis without stenosis. Trace aortic valve regurgitation by color. 7.Estimated peak PA systolic pressure 56 mmHg. There is mild tricuspid regurgitation. 8.Trivial pericardial effusion. Electronically Signed By: Amado Mcclain 01-Sep-2017 15:18:11 -0700 Patient Name: ÁNGEL ESCOBAR Study Date: 01-Sep-2017 [id number]
--- NOTE | 2017-09-01 15:29 | PN ---
Date/Time of Note Date/Time of Note DATE: 09/01/17 TIME: 15:27 Assessment/Plan VTE Prophylaxis VTE Prophylaxis Intervention: SCD's Lines/Catheters IV [facility]from [facility] [place] Assessment/Plan Chief Complaint/Hosp Course Patient remains tachycardic and hypotensive. - NSTMI, Dr. Kaur is following in cardiology consultation. S/p Lexiscan with large partial reversible defects in multiple territories. Possible cardiac cath after depending on CT scan results. Continue medical therapy, f/up cardiology recs. -Coronary artery disease status post CABG in 2004. Continue Aspirin. 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 - Bilateral lower extremity edema, venous Dopplers negative for any deep venous thrombosis. -History of lung cancer dx 2006, completed chemotherapy in 2009. -Diabetes mellitus, HglA1C is 7. Continue NovoLog per mild algorithm sliding scale. -BPH, continue Flomax. -Insomnia, continue Ambien nightly Further recommendations based on clinical course. Plan of care discussed with Dr. Morrissey. Problems: Exam/Review of Systems Vital Signs Vitals Vital Signs Date Time Temp Pulse Resp B/P Pulse Ox O2 Delivery O2 Flow Rate FiO2 09/01/17 12:07 130 09/01/17 11:43 97.9 17 96/57 99 09/01/17 08:00 Nasal Cannula 3.0 Intake and Output 08/31/17 08/31/17 09/01/17 15:00 23:00 07:00 Intake Total 900 ml 300 ml Output Total 900 ml Balance 0 ml 300 ml Exam Constitutional: alert, oriented Eyes: nl conjunctiva Respiratory: diminished breath sounds Cardiovascular: nl pulses Gastrointestinal: non-tender, soft Musculoskeletal: nl extremities to inspection Extremities: edema Results Result Diagram: 09/01/17 0844 09/01/1744 Results 24 hrs Laboratory Tests Test 08/31/17 17:20 08/31/17 21:50 09/01/17 02:46 09/01/17 08:08 Bedside Glucose 233 H 157 183 185 Test 09/01/17 08:44 09/01/17 11:45 White Blood Count 7.9 Red Blood Count 3.50 L Hemoglobin 9.8 L Hematocrit 31.3 L Mean Corpuscular Volume 89.4 Mean Corpuscular Hemoglobin 28.0 L Mean Corpuscular Hemoglobin Concent 31.3 L Red Cell Distribution Width 17.1 H Platelet Count 302 Mean Platelet Volume 10.8 H Neutrophils % 86.1 H Lymphocytes % 5.5 L Monocytes % 6.2 Eosinophils % 1.1 Basophils % 0.6 Nucleated Red Blood Cells % 0.0 Neutrophils # 6.8 Lymphocytes # 0.4 L Monocytes # 0.5 Eosinophils # 0.1 Basophils # 0.1 Nucleated Red Blood Cells # 0.0 Sodium Level 133 L Potassium Level 4.2 Chloride Level 103 Carbon Dioxide Level 23 Anion Gap 11 Blood Urea Nitrogen 18 Creatinine 0.56 L Glucose Level 184 Calcium Level 8.9 Bedside Glucose 146 Medications Medications Current Medications Carvedilol (Coreg) 3.125 mg QAM PO ; Start 08/22/17 at 09:00; Status Future Hold Nitroglycerin (Nitroglycerin 0.2 Mg/Hr) 1 patch DAILY TRANSDERM Last administered on 09/01/17 09:24; Admin Dose 1 PATCH; Start 08/22/17 at 09:00 Potassium Chloride (Klor-Con 20) 20 meq DAILY PO Last administered on 09:24; Admin Dose 20 MEQ; Start 08/22/17 at 09:00 Tamsulosin HCl (Flomax) 0.4 mg HS PO Last administered on 08/31/17 21:40; Admin Dose 0.4 MG; Start 08/21/17 at 21:00 Pantoprazole (Protonix Tab) 40 mg DAILY@06 PO Last administered on 09/01/17 05:58; Admin Dose 40 MG; Start 08/22/17 at 06:00 Ondansetron HCl (Zofran Inj) 4 mg Q6H PRN IV NAUSEA AND/OR VOMITING Last administered on 08/29/17 06:27; Admin Dose 4 MG; Start 08/21/17 at 20:30 Diagnostic Test (Pha) (Accu-Chek) 1 ea 02 XX ; Start 08/22/17 at 02:00 Docusate Sodium (Colace) 100 mg BID PO Last administered on 09/01/17 09:24; Admin Dose 100 MG; Start 08/21/17 at 21:00 Miscellaneous Information 1 ea NOTE XX ; Start 08/21/17 at 21:00 Glucose (Glutose) 15 gm Q15M PRN PO DECREASED GLUCOSE; Start 08/21/17 at 21:00 Glucose (Glutose) 22.5 gm Q15M PRN PO DECREASED GLUCOSE; Start 08/21/17 at 21: 00 Dextrose (D50w Syringe) 25 ml Q15M PRN IV DECREASED GLUCOSE; Start 08/21/17 at 21:00 Dextrose (D50w Syringe) 50 ml Q15M PRN IV DECREASED GLUCOSE; Start 08/21/17 at 21:00 Glucagon (Glucagen) 1 mg Q15M PRN IM DECREASED GLUCOSE; Start 08/21/17 at 21:00 Glucose (Glutose) 15 gm Q15M PRN BUCCAL DECREASED GLUCOSE; Start 08/21/17 at 21 :00 Bisacodyl (Dulcolax) 5 mg DAILY PRN PO CONSTIPATION Last administered on 12:28; Admin Dose 5 MG; Start 08/23/17 at 10:30 Guaifenesin/ Codeine Phosphate (Robitussin Ac Liquid Cup) 10 ml Q6 PRN PO COUGH Last administered on 08/28/17 15:11; Admin Dose 10 ML; Start 08/24/17 at 10:00 Hydrocodone Bit/ Homatropine Methylb (Hycodan Liquid) 5 ml BID PRN PO COUGH Last administered on 08/29/17 06:27; Admin Dose 5 ML; Start 08/24/17 at 10:30 Zolpidem Tartrate (Ambien) 5 mg HS PO Last administered on 08/31/17 21:40; Admin Dose 5 MG; Start 08/25/17 at 21:00 Aspirin (Aspirin) 81 mg DAILY PO Last administered on 09/01/17 09:24; Admin Dose 81 MG; Start 08/26/17 at 09:00 Bisacodyl (Dulcolax Supp) 10 mg DAILY PRN [place] CONSTIPATION; Start 08/26/17 at 13:30 Lorazepam 0.5 mg 0.5 mg Q6H PRN IV ANXIETY Last administered on 08/29/17 23: 01; Admin Dose 0.5 MG; Start 08/29/17 at 14:00 Sodium Chloride (NS) 1,000 ml @ 40 mls/hr Q24H IV Last administered on 02:54; Admin Dose 75 MLS/HR; Start 08/31/17 at 00:00 Ranolazine (Ranexa) 500 mg Q12 PO Last administered on 09/01/17 09:23; Admin Dose 500 MG; Start 08/30/17 at 11:00 Morphine Sulfate (morphine) 2 mg Q2H PRN IV PAIN Last administered on 05:51; Admin Dose 2 MG; Start 08/30/17 at 14:35 Clopidogrel Bisulfate (plaVIX) 75 mg DAILY PO Last administered on 09/01/17 09:24; Admin Dose 75 MG; Start 09/01/17 at 09:00 Atorvastatin Calcium (Lipitor) 40 mg HS PO Last administered on 08/31/17 21: 40; Admin Dose 40 MG; Start 08/31/17 at 21:00 Midodrine (Proamatine) 2.5 mg BID PO Last administered on 09/01/17 09:24; Admin Dose 2.5 MG; Start 08/31/17 at 21:00 MARC URIOSTEGUI Sep 01, 2017 15:29
[2017-09-01] MEDS ORDERED: DIGOXIN 500 MCG INJ IV ONE ×2 (17:00→23:00)
--- NOTE | 2017-09-01 17:04 | CONS ---
Date/Time of Note Date/Time of Note DATE: 09/01/17 TIME: 16:48 Assessment/Plan Assessment/Plan Additional Assessment/Plan Chest pain CAD with history of CABG Cardiomyopathy with ejection fraction 25% Abnormal nuclear cardiac perfusion study Lung cancer Hypotension Likely atrial flutter -Extensive discussion had with patient and at bedside via stitch bonding machine drawer in. Patient with symptoms of chest discomfort which are sharp and burning like and at times heavy which is worse with lying down and improved significantly with sitting up and standing. Exertion does not worsen his chest pain. CT pulmonary angiogram today with no evidence of pulmonary emboli but evidence of right lung mass and near full consolidation of right lung. As mentioned, his symptoms appear positional. ECG just performed appears like atrial flutter. Furthermore, patient with labile blood pressure and has been on midodrine at home. Would attempt rate control with amiodarone and digoxin as blood pressure permits, if blood pressure remains stable, start beta-elsa. Patient with lung cancer, frail and multiple other comorbidities which significantly increases the risks of coronary angiogram at the current time. This was discussed with the at bedside. At the current time, plan is for medical management as tolerated. Consultation Date/Type/Reason Admit Date/Time Aug 21, 2017 at 12:27 Type of Consultation: cv 24 HR Interval Summary Free Text/Dictation Patient continues to complain of symptoms of shortness of breath at times and chest pain. In discussion with patient via stitch bonding machine drawer in, chest pain is worse with lying down in bed and leaning towards her right side but improved with sitting up and standing up. Shortness of breath varies were sometimes worse lying down sometimes worse sitting up. Exam/Review of Systems Vital Signs Vitals Vital Signs Date Time Temp Pulse Resp B/P Pulse Ox O2 Delivery O2 Flow Rate FiO2 09/01/17 16:16 98.4 119 17 104/64 91 09/01/17 15:48 2.0 09/01/17 08:00 Nasal Cannula Intake and Output 08/31/17 08/31/17 09/01/17 15:00 23:00 07:00 Intake Total 900 ml 300 ml Output Total 900 ml Balance 0 ml 300 ml Exam Follows commands, frail, family at bedside Constitutional: alert Head: normocephalic Respiratory: other (Decreased breath sounds right side, no wheezing) Cardiovascular: other (S1-S2 heard), regular rate and rhythm Gastrointestinal: bowel sounds, non-tender, soft Musculoskeletal: other (Tenderness with palpation of chest wall) Extremities: other (No edema) Results Result Diagram: 09/01/17 0844 09/01/17 0844 Results 24 hrs Laboratory Tests Test 08/31/17 17:20 08/31/17 21:50 09/01/17 02:46 09/01/17 08:08 Bedside Glucose 233 H 157 183 185 Test 09/01/17 08:44 09/01/17 11:45 White Blood Count 7.9 Red Blood Count 3.50 L Hemoglobin 9.8 L Hematocrit 31.3 L Mean Corpuscular Volume 89.4 Mean Corpuscular Hemoglobin 28.0 L Mean Corpuscular Hemoglobin Concent 31.3 L Red Cell Distribution Width 17.1 H Platelet Count 302 Mean Platelet Volume 10.8 H Neutrophils % 86.1 H Lymphocytes % 5.5 L Monocytes % 6.2 Eosinophils % 1.1 Basophils % 0.6 Nucleated Red Blood Cells % 0.0 Neutrophils # 6.8 Lymphocytes # 0.4 L Monocytes # 0.5 Eosinophils # 0.1 Basophils # 0.1 Nucleated Red Blood Cells # 0.0 Sodium Level 133 L Potassium Level 4.2 Chloride Level 103 Carbon Dioxide Level 23 Anion Gap 11 Blood Urea Nitrogen 18 Creatinine 0.56 L Glucose Level 184 Calcium Level 8.9 Bedside Glucose 146 Medications Medications Current Medications Carvedilol (Coreg) 3.125 mg QAM PO ; Start 08/22/17 at 09:00; Status Future Hold Nitroglycerin (Nitroglycerin 0.2 Mg/Hr) 1 patch DAILY TRANSDERM Last administered on 09/01/17 09:24; Admin Dose 1 PATCH; Start 08/22/17 at 09:00 Potassium Chloride (Klor-Con 20) 20 meq DAILY PO Last administered on 09:24; Admin Dose 20 MEQ; Start 08/22/17 at 09:00 Tamsulosin HCl (Flomax) 0.4 mg HS PO Last administered on 08/31/17 21:40; Admin Dose 0.4 MG; Start 08/21/17 at 21:00 Pantoprazole (Protonix Tab) 40 mg DAILY@06 PO Last administered on 09/01/17 05:58; Admin Dose 40 MG; Start 08/22/17 at 06:00 Ondansetron HCl (Zofran Inj) 4 mg Q6H PRN IV NAUSEA AND/OR VOMITING Last administered on 08/29/17 06:27; Admin Dose 4 MG; Start 08/21/17 at 20:30 Diagnostic Test (Pha) (Accu-Chek) 1 ea 02 XX ; Start 08/22/17 at 02:00 Docusate Sodium (Colace) 100 mg BID PO Last administered on 09/01/17 09:24; Admin Dose 100 MG; Start 08/21/17 at 21:00 Miscellaneous Information 1 ea NOTE XX ; Start 08/21/17 at 21:00 Glucose (Glutose) 15 gm Q15M PRN PO DECREASED GLUCOSE; Start 08/21/17 at 21:00 Glucose (Glutose) 22.5 gm Q15M PRN PO DECREASED GLUCOSE; Start 08/21/17 at 21: 00 Dextrose (D50w Syringe) 25 ml Q15M PRN IV DECREASED GLUCOSE; Start 08/21/17 at 21:00 Dextrose (D50w Syringe) 50 ml Q15M PRN IV DECREASED GLUCOSE; Start 08/21/17 at 21:00 Glucagon (Glucagen) 1 mg Q15M PRN IM DECREASED GLUCOSE; Start 08/21/17 at 21:00 Glucose (Glutose) 15 gm Q15M PRN BUCCAL DECREASED GLUCOSE; Start 08/21/17 at 21 :00 Bisacodyl (Dulcolax) 5 mg DAILY PRN PO CONSTIPATION Last administered on 12:28; Admin Dose 5 MG; Start 08/23/17 at 10:30 Guaifenesin/ Codeine Phosphate (Robitussin Ac Liquid Cup) 10 ml Q6 PRN PO COUGH Last administered on 08/28/17 15:11; Admin Dose 10 ML; Start 08/24/17 at 10:00 Hydrocodone Bit/ Homatropine Methylb (Hycodan Liquid) 5 ml BID PRN PO COUGH Last administered on 08/29/17 06:27; Admin Dose 5 ML; Start 08/24/17 at 10:30 Zolpidem Tartrate (Ambien) 5 mg HS PO Last administered on 08/31/17 21:40; Admin Dose 5 MG; Start 08/25/17 at 21:00 Aspirin (Aspirin) 81 mg DAILY PO Last administered on 09/01/17 09:24; Admin Dose 81 MG; Start 08/26/17 at 09:00 Bisacodyl (Dulcolax Supp) 10 mg DAILY PRN [place] CONSTIPATION; Start 08/26/17 at 13:30 Lorazepam 0.5 mg 0.5 mg Q6H PRN IV ANXIETY Last administered on 08/29/17 23: 01; Admin Dose 0.5 MG; Start 08/29/17 at 14:00 Sodium Chloride (NS) 1,000 ml @ 40 mls/hr Q24H IV Last administered on 02:54; Admin Dose 75 MLS/HR; Start 08/31/17 at 00:00 Ranolazine (Ranexa) 500 mg Q12 PO Last administered on 09/01/17 09:23; Admin Dose 500 MG; Start 08/30/17 at 11:00 Morphine Sulfate (morphine) 2 mg Q2H PRN IV PAIN Last administered on 05:51; Admin Dose 2 MG; Start 08/30/17 at 14:35 Clopidogrel Bisulfate (plaVIX) 75 mg DAILY PO Last administered on 09/01/17 09:24; Admin Dose 75 MG; Start 09/01/17 at 09:00 Atorvastatin Calcium (Lipitor) 40 mg HS PO Last administered on 08/31/17 21: 40; Admin Dose 40 MG; Start 08/31/17 at 21:00 Midodrine (Proamatine) 2.5 mg BID PO Last administered on 09/01/17 09:24; Admin Dose 2.5 MG; Start 08/31/17 at 21:00 Amado Rodriguez DO Sep 01, 2017 16:59
[2017-09-01] MEDS: AMIODARONE 900 MG in DEXTROSE 5% 482 ML IV SCH (18:05)
[2017-09-01] MEDS ORDERED: MAGNESIUM SULFATE 1 GM/D5W 100 ML IVPB ONE (18:30)
[2017-09-01] MEDS: TAMSULOSIN (SR) 0.4 MG CAP PO SCH (21:18)
[2017-09-01] MEDS: ZOLPIDEM 5 MG TAB PO SCH (21:18)
[2017-09-01] MEDS: ATORVASTATIN 40 MG TAB PO SCH (21:18)
[2017-09-02] VITALS (15 sets, daily range): BP systolic 96–115; BP diastolic 53–78; PULSE 48–122; RESP 16–20
[2017-09-02] MEDS: morphine 2 MG INJ IV PRN ×5 (01:34→22:30)
[2017-09-02] MEDS: ACCU-CHEK XX SCH (02:00)
[2017-09-02] MEDS: PANTOPRAZOLE (EC) 40 MG TAB PO SCH (06:24)
[2017-09-02 07:43] LABS: BASOPHIL # 0.1 10^3/ul (0.0-0.1); BASOPHILS % 0.5 % (0.0-2.0); EOSINOPHILS # 0.1 10^3/ul (0.0-0.5); EOSINOPHILS % 0.6 % (0.0-7.0); HEMATOCRIT 33.5 % (42.0-52.0); HEMOGLOBIN 10.5 g/dl (14.0-18.0); LYMPHOCYTES # 0.7 10^3/ul (0.8-2.9); MEAN CORPUSCULAR HEMOGLOBIN 27.5 pg (29.0-33.0); MEAN CORPUSCULAR HGB CONC 31.3 g/dl (32.0-37.0); MEAN CORPUSCULAR VOLUME 87.7 fl (82.0-101.0); MEAN PLATELET VOLUME 11.1 fl (7.4-10.4); MONOCYTE # 0.7 10^3/ul (0.3-0.9); MONOCYTES % 5.8 % (0.0-11.0); NEUTROPHIL # 9.7 10^3/ul (1.6-7.5); NEUTROPHILS % 86.6 % (39.0-77.0); PLATELET COUNT 394 10^3/UL (140-415); RED BLOOD COUNT 3.82 10^6/ul (4.70-6.10); RED CELL DISTRIBUTION WIDTH 17.4 % (11.5-14.5); WHITE BLOOD COUNT 11.2 10^3/ul (4.8-10.8)
[2017-09-02] MEDS: INSULIN ASPART [NOVOLOG] 3 ML PEN SC SCH ×4 (07:49→20:35)
[2017-09-02 08:04] LABS: CALCIUM 8.7 mg/dl (8.4-10.2); CREATININE 0.61 mg/dl (0.61-1.24); POTASSIUM 4.4 mmol/L (3.5-5.1)
[2017-09-02] MEDS: DOCUSATE SODIUM 100 MG CAP PO SCH ×2 (08:44→20:23)
[2017-09-02] MEDS: ASPIRIN 81 MG TAB PO SCH (08:44)
[2017-09-02] MEDS: RANOLAZINE (SR) 500 MG TAB PO SCH ×2 (08:44→20:23)
[2017-09-02] MEDS: CLOPIDOGREL 75 MG TAB PO SCH (08:44)
[2017-09-02] MEDS: POTASSIUM CHLORIDE (SR) 20 MEQ TAB PO SCH (08:44)
[2017-09-02] MEDS: NITROGLYCERIN 0.2 MG/HR PATCH TRANSDERM SCH (08:46)
[2017-09-02] MEDS ORDERED: DIGOXIN 500 MCG INJ IV ONE (10:00)
[2017-09-02] MEDS ORDERED: AMIODARONE 150MG/D5W BOLUS 100 ML IV ONE (10:00)
--- NOTE | 2017-09-02 10:02 | CONS ---
Date/Time of Note Date/Time of Note DATE: 09/02/17 TIME: 09:58 Assessment/Plan Assessment/Plan Additional Assessment/Plan Chest pain CAD with history of CABG Cardiomyopathy with ejection fraction 25% Abnormal nuclear cardiac perfusion study Lung cancer Hypotension, improved Atrial flutter -Patient continues to have chest discomfort which is worse with lying down and improved with sitting up. This was discussed with patient's at bedside and daughter over the phone who translated. Patient still in atrial flutter but improve rates. Blood pressure has improved. We will give additional amiodarone today, start anticoagulation. Supplement magnesium to maintain above 2.0. Consultation Date/Type/Reason Admit Date/Time Aug 21, 2017 at 12:27 Type of Consultation: cv 24 HR Interval Summary Free Text/Dictation Patient continues to have symptoms of chest discomfort with lying down which improves with sitting up. Currently denies any shortness of breath. at bedside and daughter over the phone discussed Exam/Review of Systems Vital Signs Vitals Vital Signs Date Time Temp Pulse Resp B/P Pulse Ox O2 Delivery O2 Flow Rate FiO2 09/02/17 08:00 98.3 113 20 105/66 99 09/02/17 00:00 Nasal Cannula 3.0 Intake and Output 09/01/17 09/01/17 09/02/17 15:00 23:00 07:00 Intake Total 400 ml 800.6 ml Output Total 750 ml Balance 400 ml 50.6 ml Exam Constitutional: alert, frail, oriented Head: normocephalic Respiratory: other (Coarse breath sounds bilaterally, no wheezing) Cardiovascular: other (S1-S2 heard), regular rate and rhythm (Tachycardic) Gastrointestinal: bowel sounds, non-tender, soft Extremities: edema Results Result Diagram: 09/02/17 0642 09/02/17 0642 Results 24 hrs Laboratory Tests Test 09/01/17 11:45 09/01/17 17:09 09/01/17 21:17 09/02/17 06:42 Bedside Glucose 146 206 168 White Blood Count 11.2 #H Red Blood Count 3.82 L Hemoglobin 10.5 L Hematocrit 33.5 L Mean Corpuscular Volume 87.7 Mean Corpuscular Hemoglobin 27.5 L Mean Corpuscular Hemoglobin Concent 31.3 L Red Cell Distribution Width 17.4 H Platelet Count 394 # Mean Platelet Volume 11.1 H Neutrophils % 86.6 H Lymphocytes % 6.0 L Monocytes % 5.8 Eosinophils % 0.6 Basophils % 0.5 Nucleated Red Blood Cells % 0.0 Neutrophils # 9.7 H Lymphocytes # 0.7 L Monocytes # 0.7 Eosinophils # 0.1 Basophils # 0.1 Nucleated Red Blood Cells # 0.0 Sodium Level 129 L Potassium Level 4.4 Chloride Level 97 Carbon Dioxide Level 22 Anion Gap 14 Blood Urea Nitrogen 19 Creatinine 0.61 Glucose Level 170 Calcium Level 8.7 Magnesium Level 1.7 Test 09/02/17 07:38 Bedside Glucose 266 H Medications Medications Current Medications Nitroglycerin (Nitroglycerin 0.2 Mg/Hr) 1 patch DAILY TRANSDERM Last administered on 09/02/17 08:46; Admin Dose 1 PATCH; Start 08/22/17 at 09:00 Potassium Chloride (Klor-Con 20) 20 meq DAILY PO Last administered on 08:44; Admin Dose 20 MEQ; Start 08/22/17 at 09:00 Tamsulosin HCl (Flomax) 0.4 mg HS PO Last administered on 09/01/17 21:18; Admin Dose 0.4 MG; Start 08/21/17 at 21:00 Pantoprazole (Protonix Tab) 40 mg DAILY@06 PO Last administered on 09/02/17 06:24; Admin Dose 40 MG; Start 08/22/17 at 06:00 Ondansetron HCl (Zofran Inj) 4 mg Q6H PRN IV NAUSEA AND/OR VOMITING Last administered on 08/29/17 06:27; Admin Dose 4 MG; Start 08/21/17 at 20:30 Diagnostic Test (Pha) (Accu-Chek) 1 ea 02 XX ; Start 08/22/17 at 02:00 Docusate Sodium (Colace) 100 mg BID PO Last administered on 09/02/17 08:44; Admin Dose 100 MG; Start 08/21/17 at 21:00 Miscellaneous Information 1 ea NOTE XX ; Start 08/21/17 at 21:00 Glucose (Glutose) 15 gm Q15M PRN PO DECREASED GLUCOSE; Start 08/21/17 at 21:00 Glucose (Glutose) 22.5 gm Q15M PRN PO DECREASED GLUCOSE; Start 08/21/17 at 21: 00 Dextrose (D50w Syringe) 25 ml Q15M PRN IV DECREASED GLUCOSE; Start 08/21/17 at 21:00 Dextrose (D50w Syringe) 50 ml Q15M PRN IV DECREASED GLUCOSE; Start 08/21/17 at 21:00 Glucagon (Glucagen) 1 mg Q15M PRN IM DECREASED GLUCOSE; Start 08/21/17 at 21:00 Glucose (Glutose) 15 gm Q15M PRN BUCCAL DECREASED GLUCOSE; Start 08/21/17 at 21 :00 Bisacodyl (Dulcolax) 5 mg DAILY PRN PO CONSTIPATION Last administered on 12:28; Admin Dose 5 MG; Start 08/23/17 at 10:30 Guaifenesin/ Codeine Phosphate (Robitussin Ac Liquid Cup) 10 ml Q6 PRN PO COUGH Last administered on 08/28/17 15:11; Admin Dose 10 ML; Start 08/24/17 at 10:00 Hydrocodone Bit/ Homatropine Methylb (Hycodan Liquid) 5 ml BID PRN PO COUGH Last administered on 08/29/17 06:27; Admin Dose 5 ML; Start 08/24/17 at 10:30 Zolpidem Tartrate (Ambien) 5 mg HS PO Last administered on 09/01/17 21:18; Admin Dose 5 MG; Start 08/25/17 at 21:00 Aspirin (Aspirin) 81 mg DAILY PO Last administered on 09/02/17 08:44; Admin Dose 81 MG; Start 08/26/17 at 09:00 Bisacodyl (Dulcolax Supp) 10 mg DAILY PRN [place] CONSTIPATION; Start 08/26/17 at 13:30 Lorazepam (Ativan) 0.5 mg Q6H PRN IV ANXIETY Last administered on 08/29/17 23 :01; Admin Dose 0.5 MG; Start 08/29/17 at 14:00 Morphine Sulfate (morphine) 2 mg Q2H PRN IV PAIN Last administered on 09:34; Admin Dose 2 MG; Start 08/30/17 at 14:35 Clopidogrel Bisulfate (plaVIX) 75 mg DAILY PO Last administered on 09/02/17 08:44; Admin Dose 75 MG; Start 09/01/17 at 09:00 Atorvastatin Calcium (Lipitor) 40 mg HS PO Last administered on 09/01/17 21: 18; Admin Dose 40 MG; Start 08/31/17 at 21:00 Ranolazine 1000 mg 1,000 mg Q12 PO Last administered on 09/02/17 08:44; Admin Dose 1,000 MG; Start 09/01/17 at 21:00 Amiodarone HCl/ Dextrose (Cordarone Iv/ D5W) 500 ml @ 0 mls/hr Q0M IV Last administered on 09/01/17 18:05; Admin Dose 33.4 MLS/HR; Start 09/01/17 at 17: 00 Amado Rodriguez DO Sep 02, 2017 10:02
[2017-09-02] MEDS: ENOXAPARIN 30 MG/0.3 ML SYG SC SCH ×2 (10:28→20:34)
[2017-09-02] MEDS: GUAIFENESIN/CODEINE 5ML CUP PO PRN ×2 (10:48→18:34)
[2017-09-02] MEDS ORDERED: MAGNESIUM SULFATE 3 GM in SOD CHLORIDE 0.9% 100 ML IVPB SCH (11:30)
[2017-09-02] MEDS: AMIODARONE 900 MG in DEXTROSE 5% 482 ML IV SCH (11:56)
--- NOTE | 2017-09-02 17:58 | PN ---
Date/Time of Note Date/Time of Note DATE: 09/02/17 TIME: 17:54 Assessment/Plan VTE Prophylaxis VTE Prophylaxis Intervention: SCD's Lines/Catheters IV [facility]from [facility] Saline Lock Assessment/Plan Chief Complaint/Hosp Course Patient's continues to get chest pain which could worse when lying down, patient is in atrial flutter. Discussed with Dr. Rodriguez at the bedside, continue medical management. Discussed with patient daughter over the phone. 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 Continue medical therapy, f/up cardiology recs. -Coronary artery disease status post CABG in 2004. Continue Aspirin. 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 - Bilateral lower extremity edema, venous Dopplers negative for any deep venous thrombosis. -History of lung cancer dx 2006, completed chemotherapy in 2009. -Diabetes mellitus, HglA1C is 7. Continue NovoLog per mild algorithm sliding scale. -BPH, continue Flomax. -Insomnia, continue Ambien nightly Further recommendations based on clinical course. Plan of care discussed with Dr. Morrissey. Exam/Review of Systems Vital Signs Vitals Vital Signs Date Time Temp Pulse Resp B/P Pulse Ox O2 Delivery O2 Flow Rate FiO2 09/02/17 16:00 61 09/02/17 15:57 97.7 20 97/53 100 09/02/17 15:35 2.0 09/02/17 14:10 Nasal Cannula Intake and Output 09/01/17 09/01/17 09/02/17 15:00 23:00 07:00 Intake Total 400 ml 800.6 ml Output Total 750 ml Balance 400 ml 50.6 ml Exam Constitutional: alert, oriented Eyes: nl conjunctiva Respiratory: diminished breath sounds Cardiovascular: nl pulses Gastrointestinal: non-tender, soft Musculoskeletal: nl extremities to inspection Extremities: edema Results Result Diagram: 09/02/17 0642 09/02/17 0642 Results 24 hrs Laboratory Tests Test 09/01/17 21:17 09/02/17 06:42 09/02/17 07:38 09/02/17 11:58 Bedside Glucose 168 266 H 201 White Blood Count 11.2 #H Red Blood Count 3.82 L Hemoglobin 10.5 L Hematocrit 33.5 L Mean Corpuscular Volume 87.7 Mean Corpuscular Hemoglobin 27.5 L Mean Corpuscular Hemoglobin Concent 31.3 L Red Cell Distribution Width 17.4 H Platelet Count 394 # Mean Platelet Volume 11.1 H Neutrophils % 86.6 H Lymphocytes % 6.0 L Monocytes % 5.8 Eosinophils % 0.6 Basophils % 0.5 Nucleated Red Blood Cells % 0.0 Neutrophils # 9.7 H Lymphocytes # 0.7 L Monocytes # 0.7 Eosinophils # 0.1 Basophils # 0.1 Nucleated Red Blood Cells # 0.0 Sodium Level 129 L Potassium Level 4.4 Chloride Level 97 Carbon Dioxide Level 22 Anion Gap 14 Blood Urea Nitrogen 19 Creatinine 0.61 Glucose Level 170 Calcium Level 8.7 Magnesium Level 1.7 Test 09/02/17 17:14 Bedside Glucose 220 Medications Medications Current Medications Nitroglycerin (Nitroglycerin 0.2 Mg/Hr) 1 patch DAILY TRANSDERM Last administered on 09/02/17 08:46; Admin Dose 1 PATCH; Start 08/22/17 at 09:00 Potassium Chloride (Klor-Con 20) 20 meq DAILY PO Last administered on 08:44; Admin Dose 20 MEQ; Start 08/22/17 at 09:00 Tamsulosin HCl (Flomax) 0.4 mg HS PO Last administered on 09/01/17 21:18; Admin Dose 0.4 MG; Start 08/21/17 at 21:00 Pantoprazole (Protonix Tab) 40 mg DAILY@06 PO Last administered on 09/02/17 06:24; Admin Dose 40 MG; Start 08/22/17 at 06:00 Ondansetron HCl (Zofran Inj) 4 mg Q6H PRN IV NAUSEA AND/OR VOMITING Last administered on 08/29/17 06:27; Admin Dose 4 MG; Start 08/21/17 at 20:30 Diagnostic Test (Pha) (Accu-Chek) 1 ea 02 XX ; Start 08/22/17 at 02:00 Docusate Sodium (Colace) 100 mg BID PO Last administered on 09/02/17 08:44; Admin Dose 100 MG; Start 08/21/17 at 21:00 Miscellaneous Information 1 ea NOTE XX ; Start 08/21/17 at 21:00 Glucose (Glutose) 15 gm Q15M PRN PO DECREASED GLUCOSE; Start 08/21/17 at 21:00 Glucose (Glutose) 22.5 gm Q15M PRN PO DECREASED GLUCOSE; Start 08/21/17 at 21: 00 Dextrose (D50w Syringe) 25 ml Q15M PRN IV DECREASED GLUCOSE; Start 08/21/17 at 21:00 Dextrose (D50w Syringe) 50 ml Q15M PRN IV DECREASED GLUCOSE; Start 08/21/17 at 21:00 Glucagon (Glucagen) 1 mg Q15M PRN IM DECREASED GLUCOSE; Start 08/21/17 at 21:00 Glucose (Glutose) 15 gm Q15M PRN BUCCAL DECREASED GLUCOSE; Start 08/21/17 at 21 :00 Bisacodyl (Dulcolax) 5 mg DAILY PRN PO CONSTIPATION Last administered on 12:28; Admin Dose 5 MG; Start 08/23/17 at 10:30 Guaifenesin/ Codeine Phosphate (Robitussin Ac Liquid Cup) 10 ml Q6 PRN PO COUGH Last administered on 09/02/17 10:48; Admin Dose 10 ML; Start 08/24/17 at 10:00 Hydrocodone Bit/ Homatropine Methylb (Hycodan Liquid) 5 ml BID PRN PO COUGH Last administered on 08/29/17 06:27; Admin Dose 5 ML; Start 08/24/17 at 10:30 Zolpidem Tartrate (Ambien) 5 mg HS PO Last administered on 09/01/17 21:18; Admin Dose 5 MG; Start 08/25/17 at 21:00 Bisacodyl (Dulcolax Supp) 10 mg DAILY PRN [place] CONSTIPATION; Start 08/26/17 at 13:30 Lorazepam (Ativan) 0.5 mg Q6H PRN IV ANXIETY Last administered on 08/29/17 23 :01; Admin Dose 0.5 MG; Start 08/29/17 at 14:00 Morphine Sulfate (morphine) 2 mg Q2H PRN IV PAIN Last administered on 15:33; Admin Dose 2 MG; Start 08/30/17 at 14:35 Clopidogrel Bisulfate (plaVIX) 75 mg DAILY PO Last administered on 09/02/17 08:44; Admin Dose 75 MG; Start 09/01/17 at 09:00 Atorvastatin Calcium (Lipitor) 40 mg HS PO Last administered on 09/01/17 21: 18; Admin Dose 40 MG; Start 08/31/17 at 21:00 Ranolazine 1000 mg 1,000 mg Q12 PO Last administered on 09/02/17 08:44; Admin Dose 1,000 MG; Start 09/01/17 at 21:00 Amiodarone HCl/ Dextrose (Cordarone Iv/ D5W) 500 ml @ 0 mls/hr Q0M IV Last administered on 09/02/17 11:56; Admin Dose 16.66 MLS/HR; Start 09/01/17 at 17 :00 Enoxaparin Sodium (Lovenox) 55 mg BID SC Last administered on 09/02/17 10:28 ; Admin Dose 55 MG; Start 09/02/17 at 10:00 Digoxin (Digoxin) 0.125 mg DAILY@13 PO ; Start 09/03/17 at 13:00 MARC URIOSTEGUI Sep 02, 2017 17:58
[2017-09-02] MEDS: ATORVASTATIN 40 MG TAB PO SCH (20:22)
[2017-09-02] MEDS: ZOLPIDEM 5 MG TAB PO SCH (20:22)
[2017-09-02] MEDS: TAMSULOSIN (SR) 0.4 MG CAP PO SCH (20:23)
[2017-09-03] VITALS (11 sets, daily range): BP systolic 95–110; BP diastolic 50–76; PULSE 63–103; RESP 15–18
[2017-09-03] MEDS: ACCU-CHEK XX SCH (02:00)
[2017-09-03] MEDS: morphine 2 MG INJ IV PRN ×5 (04:49→21:03)
[2017-09-03] MEDS: PANTOPRAZOLE (EC) 40 MG TAB PO SCH (06:59)
[2017-09-03] MEDS: INSULIN ASPART [NOVOLOG] 3 ML PEN SC SCH ×4 (07:57→21:00)
[2017-09-03 08:31] LABS: ABNORMAL IP MESSAGE 1; BASOPHILS % 0.6 % (0.0-2.0); EOSINOPHILS % 0.6 % (0.0-7.0); HEMATOCRIT 30.7 % (42.0-52.0); HEMOGLOBIN 9.8 g/dl (14.0-18.0); LYMPHOCYTES # 0.4 10^3/ul (0.8-2.9); LYMPHOCYTES % 5.4 % (15.0-51.0); MEAN CORPUSCULAR HEMOGLOBIN 27.9 pg (29.0-33.0); MEAN CORPUSCULAR HGB CONC 31.9 g/dl (32.0-37.0); MEAN CORPUSCULAR VOLUME 87.5 fl (82.0-101.0); MEAN PLATELET VOLUME 10.9 fl (7.4-10.4); MONOCYTE # 0.6 10^3/ul (0.3-0.9); MONOCYTES % 8.5 % (0.0-11.0); NEUTROPHIL # 6.1 10^3/ul (1.6-7.5); NEUTROPHILS % 84.5 % (39.0-77.0); PLATELET COUNT 287 10^3/UL (140-415); POSITIVE DIFF @See below; RED BLOOD COUNT 3.51 10^6/ul (4.70-6.10); RED CELL DISTRIBUTION WIDTH 17.6 % (11.5-14.5); WHITE BLOOD COUNT 7.2 10^3/ul (4.8-10.8)
[2017-09-03] MEDS: POTASSIUM CHLORIDE (SR) 20 MEQ TAB PO SCH (08:36)
[2017-09-03] MEDS: NITROGLYCERIN 0.2 MG/HR PATCH TRANSDERM SCH (08:36)
[2017-09-03] MEDS: DOCUSATE SODIUM 100 MG CAP PO SCH ×2 (08:36→21:02)
[2017-09-03] MEDS: RANOLAZINE (SR) 500 MG TAB PO SCH ×2 (08:36→21:02)
[2017-09-03] MEDS: CLOPIDOGREL 75 MG TAB PO SCH (08:36)
[2017-09-03] MEDS: ENOXAPARIN 30 MG/0.3 ML SYG SC SCH (08:43)
[2017-09-03 09:14] LABS: CALCIUM 8.1 mg/dl (8.4-10.2); CREATININE 0.66 mg/dl (0.61-1.24); POTASSIUM 4.2 mmol/L (3.5-5.1)
[2017-09-03] MEDS: AMIODARONE 900 MG in DEXTROSE 5% 482 ML IV SCH (11:35)
[2017-09-03] MEDS: DIGOXIN 0.125 MG TAB PO SCH (12:18)
--- NOTE | 2017-09-03 12:24 | PN ---
Date/Time of Note Date/Time of Note DATE: 09/03/17 TIME: 12:22 Assessment/Plan VTE Prophylaxis VTE Prophylaxis Intervention: SCD's Lines/Catheters IV [facility] Saline Lock Assessment/Plan Chief Complaint/Hosp Course Patient is continues to be in A- flutter, currently on amiodarone drip, complains of mild chest pain, denies shortness of breath, on supplemental oxygen. 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 S/p Lexiscan with large partial reversible defects in multiple territories. Continue medical therapy, f/up cardiology recs. -Coronary artery disease status post CABG in 2004. Continue Aspirin. 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 - Bilateral lower extremity edema, venous Dopplers negative for any deep venous thrombosis. -History of lung cancer dx 2006, completed chemotherapy in 2009. -Diabetes mellitus, HglA1C is 7. Continue NovoLog per mild algorithm sliding scale. -BPH, continue Flomax. -Insomnia, continue Ambien nightly Further recommendations based on clinical course. Plan of care discussed with Dr. Morrissey. Problems: Exam/Review of Systems Vital Signs Vitals Vital Signs Date Time Temp Pulse Resp B/P Pulse Ox O2 Delivery O2 Flow Rate FiO2 09/03/17 12:00 103 09/03/17 11:54 98.2 18 98/63 100 09/03/17 02:18 2.0 09/02/17 19:30 Nasal Cannula Intake and Output 09/02/17 09/02/17 09/03/17 15:00 23:00 07:00 Intake Total 289 ml 717 ml 500 ml Output Total 475 ml 1000 ml Balance 289 ml 242 ml -500 ml Exam Constitutional: alert, oriented Eyes: nl conjunctiva Respiratory: diminished breath sounds Cardiovascular: nl pulses Gastrointestinal: non-tender, soft Musculoskeletal: nl extremities to inspection Extremities: edema Results Result Diagram: 09/03/1772009/03/17720 Results 24 hrs Laboratory Tests Test 09/02/17 17:14 09/02/17 20:31 09/03/17 07:21 09/03/17 07:53 Bedside Glucose 220 125 133 White Blood Count 7.2 # Red Blood Count 3.51 L Hemoglobin 9.8 L Hematocrit 30.7 L Mean Corpuscular Volume 87.5 Mean Corpuscular Hemoglobin 27.9 L Mean Corpuscular Hemoglobin Concent 31.9 L Red Cell Distribution Width 17.6 H Platelet Count 287 # Mean Platelet Volume 10.9 H Neutrophils % 84.5 H Lymphocytes % 5.4 L Monocytes % 8.5 Eosinophils % 0.6 Basophils % 0.6 Nucleated Red Blood Cells % 0.0 Neutrophils # 6.1 Lymphocytes # 0.4 L Monocytes # 0.6 Eosinophils # 0.0 Basophils # 0.0 Nucleated Red Blood Cells # 0.0 Sodium Level 131 L Potassium Level 4.2 Chloride Level 101 Carbon Dioxide Level 24 Anion Gap 10 Blood Urea Nitrogen 16 Creatinine 0.66 Glucose Level 115 # Calcium Level 8.1 L Test 09/03/17 12:08 Bedside Glucose 157 Medications Medications Current Medications Nitroglycerin (Nitroglycerin 0.2 Mg/Hr) 1 patch DAILY TRANSDERM Last administered on 09/03/17 08:36; Admin Dose 1 PATCH; Start 08/22/17 at 09:00 Potassium Chloride (Klor-Con 20) 20 meq DAILY PO Last administered on 08:36; Admin Dose 20 MEQ; Start 08/22/17 at 09:00 Tamsulosin HCl (Flomax) 0.4 mg HS PO Last administered on 09/02/17 20:23; Admin Dose 0.4 MG; Start 08/21/17 at 21:00 Pantoprazole (Protonix Tab) 40 mg DAILY@06 PO Last administered on 09/03/17 06:59; Admin Dose 40 MG; Start 08/22/17 at 06:00 Ondansetron HCl (Zofran Inj) 4 mg Q6H PRN IV NAUSEA AND/OR VOMITING Last administered on 08/29/17 06:27; Admin Dose 4 MG; Start 08/21/17 at 20:30 Diagnostic Test (Pha) (Accu-Chek) 1 ea 02 XX ; Start 08/22/17 at 02:00 Docusate Sodium (Colace) 100 mg BID PO Last administered on 09/03/17 08:36; Admin Dose 100 MG; Start 08/21/17 at 21:00 Miscellaneous Information 1 ea NOTE XX ; Start 08/21/17 at 21:00 Glucose (Glutose) 15 gm Q15M PRN PO DECREASED GLUCOSE; Start 08/21/17 at 21:00 Glucose (Glutose) 22.5 gm Q15M PRN PO DECREASED GLUCOSE; Start 08/21/17 at 21: 00 Dextrose (D50w Syringe) 25 ml Q15M PRN IV DECREASED GLUCOSE; Start 08/21/17 at 21:00 Dextrose (D50w Syringe) 50 ml Q15M PRN IV DECREASED GLUCOSE; Start 08/21/17 at 21:00 Glucagon (Glucagen) 1 mg Q15M PRN IM DECREASED GLUCOSE; Start 08/21/17 at 21:00 Glucose (Glutose) 15 gm Q15M PRN BUCCAL DECREASED GLUCOSE; Start 08/21/17 at 21 :00 Bisacodyl (Dulcolax) 5 mg DAILY PRN PO CONSTIPATION Last administered on 12:28; Admin Dose 5 MG; Start 08/23/17 at 10:30 Guaifenesin/ Codeine Phosphate (Robitussin Ac Liquid Cup) 10 ml Q6 PRN PO COUGH Last administered on 09/02/17 18:34; Admin Dose 10 ML; Start 08/24/17 at 10:00 Hydrocodone Bit/ Homatropine Methylb (Hycodan Liquid) 5 ml BID PRN PO COUGH Last administered on 08/29/17 06:27; Admin Dose 5 ML; Start 08/24/17 at 10:30 Zolpidem Tartrate (Ambien) 5 mg HS PO Last administered on 09/02/17 20:22; Admin Dose 5 MG; Start 08/25/17 at 21:00 Bisacodyl (Dulcolax Supp) 10 mg DAILY PRN [place] CONSTIPATION; Start 08/26/17 at 13:30 Lorazepam (Ativan) 0.5 mg Q6H PRN IV ANXIETY Last administered on 08/29/17 23 :01; Admin Dose 0.5 MG; Start 08/29/17 at 14:00 Morphine Sulfate (morphine) 2 mg Q2H PRN IV PAIN Last administered on 10:47; Admin Dose 2 MG; Start 08/30/17 at 14:35 Clopidogrel Bisulfate (plaVIX) 75 mg DAILY PO Last administered on 09/03/17 08:36; Admin Dose 75 MG; Start 09/01/17 at 09:00 Atorvastatin Calcium (Lipitor) 40 mg HS PO Last administered on 09/02/17 20: 22; Admin Dose 40 MG; Start 08/31/17 at 21:00 Ranolazine 1000 mg 1,000 mg Q12 PO Last administered on 09/03/17 08:36; Admin Dose 1,000 MG; Start 09/01/17 at 21:00 Amiodarone HCl/ Dextrose (Cordarone Iv/ D5W) 500 ml @ 0 mls/hr Q0M IV Last administered on 09/03/17 11:35; Admin Dose 16.66 MLS/HR; Start 09/01/17 at 17 :00 Enoxaparin Sodium (Lovenox) 55 mg BID SC Last administered on 09/03/17 08:43 ; Admin Dose 55 MG; Start 09/02/17 at 10:00 Digoxin (Digoxin) 0.125 mg DAILY@13 PO Last administered on 09/03/17 12:18; Admin Dose 0.125 MG; Start 09/03/17 at 13:00 MARC URIOSTEGUI Sep 03, 2017 12:24
[2017-09-03] MEDS: GUAIFENESIN/CODEINE 5ML CUP PO PRN (14:25)
--- NOTE | 2017-09-03 16:34 | CONS ---
Date/Time of Note Date/Time of Note DATE: 09/03/17 TIME: 16:28 Assessment/Plan Assessment/Plan Additional Assessment/Plan Chest pain CAD with history of CABG Cardiomyopathy with ejection fraction 25% Abnormal nuclear cardiac perfusion study Lung cancer Hypotension, improved Atrial flutter -Patient continues to have chest discomfort which is worse with lying down and improved with sitting up. This was discussed with patient's at bedside and daughter over the phone who translated. His symptoms have improved today with less discomfort with lying flat. Patient still in atrial flutter but improve rates. We will transition to p.o. amiodarone in the next 24 hours. Start beta-elsa if blood pressure permits. Blood pressure has improved. If no contraindication, will transition Lovenox to oral anticoagulant. Consultation Date/Type/Reason Admit Date/Time Aug 21, 2017 at 12:27 Type of Consultation: cv 24 HR Interval Summary Free Text/Dictation Patient feeling better today, less chest discomfort with lying down. Denies shortness of breath Exam/Review of Systems Vital Signs Vitals Vital Signs Date Time Temp Pulse Resp B/P Pulse Ox O2 Delivery O2 Flow Rate FiO2 09/03/17 16:00 97 09/03/17 15:17 97.7 110/60 99 09/03/17 11:54 18 09/03/17 02:18 2.0 09/02/17 19:30 Nasal Cannula Intake and Output 09/02/17 09/02/17 09/03/17 15:00 23:00 07:00 Intake Total 289 ml 717 ml 500 ml Output Total 475 ml 1000 ml Balance 289 ml 242 ml -500 ml Exam Eating dinner, at bedside, no apparent distress Constitutional: alert, frail, oriented Head: normocephalic Respiratory: other (Coarse breath sounds bilaterally, no wheezing) Cardiovascular: irregular rhythm, other (S1-S2 heard) Gastrointestinal: bowel sounds, non-tender, soft Extremities: other (No edema) Results Result Diagram: 09/03/1772009/03/17720 Results 24 hrs Laboratory Tests Test 09/02/17 17:14 09/02/17 20:31 09/03/17 07:21 09/03/17 07:53 Bedside Glucose 220 125 133 White Blood Count 7.2 # Red Blood Count 3.51 L Hemoglobin 9.8 L Hematocrit 30.7 L Mean Corpuscular Volume 87.5 Mean Corpuscular Hemoglobin 27.9 L Mean Corpuscular Hemoglobin Concent 31.9 L Red Cell Distribution Width 17.6 H Platelet Count 287 # Mean Platelet Volume 10.9 H Neutrophils % 84.5 H Lymphocytes % 5.4 L Monocytes % 8.5 Eosinophils % 0.6 Basophils % 0.6 Nucleated Red Blood Cells % 0.0 Neutrophils # 6.1 Lymphocytes # 0.4 L Monocytes # 0.6 Eosinophils # 0.0 Basophils # 0.0 Nucleated Red Blood Cells # 0.0 Sodium Level 131 L Potassium Level 4.2 Chloride Level 101 Carbon Dioxide Level 24 Anion Gap 10 Blood Urea Nitrogen 16 Creatinine 0.66 Glucose Level 115 # Calcium Level 8.1 L Test 09/03/17 12:08 Bedside Glucose 157 Medications Medications Current Medications Nitroglycerin (Nitroglycerin 0.2 Mg/Hr) 1 patch DAILY TRANSDERM Last administered on 09/03/17 08:36; Admin Dose 1 PATCH; Start 08/22/17 at 09:00 Potassium Chloride (Klor-Con 20) 20 meq DAILY PO Last administered on 08:36; Admin Dose 20 MEQ; Start 08/22/17 at 09:00 Tamsulosin HCl (Flomax) 0.4 mg HS PO Last administered on 09/02/17 20:23; Admin Dose 0.4 MG; Start 08/21/17 at 21:00 Pantoprazole (Protonix Tab) 40 mg DAILY@06 PO Last administered on 09/03/17 06:59; Admin Dose 40 MG; Start 08/22/17 at 06:00 Ondansetron HCl (Zofran Inj) 4 mg Q6H PRN IV NAUSEA AND/OR VOMITING Last administered on 08/29/17 06:27; Admin Dose 4 MG; Start 08/21/17 at 20:30 Diagnostic Test (Pha) (Accu-Chek) 1 ea 02 XX ; Start 08/22/17 at 02:00 Docusate Sodium (Colace) 100 mg BID PO Last administered on 09/03/17 08:36; Admin Dose 100 MG; Start 08/21/17 at 21:00 Miscellaneous Information 1 ea NOTE XX ; Start 08/21/17 at 21:00 Glucose (Glutose) 15 gm Q15M PRN PO DECREASED GLUCOSE; Start 08/21/17 at 21:00 Glucose (Glutose) 22.5 gm Q15M PRN PO DECREASED GLUCOSE; Start 08/21/17 at 21: 00 Dextrose (D50w Syringe) 25 ml Q15M PRN IV DECREASED GLUCOSE; Start 08/21/17 at 21:00 Dextrose (D50w Syringe) 50 ml Q15M PRN IV DECREASED GLUCOSE; Start 08/21/17 at 21:00 Glucagon (Glucagen) 1 mg Q15M PRN IM DECREASED GLUCOSE; Start 08/21/17 at 21:00 Glucose (Glutose) 15 gm Q15M PRN BUCCAL DECREASED GLUCOSE; Start 08/21/17 at 21 :00 Bisacodyl (Dulcolax) 5 mg DAILY PRN PO CONSTIPATION Last administered on 12:28; Admin Dose 5 MG; Start 08/23/17 at 10:30 Guaifenesin/ Codeine Phosphate (Robitussin Ac Liquid Cup) 10 ml Q6 PRN PO COUGH Last administered on 09/03/17 14:25; Admin Dose 10 ML; Start 08/24/17 at 10:00 Hydrocodone Bit/ Homatropine Methylb (Hycodan Liquid) 5 ml BID PRN PO COUGH Last administered on 08/29/17 06:27; Admin Dose 5 ML; Start 08/24/17 at 10:30 Zolpidem Tartrate (Ambien) 5 mg HS PO Last administered on 09/02/17 20:22; Admin Dose 5 MG; Start 08/25/17 at 21:00 Bisacodyl (Dulcolax Supp) 10 mg DAILY PRN [place] CONSTIPATION; Start 08/26/17 at 13:30 Lorazepam (Ativan) 0.5 mg Q6H PRN IV ANXIETY Last administered on 08/29/17 23 :01; Admin Dose 0.5 MG; Start 08/29/17 at 14:00 Morphine Sulfate (morphine) 2 mg Q2H PRN IV PAIN Last administered on 15:21; Admin Dose 2 MG; Start 08/30/17 at 14:35 Clopidogrel Bisulfate (plaVIX) 75 mg DAILY PO Last administered on 09/03/17 08:36; Admin Dose 75 MG; Start 09/01/17 at 09:00 Atorvastatin Calcium (Lipitor) 40 mg HS PO Last administered on 09/02/17 20: 22; Admin Dose 40 MG; Start 08/31/17 at 21:00 Ranolazine 1000 mg 1,000 mg Q12 PO Last administered on 09/03/17 08:36; Admin Dose 1,000 MG; Start 09/01/17 at 21:00 Amiodarone HCl/ Dextrose (Cordarone Iv/ D5W) 500 ml @ 0 mls/hr Q0M IV Last administered on 09/03/17 11:35; Admin Dose 16.66 MLS/HR; Start 09/01/17 at 17 :00 Enoxaparin Sodium (Lovenox) 55 mg BID SC Last administered on 09/03/17 08:43 ; Admin Dose 55 MG; Start 09/02/17 at 10:00 Digoxin (Digoxin) 0.125 mg DAILY@13 PO Last administered on 09/03/17 12:18; Admin Dose 0.125 MG; Start 09/03/17 at 13:00 Amado Rodriguez DO Sep 03, 2017 16:33
[2017-09-03] MEDS: METOPROLOL 25 MG TAB PO SCH (21:00)
[2017-09-03] MEDS: ATORVASTATIN 40 MG TAB PO SCH (21:02)
[2017-09-03] MEDS: ZOLPIDEM 5 MG TAB PO SCH (21:02)
[2017-09-03] MEDS: AMIODARONE 200 MG TAB PO SCH (21:02)
[2017-09-03] MEDS: APIXABAN 5 MG TABLET PO SCH (21:02)
[2017-09-03] MEDS: TAMSULOSIN (SR) 0.4 MG CAP PO SCH (21:02)
[2017-09-04] VITALS (9 sets, daily range): BP systolic 102–120; BP diastolic 55–70; PULSE 76–118; RESP 16–20
[2017-09-04] MEDS: ACCU-CHEK XX SCH (01:46)
[2017-09-04] MEDS: morphine 2 MG INJ IV PRN ×4 (05:52→15:52)
[2017-09-04] MEDS: PANTOPRAZOLE (EC) 40 MG TAB PO SCH (05:52)
[2017-09-04] MEDS: ONDANSETRON 4 MG INJ IV PRN (06:26)
[2017-09-04 08:04] LABS: ABNORMAL IP MESSAGE 1; BASOPHILS % 0.4 % (0.0-2.0); EOSINOPHILS % 0.4 % (0.0-7.0); HEMATOCRIT 32.4 % (42.0-52.0); HEMOGLOBIN 10.3 g/dl (14.0-18.0); LYMPHOCYTES # 0.5 10^3/ul (0.8-2.9); LYMPHOCYTES % 6.1 % (15.0-51.0); MEAN CORPUSCULAR HEMOGLOBIN 28.2 pg (29.0-33.0); MEAN CORPUSCULAR HGB CONC 31.8 g/dl (32.0-37.0); MEAN CORPUSCULAR VOLUME 88.8 fl (82.0-101.0); MEAN PLATELET VOLUME 10.6 fl (7.4-10.4); MONOCYTE # 0.6 10^3/ul (0.3-0.9); MONOCYTES % 6.8 % (0.0-11.0); NEUTROPHIL # 7.3 10^3/ul (1.6-7.5); NEUTROPHILS % 85.8 % (39.0-77.0); PLATELET COUNT 312 10^3/UL (140-415); POSITIVE DIFF @See below; RED BLOOD COUNT 3.65 10^6/ul (4.70-6.10); RED CELL DISTRIBUTION WIDTH 17.8 % (11.5-14.5); WHITE BLOOD COUNT 8.5 10^3/ul (4.8-10.8)
[2017-09-04] MEDS: POTASSIUM CHLORIDE (SR) 20 MEQ TAB PO SCH (08:16)
[2017-09-04] MEDS: NITROGLYCERIN 0.2 MG/HR PATCH TRANSDERM SCH (08:16)
[2017-09-04] MEDS: DOCUSATE SODIUM 100 MG CAP PO SCH (08:16)
[2017-09-04] MEDS: RANOLAZINE (SR) 500 MG TAB PO SCH (08:16)
[2017-09-04] MEDS: CLOPIDOGREL 75 MG TAB PO SCH (08:17)
[2017-09-04] MEDS: AMIODARONE 200 MG TAB PO SCH ×2 (08:17→12:17)
[2017-09-04] MEDS: APIXABAN 5 MG TABLET PO SCH (08:17)
[2017-09-04] MEDS: METOPROLOL 25 MG TAB PO SCH (08:17)
[2017-09-04] MEDS: INSULIN ASPART [NOVOLOG] 3 ML PEN SC SCH ×3 (08:22→17:27)
[2017-09-04 08:29] LABS: CALCIUM 8.4 mg/dl (8.4-10.2); CREATININE 0.59 mg/dl (0.61-1.24); POTASSIUM 3.9 mmol/L (3.5-5.1)
[2017-09-04] MEDS: DIGOXIN 0.125 MG TAB PO SCH (12:17)
--- NOTE | 2017-09-04 14:19 | CONS ---
Date/Time of Note Date/Time of Note DATE: 09/04/17 TIME: 14:15 Assessment/Plan Assessment/Plan Additional Assessment/Plan Chest pain CAD with history of CABG Cardiomyopathy with ejection fraction 25% Abnormal nuclear cardiac perfusion study Lung cancer Hypotension, improved Atrial flutter -Patient continues to have chest discomfort which is worse with lying down and improved with sitting up. This was discussed with patient's at bedside and daughter over the phone who translated. He appears more comfortable today and heart rate is overall better controlled. Will adjust amiodarone to twice daily dosing plan of decreasing to daily at 1 week. Continue anticoagulation and Plavix if no contraindication. Continue beta-elsa as heart rate and blood pressure permits, continue statin therapy. If the blood pressure remained stable, consider initiation of JANINE inhibitor Consultation Date/Type/Reason Admit Date/Time Aug 21, 2017 at 12:27 Type of Consultation: cv 24 HR Interval Summary Free Text/Dictation Patient seen and examined, sitting up in bed, looks in better spirits and smiling Exam/Review of Systems Vital Signs Vitals Vital Signs Date Time Temp Pulse Resp B/P Pulse Ox O2 Delivery O2 Flow Rate FiO2 09/04/17 12:00 76 09/04/17 11:14 97.5 18 109/55 100 09/03/17 23:57 2.0 09/02/17 19:30 Nasal Cannula Intake and Output 09/03/17 09/03/17 09/04/17 15:00 23:00 07:00 Intake Total 66.64 ml 791.63 ml 1000 ml Output Total 950 ml 1000 ml Balance 66.64 ml -158.37 ml 0 ml Exam No apparent distress, smiling, looks overall improved compared to prior visits Constitutional: frail Head: normocephalic Respiratory: other (Coarse breath sounds bilaterally, no wheezing) Cardiovascular: irregular rhythm, other (S1-S2 heard) Gastrointestinal: bowel sounds, non-tender, soft Extremities: other (No significant edema) Results Result Diagram: 09/04/17 0708 09/04/17 0708 Results 24 hrs Laboratory Tests Test 09/03/17 17:08 09/03/17 20:36 09/04/17 07:08 09/04/17 08:14 Bedside Glucose 182 159 170 White Blood Count 8.5 Red Blood Count 3.65 L Hemoglobin 10.3 L Hematocrit 32.4 L Mean Corpuscular Volume 88.8 Mean Corpuscular Hemoglobin 28.2 L Mean Corpuscular Hemoglobin Concent 31.8 L Red Cell Distribution Width 17.8 H Platelet Count 312 Mean Platelet Volume 10.6 H Neutrophils % 85.8 H Lymphocytes % 6.1 L Monocytes % 6.8 Eosinophils % 0.4 Basophils % 0.4 Nucleated Red Blood Cells % 0.0 Neutrophils # 7.3 Lymphocytes # 0.5 L Monocytes # 0.6 Eosinophils # 0.0 Basophils # 0.0 Nucleated Red Blood Cells # 0.0 Sodium Level 131 L Potassium Level 3.9 Chloride Level 97 Carbon Dioxide Level 26 Anion Gap 12 Blood Urea Nitrogen 14 Creatinine 0.59 L Glucose Level 131 Calcium Level 8.4 Test 09/04/17 12:14 Bedside Glucose 174 Medications Medications Current Medications Nitroglycerin (Nitroglycerin 0.2 Mg/Hr) 1 patch DAILY TRANSDERM Last administered on 09/04/17 08:16; Admin Dose 1 PATCH; Start 08/22/17 at 09:00 Potassium Chloride (Klor-Con 20) 20 meq DAILY PO Last administered on 08:16; Admin Dose 20 MEQ; Start 08/22/17 at 09:00 Tamsulosin HCl (Flomax) 0.4 mg HS PO Last administered on 09/03/17 21:02; Admin Dose 0.4 MG; Start 08/21/17 at 21:00 Pantoprazole (Protonix Tab) 40 mg DAILY@06 PO Last administered on 09/04/17 05:52; Admin Dose 40 MG; Start 08/22/17 at 06:00 Ondansetron HCl (Zofran Inj) 4 mg Q6H PRN IV NAUSEA AND/OR VOMITING Last administered on 09/04/17 06:26; Admin Dose 4 MG; Start 08/21/17 at 20:30 Diagnostic Test (Pha) (Accu-Chek) 1 ea 02 XX ; Start 08/22/17 at 02:00 Docusate Sodium (Colace) 100 mg BID PO Last administered on 09/04/17 08:16; Admin Dose 100 MG; Start 08/21/17 at 21:00 Miscellaneous Information 1 ea NOTE XX ; Start 08/21/17 at 21:00 Glucose (Glutose) 15 gm Q15M PRN PO DECREASED GLUCOSE; Start 08/21/17 at 21:00 Glucose (Glutose) 22.5 gm Q15M PRN PO DECREASED GLUCOSE; Start 08/21/17 at 21: 00 Dextrose (D50w Syringe) 25 ml Q15M PRN IV DECREASED GLUCOSE; Start 08/21/17 at 21:00 Dextrose (D50w Syringe) 50 ml Q15M PRN IV DECREASED GLUCOSE; Start 08/21/17 at 21:00 Glucagon (Glucagen) 1 mg Q15M PRN IM DECREASED GLUCOSE; Start 08/21/17 at 21:00 Glucose (Glutose) 15 gm Q15M PRN BUCCAL DECREASED GLUCOSE; Start 08/21/17 at 21 :00 Bisacodyl (Dulcolax) 5 mg DAILY PRN PO CONSTIPATION Last administered on 12:28; Admin Dose 5 MG; Start 08/23/17 at 10:30 Guaifenesin/ Codeine Phosphate (Robitussin Ac Liquid Cup) 10 ml Q6 PRN PO COUGH Last administered on 09/03/17 14:25; Admin Dose 10 ML; Start 08/24/17 at 10:00 Hydrocodone Bit/ Homatropine Methylb (Hycodan Liquid) 5 ml BID PRN PO COUGH Last administered on 08/29/17 06:27; Admin Dose 5 ML; Start 08/24/17 at 10:30 Zolpidem Tartrate (Ambien) 5 mg HS PO Last administered on 09/03/17 21:02; Admin Dose 5 MG; Start 08/25/17 at 21:00 Bisacodyl (Dulcolax Supp) 10 mg DAILY PRN NC CONSTIPATION; Start 08/26/17 at 13:30 Lorazepam (Ativan) 0.5 mg Q6H PRN IV ANXIETY Last administered on 08/29/17 23 :01; Admin Dose 0.5 MG; Start 08/29/17 at 14:00 Morphine Sulfate (morphine) 2 mg Q2H PRN IV PAIN Last administered on 13:17; Admin Dose 2 MG; Start 08/30/17 at 14:35 Clopidogrel Bisulfate (plaVIX) 75 mg DAILY PO Last administered on 09/04/17 08:17; Admin Dose 75 MG; Start 09/01/17 at 09:00 Atorvastatin Calcium (Lipitor) 40 mg HS PO Last administered on 09/03/17 21: 02; Admin Dose 40 MG; Start 08/31/17 at 21:00 Ranolazine (Ranexa) 1,000 mg Q12 PO Last administered on 09/04/17 08:16; Admin Dose 1,000 MG; Start 09/01/17 at 21:00 Digoxin (Digoxin) 0.125 mg DAILY@13 PO Last administered on 09/04/17 12:17; Admin Dose 0.125 MG; Start 09/03/17 at 13:00 Apixaban (Eliquis) 2.5 mg BID PO Last administered on 09/04/17 08:17; Admin Dose 2.5 MG; Start 09/03/17 at 21:00 Metoprolol Tartrate (Lopressor) 25 mg BID PO Last administered on 09/04/17 08 :17; Admin Dose 25 MG; Start 09/03/17 at 21:00 Amiodarone HCl (Cordarone) 200 mg TID PO Last administered on 09/04/17 12:17 ; Admin Dose 200 MG; Start 09/03/17 at 21:00 Amado Rodriguez DO Sep 04, 2017 14:19
--- NOTE | 2017-09-04 18:26 | RADRPT ---
Vent Rate: 121 bpm RR Interval: 0 msec CO Interval: 224 msec QRS Duration: 122 msec QT Interval: 304 msec QTC Interval: 431 msec P-R-T Elizabeth: 0 - 0 - 92 degrees Sinus tachycardia with 1st degree AV block Right bundle branch block Abnormal ECG Electronically Signed By: Bryce Brooks [id number]
[2017-09-04] MEDS ORDERED: AMIODARONE 200 MG TAB PO SCH (21:00)
--- NOTE | 2017-09-04 22:13 | DS ---
Date/Time of Note Date/Time of Note DATE: 09/04/17 TIME: 22:13 Discharge Summary Admission/Discharge Info Admit Date/Time Aug 21, 2017 at 12:27 Discharge Date/Time Sep 04, 2017 at 20:25 Hx of Present Illness This is an 81-year-old male with past history of hypertension, previous MA, bypass surgery, and lung cancer is admitted with c/o chest pain x 1 day, did take 1 sublingual nitro with mild relief of his pain increased and he was brought to hospital by EMS, He described his chest pain is in the center of his chest and is achy type pain. ROS All systems reviewed and are negative except as per history of present illness. Allergies No Known Allergy (Unverified , 08/21/17) Hospital Course Patient is continues to be in A- flutter, currently on amiodarone drip, complains of mild chest pain, denies shortness of breath, on supplemental oxygen. 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 S/p Lexiscan with large partial reversible defects in multiple territories. Continue medical therapy, f/up cardiology recs. -Coronary artery disease status post CABG in 2004. Continue Aspirin. 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 - Bilateral lower extremity edema, venous Dopplers negative for any deep venous thrombosis. -History of lung cancer dx 2006, completed chemotherapy in 2009. -Diabetes mellitus, HglA1C is 7. Continue NovoLog per mild algorithm sliding scale. -BPH, continue Flomax. -Insomnia, continue Ambien nightly Further recommendations based on clinical course. Plan of care discussed with Dr. Morrissey. Home Meds Active Scripts Docusate Sodium (Dok) 100 Mg Capsule, 100 MG PO DAILY Y for CONSTIPATION for 30 Days, CAP Prov:[facility] 07/23/17 Reported Medications Ondansetron Hcl* (Zofran*) 4 Mg Tab, 4 MG PO Q6H Y for NAUSEA AND OR VOMITING, TAB 08/21/17 Protein Supplement (Promod) 946 Ml Liquid, 30 ML PO DAILY 08/21/17 Potassium Chloride* (Potassium Chloride*) 20 Meq Tablet.er, 20 MEQ PO DAILY, TAB.SA 08/21/17 Nitroglycerin* (Nitroglycerin* Patch) 0.2 mg/hr Patch, 1 PATCH TD DAILY, PATCH 08/21/17 Nitroglycerin* (Nitroglycerin* Patch) 0.1 mg/hr Patch, 1 PATCH TD DAILY, PATCH 08/21/17 Morphine Sulfate* (Ms Contin*) 15 Mg Tablet.sa, 15 MG PO Q6 Y for SEVERE PAIN LEVEL 7-10, TAB 08/21/17 Megestrol Acetate* (Megace ES*) 625 Mg/5 Ml Oral.susp, 200 MG PO BID, ML 08/21/17 Sod Phosphate/Sod Biphosphate* (Fleet* Enema Pediatric) 66.6 Ml Soln, 66.6 ML OR DAILY Y for CONSTIPATION, ENEMA 08/21/17 Carvedilol* (Carvedilol*) 3.125 Mg Tablet, 3.125 MG PO QAM, #60 TAB 07/09/17 Tamsulosin Hcl* (Tamsulosin Hcl*) 0.4 Mg Cap.er.24h, 0.4 MG PO HS, CAP 07/09/17 Midodrine* (Midodrine*) 5 Mg Tablet, 5 MG PO BID, TAB 07/09/17 Metformin* (Glucophage*) 500 Mg Tab, 500 MG PO PC BREAKFAST, #60 TAB 07/09/17 Primary Care Provider Dakota Morrissey MD Pending Labs Laboratory Tests Test 09/04/17 07:08 09/04/17 08:14 09/04/17 12:14 09/04/17 17:19 White Blood Count 8.510^3/ul (4.8-10.8) Red Blood Count 3.6510^6/ul (4.70-6.10) Hemoglobin 10.3g/dl (14.0-18.0) Hematocrit 32.4% (42.0-52.0) Mean Corpuscular Volume 88.8fl (82.0-101.0) Mean Corpuscular Hemoglobin 28.2pg (29.0-33.0) Mean Corpuscular Hemoglobin Concent 31.8g/dl (32.0-37.0) Red Cell Distribution Width 17.8% (11.5-14.5) Platelet Count 42203^3/UL (140-415) Mean Platelet Volume 10.6fl (7.4-10.4) Neutrophils % 85.8% (39.0-77.0) Lymphocytes % 6.1% (15.0-51.0) Monocytes % 6.8% (0.0-11.0) Eosinophils % 0.4% (0.0-7.0) Basophils % 0.4% (0.0-2.0) Nucleated Red Blood Cells % 0.0/100WBC (0.0-0.0) Neutrophils # 7.310^3/ul (1.6-7.5) Lymphocytes # 0.510^3/ul (0.8-2.9) Monocytes # 0.610^3/ul (0.3-0.9) Eosinophils # 0.010^3/ul (0.0-0.5) Basophils # 0.010^3/ul (0.0-0.1) Nucleated Red Blood Cells # 0.010^3/ul (0.0-0.0) Sodium Level 131mmol/L (135-144) Potassium Level 3.9mmol/L (3.5-5.1) Chloride Level 97mmol/L (97-110) Carbon Dioxide Level 26mmol/L (21-31) Anion Gap 12 (8-16) Blood Urea Nitrogen 14mg/dl (7-20) Creatinine 0.59mg/dl (0.61-1.24) Glucose Level 131mg/dl (70-220) Calcium Level 8.4mg/dl (8.4-10.2) Bedside Glucose 170mg/dL (70-220) 174mg/dL (70-220) 169mg/dL (70-220) [facility] Sep 04, 2017 22:13
--- NOTE | 2017-09-04 22:22 | PDOCDIS ---
Discharge Instructions CONDITION Patient Condition: Stable HOME CARE INSTRUCTIONS: Special Diet: Cardiac ACTIVITY: Activity Restrictions: Slowly Increase Activity Rest between Activity Avoid heavy lifting Do not Drive Do not operate Machinery Do not operate Power Tool Avoid Heavy Housework FOLLOW UP/APPOINTMENTS Follow-up Plan Fu with Primary MD X 1 week FU with Cardiology/Pulmonary/Oncology as recommended Call 911 or transfer to the nearest hospital if symptoms get worse. Patient and family verbalized understanding dc instructions. Dw Dr Briggs/ staff [facility] Sep 04, 2017 22:22
== END 2017-09-04 20:25 | DRG 280 ==
LOC: E/R 10:27 → MS4 12:27
PROVIDERS: ADMIT Internal Medicine; ATTEND Internal Medicine
DX: I21.4 Non-ST elevation (NSTEMI) myocardial infarction (principal); I50.33 Acute on chronic diastolic (congestive) heart failure; R64 Cachexia; E46 Unspecified protein-calorie malnutrition; I42.9 Cardiomyopathy, unspecified; I48.92 Unspecified atrial flutter; Z68.1 Body mass index [BMI] 19.9 or less, adult; C34.90 Malignant neoplasm of unspecified part of unspecified bronchus or lung; D64.9 Anemia, unspecified; I25.10 Atherosclerotic heart disease of native coronary artery without angina pectoris; Z95.1 Presence of aortocoronary bypass graft; E11.9 Type 2 diabetes mellitus without complications; N40.0 Benign prostatic hyperplasia without lower urinary tract symptoms; G47.00 Insomnia, unspecified; E87.6 Hypokalemia; Z51.11 Encounter for antineoplastic chemotherapy; E78.00 Pure hypercholesterolemia, unspecified; R60.9 Edema, unspecified
CPT/HCPCS: 36415; 70450; 71010; 71020; 71275; 78452; 80048; 80053; 80061; 82550; 82553; 82962; 83036; 83735; 83880; 84484; 85025; 93005; 93017; 93306; 96374; 96375; 97161; A9500; A9505; J0282; J1650; J1815; J2060; J2270; J2405; J2785; J3475; J7030; J7060; Q9967